=== PATIENT | female | born 1940 | race Caucasian/White ===

== ENCOUNTER 2017-01-21 09:26 | Inpatient (IN) | payer OTHER, MEDICARE ==
[~2017-01-21] VITALS: Ht 160 cm; Wt 65.5 kg
[~2017-01-21 09:26] MED LIST: ACET-1311 PO; ATOR-26 PO; B-COCAP2 PO; BISA10SU38 PR; CAL PO; CHOL20005 PO; CRG25 PO; CYAN250T PO; DEXT40GE PO; DOCU100T7 PO; EPOE10003 IV; GLGKIT IM; HYDCR1CL TP; HYDR-4717 PO; INSDGI SC; IRON20IN IV; ISOS-10 PO; LIDO1CRE16 TOP; MIRT1TAB27 PO; NTRGSL/4 UT; POLY335019 PO; PRLSR20 PO; SENN-65 PO; SODIENE PR; [UNRECOGNIZED DRUG - OTHER] PO
[2017-01-21] MEDS ORDERED: SODIUM CHLORIDE 0.9% 1000ML 1,000 ML IV SCH (09:36)
[2017-01-21] MEDS ORDERED: MECLIZINE HCL 25 MG TAB PO STA (09:52)
--- NOTE | 2017-01-21 10:00 | DIAGNOSTIC IMAGING REPORT ---
CHEST ONE VIEW PORTABLE CLINICAL HISTORY: Stroke HEADACHE, DIZZINESS. COMPARISON STUDY: 05/31/2016 FINDINGS: The heart is at the upper limits of normal in size. There are postsurgical changes of midline sternotomy. There is no focal pulmonary consolidation. There is no failure. There are no pleural effusions.[ IMPRESSION: No active disease in the chest. Electronically signed by: Guy Edward M.D. 01/21/2017 9:58 AM Dictated Date/Time: 01/21/2017 9:58 AM
[2017-01-21 10:09] LABS: BASO % 0.3 %; BASO ABS # 0.02 K/uL (0-0.2); COMPLETE YES; EOS % 2.9 %; HEMATOCRIT 43.2 % (37-47); IG% 0.3 %; LYMPH % 14.5 %; LYMPH ABS # 1.01 K/uL (1.2-3.4); MEAN CELL VOLUME 107.2 fL (80-100); MEAN CORPUSCULAR HGB CONC 30.8 g/dl (32-36); MEAN PLATELET VOLUME 10.2 fL (7.4-10.4); MONO % 7.8 %; NEUT % 74.2 %; PLATELET COUNT 155 K/uL (130-400); RED BLOOD COUNT 4.03 M/uL (4.2-5.4); WHITE BLOOD COUNT 6.96 K/uL (4.8-10.8)
--- NOTE | 2017-01-21 10:16 | DIAGNOSTIC IMAGING REPORT ---
CT HEAD WITHOUT CONTRAST (CT) CLINICAL HISTORY: Stroke HISTORY OF CEREBRAL HEMORRHAGE, dizziness COMPARISON STUDY: 06/16/2016 TECHNIQUE: Axial CT of the brain is performed from the vertex to the skull base. IV contrast was not administered for this examination. CT DOSE: k FINDINGS: No intra or extra-axial mass lesions are visualized. There is no CT evidence of acute cortical infarction. There is no evidence of midline shift. There is no acute hemorrhage. No calvarial fractures are visualized. There are moderate white matter hypodensities likely on a small vessel basis. There is an old lacunar infarct within the left thalamus. There is mild ventricular dilatation, likely secondary to volume loss There is a left maxillary sinus retention cyst. IMPRESSION: 1. Interval resolution of the previously identified right-sided subdural hematoma 2. No evidence of acute hemorrhage 3. White matter hypodensities likely on a small vessel basis Electronically signed by: Guy Edward M.D. 01/21/2017 10:15 AM Dictated Date/Time: 01/21/2017 10:10 AM
[2017-01-21 10:25] LABS: INR 1.1 (0.9-1.1); PARTIAL THROMBOPLASTIN RATIO 1.1; PROTHROMBIN TIME (PATIENT) 11.6 SECONDS (9.0-12.0)
[2017-01-21] MEDS ORDERED: SODIUM CHLORIDE 0.9% 500ML 500 ML IV STA (10:33)
[2017-01-21 10:47] LABS: BUN/CREATININE RATIO 7.9 (10-20); CREATININE 6.7 mg/dl (0.60-1.20); POTASSIUM 4.8 mmol/L (3.5-5.1)
[2017-01-21] MEDS ORDERED: CYAN500T PO (10:56)
[2017-01-21] MEDS ORDERED: CALC667C4 PO (10:56)
[2017-01-21] MEDS ORDERED: MIRT15TA PO (10:56)
[2017-01-21] MEDS ORDERED: MELA1TAB5 PO (10:56)
[2017-01-21] MEDS ORDERED: B-CO1CAP17 PO (10:56)
[2017-01-21] MEDS ORDERED: IRON20IN INJ (11:03)
[2017-01-21] MEDS ORDERED: [UNRECOGNIZED DRUG - CODE] SQ (11:03)
--- NOTE | 2017-01-21 11:08 | EMERGENCY ROOM VISIT NOTE ---
History Report prepared by Rajiv: Prieto Haider Under the Supervision of: Dr. Dinh Beltran M.D. First contact with patient: 09:34 Chief Complaint: HEADACHE Stated Complaint: BRAIN BLEED IN OCT, HEADACHE, DIZZY, SICK History of Present Illness The patient is a 76 year old female who presents to the Emergency Room with complaints of a constant headache starting a few days ago. The patient states that she gets dialysis every Wednesday, Wednesday, and Wednesday, and the other day she was laying down, when she woke up she was very dizzy. The patient additionally states that she is seeing double, and it is worse when she puts her head a certain way. The patient additionally states that she had a previous brain bleed after she hit her head on the left side. Source of History: patient Onset: a few days ago Position: head Quality: ache Timing: constant Note: Associated symptoms: Dizziness and seeing double Review of Systems See HPI for pertinent positives & negatives. A total of 10 systems reviewed and were otherwise negative. Past Medical & Surgical Medical Problems: (1) Anemia of renal disease (2) CAD (coronary artery disease) (3) CHF (congestive heart failure) (4) CKD (chronic kidney disease), stage IV (5) DM (diabetes mellitus) (6) Dyslipidemia (7) End stage renal disease (8) Hemodialysis patient (9) HTN (hypertension) (10) Hx of subdural hematoma (11) Rectal cancer (12) Stroke (13) Subdural hematoma (14) Vertigo (15) Weakness Surgical Problems: (1) H/O tubal ligation (2) H/O: hysterectomy (3) History of carpal tunnel surgery (4) History of incisional hernia repair (5) History of lumbar surgery (6) History of partial surgical removal of colon (7) S/p A-port placement (8) S/P appendectomy (9) S/P CABG x 4 Family History Diabetes mellitus SISTER BROTHER FH: CAD (coronary artery disease) FATHER SISTER FH: cancer BROTHER (lung CA) MOTHER (lymphoma) DAUGHTER (breast CA) Social History Smoking Status: Never Smoker Alcohol Use: none Drug Use: none Marital Status: Housing Status: lives with family, residential Occupation Status: retired Current/Historical Medications Scheduled Atorvastatin (Lipitor), 80 MG PO HS Calcium Acetate (Phoslo 667 Mg), 1 CAP PO TIDM Carvedilol (Carvedilol), 25 MG PO BID Cholecalciferol (Vitamin D3), 2,000 INTER.UNIT PO DAILY Cyanocobalamin (Vitamin B-12), 500 MCG PO DAILY Docusate Sodium (Stool Softener), 100 MG PO BID Insulin Glargine (Lantus), 10 UNITS SC HS Iron Sucrose (Venofer), 100 MG INJ UD Isosorbide Mononitrate (Isosorbide Mononitrate ER), 60 MG PO QAM Melatonin (Kp Melatonin), 1 TAB PO HS Methoxy Polyethylene Glycol-Ep (Mircera), 200 MCG SQ Q14D Mirtazapine (Remeron), 15 MG PO HS Omeprazole (Prilosec), 40 MG PO DAILY Vitamin B Cmplx/Vitc/Folic Ac (Nephrocaps), 1 CAP PO DAILY [2 César/cc Supplement], 120 ML PO TID Scheduled PRN Acetaminophen (Tylenol), 650 MG PO Q6H PRN for Pain Dextrose (Diabetic Use) (Insta-Glucose), 1 APPLN PO UD PRN for HYPOGLYCEMIA PROTOCOL Glucagon (Glucagon Emergency Kit), 1 MG IM UD PRN for HYPOGLYCEMIA PROTOCOL Hydrocortisone 1% (Hydrocortisone 1%), 1 APPLN TP Q4H PRN for Itching Nitroglycerin (Nitrostat), 0.4 MG UT UD PRN for Chest Pain Allergies Coded Allergies: BEE STING (Verified Allergy, Unknown, ANAPHYLAXIS, 05/15/16) Erythromycin (Verified Allergy, Unknown, reaction unknown, 05/15/16) Hydromorphone (Verified Allergy, Unknown, hard to wake up, 01/21/17) Iodinated Diagnostic Agents (Verified Allergy, Unknown, ITCHY/HIVES, ) Morphine (Unverified Allergy, Unknown, hives/rash, 01/21/17) Penicillins (Verified Allergy, Unknown, HIVES, 05/15/16) Oxycodone (Verified Adverse Reaction, Mild, CAUSES ITCHING, 05/15/16) Amlodipine (Verified Adverse Reaction, Unknown, DIZZY, GI UPSET, 05/15/16) Codeine (Verified Adverse Reaction, Unknown, HALLUCINATES, 05/15/16) Neomycin (Verified Adverse Reaction, Unknown, vomit, 05/15/16) Physical Exam Vital Signs Date Time Temp Pulse Resp B/P (MAP) Pulse Ox O2 Delivery O2 Flow Rate FiO2 01/21/17 13:19 36.5 68 22 185/67 90 Room Air 01/21/17 12:45 61 22 185/67 100 Room Air 01/21/17 10:34 71 01/21/17 10:28 97 Room Air 01/21/17 09:29 36.5 91 17 140/67 97 Room Air Physical Exam GENERAL: Patient is a healthy-appearing well-nourished female HEAD: No evidence of meningitis or encephalitis. Normocephalic atraumatic EYES: Ocular movements intact pupils equal and react to light OROPHARYNX mucous membranes are moist no exudates present no erythema or edema present NECK: Supple no nuchal rigidity CHEST: Good equal expansion LUNGS: Clear and equal to auscultation CARDIAC: Normal S1 and S2 ABDOMEN: Soft nontender no guarding BACK: No CVA tenderness EXTREMITIES: No pain upon palpation normal muscle strength in all groups no clubbing cyanosis or edema NEURO: Patient is following commands and answering questions appropriately. Alert and oriented x3 Cranial Nerves 2-12 grossly intact Medical Decision & Procedures ER Provider Diagnostic Interpretation: Radiology results as stated below per my review and radiologist interpretation: CT HEAD WITHOUT CONTRAST (CT) CLINICAL HISTORY: Stroke HISTORY OF CEREBRAL HEMORRHAGE, dizziness COMPARISON STUDY: 06/16/2016 TECHNIQUE: Axial CT of the brain is performed from the vertex to the skull base. IV contrast was not administered for this examination. CT DOSE: k FINDINGS: No intra or extra-axial mass lesions are visualized. There is no CT evidence of acute cortical infarction. There is no evidence of midline shift. There is no acute hemorrhage. No calvarial fractures are visualized. There are moderate white matter hypodensities likely on a small vessel basis. There is an old lacunar infarct within the left thalamus. There is mild ventricular dilatation, likely secondary to volume loss There is a left maxillary sinus retention cyst. IMPRESSION: 1. Interval resolution of the previously identified right-sided subdural hematoma 2. No evidence of acute hemorrhage 3. White matter hypodensities likely on a small vessel basis Electronically signed by: Guy Edward M.D. 01/21/2017 10:15 AM Dictated Date/Time: 01/21/2017 10:10 AM CHEST ONE VIEW PORTABLE CLINICAL HISTORY: Stroke HEADACHE, DIZZINESS. COMPARISON STUDY: 05/31/2016 FINDINGS: The heart is at the upper limits of normal in size. There are postsurgical changes of midline sternotomy. There is no focal pulmonary consolidation. There is no failure. There are no pleural effusions.[ IMPRESSION: No active disease in the chest. Electronically signed by: Guy Edward M.D. 01/21/2017 9:58 AM Dictated Date/Time: 01/21/2017 9:58 AM Laboratory Results 01/21/17 09:50 Red Blood Count 4.03, Mean Corpuscular Volume 107.2, Mean Corpuscular Hemoglobin 33.0, Mean Corpuscular Hemoglobin Concent 30.8, Mean Platelet Volume 10.2, Neutrophils (%) (Auto) 74.2, Lymphocytes (%) (Auto) 14.5, Monocytes (%) ( Auto) 7.8, Eosinophils (%) (Auto) 2.9, Basophils (%) (Auto) 0.3, Neutrophils # ( Auto) 5.17, Lymphocytes # (Auto) 1.01, Monocytes # (Auto) 0.54, Eosinophils # ( Auto) 0.20, Basophils # (Auto) 0.02 01/21/17 09:50 Test 01/21/17 09:50 01/21/17 10:28 White Blood Count 6.96 K/uL (4.8-10.8) Red Blood Count 4.03 M/uL (4.2-5.4) Hemoglobin 13.3 g/dL (12.0-16.0) Hematocrit 43.2 % (37-47) Mean Corpuscular Volume 107.2 fL (80-100) Mean Corpuscular Hemoglobin 33.0 pg (25-34) Mean Corpuscular Hemoglobin Concent 30.8 g/dl (32-36) Platelet Count 155 K/uL (130-400) Mean Platelet Volume 10.2 fL (7.4-10.4) Neutrophils (%) (Auto) 74.2 % Lymphocytes (%) (Auto) 14.5 % Monocytes (%) (Auto) 7.8 % Eosinophils (%) (Auto) 2.9 % Basophils (%) (Auto) 0.3 % Neutrophils # (Auto) 5.17 K/uL (1.4-6.5) Lymphocytes # (Auto) 1.01 K/uL (1.2-3.4) Monocytes # (Auto) 0.54 K/uL (0.11-0.59) Eosinophils # (Auto) 0.20 K/uL (0-0.5) Basophils # (Auto) 0.02 K/uL (0-0.2) RDW Standard Deviation 71.4 fL (36.4-46.3) RDW Coefficient of Variation 17.9 % (11.5-14.5) Immature Granulocyte % (Auto) 0.3 % Immature Granulocyte # (Auto) 0.02 K/uL (0.00-0.02) Prothrombin Time 11.6 SECONDS (9.0-12.0) Prothromb Time International Ratio 1.1 (0.9-1.1) Activated Partial Thromboplast Time 27.8 SECONDS (21.0-31.0) Partial Thromboplastin Ratio 1.1 Anion Gap 9.0 mmol/L (3-11) Est Creatinine Clear Calc Drug Dose 6.6 ml/min Estimated GFR () 6.4 Estimated GFR (Non- 5.6 BUN/Creatinine Ratio 7.9 (10-20) Calcium Level 9.0 mg/dl (8.5-10.1) Total Creatine Kinase 65 U/L (26-192) Creatine Kinase MB 2.6 ng/ml (0.5-3.6) Creatine Kinase MB Ratio 4.0 (0-3.0) Troponin I 0.026 ng/ml (0-0.045) Bedside Prothrombin Time INR 1.2 (0.9-1.1) Bedside Glucose 197 mg/dl (70-90) Labs reviewed by ED physician. Medications Administered Medications (Trade) Dose Ordered Sig/Marlon Route Start Time Stop Time Status Last Admin Dose Admin Sodium Chloride 1,000 ml @ 50 mls/hr Q20H IV 01/21/17 09:36 01/21/17 15:22 DC 01/21/17 11:17 50 MLS/HR Meclizine HCl (Antivert Tab) 25 mg NOW STAT PO 01/21/17 09:52 01/21/17 09:53 DC 01/21/17 11:00 25 MG Sodium Chloride 500 ml @ 999 mls/hr Q31M STAT IV 01/21/17 10:33 01/21/17 11:03 DC 7/13/17 11:17 999 MLS/HR ED Course 0934: Past medical records reviewed. The patient was evaluated in room B5. A complete history and physical examination was performed. 0936: Sodium Chloride 1000 ml @ 50 mls/hr 0952: Antivert Tab 25mg PO 1033: Sodium Chloride 500 ml @ 999 mls/hr IV 1255: I reassessed the patient, and she was resting. 1305: I discussed the patient's case with Leonardo Jhaveri. He is going to evaluate the patient for further treatment Medical Decision Differential diagnosis: Etiologies such as migraine headache, meningitis, sinusitis, CO exposure, ICH, SAH, infection, tumor, headache, sinus thrombosis, arterial dissection, as well as others were entertained. Blood Pressure Screening: Patient was found to have an elevated blood pressure and was referred to their primary care doctor for recheck and further treatment Medication Reconciliation: I attest that I have personally reviewed the patient' s current medication list This is a 76-year-old female who presents emergency department complaining of double vision as well as dizziness that started acutely. I'm concerned the patient may of had a stroke. She was sent for CAT scan of the head which did not show any acute process. I then attempted to send the patient for an MRI however she was unable to tolerate this. Being still concerned about the patient's status I did discuss the case with the hospitalist service who agreed to admit the patient. Patient and family were in agreement with the treatment plan. Consults Time Called: 1301 Consulting Physician: Leonardo Jhaveri Returned Call: 1305 I discussed the patient's case with Leonardo Jhaveri. He is going to evaluate the patient for further treatment Impression Primary Impression: Dizziness Additional Impression: Diplopia Scribe Attestation The scribe's documentation has been prepared under my direction and personally reviewed by me in its entirety. I confirm that the note above accurately reflects all work, treatment, procedures, and medical decision making performed by me. Departure Information Dispostion Being Evaluated By Hospitalist Referrals Concha Velasquez D.O. (PCP) Patient Instructions [facility] Problem Qualifiers
[2017-01-21 13:19] VITALS: BP 185/67; PULSE 68; TEMP 36.5; O2SAT 90; Ht 160 cm; Wt 65.5 kg
[2017-01-21] MEDS ORDERED: ALUMINUM/MAGNESIUM/SIMETH (MAALOX MAX) 30 ML UDC PO PRN (13:30)
[2017-01-21] MEDS ORDERED: GLUCOSE 10 TABS/TUBE PO PRN (13:30)
[2017-01-21] MEDS ORDERED: DEXTROSE 50% 50 ML SYR IV PRN (13:30)
[2017-01-21] MEDS ORDERED: ZOLPIDEM TARTRATE 5 MG TAB PO PRN (13:30)
[2017-01-21] MEDS ORDERED: GLUCOSE 40% GEL 15 GM TUBE PO PRN (13:30)
[2017-01-21] MEDS ORDERED: POLYETHYLENE (MIRALAX) 17 GM PACK PO PRN (13:30)
[2017-01-21] MEDS ORDERED: MAGNESIUM HYDROXIDE SUSP 30 ML UDC PO PRN (13:30)
[2017-01-21] MEDS ORDERED: NITROGLYCERIN 0.4 MG SL PER TAB CHARGE UT PRN (13:30)
[2017-01-21] MEDS ORDERED: MECLIZINE HCL 25 MG TAB PO PRN (13:30)
[2017-01-21] MEDS ORDERED: ONDANSETRON INJ 2 MG/ML 2 ML VIAL IV PRN (13:30)
[2017-01-21] MEDS ORDERED: GLUCAGON FOR INJ 1 MG VIAL SQ PRN (13:30)
[2017-01-21] MEDS ORDERED: ACETAMINOPHEN 325 MG TAB PO PRN ×2 (13:30)
[2017-01-21] MEDS ORDERED: PHARMACY GLYCEMIC MGMT CONSULT PRN (14:00)
--- NOTE | 2017-01-21 14:32 | Pharmacy Progress Note ---
Glycemic Control Intl Consult Date of Service Jan 21, 2017. Scope Glycemic Pharmacist consulted by Dr Bonilla on 01/21/2017 for glycemic control and to write orders per [facility] inpatient glycemic control protocol Objective Weight (Kilograms): 64.000 Accuchecks BSG (last 24hrs): Test 01/21/17 09:50 01/21/17 10:28 Random Glucose 184 mg/dl (70-99) Bedside Glucose 197 mg/dl (70-90) Laboratory Data (last 24hrs) Test 01/21/17 09:50 Anion Gap 9.0 mmol/L BUN/Creatinine Ratio 7.9 Blood Urea Nitrogen 54 mg/dl Creatinine 6.70 mg/dl Potassium Level 4.8 mmol/L Sodium Level 136 mmol/L White Blood Count 6.96 K/uL Red Blood Count 4.03 M/uL Hemoglobin 13.3 g/dL Hematocrit 43.2 % Mean Corpuscular Volume 107.2 fL Mean Corpuscular Hemoglobin 33.0 pg Mean Corpuscular Hemoglobin Concent 30.8 g/dl Platelet Count 155 K/uL Mean Platelet Volume 10.2 fL Neutrophils (%) (Auto) 74.2 % Lymphocytes (%) (Auto) 14.5 % Monocytes (%) (Auto) 7.8 % Eosinophils (%) (Auto) 2.9 % Basophils (%) (Auto) 0.3 % Neutrophils # (Auto) 5.17 K/uL Lymphocytes # (Auto) 1.01 K/uL Monocytes # (Auto) 0.54 K/uL Eosinophils # (Auto) 0.20 K/uL Basophils # (Auto) 0.02 K/uL Recent Pertinent Medications Outpatient Anti-diabetic Regimen: * Lantus 10 units qHS (last taken 01/20/2017) * A1c = 5.9 % 06/06/2016 Risk Factors for Insulin Resistance: * Diet: type 2 diabetic diet Assessment & Plan ASSESSMENT: * ADA & AACE recommend a goal blood sugar range 140-180 mg/dl for the majority of critically ill & non-critically ill patients. However, more stringent targets may be selected in individual cases. Will utilize more stringent goal of 120-160mg/dl based on patient age & comorbidities. Additionally, tighter glycemic control is warranted due to the patient's complex history including current condition of diplopia. * Ms Prajapati is a 76 y/o F admitted with a several day long headache and diplopia. She has a PMH of dialysis on MWF and intracranial hemorrhage April 2016. She has had several previous admissions. During the last admission in 2015 , the patient received Lantus 5 units daily plus a lose correctional insulin. This provided adequate glycemic control. * As the patient is maintained on Lantus 10 units as an outpatient, I slightly reduced the Lantus dose to 8 units (a 20% reduction for inpatient use) and added a weight-based stress of two sliding scale. This should provide additional meal coverage. PLAN FOR INPATIENT GLYCEMIC CONTROL: * Basal insulin with LANTUS 8 units SQ qHS * Correctional Insulin with NOVOLOG per scale ACHS * Goal Range: Low 120 mg/dL - High 160 mg/dL * Correction Factor: 35 mg/dL/unit * Nutritional / Prandial insulin per carb ratio of 1 unit per 12 grams CHO consumed * Please note that the plan above was derived based on current level of insulin resistance and hospital stress. These recommendations are appropriate for inpatient admission only. Plan of care upon discharge will need to be reassessed to avoid potential outpatient hypo/hyperglycemia. Thank you.
[2017-01-21 15:56] VITALS: BP 134/65; PULSE 73; TEMP 36.7; O2SAT 96
--- NOTE | 2017-01-21 16:05 | History and Physical ---
History & Physical Date & Time of Service: Jan 21, 2017 at 15:43 Chief Complaint: Hx Of Subdural Hematoma, Vertigo Primary Care Physician: Concha Velasquez D.O. History of Present Illness Source: patient, family, clinic records, hospital records This is a 76 year old female with a PMH of CAD s/p CABG, hx. of traumatic subdural hematoma in April 2016, ESRD on HD, HTN, anemia of renal disease, well controlled DM2 presents with 2-3 day history of dizziness, blurry vision, vertigo, nausea - states that she had hemodialysis on Wednesday and since then she has been feeling very dizzy and felt as if the room is spinning; she states that she is seeing double and very nauseous. Has had a subdural hematoma, but that has been resolved without surgical intervention. Received HD on Wednesday as well, but today she felt even worse and presented to the ER. Could not take part in MRI due to dizziness and loud noises. States if her headache went away, she may be able to take part. Denies chest pain/shortness of breath. States that dizziness is worse with head movement to the L side. Past Medical/Surgical History Medical Problems: (1) Anemia of renal disease Status: Chronic (2) CAD (coronary artery disease) Status: Chronic (3) CHF (congestive heart failure) Status: Chronic (4) CKD (chronic kidney disease), stage IV Status: Chronic (5) DM (diabetes mellitus) Status: Chronic (6) Dyslipidemia Status: Chronic (7) End stage renal disease Status: Chronic (8) Hemodialysis patient Status: Chronic (9) HTN (hypertension) Status: Chronic (10) Rectal cancer Status: Chronic (11) Stroke Status: Resolved (12) Subdural hematoma Status: Chronic Surgical Problems: (1) H/O tubal ligation Status: Chronic (2) H/O: hysterectomy Status: Chronic (3) History of carpal tunnel surgery Status: Chronic (4) History of incisional hernia repair Status: Chronic (5) History of lumbar surgery Status: Chronic (6) History of partial surgical removal of colon Permanent Comment: Low anterior resection with primary anastomosis; proctoscopy 06/27/09 Status: Chronic (7) S/p A-port placement Permanent Comment: removed in 2011 Status: Chronic (8) S/P appendectomy Status: Chronic (9) S/P CABG x 4 Status: Chronic Family History Diabetes mellitus SISTER BROTHER FH: CAD (coronary artery disease) FATHER SISTER FH: cancer BROTHER (lung CA) MOTHER (lymphoma) DAUGHTER (breast CA) Social History Smoking Status: Never Smoker Drug Use: none Marital Status: Housing status: lives with significant other, prison Occupational Status: retired Immunizations History of Influenza Vaccine: No History of Tetanus Vaccine?: Yes History of Pneumococcal: Unknown History of Hepatitis B Vaccine: Unknown Multi-Drug Resistant Organisms History of MDRO: No Allergies Coded Allergies: BEE STING (Verified Allergy, Unknown, ANAPHYLAXIS, 05/15/16) Erythromycin (Verified Allergy, Unknown, reaction unknown, 05/15/16) Hydromorphone (Verified Allergy, Unknown, hard to wake up, 01/21/17) Iodinated Diagnostic Agents (Verified Allergy, Unknown, ITCHY/HIVES, ) Morphine (Unverified Allergy, Unknown, hives/rash, 01/21/17) Penicillins (Verified Allergy, Unknown, HIVES, 05/15/16) Oxycodone (Verified Adverse Reaction, Mild, CAUSES ITCHING, 05/15/16) Amlodipine (Verified Adverse Reaction, Unknown, DIZZY, GI UPSET, 05/15/16) Codeine (Verified Adverse Reaction, Unknown, HALLUCINATES, 05/15/16) Neomycin (Verified Adverse Reaction, Unknown, vomit, 05/15/16) Home Medications Scheduled Atorvastatin (Lipitor), 80 MG PO HS Calcium Acetate (Phoslo 667 Mg), 1 CAP PO TIDM Carvedilol (Carvedilol), 25 MG PO BID Cholecalciferol (Vitamin D3), 2,000 INTER.UNIT PO DAILY Cyanocobalamin (Vitamin B-12), 500 MCG PO DAILY Docusate Sodium (Stool Softener), 100 MG PO BID Insulin Glargine (Lantus), 10 UNITS SC HS Iron Sucrose (Venofer), 100 MG INJ UD Isosorbide Mononitrate (Isosorbide Mononitrate ER), 60 MG PO QAM Melatonin (Kp Melatonin), 1 TAB PO HS Methoxy Polyethylene Glycol-Ep (Mircera), 200 MCG SQ Q14D Mirtazapine (Remeron), 15 MG PO HS Omeprazole (Prilosec), 40 MG PO DAILY Vitamin B Cmplx/Vitc/Folic Ac (Nephrocaps), 1 CAP PO DAILY [2 César/cc Supplement], 120 ML PO TID Scheduled PRN Acetaminophen (Tylenol), 650 MG PO Q6H PRN for Pain Dextrose (Diabetic Use) (Insta-Glucose), 1 APPLN PO UD PRN for HYPOGLYCEMIA PROTOCOL Glucagon (Glucagon Emergency Kit), 1 MG IM UD PRN for HYPOGLYCEMIA PROTOCOL Hydrocortisone 1% (Hydrocortisone 1%), 1 APPLN TP Q4H PRN for Itching Nitroglycerin (Nitrostat), 0.4 MG UT UD PRN for Chest Pain Review of Systems Constitutional: No fever, No chills, No sweats, No weakness, No fatigue Eyes: + worsening of vision, + diplopia ENT: No hearing loss Respiratory: No cough, No sputum, No wheezing, No shortness of breath, No dyspnea on exertion, No dyspnea at rest, No hemoptysis Cardiovascular: No chest pain, No edema, No palpitations Abdomen: + nausea, No pain, No vomiting, No diarrhea, No constipation, No GI bleeding Genitourinary - Female: + problem reported (anuria) Neurologic: + vertigo, + balance problems, No paralysis, No numbness/tingling Psychiatric: No depression symptoms Hematologic / Lymphatic: No abnormal bleeding/bruising Integumentary: No rash Allergic / Immunologic: No environmental allergies, No seasonal allergies Physical Exam Vital Signs Date Time Temp Pulse Resp B/P (MAP) Pulse Ox O2 Delivery O2 Flow Rate FiO2 01/21/17 15:12 76 18 171/89 98 01/21/17 13:19 36.5 68 22 185/67 90 Room Air 01/21/17 12:45 61 22 185/67 100 Room Air 01/21/17 10:34 71 01/21/17 10:28 97 Room Air 01/21/17 09:29 36.5 91 17 140/67 97 Room Air General Appearance: + moderate distress (secondary to headache, dizziness, nausea) Head: normocephalic, atraumatic Eyes: normal inspection ENT: hearing grossly normal Neck: supple Respiratory/Chest: chest non-tender, lungs clear, normal breath sounds, no respiratory distress, no accessory muscle use Cardiovascular: regular rate, rhythm, no edema, no murmur Abdomen/GI: normal bowel sounds, non tender, soft Back: no CVA tenderness, no muscle spasm Extremities/Musculoskelatal: normal capillary refill, no pedal edema 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, no motor/sensory deficits, alert, normal mood/affect Skin: normal color Lymphatic: no adenopathy Diagnostics Laboratory Results Results Past 24 Hours Test 01/21/17 09:50 01/21/17 10:28 Range/Units White Blood Count 6.96 4.8-10.8 K/uL Red Blood Count 4.03 4.2-5.4 M/uL Hemoglobin 13.3 12.0-16.0 g/dL Hematocrit 43.2 37-47 % Mean Corpuscular Volume 107.2 80-100 fL Mean Corpuscular Hemoglobin 33.0 25-34 pg Mean Corpuscular Hemoglobin Concent 30.8 32-36 g/dl Platelet Count 155 130-400 K/uL Mean Platelet Volume 10.2 7.4-10.4 fL Neutrophils (%) (Auto) 74.2 % Lymphocytes (%) (Auto) 14.5 % Monocytes (%) (Auto) 7.8 % Eosinophils (%) (Auto) 2.9 % Basophils (%) (Auto) 0.3 % Neutrophils # (Auto) 5.17 1.4-6.5 K/uL Lymphocytes # (Auto) 1.01 1.2-3.4 K/uL Monocytes # (Auto) 0.54 0.11-0.59 K/uL Eosinophils # (Auto) 0.20 0-0.5 K/uL Basophils # (Auto) 0.02 0-0.2 K/uL RDW Standard Deviation 71.4 36.4-46.3 fL RDW Coefficient of Variation 17.9 11.5-14.5 % Immature Granulocyte % (Auto) 0.3 % Immature Granulocyte # (Auto) 0.02 0.00-0.02 K/uL Prothrombin Time 11.6 9.0-12.0 SECONDS Prothromb Time International Ratio 1.1 0.9-1.1 Activated Partial Thromboplast Time 27.8 21.0-31.0 SECONDS Partial Thromboplastin Ratio 1.1 Sodium Level 136 136-145 mmol/L Potassium Level 4.8 3.5-5.1 mmol/L Chloride Level 95 98-107 mmol/L Carbon Dioxide Level 32 21-32 mmol/L Anion Gap 9.0 3-11 mmol/L Blood Urea Nitrogen 54 7-18 mg/dl Creatinine 6.70 0.60-1.20 mg/dl Est Creatinine Clear Calc Drug Dose 6.6 ml/min Estimated GFR () 6.4 Estimated GFR (Non- 5.6 BUN/Creatinine Ratio 7.9 10-20 Random Glucose 184 70-99 mg/dl Calcium Level 9.0 8.5-10.1 mg/dl Total Creatine Kinase 65 26-192 U/L Creatine Kinase MB 2.6 0.5-3.6 ng/ml Creatine Kinase MB Ratio 4.0 0-3.0 Troponin I 0.026 0-0.045 ng/ml Bedside Prothrombin Time INR 1.2 0.9-1.1 Bedside Glucose 197 70-90 mg/dl Diagnostic Radiology CHEST ONE VIEW PORTABLE CLINICAL HISTORY: Stroke HEADACHE, DIZZINESS. COMPARISON STUDY: 05/31/2016 FINDINGS: The heart is at the upper limits of normal in size. There are postsurgical changes of midline sternotomy. There is no focal pulmonary consolidation. There is no failure. There are no pleural effusions.[ IMPRESSION: No active disease in the chest. CT HEAD WITHOUT CONTRAST (CT) CLINICAL HISTORY: Stroke HISTORY OF CEREBRAL HEMORRHAGE, dizziness COMPARISON STUDY: 06/16/2016 TECHNIQUE: Axial CT of the brain is performed from the vertex to the skull base. IV contrast was not administered for this examination. CT DOSE: k FINDINGS: No intra or extra-axial mass lesions are visualized. There is no CT evidence of acute cortical infarction. There is no evidence of midline shift. There is no acute hemorrhage. No calvarial fractures are visualized. There are moderate white matter hypodensities likely on a small vessel basis. There is an old lacunar infarct within the left thalamus. There is mild ventricular dilatation, likely secondary to volume loss There is a left maxillary sinus retention cyst. IMPRESSION: 1. Interval resolution of the previously identified right-sided subdural hematoma 2. No evidence of acute hemorrhage 3. White matter hypodensities likely on a small vessel basis EKG Normal sinus rhythm Possible Left atrial enlargement Inferior infarct , age undetermined Anterior infarct , age undetermined ST & T wave abnormality, consider lateral ischemia Prolonged QT Impression Assessment and Plan This is a 76 year old female with a PMH of CAD s/p CABG, hx. of traumatic subdural hematoma in April 2016, ESRD on HD, HTN, anemia of renal disease, well controlled DM2 presents with 2-3 day history of dizziness, blurry vision, vertigo, nausea Vertigo seems more like a typical positional vertigo worse with head rotation to the L PT consulted for [facility] PT/OT evaluation meclizine PRN Zofran PRN Head CT negative check Brain MRI Hx. of Traumatic Subdural Hematoma in April 2016, was at [facility] no surgery performed improving condition, Head CT obtained; hematoma resolved would like to rule out CVA by obtaining additional imagining Brain MRI/MRA - will need better nausea to obtain this as patient did not tolerate it ESRD on HD receives hemodialysis on M, W, F consulted nephrology HD management continue nephrocaps/vitamins renal diet CAD s/p CABG no chest pain/SOB initial troponin negative, EKG looks similar to previous continue statin, b-sukhjinder, Imdur no aspirin due to hx. of brain bleed DM2 well controlled last Ha1c = 6.6% for now continue insulin, may need to be tapered off as outpatient to prevent hypoglycemia HTN blood pressure stable with medications, continue current meds DVT ppx SCDs secondary to brain bleed FULL CODE Advanced Directives Existing Living Will: Yes Existing Power of Strapping Machine Tender: Yes VTE Prophylaxis VTE Risk Assessment Done? Y/N: Yes Risk Level: Moderate
[2017-01-21] MEDS: INSULIN ASPART 100 UNITS/ML 3 ML PEN SC SCH ×2 (16:30→20:10)
--- NOTE | 2017-01-21 16:37 | Nephrology Consultation ---
Nephrology Consultation Date of Consultation: Jan 21, 2017. Attending Physician: Chad Reason for Consultation: ESRD History of Present Illness Patient is a 76 year old female who dialyzes at the [facility] on . last dialysis treatment was wednesday. pt has been having vertigo since wednesday. pt seeing double. does not seem to improve off dialysis or worsen with dialysis. pt with hx of traumatic subdural hematoma april of 2016 and has underlyind CAD with CABG. pt does not urinate much but no sob and has been watching her fluid intake carefully. pt eating dinner and resting comfortably. Past Medical/Surgical History Medical Problems: (1) Acute kidney failure Status: Acute (2) Cellulitis of antecubital fossa Status: Acute (3) Cellulitis of leg, left Status: Acute (4) CKD (chronic kidney disease) Status: Acute (5) Constipation Status: Acute (6) Diarrhea Status: Acute (7) Diplopia Status: Acute (8) Dizziness Status: Acute (9) Subdural hematoma Status: Acute (10) Vomiting Status: Acute ESRD Subdural hematoma CAD tunneled dialysis catheter placement DM Hyperlipidemia rectal cancer hysterectomy tubal ligation appendectomy CABGx4 hernia repair Family History Diabetes mellitus SISTER BROTHER FH: CAD (coronary artery disease) FATHER SISTER FH: cancer BROTHER (lung CA) MOTHER (lymphoma) DAUGHTER (breast CA) Social History Smoking Status: Never Smoker Alcohol Use: none Drug Use: none Marital Status: Housing Status: lives with family, [facility] Occupation Status: retired Allergies Coded Allergies: BEE STING (Verified Allergy, Unknown, ANAPHYLAXIS, 05/15/16) Erythromycin (Verified Allergy, Unknown, reaction unknown, 05/15/16) Hydromorphone (Verified Allergy, Unknown, hard to wake up, 01/21/17) Iodinated Diagnostic Agents (Verified Allergy, Unknown, ITCHY/HIVES, ) Morphine (Unverified Allergy, Unknown, hives/rash, 01/21/17) Penicillins (Verified Allergy, Unknown, HIVES, 05/15/16) Oxycodone (Verified Adverse Reaction, Mild, CAUSES ITCHING, 05/15/16) Amlodipine (Verified Adverse Reaction, Unknown, DIZZY, GI UPSET, 05/15/16) Codeine (Verified Adverse Reaction, Unknown, HALLUCINATES, 05/15/16) Neomycin (Verified Adverse Reaction, Unknown, vomit, 05/15/16) Medications Current Inpatient Medications Medications (Trade) Dose Ordered Sig/Marlon Route Start Time Stop Time Status Last Admin Dose Admin Al Hydrox/Mg Hydrox/Simethicone (Maalox Max Susp) 15 ml Q4H PRN PO 01/21/17 13:30 02/20/17 13:29 Magnesium Hydroxide (Milk Of Magnesia Susp) 30 ml Q12H PRN PO 01/21/17 13:30 02/20/17 13:29 Zolpidem Tartrate (Ambien Tab) 5 mg HSZ PRN PO 01/21/17 13:30 02/20/17 13:29 Ondansetron HCl (Zofran Inj) 4 mg Q6H PRN IV 01/21/17 13:30 02/20/17 13:29 Polyethylene (Miralax Powder Packet) 17 gm DAILY PRN PO 01/21/17 13:30 02/20/17 13:29 Insulin Aspart (novoLOG ASPART) SLIDING SCALE If C... ACHS SC 01/21/17 16:00 02/20/17 15:59 Glucose (Glucose 40% Gel) 15-30 GRAMS 15 GRAMS... UD PRN PO 01/21/17 13:30 02/20/17 13:29 Glucose (Glucose Chew Tab) 4-8 Tablets 4 Tabl... UD PRN PO 01/21/17 13:30 02/20/17 13:29 Dextrose (Dextrose 50% 50ML Syringe) 25-50ML OF 50% DW IV FOR... UD PRN IV 01/21/17 13:30 02/20/17 13:29 Glucagon (Glucagon Inj) 1 mg UD PRN SQ 01/21/17 13:30 02/20/17 13:29 Miscellaneous Information (Consult Glycemic Management Pharmacy) 1 ea UD PRN N/A 01/21/17 14:00 02/20/17 13:59 Meclizine HCl (Antivert Tab) 25 mg TID PRN PO 01/21/17 13:30 02/20/17 13:29 Acetaminophen (Tylenol Tab) 650 mg Q6H PRN PO 01/21/17 13:30 02/20/17 13:29 Atorvastatin Calcium (Lipitor Tab) 80 mg HS PO 01/21/17 21:00 02/20/17 20:59 Calcium Acetate (Phoslo Cap) 667 mg TIDM PO 01/21/17 17:00 02/20/17 17:59 Carvedilol (Coreg Tab) 25 mg BID PO 01/21/17 21:00 02/20/17 20:59 Cyanocobalamin (Vitamin B-12 Tab) 500 mcg DAILY PO 01/22/17 09:00 02/21/17 08:59 Isosorbide Mononitrate (Imdur Ext Rel Tab) 60 mg QAM PO 01/22/17 09:00 02/21/17 08:59 Mirtazapine (Remeron Tab) 15 mg HS PO 01/21/17 21:00 02/20/17 20:59 Nitroglycerin (Nitrostat Tab) 0.4 mg UD PRN UT 01/21/17 13:30 02/20/17 13:29 Vitamin B Complex/ Vit C/Folic Acid (Nephrocaps) 1 cap DAILY PO 01/22/17 09:00 02/21/17 08:59 Cholecalciferol (Vitamin D Tab) 2,000 inter.unit DAILY PO 01/22/17 09:00 02/21/17 08:59 Docusate Sodium (coLACE CAP) 100 mg BID PO 01/21/17 21:00 02/20/17 20:59 Miscellaneous Information (Order Awaiting Action) 1 ea Q8 N/A 01/21/17 16:00 02/20/17 15:59 Pantoprazole Sodium (Protonix Tab) 40 mg DAILY PO 01/22/17 09:00 02/21/17 08:59 Non-Formulary Medication ([2 César/cc Supplement] ) 120 ml TID PO 01/21/17 14:00 02/20/17 13:59 UNV Insulin Glargine (Lantus Solostar Pen) 8 units HS SC 01/21/17 21:00 02/20/17 20:59 Home Meds and Scripts Medications Dose Route/Sig Max Daily Dose Days Date Category Dose Instructions Venofer (Iron Sucrose) 20 Mg/Ml Inj 100 Mg INJ UD 01/21/17 Reported for 10 days last injection should be 01-22-17 Mircera (Methoxy Polyethylene Glycol-Ep) 200 Mcg/0.3 Ml Inj 200 Mcg SQ Q14D 01/21/17 Reported Nephrocaps (Vitamin B Complex/Vit C/Folic Acid) Cap 1 Cap PO DAILY 01/21/17 Reported Remeron (Mirtazapine) 15 Mg Tab 15 Mg PO HS 01/21/17 Reported Kp Melatonin (Melatonin) 3 Mg Tab 1 Tab PO HS 30 01/21/17 Reported Vitamin B-12 (Cyanocobalamin) 500 Mcg Tab 500 Mcg PO DAILY 01/21/17 Reported Phoslo 667 Mg (Calcium Acetate) 667 Mg Cap 1 Cap PO TIDM 01/21/17 Reported Glucagon Emergency Kit (Glucagon) 1 Mg Kit 1 Mg IM UD PRN 06/05/16 Reported NEEDED FOR BLOOD GLUCOSE LESS THAN 60 AND/OR SYMPTOMATIC/UNRESPONSIVE HYPOGLYCEMIA. MAY REPEAT DOSE IN 15 MINUTES IF NEEDED. Insta-Glucose (Dextrose (Diabetic Use)) 77.4 % Gel 1 Appln PO UD PRN 06/05/16 Reported NEEDED FOR BLOOD GLUCOSE LESS THAN 60 AND/OR SYMPTOMATIC HYPOGLYCEMIA, MUST BE RESPONSIVE AND ABLE TO SWALLOW. Hydrocortisone 1% (Hydrocortisone) 90 Appln/30 Gm Cr 1 Appln TP Q4H PRN 06/05/16 Reported APPLY DIRECTED TO ABDOMEN,CHEST,BACK,LEGS. [2 César/cc Supplement] 120 Ml PO TID 06/05/16 Reported Vitamin D3 (Cholecalciferol) 2,000 Unit Tab 2,000 Inter.unit PO DAILY 06/05/16 Reported Prilosec (Omeprazole) 20 Mg Capcr 40 Mg PO DAILY 06/05/16 Reported Lantus (Insulin Glargine) 100 Unit/Ml Inj 10 Units SC HS 06/05/16 Reported Tylenol (Acetaminophen) 325 Mg Tab 650 Mg PO Q6H PRN 05/15/16 Reported NEEDED FOR PAIN RATED 1-10 ON A SCALE OF "0-10" OR FOR TEMPERATURE GREATER THAN 101F. DO NOT EXCEED 3 GM APAP/24 HOURS Lipitor (Atorvastatin Calcium) 80 Mg Tab 80 Mg PO HS 12/27/15 Reported Isosorbide Mononitrate ER (Isosorbide Mononitrate) 60 Mg Tabcr 60 Mg PO QAM 06/03/15 Reported HOLD FOR APICAL HEART RATE LESS THAN 50 Stool Softener (Docusate Sodium) 100 Mg Tab 100 Mg PO BID 12/31/13 Reported Carvedilol 25 Mg Tab 25 Mg PO BID 12/31/13 Reported HOLD FOR APICAL HEART RATE LESS THAN 50 Nitrostat (Nitroglycerin) 0.4 Mg Tab 0.4 Mg UT UD PRN 06/11/[address] ONE TABLET UNDER THE TONGUE EVERY 5 MINUTES FOR UP TO 3 DOSES IF NEEDED FOR CHEST PAIN. CHECK BLOOD PRESSURE BEFORE EACH DOSE, HOLD FOR SYSTOLIC BLOOD PRSSURE LESS THAN 100. Review of Systems Constitutional: + fatigue, No fever, No chills Eyes: + diplopia ENT: No hearing loss Respiratory: No shortness of breath Cardiac: No chest pain Abdomen: + nausea, No vomiting Female : No dysuria Neuro: + weakness Skin: No rash, No itch Physical Exam Date Time Temp Pulse Resp B/P (MAP) Pulse Ox O2 Delivery O2 Flow Rate FiO2 01/21/17 15:56 36.7 73 18 134/65 (88) 96 Room Air 01/21/17 15:12 76 18 171/89 98 01/21/17 13:19 36.5 68 22 185/67 90 Room Air 01/21/17 12:45 61 22 185/67 100 Room Air 01/21/17 10:34 71 01/21/17 10:28 97 Room Air 01/21/17 09:29 36.5 91 17 140/67 97 Room Air General Appearance: no apparent distress Eyes: normal inspection ENT: normal ENT inspection Neck: supple Respiratory/Chest: lungs clear Cardiovascular: regular rate, rhythm, no edema Abdomen: normal bowel sounds, non tender, soft Extremities: normal range of motion Neurologic/Psych: alert Skin: normal color, no rash Diagnostics Last 24 Hours Test 01/21/17 09:50 01/21/17 10:28 White Blood Count 6.96 K/uL Red Blood Count 4.03 M/uL Hemoglobin 13.3 g/dL Hematocrit 43.2 % Mean Corpuscular Volume 107.2 fL Mean Corpuscular Hemoglobin 33.0 pg Mean Corpuscular Hemoglobin Concent 30.8 g/dl Platelet Count 155 K/uL Mean Platelet Volume 10.2 fL Neutrophils (%) (Auto) 74.2 % Lymphocytes (%) (Auto) 14.5 % Monocytes (%) (Auto) 7.8 % Eosinophils (%) (Auto) 2.9 % Basophils (%) (Auto) 0.3 % Neutrophils # (Auto) 5.17 K/uL Lymphocytes # (Auto) 1.01 K/uL Monocytes # (Auto) 0.54 K/uL Eosinophils # (Auto) 0.20 K/uL Basophils # (Auto) 0.02 K/uL RDW Standard Deviation 71.4 fL RDW Coefficient of Variation 17.9 % Immature Granulocyte % (Auto) 0.3 % Immature Granulocyte # (Auto) 0.02 K/uL Prothrombin Time 11.6 SECONDS Prothromb Time International Ratio 1.1 Activated Partial Thromboplast Time 27.8 SECONDS Partial Thromboplastin Ratio 1.1 Sodium Level 136 mmol/L Potassium Level 4.8 mmol/L Chloride Level 95 mmol/L Carbon Dioxide Level 32 mmol/L Anion Gap 9.0 mmol/L Blood Urea Nitrogen 54 mg/dl Creatinine 6.70 mg/dl Est Creatinine Clear Calc Drug Dose 6.6 ml/min Estimated GFR () 6.4 Estimated GFR (Non- 5.6 BUN/Creatinine Ratio 7.9 Random Glucose 184 mg/dl Calcium Level 9.0 mg/dl Total Creatine Kinase 65 U/L Creatine Kinase MB 2.6 ng/ml Creatine Kinase MB Ratio 4.0 Troponin I 0.026 ng/ml Bedside Prothrombin Time INR 1.2 Bedside Glucose 197 mg/dl Assessment & Plan ESRD-plan on dialysis tomorrow. no indication for emergent dialysis. volume status is appropriate. will not be aggressive with fluid removal to see if vertigo improves. plan on a 2k bath. no heparin with history of subdural last fall. Anemia of renal failure-hg levels are above 11. hold procrit for now. follow procrit with goal of 10 to 11. BASIL-on binders and follow phos levels intermittently.
[2017-01-21] MEDS: CALCIUM ACETATE 667MG GELCAP PO SCH (16:44)
[2017-01-21 19:00] VITALS: BP 138/72; PULSE 74; TEMP 36.7; O2SAT 96
[2017-01-21 20:00] VITALS: O2SAT 96
[2017-01-21] MEDS: CARVEDILOL 25 MG TAB PO SCH (20:03)
[2017-01-21] MEDS: MIRTAZAPINE TAB 15 MG TAB PO SCH (20:03)
[2017-01-21] MEDS: ATORVASTATIN 40 MG TAB PO SCH (20:03)
[2017-01-21] MEDS: DOCUSATE SODIUM 100 MG CAP PO SCH (20:04)
[2017-01-21] MEDS ORDERED: INSULIN GLARGINE SOLOSTAR 100 UNITS/ML 3 ML PEN SC SCH ×2 (21:00)
[2017-01-21 23:08] VITALS: BP 145/64; PULSE 66; TEMP 36.5; O2SAT 98
[2017-01-22] VITALS (25 sets, daily range): BP systolic 111–172; BP diastolic 61–86; PULSE 62–86; TEMP 36.5–37; O2SAT 96–99
[2017-01-22 07:07] LABS: URINE APPEARANCE TURBID (CLEAR); URINE BILIRUBIN NEG (NEG); URINE COLOR YELLOW; URINE EPITHELIAL CELL AUTO >30 /lpf (0-5); URINE NITRITE NEG (NEG); URINE SPECIFIC GRAVITY 1.013 (1.000-1.030); UROBILINOGEN NEG (NEG); ZZUR CULT IF INDIC CLEAN CATCH YES
[2017-01-22 07:09] LABS: MANUAL MICROSCOPIC REQUIRED? NO; REVIEW REQ? YES
[2017-01-22 07:13] LABS: HEMATOCRIT 40.3 % (37-47); MEAN CELL VOLUME 106.6 fL (80-100); MEAN CORPUSCULAR HEMOGLOBIN 35.4 pg (25-34); MEAN CORPUSCULAR HGB CONC 33.3 g/dl (32-36); MEAN PLATELET VOLUME 10.6 fL (7.4-10.4); PLATELET COUNT 117 K/uL (130-400); RED BLOOD COUNT 3.78 M/uL (4.2-5.4); WHITE BLOOD COUNT 6.12 K/uL (4.8-10.8)
[2017-01-22 07:53] LABS: BUN/CREATININE RATIO 8.2 (10-20); CALCIUM 8.9 mg/dl (8.5-10.1); CREATININE 8.2 mg/dl (0.60-1.20); POTASSIUM 4.7 mmol/L (3.5-5.1)
[2017-01-22] MEDS: CYANOCOBALAMIN 500 MCG TAB (VIT B-12) PO SCH (07:57)
[2017-01-22] MEDS: DOCUSATE SODIUM 100 MG CAP PO SCH ×2 (07:57→21:19)
[2017-01-22] MEDS: CALCIUM ACETATE 667MG GELCAP PO SCH ×3 (07:57→18:11)
[2017-01-22] MEDS: NEPHROCAPS PO SCH (07:57)
[2017-01-22] MEDS: CHOLECALCIFEROL 1000 INTER.UNIT TAB PO SCH (07:57)
[2017-01-22] MEDS: ISOSORBIDE MONONITRATE 60 MG TABCR PO SCH (07:57)
[2017-01-22] MEDS: CARVEDILOL 25 MG TAB PO SCH ×2 (07:57→21:18)
[2017-01-22] MEDS: PANTOprazole SOD 40 MG TAB PO SCH (07:57)
[2017-01-22] MEDS: INSULIN ASPART 100 UNITS/ML 3 ML PEN SC SCH ×4 (07:59→21:23)
[2017-01-22 08:00] LABS: ESTIMATED AVERAGE GLUCOSE 97 mg/dl; HA1C FLAG Normal (Normal)
--- NOTE | 2017-01-22 08:41 | Clinical Documentation Query ---
QUERY 1 OF [address] PAYNE, In your clinical opinion is this patient being managed for: (X )Possible Urinary tract infection, POA ( ) Other explanation of clinical findings (Please Explain) ( ) Unable to determine (Please Define) ( ) Need to Discuss ( ) Not Agree The medical record reflects the following clinical findings, treatment, and risk factors. Clinical Indicators: 76 yo female presenting with headache and vertigo. UA with large LE, WBC >30, bacteria +4 Treatment: IV fluids, pending urine cx results Risk Factors: gender, DM, ESRD QUERY 2 OF 2 In your clinical opinion is this patient being managed for: ( X ) Chronic combined systolic and diastolic CHF ( ) Other explanation of clinical findings (Please Explain) ( ) Unable to determine (Please Define) ( ) Need to Discuss ( ) Not Agree The medical record reflects the following clinical findings, treatment, and risk factors. Clinical Indicators:Noted history of CHF. ECHO May 2015 showed EF 25-30% with grade II diastolic dysfunction. Treatment:chronic meds include carvedilol, Isosorbide Mononitrate ER. Risk Factors: DM, HTN, ESRD, CAD, age Please clarify and document your clinical opinion in the progress notes and discharge summary. Terms such as "probable", "suspected", "likely", "questionable", "possible", or "still to be ruled out" are acceptable. IF IN AGREEMENT, YOU MUST DOCUMENT ABOVE DIAGNOSTIC STATEMENT IN DAILY PROGRESS NOTES AND DISCHARGE SUMMARY. This document is not part of the patient's record. Thank You, Marina De, RN [phone]
[2017-01-22] MEDS ORDERED: LORAZEPAM 0.5 MG TAB ONE (09:07)
[2017-01-22] MEDS ORDERED: LORAZEPAM 0.5 MG TAB PO ONE (09:15)
--- NOTE | 2017-01-22 10:20 | DIAGNOSTIC IMAGING REPORT ---
MRA HEAD WITHOUT CONTRAST, BRAIN WITHOUT CONTRAST CLINICAL HISTORY: 76-year-old female with double vision. TECHNIQUE: Multisequence, multiplanar MR imaging of the brain was performed without the use of intravenous contrast. Subsequently, MR angiography of the brain was performed without the use of intravenous contrast using 3-D [id number] technique. IV contrast: None. COMPARISON: Correlation made to head CT from 01/21/2017. FINDINGS: MR brain: Diffuse thinning of the corpus callosum as well as ex vacuo dilatation of the ventricular system, consistent with parenchymal volume loss. No restricted diffusion to suggest acute ischemia. Extensive periventricular and subcortical white matter T2/FLAIR hyperintensities, nonspecific but most likely chronic small vessel ischemic change. 2 mm right subdural T1 isointense, T2 hypointense collection consistent with subdural hematoma. No significant mass effect on the underlying right cortex. No acute hemorrhage. T2 skull base flow voids preserved. Orbits normal. Polypoid mucosal thickening in the left maxillary sinus. Upper cervical spine normal. MRA head: Intracranial portions of the bilateral internal carotid arteries patent. Small infundibulum suspected at the origin of the anterior communicating artery, which is poorly visualized. Apparent loss of signal in the proximal left anterior cerebral and middle cerebral arteries, which may be artifactual. The remainder of the anterior circulation is widely patent. Left dominant vertebral artery. Vertebrobasilar system and posterior circulation, including the superior cerebellar and posterior cerebral arteries is patent. Small infundibula suggested likely the origins of the posterior communicating arteries. No significant stenosis, aneurysm, or vessel occlusion. IMPRESSION: 1. Small right subdural hematoma measuring 2 mm mm in thickness. 2. No other acute intracranial pathology. 3. No significant stenosis, aneurysm, or vessel occlusion in the head. Electronically signed by: Quinn Greenberg M.D. 01/22/2017 10:19 AM Dictated Date/Time: 01/22/2017 10:04 AM
--- NOTE | 2017-01-22 10:26 | DIAGNOSTIC IMAGING REPORT ---
MRA NECK WITHOUT CONTRAST CLINICAL HISTORY: 76 years-old Female presenting with double vision. TECHNIQUE: MR angiography of the neck was performed without the use of intravenous contrast. IV contrast: None. COMPARISON: Ultrasound from 06/11/2013. FINDINGS: The presence of median sternotomy wires degrades evaluation of the aortic arch and origins of the cervical vessels. The study is further limited by poor flow related enhancement of the cervical vessels, which is artifactual. Bilateral common carotid and internal carotid arteries patent. Left dominant vertebral artery. Vertebral arteries patent. IMPRESSION: 1. Allowing for degradation of image quality, no significant stenosis of the cervical vessels. Electronically signed by: Quinn Greenberg M.D. 01/22/2017 10:25 AM Dictated Date/Time: 01/22/2017 10:19 AM
--- NOTE | 2017-01-22 13:21 | Pharmacy Progress Note ---
Glycemic Control Progress Note Date of Service Jan 22, 2017. Scope Glycemic Pharmacist consulted for glycemic control to write orders per [facility] inpatient glycemic control protocol. Objective Accuchecks BSG (last 24hrs): Test 01/21/17 16:44 01/21/17 20:09 01/22/17 06:57 01/22/17 07:49 Bedside Glucose 115 mg/dl (70-90) 113 mg/dl (70-90) 87 mg/dl (70-90) Random Glucose 93 mg/dl (70-99) Test 01/22/17 11:18 Bedside Glucose 142 mg/dl (70-90) HbA1c: Test 01/22/17 06:57 Hemoglobin A1c 5.0 % (4.5-5.6) Recent Pertinent Medications The patient is currently receiving: * Basal insulin: Lantus 8 units every 24 hours * Correctional Insulin: Novolog Correction per scale ACHS Goal Range: Low 120 mg/dL - High 160 mg/dL Correction Factor: 35 mg/dL/unit * Prandial insulin: Per carb ratio of 1 unit per 12 grams CHO consumed Outpatient Anti-Diabetic Meds Lantus 10 units qPM Assessment & Plan ASSESSMENT: * See progress note from 01/21 for more background info, in short: * Pt receiving SQ basal bolus insulin regimen for hyperglycemia secondary to baseline DM (outpatient regimen on hold) * Patient is currently receiving an average of 10 units of insulin per day * 8 units of basal insulin * BSGs ranging 87 - 142 mg/dl over the past 24hrs * Changes needed to insulin regimen: * AM Fasting BSG = 87 mg/dl. This is slightly below goal range for patient based on inpatient targets and co-morbidities. Therefore Basal insulin needs decreased - will do so by ~25% * Post-prandial BSGs are elevated/BSGs rise throughout the day. CF/CR already fairly aggressive for basal dose so will instead decrease the goal range to allow for better prandial coverage. PLAN FOR INPATIENT GLYCEMIC CONTROL: * Decrease Lantus to 6 units SQ qHS * Continue correction factor of 35 mg/dl/unit * Continue carb ratio of 1 unit per 12 grams CHO consumed * Change goal range to Low 100 mg/dL - High 140 mg/dL * Please note that the plan above was derived based on current level of insulin resistance and hospital stress. These recommendations are appropriate for inpatient admission only. Plan of care upon discharge will need to be reassessed to avoid potential outpatient hypo/hyperglycemia. Thank you.
--- NOTE | 2017-01-22 13:24 | Nephrology Progress Note ---
Nephrology Progress Note Date of Service: Jan 22, 2017. Subjective 76 yo female with esrd who presented with vertigo and double vision. pt states she heard her neck crack last night and since then her double vision has improved. continues though to have the vertigo. pt may have a uti and urine culture is pending. neuro imaging shows a small right subdural. no significant stenosis or aneurysm detected. Objective Date Time Temp Pulse Resp B/P (MAP) Pulse Ox O2 Delivery O2 Flow Rate FiO2 01/22/17 12:30 96 Room Air 01/22/17 11:31 36.8 71 16 144/70 (94) 98 01/22/17 08:23 36.6 63 18 172/73 (106) 97 171/70 (103) 01/22/17 07:45 96 Room Air 01/22/17 04:00 96 Room Air 01/22/17 03:58 36.5 62 22 161/67 (98) 99 Room Air 01/22/17 00:00 96 Room Air 01/21/17 23:08 36.5 66 18 145/64 (91) 98 Room Air 01/21/17 20:00 96 Room Air 01/21/17 20:00 96 Room Air 01/21/17 19:00 36.7 74 18 138/72 (94) 96 Room Air 01/21/17 15:56 36.7 73 18 134/65 (88) 96 Room Air 01/21/17 15:12 76 18 171/89 98 Physical Exam: General-aaox3 Eyes-no scleral icterus ENT-mmm Neck-supple Lungs-cta Heart-rrr Abdomen-bs+ s/nt/nd Extremities-mild edema Neuro-nonfocal Current Inpatient Medications Medications (Trade) Dose Ordered Sig/Marlon Route Start Time Stop Time Status Last Admin Dose Admin Al Hydrox/Mg Hydrox/Simethicone (Maalox Max Susp) 15 ml Q4H PRN PO 01/21/17 13:30 02/20/17 13:29 Magnesium Hydroxide (Milk Of Magnesia Susp) 30 ml Q12H PRN PO 01/21/17 13:30 02/20/17 13:29 Zolpidem Tartrate (Ambien Tab) 5 mg HSZ PRN PO 01/21/17 13:30 02/20/17 13:29 Ondansetron HCl (Zofran Inj) 4 mg Q6H PRN IV 01/21/17 13:30 02/20/17 13:29 Polyethylene (Miralax Powder Packet) 17 gm DAILY PRN PO 01/21/17 13:30 02/20/17 13:29 Insulin Aspart (novoLOG ASPART) SLIDING SCALE If C... ACHS SC 01/21/17 16:00 02/20/17 15:59 01/22/17 11:26 3 UNITS Glucose (Glucose 40% Gel) 15-30 GRAMS 15 GRAMS... UD PRN PO 01/21/17 13:30 02/20/17 13:29 Glucose (Glucose Chew Tab) 4-8 Tablets 4 Tabl... UD PRN PO 01/21/17 13:30 02/20/17 13:29 Dextrose (Dextrose 50% 50ML Syringe) 25-50ML OF 50% DW IV FOR... UD PRN IV 01/21/17 13:30 02/20/17 13:29 Glucagon (Glucagon Inj) 1 mg UD PRN SQ 01/21/17 13:30 02/20/17 13:29 Miscellaneous Information (Consult Glycemic Management Pharmacy) 1 ea UD PRN N/A 01/21/17 14:00 02/20/17 13:59 Meclizine HCl (Antivert Tab) 25 mg TID PRN PO 01/21/17 13:30 02/20/17 13:29 Acetaminophen (Tylenol Tab) 650 mg Q6H PRN PO 01/21/17 13:30 02/20/17 13:29 01/21/17 20:02 650 MG Atorvastatin Calcium (Lipitor Tab) 80 mg HS PO 01/21/17 21:00 02/20/17 20:59 01/21/17 20:03 80 MG Calcium Acetate (Phoslo Cap) 667 mg TIDM PO 01/21/17 17:00 02/20/17 17:59 01/22/17 11:24 667 MG Carvedilol (Coreg Tab) 25 mg BID PO 01/21/17 21:00 02/20/17 20:59 01/22/17 07:57 25 MG Cyanocobalamin (Vitamin B-12 Tab) 500 mcg DAILY PO 01/22/17 09:00 02/21/17 08:59 01/22/17 07:57 500 MCG Isosorbide Mononitrate (Imdur Ext Rel Tab) 60 mg QAM PO 01/22/17 09:00 02/21/17 08:59 01/22/17 07:57 60 MG Mirtazapine (Remeron Tab) 15 mg HS PO 01/21/17 21:00 02/20/17 20:59 01/21/17 20:03 15 MG Nitroglycerin (Nitrostat Tab) 0.4 mg UD PRN UT 01/21/17 13:30 02/20/17 13:29 Vitamin B Complex/ Vit C/Folic Acid (Nephrocaps) 1 cap DAILY PO 01/22/17 09:00 02/21/17 08:59 01/22/17 07:57 1 CAP Cholecalciferol (Vitamin D Tab) 2,000 inter.unit DAILY PO 01/22/17 09:00 02/21/17 08:59 01/22/17 07:57 2,000 INTER.UNIT Docusate Sodium (coLACE CAP) 100 mg BID PO 01/21/17 21:00 02/20/17 20:59 01/22/17 07:57 100 MG Miscellaneous Information (Order Awaiting Action) 1 ea Q8 N/A 01/21/17 16:00 02/20/17 15:59 Pantoprazole Sodium (Protonix Tab) 40 mg DAILY PO 01/22/17 09:00 02/21/17 08:59 01/22/17 07:57 40 MG Miscellaneous Information (Order Awaiting Action) 1 ea QS N/A 01/21/17 18:00 02/20/17 17:59 Insulin Glargine (Lantus Solostar Pen) 6 units HS SC 01/22/17 21:00 02/21/17 20:59 Last 24 Hours Test 01/21/17 16:44 01/21/17 20:09 01/22/17 06:05 01/22/17 06:57 Bedside Glucose 115 mg/dl 113 mg/dl Urine Color YELLOW Urine Appearance TURBID Urine pH 7.0 Urine Specific [place] 1.013 Urine Protein 2+ Urine Glucose (UA) NEG Urine Ketones NEG Urine Occult Blood 2+ Urine Nitrite NEG Urine Bilirubin NEG Urine Urobilinogen NEG Urine Leukocyte Esterase LARGE Urine WBC (Auto) >30 /hpf Urine RBC (Auto) 0-4 /hpf Urine Hyaline Casts (Auto) 1-5 /lpf Urine Epithelial Cells (Auto) >30 /lpf Urine Bacteria (Auto) 4+ White Blood Count 6.12 K/uL Red Blood Count 3.78 M/uL Hemoglobin 13.4 g/dL Hematocrit 40.3 % Mean Corpuscular Volume 106.6 fL Mean Corpuscular Hemoglobin 35.4 pg Mean Corpuscular Hemoglobin Concent 33.3 g/dl RDW Standard Deviation 68.5 fL RDW Coefficient of Variation 17.7 % Platelet Count 117 K/uL Mean Platelet Volume 10.6 fL Sodium Level 136 mmol/L Potassium Level 4.7 mmol/L Chloride Level 97 mmol/L Carbon Dioxide Level 27 mmol/L Anion Gap 12.0 mmol/L Blood Urea Nitrogen 68 mg/dl Creatinine 8.20 mg/dl Est Creatinine Clear Calc Drug Dose 5.5 ml/min Estimated GFR () 5.0 Estimated GFR (Non- 4.4 BUN/Creatinine Ratio 8.2 Random Glucose 93 mg/dl Estimated Average Glucose 97 mg/dl Hemoglobin A1c 5.0 % Calcium Level 8.9 mg/dl Test 01/22/17 07:49 01/22/17 11:18 Bedside Glucose 87 mg/dl 142 mg/dl Date/Time Source Procedure Growth Status 01/22/17 06:05 Urine , Clean Catch Urine Culture Pending Received Assessment & Plan ESRD-plan on dialysis today. no fluid removal today since breathing well and see if it will help with her vertigo. no heparin with history of subdural last fall. k 4.7 and on a 2k bath. Anemia of renal failure-hg levels are above 11. hold procrit for now. BASIL-on binders and follow phos levels intermittently.
--- NOTE | 2017-01-22 13:28 | Progress Note ---
Internal Med Progress Note Date of Service: Jan 22, 2017. Provider Documentation: SUBJECTIVE: Seen and examined at bedside. States having intermittent vertigo and nausea but improving. Reports double vision resolved. Denies chest pain, SOB, palpitations, abd pain. Planned for HD today OBJECTIVE: Vital Signs-as noted below Physical Exam: General Appearance:Moderately built and nourished, no apparent distress Head: normocephalic, Atraumatic Eyes: normal inspection, EOMI, PERRL Neck: supple, no JVD, Trachea midline Respiratory/Chest: Normal breath sounds, CTA Cardiovascular: S1, S2, No murmur Abdomen/GI:Soft, Non tender, Bowel sounds present Extremities/Musculoskelatal:normal inspection, no edema Neurologic/Psych:AAOX3, grossly no focal neurological deficits Skin: normal color, warm Lab data as noted below. ASSESSMENT & PLAN: Patient is a 76 yr female with a PMH of CAD s/p CABG, hx. of traumatic subdural hematoma in April 2016, ESRD on HD, HTN, anemia of renal disease, DM II, with 2-3 day history of dizziness, blurry vision, vertigo, nausea Vertigo Likely BPPV reports vertigo worse with head rotation to the Left Double vision resolved PT consulted for Sarita:pending PT/OT evaluation Continue meclizine PRN Zofran PRN Head CT/ MRI brain/ MRA head and neck: No acute process Hx. of Traumatic Subdural Hematoma in April 2016, was at [place] no surgery performed Improving slowly Brain MRI:Small right subdural hematoma measuring 2 mm mm in thickness Abnormal UA: Urine culture pending Empirically start Ceftriaxone for possible UTI ESRD on HD receives hemodialysis on , , consulted nephrology HD management continue Nephrocaps/vitamins renal diet Planned for HD today CAD s/p CABG no chest pain/SOB initial troponin negative, EKG looks similar to previous continue statin, b-sukhjinder, Imdur no aspirin due to hx. of brain bleed Chronic Systolic and Diastolic CHF: No signs of acute exacerbation Volume status managed with HD DM II well controlled last Ha1c = 6.6% for now continue insulin, may need to be tapered off as outpatient to prevent hypoglycemia HTN BP is elevated continue current meds Planned for HD today DVT px SCDs secondary to brain bleed CODE STATUS: FULL CODE Vital Signs: Date Time Temp Pulse Resp B/P (MAP) Pulse Ox O2 Delivery O2 Flow Rate FiO2 7/14/17 16:45 72 163/83 01/22/17 16:30 75 169/74 01/22/17 16:15 86 135/86 01/22/17 16:00 75 118/66 01/22/17 15:45 75 123/69 01/22/17 15:30 78 111/66 01/22/17 15:15 73 117/64 01/22/17 15:00 74 123/67 01/22/17 14:45 74 111/68 01/22/17 14:30 69 118/61 01/22/17 14:15 67 129/64 01/22/17 14:07 68 142/68 01/22/17 12:30 96 Room Air 01/22/17 11:31 36.8 71 16 144/70 (94) 98 01/22/17 08:23 36.6 63 18 172/73 (106) 97 171/70 (103) 01/22/17 07:45 96 Room Air 01/22/17 04:00 96 Room Air 01/22/17 03:58 36.5 62 22 161/67 (98) 99 Room Air 01/22/17 00:00 96 Room Air 01/21/17 23:08 36.5 66 18 145/64 (91) 98 Room Air 01/21/17 20:00 96 Room Air 01/21/17 20:00 96 Room Air 01/21/17 19:00 36.7 74 18 138/72 (94) 96 Room Air Lab Results: Results Past 24 Hours Test 01/21/17 20:09 01/22/17 06:05 01/22/17 06:57 01/22/17 07:49 Range/Units Bedside Glucose 113 87 70-90 mg/dl Urine Color YELLOW Urine Appearance TURBID CLEAR Urine pH 7.0 4.5-7.5 Urine Specific [place] 1.013 1.000-1.030 Urine Protein 2+ NEG Urine Glucose (UA) NEG NEG Urine Ketones NEG NEG Urine Occult Blood 2+ NEG Urine Nitrite NEG NEG Urine Bilirubin NEG NEG Urine Urobilinogen NEG NEG Urine Leukocyte Esterase LARGE NEG Urine WBC (Auto) >30 0-5 /hpf Urine RBC (Auto) 0-4 0-4 /hpf Urine Hyaline Casts (Auto) 1-5 0-5 /lpf Urine Epithelial Cells (Auto) >30 0-5 /lpf Urine Bacteria (Auto) 4+ NEG White Blood Count 6.12 4.8-10.8 K/uL Red Blood Count 3.78 4.2-5.4 M/uL Hemoglobin 13.4 12.0-16.0 g/dL Hematocrit 40.3 37-47 % Mean Corpuscular Volume 106.6 80-100 fL Mean Corpuscular Hemoglobin 35.4 25-34 pg Mean Corpuscular Hemoglobin Concent 33.3 32-36 g/dl RDW Standard Deviation 68.5 36.4-46.3 fL RDW Coefficient of Variation 17.7 11.5-14.5 % Platelet Count 117 130-400 K/uL Mean Platelet Volume 10.6 7.4-10.4 fL Sodium Level 136 136-145 mmol/L Potassium Level 4.7 3.5-5.1 mmol/L Chloride Level 97 98-107 mmol/L Carbon Dioxide Level 27 21-32 mmol/L Anion Gap 12.0 3-11 mmol/L Blood Urea Nitrogen 68 7-18 mg/dl Creatinine 8.20 0.60-1.20 mg/dl Est Creatinine Clear Calc Drug Dose 5.5 ml/min Estimated GFR () 5.0 Estimated GFR (Non- 4.4 BUN/Creatinine Ratio 8.2 10-20 Random Glucose 93 70-99 mg/dl Estimated Average Glucose 97 mg/dl Hemoglobin A1c 5.0 4.5-5.6 % Calcium Level 8.9 8.5-10.1 mg/dl Test 01/22/17 11:18 Range/Units Bedside Glucose 142 70-90 mg/dl Microbiology Results 01/22/17 Urine Culture, Received Pending
[2017-01-22] MEDS: CEFTRIAXONE SOD INJ 1 GM in DEXTROSE 5% ADD-VANTAGE 50ML 50 ML IV SCH (18:10)
[2017-01-22 19:56] LABS: HEPATITIS B AB POS
[2017-01-22] MEDS ORDERED: INSULIN GLARGINE SOLOSTAR 100 UNITS/ML 3 ML PEN SC SCH (21:00)
[2017-01-22] MEDS: MIRTAZAPINE TAB 15 MG TAB PO SCH (21:20)
[2017-01-22] MEDS: ATORVASTATIN 40 MG TAB PO SCH (21:20)
[2017-01-23] VITALS (7 sets, daily range): BP systolic 130–185; BP diastolic 67–74; PULSE 69–78; TEMP 36.5–36.7; O2SAT 98–99
[2017-01-23] MEDS: CARVEDILOL 25 MG TAB PO SCH (08:06)
[2017-01-23] MEDS: CALCIUM ACETATE 667MG GELCAP PO SCH ×2 (08:07→11:28)
[2017-01-23] MEDS: CYANOCOBALAMIN 500 MCG TAB (VIT B-12) PO SCH (08:08)
[2017-01-23] MEDS: CHOLECALCIFEROL 1000 INTER.UNIT TAB PO SCH (08:09)
[2017-01-23] MEDS: DOCUSATE SODIUM 100 MG CAP PO SCH (08:18)
[2017-01-23] MEDS: ISOSORBIDE MONONITRATE 60 MG TABCR PO SCH (08:19)
[2017-01-23] MEDS: PANTOprazole SOD 40 MG TAB PO SCH (08:19)
[2017-01-23] MEDS: NEPHROCAPS PO SCH (08:19)
[2017-01-23] MEDS: INSULIN ASPART 100 UNITS/ML 3 ML PEN SC SCH ×2 (08:32→11:00)
[2017-01-23 08:59] LABS: BUN/CREATININE RATIO 6.8 (10-20); CREATININE 6.7 mg/dl (0.60-1.20)
[2017-01-23] MEDS: CEFTRIAXONE SOD INJ 1 GM in DEXTROSE 5% ADD-VANTAGE 50ML 50 ML IV SCH (13:07)
--- NOTE | 2017-01-23 13:12 | Progress Note ---
Internal Med Progress Note Date of Service: Jan 23, 2017. Provider Documentation: SUBJECTIVE: Seen and examined at bedside. States vertigo and nausea resolved. Feels well. No vision problems. Denies chest pain, SOB, palpitations, abd pain. No other complaints. OBJECTIVE: Vital Signs-as noted below Physical Exam: General Appearance:Moderately built and nourished, no apparent distress Head: normocephalic, Atraumatic Eyes: normal inspection, EOMI, PERRL Neck: supple, no JVD, Trachea midline Respiratory/Chest: Normal breath sounds, CTA Cardiovascular: S1, S2, No murmur Abdomen/GI:Soft, Non tender, Bowel sounds present Extremities/Musculoskelatal:normal inspection, no edema Neurologic/Psych:AAOX3, grossly no focal neurological deficits Skin: normal color, warm Lab data as noted below. ASSESSMENT & PLAN: Patient is a 76 yr female with a PMH of CAD s/p CABG, hx. of traumatic subdural hematoma in April 2016, ESRD on HD, HTN, anemia of renal disease, DM II, with 2-3 day history of dizziness, blurry vision, vertigo, nausea Vertigo Likely BPPV reports vertigo worse with head rotation to the Left Double vision, vertigo, nausea resolved S/P Sarita PT/OT Continue meclizine PRN Zofran PRN Head CT/ MRI brain/ MRA head and neck: No acute process Hx. of Traumatic Subdural Hematoma in April 2016, was at [place] no surgery performed Improving slowly Brain MRI:Small right subdural hematoma measuring 2 mm mm in thickness Abnormal UA: Urine culture: Group B strep: Likely Contamination S/P Ceftriaxone for one day Denies any urinary symptoms ESRD on HD receives hemodialysis on , , consulted nephrology HD management continue Nephrocaps/vitamins renal diet Discussed with today: cleared for discharge CAD s/p CABG no chest pain/SOB initial troponin negative, EKG looks similar to previous continue statin, b-sukhjinder, Imdur no aspirin due to hx. of brain bleed Chronic Systolic and Diastolic CHF: No signs of acute exacerbation Volume status managed with HD DM II well controlled last Ha1c = 6.6% for now continue insulin, may need to be tapered off as outpatient to prevent hypoglycemia HTN BP stable continue current meds DVT px SCDs secondary to brain bleed CODE STATUS: FULL CODE Disposition: Plan to discharge home today Follow up with Dr. Whiting on January 27 at 11:25AM (As is on leave) Seek immediate medical attention if your symptoms reoccur or worsen Vital Signs: Date Time Temp Pulse Resp B/P (MAP) Pulse Ox O2 Delivery O2 Flow Rate FiO2 01/23/17 12:00 99 Room Air 01/23/17 11:13 36.7 78 18 130/74 (92) 98 01/23/17 10:13 138/68 (91) 01/23/17 08:00 99 Room Air 01/23/17 05:31 145/68 (93) 01/23/17 04:23 36.5 69 20 185/67 (106) 99 Room Air 01/22/17 23:59 Room Air 01/22/17 23:59 36.7 63 20 167/74 (105) 97 Room Air 01/22/17 20:00 96 Room Air 01/22/17 19:03 36.6 75 20 158/73 (101) 96 Room Air 01/22/17 17:38 36.6 70 170/68 (102) 01/22/17 17:00 73 156/68 01/22/17 16:45 72 163/83 01/22/17 16:30 75 169/74 01/22/17 16:15 86 135/86 01/22/17 16:00 75 118/66 01/22/17 16:00 96 Room Air 01/22/17 15:45 75 123/69 01/22/17 15:30 78 111/66 01/22/17 15:15 73 117/64 01/22/17 15:00 74 123/67 01/22/17 14:45 74 111/68 01/22/17 14:30 69 118/61 01/22/17 14:15 67 129/64 01/22/17 14:07 68 142/68 01/22/17 14:00 37.0 67 150/71 (97) Lab Results: Results Past 24 Hours Test 01/22/17 18:07 01/22/17 18:53 01/22/17 20:15 01/23/17 07:26 Range/Units Bedside Glucose 96 162 104 70-90 mg/dl Hepatitis B Surface Antigen NEG NEG Hepatitis B Surface Antibody POS Test 01/23/17 07:49 01/23/17 11:21 Range/Units Sodium Level 131 136-145 mmol/L Potassium Level 4.0 3.5-5.1 mmol/L Chloride Level 94 98-107 mmol/L Carbon Dioxide Level 27 21-32 mmol/L Anion Gap 10.0 3-11 mmol/L Blood Urea Nitrogen 46 7-18 mg/dl Creatinine 6.70 0.60-1.20 mg/dl Est Creatinine Clear Calc Drug Dose 6.7 ml/min Estimated GFR () 6.4 Estimated GFR (Non- 5.6 BUN/Creatinine Ratio 6.8 10-20 Random Glucose 95 70-99 mg/dl Calcium Level 9.0 8.5-10.1 mg/dl Bedside Glucose 107 70-90 mg/dl
[2017-01-23] MEDS ORDERED: CFT250 PO (13:15)
[2017-01-23] MEDS ORDERED: ANT25 PO (13:15)
--- NOTE | 2017-01-23 13:18 | Discharge Summary ---
Discharge Summary Date of Service Jan 23, 2017. Discharge Summary Admission Date: Jan 21, 2017 at 13:31 Discharge Date: Jan 23, 2017 Discharge Disposition: Home Principal Diagnosis: Vertigo: BPPV Procedures: MRI Brain: 1. Small right subdural hematoma measuring 2 mm mm in thickness. 2. No other acute intracranial pathology. 3. No significant stenosis, aneurysm, or vessel occlusion in the head. Neck MRA: Allowing for degradation of image quality, no significant stenosis of the cervical vessels. Brain MRA: 1. Small right subdural hematoma measuring 2 mm mm in thickness. 2. No other acute intracranial pathology. 3. No significant stenosis, aneurysm, or vessel occlusion in the head. CXR: No active disease in the chest. Consultations: None Pending Studies/Follow-Up: Follow up with Dr. Whiting on January 27 at 11:25AM (As is on leave) Seek immediate medical attention if your symptoms reoccur or worsen Follow up with your Neurologist as advised Medication Reconciliation New Medications: Cefuroxime Axetil (Cefuroxime Axetil) 250 Mg Tab 250 MG PO BID for 2 Days, #4 Meclizine HCl (Meclizine HCl) 25 Mg Tab 25 MG PO TID PRN for Dizziness or Vertigo for 10 Days, #30 TAB Continued Medications: Acetaminophen (Tylenol) 325 Mg Tab 650 MG PO Q6H PRN for Pain, TAB NEEDED FOR PAIN RATED 1-10 ON A SCALE OF "0-10" OR FOR TEMPERATURE GREATER THAN 101F. DO NOT EXCEED 3 GM APAP/24 HOURS Atorvastatin (Lipitor) 80 Mg Tab 80 MG PO HS, TAB Calcium Acetate (Phoslo 667 Mg) 667 Mg Cap 1 CAP PO TIDM, CAP Carvedilol (Carvedilol) 25 Mg Tab 25 MG PO BID HOLD FOR APICAL HEART RATE LESS THAN 50 Cholecalciferol (Vitamin D3) 2,000 Unit Tab 2000 INTER.UNIT PO DAILY Cyanocobalamin (Vitamin B-12) 500 Mcg Tab 500 MCG PO DAILY, TAB Dextrose (Diabetic Use) (Insta-Glucose) 77.4 % Gel 1 APPLN PO UD PRN for HYPOGLYCEMIA PROTOCOL NEEDED FOR BLOOD GLUCOSE LESS THAN 60 AND/OR SYMPTOMATIC HYPOGLYCEMIA, MUST BE RESPONSIVE AND ABLE TO SWALLOW. Docusate Sodium (Stool Softener) 100 Mg Tab 100 MG PO BID Glucagon (Glucagon Emergency Kit) 1 Mg Kit 1 MG IM UD PRN for HYPOGLYCEMIA PROTOCOL NEEDED FOR BLOOD GLUCOSE LESS THAN 60 AND/OR SYMPTOMATIC/UNRESPONSIVE HYPOGLYCEMIA. MAY REPEAT DOSE IN 15 MINUTES IF NEEDED. Hydrocortisone 1% (Hydrocortisone 1%) 90 Appln/30 Gm Cr 1 APPLN TP Q4H PRN for Itching APPLY DIRECTED TO ABDOMEN,CHEST,BACK,LEGS. Insulin Glargine (Lantus) 100 Unit/Ml Inj 10 UNITS SC HS Iron Sucrose (Venofer) 20 Mg/Ml Inj 100 MG INJ UD for 10 days last injection should be 01-22-17 Isosorbide Mononitrate (Isosorbide Mononitrate ER) 60 Mg Tabcr 60 MG PO QAM HOLD FOR APICAL HEART RATE LESS THAN 50 Melatonin (Kp Melatonin) 3 Mg Tab 1 TAB PO HS for 30 Days, #30 TAB Methoxy Polyethylene Glycol-Ep (Mircera) 200 Mcg/0.3 Ml Inj 200 MCG SQ Q14D Mirtazapine (Remeron) 15 Mg Tab 15 MG PO HS, TAB Nitroglycerin (Nitrostat) 0.4 Mg Tab 0.4 MG UT UD PRN for Chest Pain PLACE ONE TABLET UNDER THE TONGUE EVERY 5 MINUTES FOR UP TO 3 DOSES IF NEEDED FOR CHEST PAIN. CHECK BLOOD PRESSURE BEFORE EACH DOSE, HOLD FOR SYSTOLIC BLOOD PRSSURE LESS THAN 100. Omeprazole (Prilosec) 20 Mg Capcr 40 MG PO DAILY, CAP Vitamin B Cmplx/Vitc/Folic Ac (Nephrocaps) Cap 1 CAP PO DAILY, CAP [2 César/cc Supplement] () 120 ML PO TID Admission Information HPI (per Admitting provider): This is a 76 year old female with a PMH of CAD s/p CABG, hx. of traumatic subdural hematoma in April 2016, ESRD on HD, HTN, anemia of renal disease, well controlled DM2 presents with 2-3 day history of dizziness, blurry vision, vertigo, nausea - states that she had hemodialysis on Wednesday and since then she has been feeling very dizzy and felt as if the room is spinning; she states that she is seeing double and very nauseous. Has had a subdural hematoma, but that has been resolved without surgical intervention. Received HD on Wednesday as well, but today she felt even worse and presented to the ER. Could not take part in MRI due to dizziness and loud noises. States if her headache went away, she may be able to take part. Denies chest pain/shortness of breath. States that dizziness is worse with head movement to the L side. Physical Exam (per Admitting): General Appearance: + moderate distress (secondary to headache, dizziness, nausea) Head: normocephalic, atraumatic Eyes: normal inspection ENT: hearing grossly normal Neck: supple Respiratory/Chest: chest non-tender, lungs clear, normal breath sounds, no respiratory distress, no accessory muscle use Cardiovascular: regular rate, rhythm, no edema, no murmur Abdomen/GI: normal bowel sounds, non tender, soft Back: no CVA tenderness, no muscle spasm Extremities/Musculoskelatal: normal capillary refill, no pedal edema Neurologic/Psych: feeder tender II-XII nml as tested, no motor/sensory deficits, alert , normal mood/affect Skin: normal color Lymphatic: no adenopathy Hospital Course Patient is a 76 yr female with a PMH of CAD s/p CABG, hx. of traumatic subdural hematoma in April 2016, ESRD on HD, HTN, anemia of renal disease, DM II, with 2-3 day history of dizziness, blurry vision, vertigo, nausea Vertigo Likely BPPV reports vertigo worse with head rotation to the Left Double vision, vertigo, nausea resolved S/P Sarita PT/OT Continue meclizine PRN Zofran PRN Head CT/ MRI brain/ MRA head and neck: No acute process Hx. of Traumatic Subdural Hematoma in April 2016, was at [facility] no surgery performed Improving slowly Brain MRI:Small right subdural hematoma measuring 2 mm mm in thickness Abnormal UA: Urine culture: Group B strep: Likely Contamination S/P Ceftriaxone for one day Denies any urinary symptoms ESRD on HD receives hemodialysis on , , consulted nephrology HD management continue Nephrocaps/vitamins renal diet Discussed with today: cleared for discharge CAD s/p CABG no chest pain/SOB initial troponin negative, EKG looks similar to previous continue statin, b-sukhjinder, Imdur no aspirin due to hx. of brain bleed Chronic Systolic and Diastolic CHF: No signs of acute exacerbation Volume status managed with HD DM II well controlled last Ha1c = 6.6% for now continue insulin, may need to be tapered off as outpatient to prevent hypoglycemia HTN BP stable continue current meds DVT px SCDs secondary to brain bleed CODE STATUS: FULL CODE Disposition: Plan to discharge home today Follow up with Dr. Whiting on January 27 at 11:25AM (As is on leave) Seek immediate medical attention if your symptoms reoccur or worsen Total time spent on discharge = 33 minutes This includes examination of the patient, discharge planning, medication reconciliation, and communication with other providers. Discharge Instructions Discharge Instructions Date of Service Jan 23, 2017. Admission Reason for Admission: Hx Of Subdural Hematoma, Vertigo Discharge Discharge Diagnosis / Problem: Vertigo Discharge Goals Goal(s): Decrease discomfort, Improve function Activity Recommendations Activity Limitations: resume your previous activity Exercise/Sports Limitations: as tolerated . Instructions / Follow-Up Instructions / Follow-Up Follow up with Dr. Whiting on January 27 at 11:25AM (As is on leave) Seek immediate medical attention if your symptoms reoccur or worsen Follow up with your Neurologist as advised Current Hospital Diet Patient's current hospital diet: Diabetes Type 2 Diet, Renal Diet Discharge Diet Recommended Diet: Diabetes Type 2 Diet, Renal Diet Pending Studies Studies pending at discharge: no Laboratory Results Hemoglobin A1c Test 01/22/17 06:57 Range/Units Estimated Average Glucose 97 mg/dl Hemoglobin A1c 5.0 4.5-5.6 % Medical Emergencies . Who to Call and When: Medical Emergencies: If at any time you feel your situation is an emergency, please call 911 immediately. . Non-Emergent Contact Non-Emergency issues call your: Primary Care Provider Call Non-Emergent contact if: you have a fever, your pain is not controlled, your pain is worsening, your pain is unusual for you, you have any medication questions If your Vertigo/Symptoms reoccur or worsen . . "Provider Documentation" section prepared by Connor Serrano. . VTE Core Measure Inpt VTE Proph given/why not?: SCD's
== END 2017-01-23 13:59 | disposition home or self-care (01) | DRG 149 ==
LOC: C.EDB 09:28 → C.MED 13:31 → ENRESERV 13:58
PROVIDERS: ADMIT Family Medicine; ATTEND Internal Medicine
DX: H81.10 Benign paroxysmal vertigo, unspecified ear (principal); N18.6 End stage renal disease; I13.2 Hypertensive heart and chronic kidney disease with heart failure and with stage 5 chronic kidney disease, or end stage renal disease; I50.42 Chronic combined systolic (congestive) and diastolic (congestive) heart failure; D63.1 Anemia in chronic kidney disease; H53.2 Diplopia; R82.99 Other abnormal findings in urine; I25.10 Atherosclerotic heart disease of native coronary artery without angina pectoris; E11.22 Type 2 diabetes mellitus with diabetic chronic kidney disease; E78.5 Hyperlipidemia, unspecified; Z79.899 Other long term (current) drug therapy; Z79.4 Long term (current) use of insulin; Z99.2 Dependence on renal dialysis; Z87.820 Personal history of traumatic brain injury; Z86.73 Personal history of transient ischemic attack (TIA), and cerebral infarction without residual deficits; Z85.048 Personal history of other malignant neoplasm of rectum, rectosigmoid junction, and anus; Z95.1 Presence of aortocoronary bypass graft; Z83.3 Family history of diabetes mellitus; Z82.49 Family history of ischemic heart disease and other diseases of the circulatory system; Z80.3 Family history of malignant neoplasm of breast; Z80.1 Family history of malignant neoplasm of trachea, bronchus and lung; Z80.7 Family history of other malignant neoplasms of lymphoid, hematopoietic and related tissues

== ENCOUNTER 2017-01-30 20:04 | Emergency (ER) | payer OTHER, MEDICARE ==
[~2017-01-30] VITALS: Ht 162.6 cm; Wt 63.0 kg
[~2017-01-30 20:04] MED LIST changes: +ANT25 PO; -ATOR-26 PO; -B-COCAP2 PO; -BISA10SU38 PR; +CALC667C4 PO; +CFT250 PO; -CHOL20005 PO; -CRG25 PO; -CYAN250T PO; -DOCU100T7 PO; -EPOE10003 IV; -HYDCR1CL TP; -HYDR-4717 PO; -INSDGI SC; +IRON20IN INJ; -IRON20IN IV; -ISOS-10 PO; -LIDO1CRE16 TOP; -MIRT1TAB27 PO; -NTRGSL/4 UT; -POLY335019 PO; -PRLSR20 PO; -SENN-65 PO; -SODIENE PR; +[UNRECOGNIZED DRUG - CODE] SQ
[2017-01-30 20:17] VITALS: TEMP 36.6; Ht 162.6 cm; Wt 63.0 kg
[2017-01-30] MEDS ORDERED: FENTANYL CITRATE INJ 50 MCG/1 ML 2 ML VIAL IV STA (20:21)
[2017-01-30] MEDS ORDERED: ONDANSETRON INJ 2 MG/ML 2 ML VIAL IV STA (20:21)
[2017-01-30] MEDS ORDERED: SODIUM CHLORIDE 0.9% 1000ML 500 ML IV STA (20:21)
[2017-01-30] MEDS ORDERED: DiphenhydrAMINE HCL 50 MG/ML VIAL IV STA (20:21)
--- NOTE | 2017-01-30 20:32 | EMERGENCY ROOM VISIT NOTE ---
History Report prepared by Rajiv: Franky Flowers Under the Supervision of: Dr. Steven Edwrads M.D. First contact with patient: 20:13 Stated Complaint: HEADACHE/FAINT History of Present Illness The patient is a 76 year old female who presents to the Emergency Room with complaints of a persistent headache that she has been experiencing for the past 10 days. Her head pain significantly worsened this evening 2.5 hours prior to arrival. Her pain is present in both sides of her head, and she rates the current severity as a 10/10. Her notes that she passed out in bed twice this evening secondary to the pain. She took 1000 mg of Tylenol prior to arrival with no relief. Per the patient's she was here in the hospital on the 21 of January and was discharged on the , for vertigo. She states that she has had this headache since this episode, but claims that it worsened suddenly this evening. The patient was diagnosed with a brain bleed in April of last year, and has had intermittent headaches since this event. She also complains of intermittent dizziness, and weakness/pain in the left arm. She denies any falls or traumatic head injuries. The patient is sensitive to light at this time. She has never been diagnosed with migraine headaches before. Source of History: patient, spouse/significant other Onset: 10 days ago Position: head Symptom Intensity: 10/10 Timing: worsening, other (Persistent) Modifying Factors (Worsening): other (Light sensitivity) Associated Symptoms: + weakness Note: Dizziness Review of Systems See HPI for pertinent positives & negatives. A total of 10 systems reviewed and were otherwise negative. Past Medical & Surgical Medical Problems: (1) Anemia of renal disease (2) CAD (coronary artery disease) (3) CHF (congestive heart failure) (4) CKD (chronic kidney disease), stage IV (5) DM (diabetes mellitus) (6) Dyslipidemia (7) End stage renal disease (8) Hemodialysis patient (9) HTN (hypertension) (10) Hx of subdural hematoma (11) Rectal cancer (12) Stroke (13) Subdural hematoma (14) Vertigo (15) Weakness Surgical Problems: (1) H/O tubal ligation (2) H/O: hysterectomy (3) History of carpal tunnel surgery (4) History of incisional hernia repair (5) History of lumbar surgery (6) History of partial surgical removal of colon (7) S/p A-port placement (8) S/P appendectomy (9) S/P CABG x 4 Family History Diabetes mellitus SISTER BROTHER FH: CAD (coronary artery disease) FATHER SISTER FH: cancer BROTHER (lung CA) MOTHER (lymphoma) DAUGHTER (breast CA) Social History Smoking Status: Never Smoker Alcohol Use: none Drug Use: none Marital Status: Housing Status: lives with family, skilled nursing Occupation Status: retired Current/Historical Medications Scheduled Atorvastatin (Lipitor), 80 MG PO HS Calcium Acetate (Phoslo 667 Mg), 1 CAP PO TIDM Carvedilol (Carvedilol), 25 MG PO BID Cephalexin Monohydrate (Keflex), 500 MG PO TID Cholecalciferol (Vitamin D3), 2,000 INTER.UNIT PO DAILY Cyanocobalamin (Vitamin B-12), 500 MCG PO DAILY Docusate Sodium (Stool Softener), 100 MG PO BID Insulin Glargine (Lantus), 10 UNITS SC BID Isosorbide Mononitrate (Isosorbide Mononitrate ER), 60 MG PO QAM Melatonin (Kp Melatonin), 1 TAB PO HS Mirtazapine (Remeron), 15 MG PO HS Omeprazole (Prilosec), 40 MG PO DAILY Vitamin B Cmplx/Vitc/Folic Ac (Nephrocaps), 1 CAP PO DAILY Scheduled PRN Acetaminophen (Tylenol), 650 MG PO Q6H PRN for Pain Glucose-Vitamin C (Glucose), 1 TAB PO UD PRN for HYPOGLYCEMIA Hydrocortisone 1% (Hydrocortisone 1%), 1 APPLN TP Q4H PRN for Itching Meclizine HCl (Meclizine HCl), 25 MG PO TID PRN for Dizziness or Vertigo Methoxy Polyethylene Glycol-Ep (Mircera), 200 MCG SQ UD PRN for anemia Nitroglycerin (Nitrostat), 0.4 MG UT UD PRN for Chest Pain Senna (Senokot), 1 TAB PO DAILY PRN for Constipation Allergies Coded Allergies: BEE STING (Verified Allergy, Unknown, ANAPHYLAXIS, 05/15/16) Erythromycin (Verified Allergy, Unknown, reaction unknown, 05/15/16) Hydromorphone (Verified Allergy, Unknown, hard to wake up, 01/21/17) Iodinated Diagnostic Agents (Verified Allergy, Unknown, ITCHY/HIVES, ) Morphine (Verified Allergy, Unknown, hives/rash, 01/30/17) Penicillins (Verified Allergy, Unknown, HIVES, 05/15/16) Oxycodone (Verified Adverse Reaction, Mild, CAUSES ITCHING, 05/15/16) Amlodipine (Verified Adverse Reaction, Unknown, DIZZY, GI UPSET, 05/15/16) Codeine (Verified Adverse Reaction, Unknown, HALLUCINATES, 05/15/16) Neomycin (Verified Adverse Reaction, Unknown, vomit, 05/15/16) Physical Exam Vital Signs Date Time Temp Pulse Resp B/P (MAP) Pulse Ox O2 Delivery O2 Flow Rate FiO2 01/30/17 23:29 71 16 163/69 98 Room Air 01/30/17 21:27 68 20 155/69 95 Room Air 01/30/17 20:17 36.6 70 18 188/74 96 Room Air 01/30/17 20:15 73 Physical Exam GENERAL: Patient is in no acute distress. Mildly anxious HEENT: No acute trauma, normocephalic atraumatic, mucous membranes moist, no nasal congestion, no scleral icterus. Pupils are equal, round, and reactive to light. NECK: No stridor, no adenopathy, no meningismus, trachea is midline. LUNGS: Clear to auscultation bilaterally, no wheeze, no rhonchi, breath sounds equal. HEART: Without murmurs gallops or rubs, regular rate and rhythm. ABDOMEN: Soft, nontender, bowel sounds positive, no hernias, no peritonitis. EXTREMITIES: No cyanosis or edema, full range of motion of all the joints without pain or difficulty, no signs for acute trauma. NEUROLOGIC: Oriented x 3, no acute motor or sensory deficits, no focal weakness. SKIN: No rash, no jaundice, no diaphoresis. Medical Decision & Procedures ER Provider Diagnostic Interpretation: Radiology results as stated below per my review and radiologist interpretation: CT OF THE HEAD WITHOUT CONTRAST CLINICAL HISTORY: Headache. COMPARISON STUDY: Head CT January 21, 2017 and MRI of the brain January 22, 2017. CT DOSE: 623.48 mGy.cm TECHNIQUE: Helical axial images of the head were obtained without IV contrast. Automated exposure control was utilized for the study. A dose lowering technique was utilized adhering to the principles of ALARA. FINDINGS: A tiny intermediate attenuation right subdural hematoma is similar to MRI of January 22, 2017. The hematoma measures 2 mm in thickness. Ventricular dilatation is unchanged. Basilar cisterns are patent. White matter hypodensity suggests small vessel disease. There are no CT findings to suggest acute dural sinus thrombosis or acute territorial infarct. No calvarial fracture is present. Mastoid air cells are clear. A mucous retention cyst or polyp within the left maxillary sinus is again noted. IMPRESSION: 1. No change in a tiny intermediate attenuation right subdural hematoma since MRI of January 22, 2017. 2. Stable ventricular dilatation, likely due to atrophy. Electronically signed by: Jese Sprague M.D. 01/30/2017 9:15 PM Dictated Date/Time: 01/30/2017 9:07 PM Laboratory Results 01/30/17 20:20 Red Blood Count 4.26, Mean Corpuscular Volume 108.5, Mean Corpuscular Hemoglobin 33.8, Mean Corpuscular Hemoglobin Concent 31.2, Mean Platelet Volume 10.6, Neutrophils (%) (Auto) 63.1, Lymphocytes (%) (Auto) 24.7, Monocytes (%) ( Auto) 7.4, Eosinophils (%) (Auto) 3.7, Basophils (%) (Auto) 0.9, Neutrophils # ( Auto) 3.39, Lymphocytes # (Auto) 1.33, Monocytes # (Auto) 0.40, Eosinophils # ( Auto) 0.20, Basophils # (Auto) 0.05 01/30/17 20:20 Test 01/30/17 20:20 01/30/17 21:28 01/30/17 22:45 White Blood Count 5.38 K/uL (4.8-10.8) Red Blood Count 4.26 M/uL (4.2-5.4) Hemoglobin 14.4 g/dL (12.0-16.0) Hematocrit 46.2 % (37-47) Mean Corpuscular Volume 108.5 fL (80-100) Mean Corpuscular Hemoglobin 33.8 pg (25-34) Mean Corpuscular Hemoglobin Concent 31.2 g/dl (32-36) Platelet Count 147 K/uL (130-400) Mean Platelet Volume 10.6 fL (7.4-10.4) Neutrophils (%) (Auto) 63.1 % Lymphocytes (%) (Auto) 24.7 % Monocytes (%) (Auto) 7.4 % Eosinophils (%) (Auto) 3.7 % Basophils (%) (Auto) 0.9 % Neutrophils # (Auto) 3.39 K/uL (1.4-6.5) Lymphocytes # (Auto) 1.33 K/uL (1.2-3.4) Monocytes # (Auto) 0.40 K/uL (0.11-0.59) Eosinophils # (Auto) 0.20 K/uL (0-0.5) Basophils # (Auto) 0.05 K/uL (0-0.2) RDW Standard Deviation 70.6 fL (36.4-46.3) RDW Coefficient of Variation 17.9 % (11.5-14.5) Immature Granulocyte % (Auto) 0.2 % Immature Granulocyte # (Auto) 0.01 K/uL (0.00-0.02) Erythrocyte Sedimentation Rate 39 mm/hr (0-21) Anion Gap 10.0 mmol/L (3-11) Est Creatinine Clear Calc Drug Dose 5.8 ml/min Estimated GFR () 5.7 Estimated GFR (Non- 4.9 BUN/Creatinine Ratio 8.6 (10-20) Calcium Level 8.9 mg/dl (8.5-10.1) Chemistry Specimen Hemolysis Urine Color YELLOW Urine Appearance CLOUDY (CLEAR) Urine pH 6.5 (4.5-7.5) Urine Specific [place] 1.018 (1.000-1.030) Urine Protein 3+ (NEG) Urine Glucose (UA) 1+ (NEG) Urine Ketones NEG (NEG) Urine Occult Blood 1+ (NEG) Urine Nitrite NEG (NEG) Urine Bilirubin NEG (NEG) Urine Urobilinogen NEG (NEG) Urine Leukocyte Esterase SMALL (NEG) Urine WBC (Auto) 10-30 /hpf (0-5) Urine RBC (Auto) 0-4 /hpf (0-4) Urine Hyaline Casts (Auto) 0 /lpf (0-5) Urine Epithelial Cells (Auto) >30 /lpf (0-5) Urine Bacteria (Auto) 1+ (NEG) Urine Renal Epithelial Cells /lpf (0-5) Urine Crystals AMORPHOUS SEDIMENT (NONE Urine Yeast (Auto) (NONE PRSENT) Laboratory results reviewed by me. Medications Administered Medications (Trade) Dose Ordered Sig/Marlon Route Start Time Stop Time Status Last Admin Dose Admin Sodium Chloride 500 ml @ 999 mls/hr Q31M STAT IV 01/30/17 20:21 01/30/17 20:51 DC 01/30/17 20:21 999 MLS/HR Ondansetron HCl (Zofran Inj) 4 mg NOW STAT IV 01/30/17 20:21 01/30/17 20:25 DC 01/30/17 20:34 4 MG Diphenhydramine HCl (Benadryl Inj) 25 mg NOW STAT IV 01/30/17 20:21 01/30/17 20:25 DC 01/30/17 20:33 25 MG Fentanyl Citrate (Fentanyl Inj) 25 mcg NOW STAT IV 01/30/17 20:21 01/30/17 20:26 DC 01/30/17 20:34 25 MCG Cephalexin Monohydrate (Keflex Cap) 500 mg NOW STAT PO 01/30/17 23:13 01/30/17 23:15 DC 01/30/17 23:29 500 MG Tramadol HCl (Ultram Home Pack) 1 homepack UD ONCE PO 01/30/17 23:15 01/30/17 23:16 DC 01/30/17 23:29 1 HOMEPACK ECG Indication: syncope Rate (beats per minute): 70 Rhythm: normal sinus Findings: no acute ischemic change, other (Artifact present, old inferior and anterior infarct. ) ED Course 2014: The patient was evaluated in room B2. A complete history and physical exam was performed. 2020: Ordered Fentanyl 25 mcg IV, Benadryl 25 mg IV, Zofran 4 mg IV, Sodium Chloride 500 mL @ 999 mL/hr IV. 3: Ordered Keflex 500 mg PO. 5: Ordered Tramadol HCl 1 homepack PO. 6: Reevaluated the patient. She feels much better and has no further headache. I discussed results and discharge instructions: she verbalized understanding and agreement. The patient is ready for discharge. Medical Decision Differential diagnosis include; Worsening intracranial bleeding, migraine, anxiety, tension headache, meningitis, head trauma, temporal arteritis. There is no leukocytosis or concerning anemia. Sedimentation rate is slightly elevated but not high enough to diagnosed temporal arteritis. Renal panel testing does show her need for dialysis, potassium is reasonable. Urinalysis is suggestive of possible infection, urine culture is pending. Brain CT shows the same small subdural hematoma, no worsening or new intracranial bleeding. EKG shows a sinus rhythm, no acute ischemia. On exam, there were no focal neurologic deficits. The patient received IV saline, IV Benadryl, IV fentanyl and IV Zofran. She feels markedly better. Because of the potential UTI, she was given oral Keflex- she had grown group B strep in her urine just over a week ago. The patient is being discharged, her headache is now completely gone, she is eating. Her blood pressure is reasonable. She may have had a migraine headache today, she may have had a tension headache. She was reassured by her findings. She will be discharged with some tramadol for acute pain if needed, she can use Keflex 3 times a day for 5 more days for the potential UTI. If worsening, she can return. Medication Reconcilliation Current Medication List: was personally reviewed by me Blood Pressure Screening Patient's blood pressure: Elevated blood pressure Blood pressure disposition: Elevated BP felt to be situational Impression Primary Impression: Headache Additional Impression: UTI (urinary tract infection) Scribe Attestation The scribe's documentation has been prepared under my direction and personally reviewed by me in its entirety. I confirm that the note above accurately reflects all work, treatment, procedures, and medical decision making performed by me. Departure Information Dispostion Home / Self-Care Prescriptions Cephalexin Monohydrate (Keflex) 500 Mg Cap 500 MG PO TID for 5 Days, #15 CAP Prov: Steven Edwards M.D. 01/30/17 Referrals Concha Velasquez D.O. (PCP) Forms HOME CARE DOCUMENTATION FORM, IMPORTANT VISIT INFORMATION Patient Instructions My [facility] Additional Instructions rest use tylenol for pain try tramadol 1 tab for pain not controlled by tylenol see ranjith summers for a recheck use Keflex 3x per day for 5 more days return if worsening Problem Qualifiers
[2017-01-30 20:38] LABS: BASO % 0.9 %; BASO ABS # 0.05 K/uL (0-0.2); COMPLETE YES; EOS % 3.7 %; HEMATOCRIT 46.2 % (37-47); IG% 0.2 %; LYMPH % 24.7 %; LYMPH ABS # 1.33 K/uL (1.2-3.4); MEAN CELL VOLUME 108.5 fL (80-100); MEAN CORPUSCULAR HEMOGLOBIN 33.8 pg (25-34); MEAN CORPUSCULAR HGB CONC 31.2 g/dl (32-36); MEAN PLATELET VOLUME 10.6 fL (7.4-10.4); MONO % 7.4 %; NEUT % 63.1 %; PLATELET COUNT 147 K/uL (130-400); RED BLOOD COUNT 4.26 M/uL (4.2-5.4); WHITE BLOOD COUNT 5.38 K/uL (4.8-10.8)
[2017-01-30 21:09] LABS: BUN/CREATININE RATIO 8.6 (10-20); CALCIUM 8.9 mg/dl (8.5-10.1); CREATININE 7.4 mg/dl (0.60-1.20); POTASSIUM 4.6 mmol/L (3.5-5.1)
--- NOTE | 2017-01-30 21:17 | DIAGNOSTIC IMAGING REPORT ---
CT OF THE HEAD WITHOUT CONTRAST CLINICAL HISTORY: Headache. COMPARISON STUDY: Head CT January 21, 2017 and MRI of the brain January 22, 2017. CT DOSE: 623.48 mGy.cm TECHNIQUE: Helical axial images of the head were obtained without IV contrast. Automated exposure control was utilized for the study. A dose lowering technique was utilized adhering to the principles of ALARA. FINDINGS: A tiny intermediate attenuation right subdural hematoma is similar to MRI of January 22, 2017. The hematoma measures 2 mm in thickness. Ventricular dilatation is unchanged. Basilar cisterns are patent. White matter hypodensity suggests small vessel disease. There are no CT findings to suggest acute dural sinus thrombosis or acute territorial infarct. No calvarial fracture is present. Mastoid air cells are clear. A mucous retention cyst or polyp within the left maxillary sinus is again noted. IMPRESSION: 1. No change in a tiny intermediate attenuation right subdural hematoma since MRI of January 22, 2017. 2. Stable ventricular dilatation, likely due to atrophy. Electronically signed by: Jese Sprague M.D. 01/30/2017 9:15 PM Dictated Date/Time: 01/30/2017 9:07 PM
[2017-01-30] MEDS ORDERED: SENN-61 PO (21:26)
[2017-01-30] MEDS ORDERED: GLUC-338 PO (21:26)
[2017-01-30 22:58] LABS: URINE APPEARANCE CLOUDY (CLEAR); URINE BILIRUBIN NEG (NEG); URINE COLOR YELLOW; URINE EPITHELIAL CELL AUTO >30 /lpf (0-5); URINE NITRITE NEG (NEG); URINE PH 6.5 (4.5-7.5); URINE SPECIFIC GRAVITY 1.018 (1.000-1.030); UROBILINOGEN NEG (NEG)
[2017-01-30 22:59] LABS: MANUAL MICROSCOPIC REQUIRED? NO; REVIEW REQ? YES
[2017-01-30] MEDS ORDERED: CEPHALEXIN MONOHYDRATE 250 MG CAP PO STA (23:13)
[2017-01-30] MEDS ORDERED: TRAMADOL HCL 50 MG HOME PACK PO ONE (23:15)
[2017-01-30] MEDS ORDERED: CEPH500C PO (23:26)
[2017-01-30 23:29] VITALS: BP 163/69; PULSE 71; O2SAT 98
[2017-01-30] MEDS ORDERED: CEPHALEXIN 500MG HOME PACK 1 EA BTL PO ONE (23:45)
[2017-02-18] MEDS ORDERED: NTRGSL/4 UT (01:15)
[2017-02-18] MEDS ORDERED: ATOR-26 PO (08:49)
[2017-02-18] MEDS ORDERED: CYAN500T PO (10:56)
[2017-02-18] MEDS ORDERED: MELA1TAB5 PO (10:56)
[2017-02-18] MEDS ORDERED: MIRT15TA PO (10:56)
[2017-02-18] MEDS ORDERED: B-CO1CAP17 PO (10:56)
[2017-02-18] MEDS ORDERED: ISOS-10 PO (15:41)
[2017-02-18] MEDS ORDERED: PRLSR20 PO (17:16)
[2017-02-18] MEDS ORDERED: INSDGI SC (17:16)
[2017-02-18] MEDS ORDERED: CHOL20005 PO (17:26)
[2017-02-18] MEDS ORDERED: HYDCR1CL TP (17:53)
== END 2017-01-30 23:50 | disposition home or self-care (01) ==
LOC: EDBD 20:04 → EDSEX 20:04 → C.EDB 20:05
DX: R51 Headache (principal); R55 Syncope and collapse; N39.0 Urinary tract infection, site not specified; R42 Dizziness and giddiness; R53.1 Weakness; N18.6 End stage renal disease; I12.0 Hypertensive chronic kidney disease with stage 5 chronic kidney disease or end stage renal disease; E11.9 Type 2 diabetes mellitus without complications; E78.5 Hyperlipidemia, unspecified; I25.10 Atherosclerotic heart disease of native coronary artery without angina pectoris; Z79.4 Long term (current) use of insulin; Z79.899 Other long term (current) drug therapy; Z85.048 Personal history of other malignant neoplasm of rectum, rectosigmoid junction, and anus; Z86.73 Personal history of transient ischemic attack (TIA), and cerebral infarction without residual deficits; Z95.1 Presence of aortocoronary bypass graft; Z80.3 Family history of malignant neoplasm of breast; Z80.1 Family history of malignant neoplasm of trachea, bronchus and lung; Z80.7 Family history of other malignant neoplasms of lymphoid, hematopoietic and related tissues; Z82.49 Family history of ischemic heart disease and other diseases of the circulatory system; Z83.3 Family history of diabetes mellitus

== ENCOUNTER 2017-02-18 20:47 | Emergency (ER) | payer OTHER, MEDICARE ==
[~2017-02-18] VITALS: Ht 157.5 cm; Wt 65.0 kg
[~2017-02-18 20:47] MED LIST changes: +ATOR-26 PO; +B-CO1CAP17 PO; -CAL PO; -CFT250 PO; +CHOL20005 PO; +CYAN500T PO; -DEXT40GE PO; -GLGKIT IM; +GLUC-338 PO; +HYDCR1CL TP; +INSDGI SC; -IRON20IN INJ; +ISOS-10 PO; +MELA1TAB5 PO; +MIRT15TA PO; +NTRGSL/4 UT; +PRLSR20 PO; +SENN-61 PO; -[UNRECOGNIZED DRUG - OTHER] PO
[2017-02-18 20:53] VITALS: TEMP 36.8; Ht 157.5 cm; Wt 65.0 kg
[2017-02-18] MEDS ORDERED: ACET-1256 PO (21:27)
[2017-02-18] MEDS ORDERED: CALC0.5C17 PO (21:27)
[2017-02-18] MEDS ORDERED: CALC500C3 PO (21:27)
[2017-02-18] MEDS ORDERED: SENN8.6T9 PO (21:27)
[2017-02-18] MEDS ORDERED: EPP3/2 IM (21:27)
[2017-02-18] MEDS ORDERED: ONDA4TAB9 PO (21:34)
[2017-02-18] MEDS ORDERED: MECL1TAB42 PO (21:34)
[2017-02-18] MEDS ORDERED: PRMVC TOP (21:34)
--- NOTE | 2017-02-18 21:48 | EMERGENCY ROOM VISIT NOTE ---
History First contact with patient: 21:28 Chief Complaint: FALL Stated Complaint: FALL, PAIN ON LEFT SIDE OF ARM AND LEG History of Present Illness The patient is a 76 year old female who presents to the Emergency Room with complaints of left shoulder and left hip pain after she rolled out of bed accidentally 2 days ago. The patient remembers the event. There is no loss of consciousness. She did not feel dizzy or lightheaded prior to the fall. She denies hitting her head. She has taken Tylenol with moderate pain relief. The patient typically ambulates with a walker at home. She is able to bear weight on the left leg, with some discomfort. Review of Systems 6 system review negative. Please see pertinent positives in the history of present illness section. Past Medical/Surgical History Medical Problems: (1) Anemia of renal disease (2) CAD (coronary artery disease) (3) CHF (congestive heart failure) (4) CKD (chronic kidney disease), stage IV (5) DM (diabetes mellitus) (6) Dyslipidemia (7) End stage renal disease (8) Hemodialysis patient (9) HTN (hypertension) (10) Hx of subdural hematoma (11) Rectal cancer (12) Stroke (13) Subdural hematoma (14) Vertigo (15) Weakness Surgical Problems: (1) H/O tubal ligation (2) H/O: hysterectomy (3) History of carpal tunnel surgery (4) History of incisional hernia repair (5) History of lumbar surgery (6) History of partial surgical removal of colon (7) S/p A-port placement (8) S/P appendectomy (9) S/P CABG x 4 Family History Diabetes mellitus SISTER BROTHER FH: CAD (coronary artery disease) FATHER SISTER FH: cancer BROTHER (lung CA) MOTHER (lymphoma) DAUGHTER (breast CA) Social History Smoking Status: Never Smoker Alcohol Use: none Drug Use: none Marital Status: Housing Status: lives with family, detention Occupation Status: retired Current/Historical Medications Scheduled Atorvastatin (Lipitor), 80 MG PO HS Calcitriol (Calcitriol), 0.25 MCG PO 3XWK Calcium Acetate (Phoslo 667 Mg), 1 CAP PO ON HOLD Calcium Carbonate (Tums), 2 TABS PO TID Carvedilol (Carvedilol), 25 MG PO BID Cholecalciferol (Vitamin D3), 2,000 INTER.UNIT PO DAILY Cyanocobalamin (Vitamin B-12), 500 MCG PO DAILY Docusate Sodium (Stool Softener), 100 MG PO BID Epinephrine (Epipen), 0.3 MG IM UD Estrogens, Conjugated (Premarin), 1 APPLN TOP TID Insulin Glargine (Lantus), 10 UNITS SC BID Isosorbide Mononitrate (Isosorbide Mononitrate ER), 60 MG PO QAM Melatonin (Kp Melatonin), 1 TAB PO HS Mirtazapine (Remeron), 15 MG PO HS Omeprazole (Prilosec), 40 MG PO DAILY Ondansetron (Ondansetron HCl), 4 MG PO PRN Vitamin B Cmplx/Vitc/Folic Ac (Nephrocaps), 1 CAP PO DAILY Scheduled PRN Acetaminophen (Tylenol), 2 TAB PO Q6 PRN for Pain Hydrocortisone 1% (Hydrocortisone 1%), 1 APPLN TP DAILY PRN for Hemorrhoids Meclizine Hcl (Meclizine Hcl), 1 TAB PO TID PRN for Dizziness or Vertigo Nitroglycerin (Nitrostat), 0.4 MG UT UD PRN for Chest Pain Sennosides (Senexon), 8.6 MG PO DAILY PRN for Constipation Physical Exam Vital Signs Date Time Temp Pulse Resp B/P (MAP) Pulse Ox O2 Delivery O2 Flow Rate FiO2 02/18/17 22:35 62 18 171/66 95 02/18/17 20:53 36.8 70 20 155/70 94 Room Air Physical Exam VITALS: Vitals are noted on the nurse's note and reviewed by myself. Vital signs stable. GENERAL: 76-year-old female, in no acute distress, nondiaphoretic, well- developed well-nourished. SKIN: The skin was without rashes, erythema, edema, or bruising. HEAD: Normocephalic atraumatic. HEART: Regular rate and rhythm without murmurs gallops or rubs. LUNGS: Clear to auscultation bilaterally without wheezes, rales or rhonchi. No accessory muscle use. MUSCULOSKELETAL: LUE: Tenderness to palpation over the anterior and lateral aspect of the shoulder. Pain with active abduction. Positive empty can test. Tenderness to palpation over the left hip. Difficulty with flexion. Tenderness proceeds distally to the mid thigh. No tenderness over the knee. NEURO: Patient was alert and answering questions appropriately. Normal sensation to touch. No focal neurological deficits. Medical Decision & Procedures ER Provider Diagnostic Interpretation: Patient Name: RITU HIGGINS Unit Number: [id number] Dictated: 02/18/172218 Transcribed: 02/18/172218 MS Printed Date/Time: [~ rep prt dt]/[~ rep prt tm] [~ rep ct labl] - [~ rep ct ivnm] [facility] Radiology Department [place] [id number] Dictated: 02/18/172218 Transcribed: 02/18/172218 MS Printed Date/Time: [~ rep prt dt]/[~ rep prt tm] [~ rep ct labl] - [~ rep ct ivnm] LEFT SHOULDER MIN 2 VIEWS ROUTINE CLINICAL HISTORY: L shoulder pain pain COMPARISON: None. DISCUSSION: Moderate degenerative change glenohumeral and acromioclavicular joints. Mild osteopenia. No acute bony abnormality. There is no evidence for soft tissue swelling. IMPRESSION: Moderate degenerative change. Osteopenia. No acute process. The above report was generated using voice recognition software. It may contain grammatical, syntax or spelling errors. Electronically signed by: Delonte Treadwell M.D. 02/18/2017 10:20 PM Dictated Date/Time: 02/18/2017 10:19 PM The status of this report is Signed. Draft = Not yet reviewed or approved by Radiologist. Signed = Reviewed and approved by Radiologist. <AttendingPhy></AttendingPhy> <FamilyPhy>No Doctor, Assigned</FamilyPhy> < PrimaryPhy>No Doctor, Assigned</PrimaryPhy> <UnitNumber>[id number]</UnitNumber> <VisitNumber>[id number]</VisitNumber> <PatientName>RITU HIGGINS</ PatientName> <DateOfBirth>1940</DateOfBirth> <Location>[facility]</Location> < ServiceDate>02/18/17</ServiceDate> <MNE>ESINDI</MNE> <OrderingPhy>Betsy Jerez PA-C</OrderingPhy> <OrderingPhyMNE>f rep ord dr lima</OrderingPhyMNE> < DictatingPhyMNE>f rep dict dr lima</DictatingPhyMNE> <CCListMNE>f rep ct mne</ CCListMNE> <AdmittingPhyMNE>f pt admit dr lima</AdmittingPhyMNE> <AttendingPhyMNE >f pt attend dr lima</AttendingPhyMNE> <ConsultingPhyMNE>f pt consult dr lima</ConsultingPhyMNE> <FamilyPhyMNE>f pt fam dr lima</FamilyPhyMNE> <OtherPhyMNE>f pt other dr lima</OtherPhyMNE> < PrimaryPhyMNE>f pt prim care dr lima</PrimaryPhyMNE> <ReferringPhyMNE>f pt referring dr lima</ReferringPhyMNE> LEFT HIP UNILATERAL 2 VIEWS CLINICAL HISTORY: L hip pain pain COMPARISON: None. DISCUSSION: The bones and joint spaces appear intact. There is no evidence of fracture, dislocation or bony disease. There is no evidence for soft tissue swelling. IMPRESSION: Negative study. The above report was generated using voice recognition software. It may contain grammatical, syntax or spelling errors. Electronically signed by: Delonte Treadwell M.D. 02/18/2017 10:19 PM Dictated Date/Time: 02/18/2017 10:18 PM The status of this report is Signed. Draft = Not yet reviewed or approved by Radiologist. Signed = Reviewed and approved by Radiologist. LEFT FEMUR 2 VIEWS ROUTINE CLINICAL HISTORY: L mid thigh pain pain COMPARISON: None. DISCUSSION: The bones and joint spaces appear intact. There is no evidence of fracture, dislocation or bony disease. There is no evidence for soft tissue swelling. IMPRESSION: Negative study. The above report was generated using voice recognition software. It may contain grammatical, syntax or spelling errors. Electronically signed by: Delonte Treadwell M.D. 02/18/2017 10:18 PM Dictated Date/Time: 02/18/2017 10:18 PM Medications Administered Medications (Trade) Dose Ordered Sig/Marlon Route Start Time Stop Time Status Last Admin Dose Admin Lidocaine (Lidoderm Patch 5%) 2 patch ONE STAT TD 02/18/17 22:26 02/18/17 22:27 DC 02/18/17 22:34 2 PATCH ED Course The patient was seen and examined Imaging was performed and reviewed Medical Decision Differential diagnosis: Contusion, fracture, sprain, rotator cuff injury This patient is a 76-year-old female presents with left shoulder and left hip pain after falling out of bed. The episode was not syncopal. I do question whether the patient may have a partial rotator cuff injury. Imaging was negative for fracture. The patient has numerous allergies to pain medication. She will continue Tylenol every 6 hours as needed. She was also given a prescription for lidocaine patch. I advised that she follow-up with her primary care physician in the next 5-7 days for a recheck. If the shoulder or hip injury does not improve, she may need further imaging. She was advised to continue ambulating at home with a walker as she has been. She will return to the emergency department with any new or worsening symptoms Medication Reconcilliation Current Medication List: was personally reviewed by me Blood Pressure Screening Blood pressure disposition: Elevated BP felt to be situational Impression Primary Impression: Shoulder injury Additional Impression: Left hip pain Departure Information Dispostion Home / Self-Care Condition GOOD Prescriptions Lidocaine (Lidocaine) 1 Patch Tdsy 1 PATCH TD DAILY for Pain, #30 PATCH Prov: Betsy Jerez PA-C 02/18/17 Referrals No Doctor, Assigned (PCP) Patient Instructions My [facility] Additional Instructions Please rest and apply ice to the affected areas for 20 minute intervals. Please continue Tylenol 650 mg every 6 hours as needed. Do not exceed this dose. Please use lidocaine patch. Apply to the affected area once daily as needed for pain. Please follow-up with your primary care physician within one week for recheck. If your symptoms do not improve within one to 2 weeks, you may need further imaging of your hip and shoulder. Please also have your blood pressure reevaluated by your primary care physician , as it was slightly high in the emergency department. Please return to the emergency department with any new or worsening symptoms Problem Qualifiers
--- NOTE | 2017-02-18 22:20 | DIAGNOSTIC IMAGING REPORT ---
LEFT HIP UNILATERAL 2 VIEWS CLINICAL HISTORY: L hip pain pain COMPARISON: None. DISCUSSION: The bones and joint spaces appear intact. There is no evidence of fracture, dislocation or bony disease. There is no evidence for soft tissue swelling. IMPRESSION: Negative study. The above report was generated using voice recognition software. It may contain grammatical, syntax or spelling errors. Electronically signed by: Delonte Treadwell M.D. 02/18/2017 10:19 PM Dictated Date/Time: 02/18/2017 10:18 PM
--- NOTE | 2017-02-18 22:20 | DIAGNOSTIC IMAGING REPORT ---
LEFT FEMUR 2 VIEWS ROUTINE CLINICAL HISTORY: L mid thigh pain pain COMPARISON: None. DISCUSSION: The bones and joint spaces appear intact. There is no evidence of fracture, dislocation or bony disease. There is no evidence for soft tissue swelling. IMPRESSION: Negative study. The above report was generated using voice recognition software. It may contain grammatical, syntax or spelling errors. Electronically signed by: Delonte Treadwell M.D. 02/18/2017 10:18 PM Dictated Date/Time: 02/18/2017 10:18 PM
--- NOTE | 2017-02-18 22:21 | DIAGNOSTIC IMAGING REPORT ---
LEFT SHOULDER MIN 2 VIEWS ROUTINE CLINICAL HISTORY: L shoulder pain pain COMPARISON: None. DISCUSSION: Moderate degenerative change glenohumeral and acromioclavicular joints. Mild osteopenia. No acute bony abnormality. There is no evidence for soft tissue swelling. IMPRESSION: Moderate degenerative change. Osteopenia. No acute process. The above report was generated using voice recognition software. It may contain grammatical, syntax or spelling errors. Electronically signed by: Delonte Treadwell M.D. 02/18/2017 10:20 PM Dictated Date/Time: 02/18/2017 10:19 PM
[2017-02-18] MEDS ORDERED: LIDODERM (LIDOCAINE) PATCH 5% TD STA (22:26)
[2017-02-18] MEDS ORDERED: LDDP5 TD (23:00)
[2017-02-18 23:41] VITALS: BP 171/66; PULSE 62; O2SAT 95
[2017-02-18] MEDS ORDERED: CRG25 PO (23:53)
[2017-02-18] MEDS ORDERED: DOCU100T7 PO (23:54)
== END 2017-02-18 23:44 | disposition home or self-care (01) ==
LOC: C.EDB 20:50 → C.EDD 23:44
DX: S49.82XA Other specified injuries of left shoulder and upper arm, initial encounter (principal); M25.552 Pain in left hip; W06.XXXA Fall from bed, initial encounter; Y92.013 Bedroom of single-family (private) house as the place of occurrence of the external cause; I25.10 Atherosclerotic heart disease of native coronary artery without angina pectoris; I50.9 Heart failure, unspecified; N18.4 Chronic kidney disease, stage 4 (severe); E11.9 Type 2 diabetes mellitus without complications; E78.5 Hyperlipidemia, unspecified; I12.9 Hypertensive chronic kidney disease with stage 1 through stage 4 chronic kidney disease, or unspecified chronic kidney disease; Z85.048 Personal history of other malignant neoplasm of rectum, rectosigmoid junction, and anus; Z86.73 Personal history of transient ischemic attack (TIA), and cerebral infarction without residual deficits; Z95.1 Presence of aortocoronary bypass graft; Z83.3 Family history of diabetes mellitus; Z82.49 Family history of ischemic heart disease and other diseases of the circulatory system; Z80.9 Family history of malignant neoplasm, unspecified; Z79.4 Long term (current) use of insulin; Z79.899 Other long term (current) drug therapy

== ENCOUNTER 2017-05-08 20:51 | Emergency (ER) | payer OTHER, MEDICARE ==
[~2017-05-08] VITALS: Ht 158.8 cm; Wt 79.0 kg
[~2017-05-08 20:51] MED LIST changes: -ACET-1311 PO; -ANT25 PO; +CALC0.5C PO; -GLUC-338 PO; +LDDP5 TD; -SENN-61 PO; -[UNRECOGNIZED DRUG - CODE] SQ
[2017-05-08 20:57] VITALS: TEMP 36.7; Ht 158.8 cm; Wt 79.0 kg
[2017-05-08 20:58] VITALS: O2SAT 97
[2017-05-08] MEDS ORDERED: ACETAMINOPHEN 325 MG TAB PO STA (21:22)
[2017-05-08] MEDS ORDERED: ACET-1256 PO (21:27)
[2017-05-08] MEDS ORDERED: SENN8.6T9 PO (21:27)
[2017-05-08] MEDS ORDERED: CALC500C3 PO (21:27)
[2017-05-08] MEDS ORDERED: EPP3/2 IM (21:27)
[2017-05-08] MEDS ORDERED: FENTANYL CITRATE INJ 50 MCG/1 ML 2 ML VIAL IV ONE (21:30)
[2017-05-08 21:31] LABS: BASO % 0.5 %; BASO ABS # 0.03 K/uL (0-0.2); COMPLETE YES; EOS % 0.7 %; HEMATOCRIT 38.8 % (37-47); LYMPH % 18.2 %; LYMPH ABS # 1.06 K/uL (1.2-3.4); MEAN CELL VOLUME 103.2 fL (80-100); MEAN PLATELET VOLUME 10.3 fL (7.4-10.4); MONO % 9.6 %; PLATELET COUNT 198 K/uL (130-400); RED BLOOD COUNT 3.76 M/uL (4.2-5.4); WHITE BLOOD COUNT 5.81 K/uL (4.8-10.8)
[2017-05-08] MEDS ORDERED: ONDA4TAB9 PO (21:34)
[2017-05-08] MEDS ORDERED: MECL1TAB42 PO (21:34)
[2017-05-08] MEDS ORDERED: PRMVC TOP (21:34)
[2017-05-08] MEDS ORDERED: B-COCAP21 PO (21:44)
[2017-05-08 21:48] LABS: PROTHROMBIN TIME (PATIENT) 11.1 SECONDS (9.0-12.0)
[2017-05-08 22:00] LABS: ALKALINE PHOSPHATASE 114 U/L (45-117); ALT/SGPT 28 U/L (12-78); AST/SGOT 30 U/L (15-37); BLOOD UREA NITROGEN 43 mg/dl (7-18); CALCIUM 9.3 mg/dl (8.5-10.1); CARBON DIOXIDE 28 mmol/L (21-32); CHLORIDE 99 mmol/L (98-107); CREATININE 5.46 mg/dl (0.60-1.20); GLUCOSE 210 mg/dl (70-99); POTASSIUM 3.6 mmol/L (3.5-5.1); SODIUM 137 mmol/L (136-145)
--- NOTE | 2017-05-08 22:19 | DIAGNOSTIC IMAGING REPORT ---
CHEST ONE VIEW PORTABLE CLINICAL HISTORY: CHEST PAIN dyspnea COMPARISON STUDY: 01/21/2017 FINDINGS: Mild cardiomegaly. Median sternotomy. Back elevation right hemidiaphragm. Lungs are clear. Slight fullness pulmonary vasculature. IMPRESSION: Mild pulmonary vascular congestion. The above report was generated using voice recognition software. It may contain grammatical, syntax or spelling errors. Electronically signed by: Delonte Treadwell M.D. 05/08/2017 10:17 PM Dictated Date/Time: 05/08/2017 10:17 PM
--- NOTE | 2017-05-08 23:29 | EMERGENCY ROOM VISIT NOTE ---
History Report prepared by Rajiv: Yuliet Mathis Under the Supervision of: Dr. Kevin Maldonado M.D. First contact with patient: 20:54 Chief Complaint: CHEST PAIN Stated Complaint: LF RIB, CHEST PAIN, SOB History of Present Illness The patient is a 77 year old white female with a past medical history of CAD, CHF, CKD, DM, HTN, colon cancer, CVA, vertigo, appendectomy, CABG, hysterectomy who presents to the ED with a cc of constant stabbing left chest pain beginning 1600 today. The pain does not feel like her previous heart problems. She tried taking nitro to no significant relief. The pain does not worsen with coughing. Positive nausea, SOB with exertion. Negative radiating pain, cough, rash, diaphoresis, vomiting, right sided pain, fever, chills, leg swelling. Her last BM was 2-3 days ago. She is still passing gas. She last had dialysis yesterday. She fell 1 week ago onto her right side. She did not have rib pain with her fall. She has a torn left rotator cuff which became more painful after the fall. She has not gotten the shingles vaccine. She has a history of gallbladder problems. She denies any smoking or alcohol use. She is not on blood thinners. She denies recent car or plane travel. Source of History: patient, family Onset: 1600 Position: chest (left) Quality: stabbing Timing: constant Associated Symptoms: + SOB, + nausea, No fevers, No chills, No diaphoresis, No cough, No vomiting, No rash Review of Systems See HPI for pertinent positives and negatives. A total of ten systems were reviewed and were otherwise negative. Past Medical & Surgical Medical Problems: (1) Anemia of renal disease (2) CAD (coronary artery disease) (3) CHF (congestive heart failure) (4) CKD (chronic kidney disease), stage IV (5) DM (diabetes mellitus) (6) Dyslipidemia (7) End stage renal disease (8) Hemodialysis patient (9) HTN (hypertension) (10) Hx of subdural hematoma (11) Rectal cancer (12) Stroke (13) Subdural hematoma (14) Vertigo (15) Weakness Surgical Problems: (1) H/O tubal ligation (2) H/O: hysterectomy (3) History of carpal tunnel surgery (4) History of incisional hernia repair (5) History of lumbar surgery (6) History of partial surgical removal of colon (7) S/p A-port placement (8) S/P appendectomy (9) S/P CABG x 4 Family History Diabetes mellitus SISTER BROTHER FH: CAD (coronary artery disease) FATHER SISTER FH: cancer BROTHER (lung CA) MOTHER (lymphoma) DAUGHTER (breast CA) Social History Smoking Status: Never Smoker Alcohol Use: none Drug Use: none Marital Status: Housing Status: lives with family, correction Occupation Status: retired Current/Historical Medications Scheduled Atorvastatin (Lipitor), 80 MG PO HS B-Complex W/ C & Folic Acid (Kieran Caps), 1 CAP PO DAILY Calcium Acetate (Phoslo 667 Mg), 1 CAP PO [id number] Calcium Carbonate (Tums), 2 TABS PO TIDM Carvedilol (Carvedilol), 25 MG PO BID Cholecalciferol (Vitamin D3), 2,000 INTER.UNIT PO DAILY Cyanocobalamin (Vitamin B-12), 500 MCG PO DAILY Docusate Sodium (Stool Softener), 100 MG PO BID Epinephrine (Epipen), 0.3 MG IM UD Estrogens, Conjugated (Premarin), 1 APPLN TOP TID Insulin Glargine (Lantus), 10 UNITS SC BID Isosorbide Mononitrate (Isosorbide Mononitrate ER), 60 MG PO QAM Melatonin (Kp Melatonin), 1 TAB PO HS Omeprazole (Prilosec), 40 MG PO DAILY Ondansetron (Ondansetron HCl), 4 MG PO PRN Scheduled PRN Acetaminophen (Tylenol), 2 TAB PO Q6 PRN for Pain Hydrocortisone 1% (Hydrocortisone 1%), 1 APPLN TP DAILY PRN for Hemorrhoids Meclizine Hcl (Meclizine Hcl), 1 TAB PO TID PRN for Dizziness or Vertigo Nitroglycerin (Nitrostat), 0.4 MG UT UD PRN for Chest Pain Sennosides (Senexon), 8.6 MG PO DAILY PRN for Constipation Allergies Coded Allergies: BEE STING (Verified Allergy, Unknown, ANAPHYLAXIS, 05/15/16) Erythromycin (Verified Allergy, Unknown, reaction unknown, 05/15/16) Hydromorphone (Verified Allergy, Unknown, hard to wake up, 01/21/17) Iodinated Diagnostic Agents (Verified Allergy, Unknown, ITCHY/HIVES, ) Morphine (Verified Allergy, Unknown, hives/rash, 01/30/17) Penicillins (Verified Allergy, Unknown, HIVES, 05/15/16) Oxycodone (Verified Adverse Reaction, Mild, CAUSES ITCHING, 05/15/16) Amlodipine (Verified Adverse Reaction, Unknown, DIZZY, GI UPSET, 05/15/16) Codeine (Verified Adverse Reaction, Unknown, HALLUCINATES, 05/15/16) Neomycin (Verified Adverse Reaction, Unknown, vomit, 05/15/16) Physical Exam Vital Signs Date Time Temp Pulse Resp B/P (MAP) Pulse Ox O2 Delivery O2 Flow Rate FiO2 05/09/17 00:04 67 20 167/69 97 05/08/17 22:24 69 16 159/66 99 Nasal Cannula 2.0 05/08/17 21:38 71 16 191/94 97 Room Air 05/08/17 21:13 67 05/08/17 20:58 97 Room Air 05/08/17 20:57 36.7 72 28 188/77 100 Room Air 05/08/17 20:57 100 Room Air Physical Exam GENERAL: Awake, alert, well-appearing, NAD HENT: Normocephalic, atraumatic. Edentulous. EYES: Normal conjunctiva. Sclera non-icteric. NECK: Supple. No nuchal rigidity. FROM. RESPIRATORY: CTAB, no rhonchi, wheezing, crackles CARDIAC: RRR, no MRG ABDOMEN: Soft, NTND, BS+ MSK: Reproducible left chest wall and left breast pain. No erythema, ecchymosis , or stepoff. No crepitus. Palpable thrill in LUE fistula. NEURO: GCS 15, CN 2-12 intact, moves all 4s on command SKIN: No rash or jaundice noted. Medical Decision & Procedures ER Provider Diagnostic Interpretation: Radiology results as stated below per my review and radiologist interpretation: CHEST ONE VIEW PORTABLE CLINICAL HISTORY: CHEST PAIN dyspnea COMPARISON STUDY: 01/21/2017 FINDINGS: Mild cardiomegaly. Median sternotomy. Back elevation right hemidiaphragm. Lungs are clear. Slight fullness pulmonary vasculature. IMPRESSION: Mild pulmonary vascular congestion. The above report was generated using voice recognition software. It may contain grammatical, syntax or spelling errors. Electronically signed by: Delonte Treadwell M.D. 05/08/2017 10:17 PM Dictated Date/Time: 05/08/2017 10:17 PM Laboratory Results 05/08/17 21:10 Red Blood Count 3.76, Mean Corpuscular Volume 103.2, Mean Corpuscular Hemoglobin 33.0, Mean Corpuscular Hemoglobin Concent 32.0, Mean Platelet Volume 10.3, Neutrophils (%) (Auto) 70.0, Lymphocytes (%) (Auto) 18.2, Monocytes (%) ( Auto) 9.6, Eosinophils (%) (Auto) 0.7, Basophils (%) (Auto) 0.5, Neutrophils # ( Auto) 4.06, Lymphocytes # (Auto) 1.06, Monocytes # (Auto) 0.56, Eosinophils # ( Auto) 0.04, Basophils # (Auto) 0.03 05/08/17 21:10 Test 05/08/17 21:10 White Blood Count 5.81 K/uL (4.8-10.8) Red Blood Count 3.76 M/uL (4.2-5.4) Hemoglobin 12.4 g/dL (12.0-16.0) Hematocrit 38.8 % (37-47) Mean Corpuscular Volume 103.2 fL (80-100) Mean Corpuscular Hemoglobin 33.0 pg (25-34) Mean Corpuscular Hemoglobin Concent 32.0 g/dl (32-36) Platelet Count 198 K/uL (130-400) Mean Platelet Volume 10.3 fL (7.4-10.4) Neutrophils (%) (Auto) 70.0 % Lymphocytes (%) (Auto) 18.2 % Monocytes (%) (Auto) 9.6 % Eosinophils (%) (Auto) 0.7 % Basophils (%) (Auto) 0.5 % Neutrophils # (Auto) 4.06 K/uL (1.4-6.5) Lymphocytes # (Auto) 1.06 K/uL (1.2-3.4) Monocytes # (Auto) 0.56 K/uL (0.11-0.59) Eosinophils # (Auto) 0.04 K/uL (0-0.5) Basophils # (Auto) 0.03 K/uL (0-0.2) RDW Standard Deviation 69.3 fL (36.4-46.3) RDW Coefficient of Variation 18.9 % (11.5-14.5) Immature Granulocyte % (Auto) 1.0 % Immature Granulocyte # (Auto) 0.06 K/uL (0.00-0.02) Prothrombin Time 11.1 SECONDS (9.0-12.0) Prothromb Time International Ratio 1.0 (0.9-1.1) Activated Partial Thromboplast Time 25.4 SECONDS (21.0-31.0) Partial Thromboplastin Ratio 1.0 Anion Gap 10.0 mmol/L (3-11) Est Creatinine Clear Calc Drug Dose 8.8 ml/min Estimated GFR () 8.2 Estimated GFR (Non- 7.1 BUN/Creatinine Ratio 8.0 (10-20) Calcium Level 9.3 mg/dl (8.5-10.1) Total Bilirubin 0.8 mg/dl (0.2-1) Direct Bilirubin 0.2 mg/dl (0-0.2) Aspartate Amino Transf (AST/SGOT) 30 U/L (15-37) Alanine Aminotransferase (ALT/SGPT) 28 U/L (12-78) Alkaline Phosphatase 114 U/L (45-117) Troponin I < 0.015 ng/ml (0-0.045) Total Protein 7.7 gm/dl (6.4-8.2) Albumin 3.5 gm/dl (3.4-5.0) Lipase 279 U/L (73-393) Laboratory results reviewed by me Medications Administered Medications (Trade) Dose Ordered Sig/Marlon Route Start Time Stop Time Status Last Admin Dose Admin Fentanyl Citrate (Fentanyl Inj) 25 mcg NOW ONCE IV 05/08/17 21:30 05/08/17 21:31 DC 05/08/17 21:30 25 MCG Acetaminophen (Tylenol Tab) 650 mg NOW STAT PO 05/08/17 21:22 05/08/17 21:24 DC 05/08/17 21:22 650 MG ECG Indication: chest pain Rate (beats per minute): 73 Rhythm: normal sinus Findings: Q waves (lead 3 and V3), no ectopy, other (normal interval, normal axis, no STS changes or TWI) Comparison ECG Date: January 2017 Change: no significant change ED Course 2105: The patient was evaluated in room A3. A complete history and physical exam was performed. 2305: I reevaluated the patient. Discussed results and discharge instructions: she verbalized understanding and agreement. The patient is ready for discharge. Medical Decision Differential diagnosis: Etiologies such as cardiac ischemia, aortic dissection, pulmonary embolism, pneumonia, pneumothorax, musculoskeletal, infections, pericarditis, myocarditis , esophageal rupture, gastrointestinal, as well as others were entertained. The patient is a 77 year old white female with a past medical history of CAD, CHF, CKD, DM, HTN, colon cancer, CVA, vertigo, appendectomy, CABG, hysterectomy who presents to the ED with a cc of constant stabbing left chest pain beginning 1600 today. Patient was seen and evaluated at the bedside. Patient was complaining of some left sided chest pain was fairly reproducible pain was out of proportion to exam. Patient had no obvious skin changes. No ecchymosis no rashes. Patient was otherwise well-appearing and nontoxic. Patient is a history of ESRD and had a palpable thrill of her left upper extremity AV fistula. Patient did have blood work that was completed along with an EKG, troponin, and chest x-ray. She was also given medications for pain control. Patient's EKG was unchanged and nonischemic. Patient had an undetectable troponin even in light of her known CK D. Patient last received dialysis yesterday. Rest the patient's blood work was fairly unremarkable with exception of abnormal kidney function which is normal for her given her end-stage renal disease. Upon reassessment patient was feeling mildly improved. Patient still did have mild pain. Given the patient's duration of symptoms and her history even in light of her cardiac history of less likely cardiac given an undetectable troponin and unchanged EKG. Given the duration of her symptoms a positive troponin or change in her EKG would've been apparent at this time she truly had ACS. I did discuss the possibility of shingles as the pain is typically out of proportion on exam and even without any visual findings. Less likely to be PE based on her history and physical. Wells score of 0. Patient chest x-ray clear less likely to be pneumonia, pneumothorax, pleural effusion. I discussed the results with the family as well as the patient. Patient was given strict follow-up, discharge, return precautions. Patient agreed with plan of care patient was safely discharged home in the care of her family. Medication Reconcilliation Current Medication List: was personally reviewed by me Blood Pressure Screening Patient's blood pressure: Elevated blood pressure Blood pressure disposition: Referred to PCP Impression Primary Impression: Chest wall pain Scribe Attestation The scribe's documentation has been prepared under my direction and personally reviewed by me in its entirety. I confirm that the note above accurately reflects all work, treatment, procedures, and medical decision making performed by me. Departure Information Dispostion Home / Self-Care Referrals Concha Velasquez D.O. (PCP) Patient Instructions Chest Pain - [facility], My [facility] Additional Instructions Please return to the emergency department if you have worsening or recurrent symptoms not amenable to at-home treatment. Please call for a follow-up appointment with her primary care physician. Please take your medications as prescribed. If you have other concerns and/or complaints please feel free to also call your primary care physician's office or return the ED for further evaluation, management, and treatment. You were found to have an elevated blood pressure today (>120 sytolic or >90 diastolic). Per medicare guidelines, you need to follow up with this blood pressure screening with your Primary Care Physician (PCP). For a new PCP call [phone]. You received narcotic or benzodiazepene medication while in the emergency room today. This is an addictive medication that may cause drowziness as well as constipation. Do not drive, operate heavy machinery, or drink alcohol under the influence of this medication. You may take tylenol 650 mg every 6 hours as needed for pain. You may apply moist heat or ice to the area. Please be watchful for a possible rash to evolve in case this is early onset of shingles. If this does occur, please seek medical attention for treatment. You have been examined and treated today on an emergency basis only. This is not a substitute for, or an effort to provide, complete comprehensive medical care. It is impossible to recognize and treat all injuries or illnesses in a single emergency department visit. It is therefore important that you follow up closely with [facility]. Call as soon as possible for an appointment. Thank you for your time and consideration. I look forward to speaking with you again soon. Please don't hesitate to call us if you have any questions.
[2017-05-08] MEDS ORDERED: CRG25 PO (23:53)
[2017-05-08] MEDS ORDERED: DOCU100T7 PO (23:54)
[2017-05-09 00:04] VITALS: BP 167/69; PULSE 67; O2SAT 97
== END 2017-05-09 00:06 | disposition home or self-care (01) ==
LOC: EDBD 20:51 → C.EDA 20:55
DX: R07.89 Other chest pain (principal); R09.89 Other specified symptoms and signs involving the circulatory and respiratory systems; I25.10 Atherosclerotic heart disease of native coronary artery without angina pectoris; I12.9 Hypertensive chronic kidney disease with stage 1 through stage 4 chronic kidney disease, or unspecified chronic kidney disease; E11.22 Type 2 diabetes mellitus with diabetic chronic kidney disease; N18.4 Chronic kidney disease, stage 4 (severe); Z95.1 Presence of aortocoronary bypass graft; Z82.49 Family history of ischemic heart disease and other diseases of the circulatory system; Z79.4 Long term (current) use of insulin; Z79.899 Other long term (current) drug therapy

== ENCOUNTER 2017-07-01 09:21 | Inpatient (IN) | payer OTHER, MEDICARE ==
[~2017-07-01] VITALS: Ht 157.5 cm; Wt 64.2 kg
[2017-07-01] VITALS (7 sets, daily range): BP systolic 145–203; BP diastolic 61–82; PULSE 62–67; TEMP 36.4–36.7; O2SAT 95–98; Ht 157.5 cm; Wt 64.2 kg
[~2017-07-01 09:21] MED LIST changes: +ACET-1256 PO; -B-CO1CAP17 PO; +B-COCAP21 PO; -CALC0.5C PO; +CALC500C3 PO; +CRG25 PO; +DOCU100T7 PO; +EPP3/2 IM; -LDDP5 TD; +MECL1TAB42 PO; -MIRT15TA PO; +ONDA4TAB9 PO; +PRMVC TOP; +SENN8.6T9 PO
[2017-07-01] MEDS ORDERED: MoRPHine SULFATE 4 MG/ML 1 ML CARP\\VIAL IV STA (09:32)
[2017-07-01] MEDS ORDERED: ACETAMINOPHEN 325 MG TAB PO STA (09:32)
[2017-07-01] MEDS ORDERED: POLY1POW2 PO (09:36)
[2017-07-01] MEDS ORDERED: LORA-741 PO (09:36)
[2017-07-01] MEDS ORDERED: GLUC1TES (09:36)
[2017-07-01] MEDS ORDERED: LIDO1CRE16 TOP (09:36)
[2017-07-01] MEDS ORDERED: ESCI1TAB6 PO (09:36)
[2017-07-01] MEDS ORDERED: ASPI81TA28 PO (09:36)
[2017-07-01] MEDS ORDERED: HYDROmorphone INJ 0.5 MG/0.5 ML SYR IV STA (09:43)
[2017-07-01 10:14] LABS: BASO % 0.5 %; BASO ABS # 0.03 K/uL (0-0.2); COMPLETE YES; EOS % 1.5 %; HEMATOCRIT 38.6 % (37-47); IG% 0.2 %; LYMPH % 15.3 %; LYMPH ABS # 0.92 K/uL (1.2-3.4); MEAN CORPUSCULAR HEMOGLOBIN 33.4 pg (25-34); MEAN CORPUSCULAR HGB CONC 33.4 g/dl (32-36); MEAN PLATELET VOLUME 11.1 fL (7.4-10.4); MONO % 5.5 %; PLATELET COUNT 124 K/uL (130-400); RED BLOOD COUNT 3.86 M/uL (4.2-5.4); WHITE BLOOD COUNT 6.03 K/uL (4.8-10.8)
[2017-07-01 10:20] LABS: PROTHROMBIN TIME (PATIENT) 10.8 SECONDS (9.0-12.0)
[2017-07-01 10:30] LABS: CREATININE 4.19 mg/dl (0.60-1.20); POTASSIUM 3.1 mmol/L (3.5-5.1)
--- NOTE | 2017-07-01 10:37 | DIAGNOSTIC IMAGING REPORT ---
CT HEAD WITHOUT CONTRAST (CT) CLINICAL HISTORY: Severe headache COMPARISON STUDY: 01/28/2017 TECHNIQUE: Axial CT of the brain is performed from the vertex to the skull base. IV contrast was not administered for this examination. A dose lowering technique was utilized adhering to the principles of ALARA. CT DOSE: 638.56 mGycm FINDINGS: No intra or extra-axial mass lesions are visualized. There is no CT evidence of acute cortical infarction. There is no evidence of midline shift. There is no acute hemorrhage. No calvarial fractures are visualized. There are moderate white matter hypodensities likely on a small vessel basis. There is mild ventricular dilatation, similar to the prior study and likely secondary to volume loss. There is no evidence of acute sinusitis IMPRESSION: No acute intracranial findings Electronically signed by: Guy Edward M.D. 07/01/2017 10:36 AM Dictated Date/Time: 07/01/2017 10:34 AM
--- NOTE | 2017-07-01 12:01 | DIAGNOSTIC IMAGING REPORT ---
CHEST ONE VIEW PORTABLE CLINICAL HISTORY: syncope HEADACHE COMPARISON STUDY: 05/08/2017 FINDINGS: The heart is borderline enlarged. There are postsurgical changes of a midline sternotomy. There is no focal pulmonary consolidation. There is slight interstitial prominence. This is likely secondary to either a suboptimal inspiration, or mild pulmonary vascular congestion. IMPRESSION: 1. Slight interstitial prominence, likely secondary to either suboptimal inspiration, or mild pulmonary vascular congestion. If this distinction is not evident clinically, then a follow-up PA and lateral study would be of benefit. Electronically signed by: Guy Edward M.D. 07/01/2017 11:59 AM Dictated Date/Time: 07/01/2017 11:58 AM
[2017-07-01 13:07] LABS: URINE APPEARANCE CLOUDY (CLEAR); URINE COLOR DK YELLOW; URINE NITRITE NEG (NEG); URINE SPECIFIC GRAVITY 1.026 (1.000-1.030); UROBILINOGEN NEG (NEG); ZZURINE CULT IF INDIC CATH NO
[2017-07-01 13:09] LABS: MANUAL MICROSCOPIC REQUIRED? NO; REVIEW REQ? NO
[2017-07-01 13:10] LABS: URINE BILIRUBIN NEG (NEG)
[2017-07-01] MEDS ORDERED: ACETAMINOPHEN 325 MG TAB PO PRN (14:00)
[2017-07-01] MEDS ORDERED: ONDANSETRON INJ 2 MG/ML 2 ML VIAL IV PRN (14:00)
[2017-07-01] MEDS ORDERED: POLYETHYLENE (MIRALAX) 17 GM PACK PO PRN (14:00)
[2017-07-01] MEDS ORDERED: HYDROCORTISONE 1% CR 30 GM TUBE EXT PRN (14:15)
[2017-07-01] MEDS ORDERED: MECLIZINE HCL 12.5 MG TAB PO PRN (14:15)
[2017-07-01] MEDS ORDERED: SENNA 8.6 MG TAB PO PRN (14:15)
[2017-07-01] MEDS ORDERED: EPINEPHRINE ADULT AUTO-INJECT 0.3 MG SYR IM PRN (14:15)
[2017-07-01] MEDS ORDERED: NITROGLYCERIN 0.4 MG SL PER TAB CHARGE UT PRN (14:15)
--- NOTE | 2017-07-01 14:47 | DIAGNOSTIC IMAGING REPORT ---
CAROTID DOPPLER NECK ART CLINICAL HISTORY: 77 years-old Female presenting with r/o Stenosis. TECHNIQUE: Real-time grayscale and color and spectral Doppler ultrasound imaging of the bilateral carotid arteries was performed. NASCET criteria was used in evaluating this study. COMPARISON: 06/11/2013 and MRA from 01/22/2017. FINDINGS: Right: Common carotid: Atherosclerosis at the carotid bulb. Peak systolic velocity 51 cm/s. Internal carotid artery: Atherosclerosis of the proximal ICA. Peak systolic velocity 85 cm/s. Systolic ratio: 1.6. External carotid artery: Patent. Peak systolic velocity 113 cm/s. Left: Common carotid: Atherosclerosis. Peak systolic velocity 76 cm/s. Internal carotid artery: Atherosclerosis of the proximal ICA. Peak systolic velocity 63 cm/s. Systolic ratio: 0.8. External carotid artery: Atherosclerosis. Peak systolic velocity 101 cm/s. Bilateral antegrade flow within the vertebral arteries. Reference ranges: Stenosis measurements are compared to reference velocity parameters. ICA peak systolic velocity (PSV) < 125 cm/s normal or indicating < 50% stenosis; ICA PSV 125-230 cm/s equivalent to 50-69% stenosis; ICA PSV > 230 cm/s equivalent to greater than or equal to 70% stenosis. ICA PSV to common carotid artery PSV ratio < 2 normal or < 50% stenosis; 2-4 equates to 50-69% stenosis, > 4 equates to greater than or equal to 70% stenosis. Normal ICA end-diastolic velocity less than 40. Blood pressure Not performed. IMPRESSION: Atherosclerosis without hemodynamically significant stenosis seen within the carotid arteries. Electronically signed by: Quinn Greenberg M.D. 07/01/2017 2:46 PM Dictated Date/Time: 07/01/2017 2:44 PM
--- NOTE | 2017-07-01 14:57 | EMERGENCY ROOM VISIT NOTE ---
History Report prepared by Rajiv: Walt Whitmore Under the Supervision of: Dr. Gary Robbins D.O. First contact with patient: 09:22 Chief Complaint: HEADACHE Stated Complaint: HEADACHE History of Present Illness The patient is a 77 year old female who presents to the Emergency Room by EMS with complaints of a persistent headache beginning two weeks ago. She has a history of headaches, but does not get them on a regular basis. She states that her current headache has been constant, but occasionally switches sides of her head. The patient also complains of photophobia. She denies any modifying factors. Per nursing staff, the patient was recently taken off of narcotic pain medication for her chronic headaches. The patient states that she had an MRI of the shoulder about a week ago right before her headache began. She is a dialysis patient, and receives dialysis MW. She has a former history of hemorrhagic stroke s/p fall, and has not been able to walk since due to left leg weakness. Pt denies change in vision, fevers, chest pain, shortness of breath, nausea, vomiting, diarrhea, pain with urination, numbness, and melena. She does not believe she is on any blood thinners. Family notes that patient passed out when she was getting moved to stand up. Source of History: patient Onset: Two weeks ago Position: head Timing: other (persistent) Modifying Factors (Worsening): other (none) Modifying Factors (Relieving): other (none) Associated Symptoms: No fevers, No chest pain, No SOB, No nausea, No vomiting, No abdominal pain, No melena, No diarrhea, No numbness Note: The patient also complains of photophobia. Review of Systems See HPI for pertinent positives & negatives. A total of 10 systems reviewed and were otherwise negative. Past Medical & Surgical Medical Problems: (1) Anemia of renal disease (2) CAD (coronary artery disease) (3) CHF (congestive heart failure) (4) CKD (chronic kidney disease), stage IV (5) DM (diabetes mellitus) (6) Dyslipidemia (7) End stage renal disease (8) ESRD (end stage renal disease) on dialysis (9) Hemodialysis patient (10) HTN (hypertension) (11) Hx of subdural hematoma (12) Rectal cancer (13) Stroke (14) Subdural hematoma (15) Syncope and collapse (16) Vertigo (17) Weakness Surgical Problems: (1) H/O tubal ligation (2) H/O: hysterectomy (3) History of carpal tunnel surgery (4) History of incisional hernia repair (5) History of lumbar surgery (6) History of partial surgical removal of colon (7) S/p A-port placement (8) S/P appendectomy (9) S/P CABG x 4 Family History Diabetes mellitus SISTER BROTHER FH: CAD (coronary artery disease) FATHER SISTER FH: cancer BROTHER (lung CA) MOTHER (lymphoma) DAUGHTER (breast CA) Social History Smoking Status: Never Smoker Alcohol Use: none Drug Use: none Marital Status: Housing Status: lives with family, halfway Occupation Status: retired Current/Historical Medications Scheduled Aspirin (Aspirin Ec), 81 MG PO DAILY Atorvastatin (Lipitor), 80 MG PO HS B-Complex W/ C & Folic Acid ([place] Caps), 1 CAP PO DAILY Calcium Acetate (Phoslo 667 Mg), 1 CAP PO [id number] Calcium Carbonate (Tums), 2 TABS PO TIDM Carvedilol (Carvedilol), 25 MG PO BID Cholecalciferol (Vitamin D3), 2,000 INTER.UNIT PO DAILY Cyanocobalamin (Vitamin B-12), 500 MCG PO DAILY Docusate Sodium (Stool Softener), 100 MG PO BID Epinephrine (Epipen), 0.3 MG IM UD Escitalopram Oxalate (Lexapro), 5 MG PO DAILY Estrogens, Conjugated (Premarin), 1 APPLN TOP TID Insulin Glargine (Lantus), 10 UNITS SC BID Isosorbide Mononitrate (Isosorbide Mononitrate ER), 60 MG PO QAM Lidocaine-Prilocaine (Lidocaine/Prilocaine), 1 APPLN TOP UD Lorazepam (Ativan), 0.5 MG PO Q6H Melatonin (Kp Melatonin), 1 TAB PO HS Omeprazole (Prilosec), 40 MG PO DAILY Ondansetron (Ondansetron HCl), 4 MG PO PRN Polyethylene Glycol 3350 (Bulk (Polyethylene Glycol 3350), 17 GM PO DAILY Scheduled PRN Acetaminophen (Tylenol), 2 TAB PO Q6 PRN for Pain Hydrocortisone 1% (Hydrocortisone 1%), 1 APPLN TP DAILY PRN for Hemorrhoids Meclizine Hcl (Meclizine Hcl), 1 TAB PO TID PRN for Dizziness or Vertigo Nitroglycerin (Nitrostat), 0.4 MG UT UD PRN for Chest Pain Sennosides (Senexon), 8.6 MG PO DAILY PRN for Constipation Miscellaneous Medications Glucose Blood (Blood Glucose Test Strips) Allergies Coded Allergies: Tramadol (Unverified Allergy, Intermediate, neuro complications, 07/01/17) BEE STING (Verified Allergy, Unknown, ANAPHYLAXIS, 07/01/17) Erythromycin (Verified Allergy, Unknown, reaction unknown, 07/01/17) Hydromorphone (Verified Allergy, Unknown, hard to wake up, 07/01/17) Iodinated Diagnostic Agents (Verified Allergy, Unknown, ITCHY/HIVES, 07/01) Morphine (Verified Allergy, Unknown, hives/rash, 07/01/17) Penicillins (Verified Allergy, Unknown, HIVES, 07/01/17) Oxycodone (Verified Adverse Reaction, Mild, CAUSES ITCHING, 07/01/17) Amlodipine (Verified Adverse Reaction, Unknown, DIZZY, GI UPSET, 07/01/17) Codeine (Verified Adverse Reaction, Unknown, HALLUCINATES, 07/01/17) Neomycin (Verified Adverse Reaction, Unknown, vomit, 07/01/17) Physical Exam Vital Signs Date Time Temp Pulse Resp B/P (MAP) Pulse Ox O2 Delivery O2 Flow Rate FiO2 07/01/17 14:28 36.6 67 14 145/61 92 07/01/17 12:41 67 14 07/01/17 12:39 145/61 07/01/17 12:36 57 16 92 07/01/17 12:31 56 15 127/56 93 07/01/17 12:26 57 13 94 07/01/17 12:21 57 14 90 07/01/17 12:16 57 7 93 07/01/17 12:14 57 07/01/17 12:11 58 16 93 07/01/17 12:06 57 13 92 07/01/17 12:01 58 8 135/60 93 07/01/17 11:56 58 13 93 07/01/17 11:51 58 12 91 07/01/17 11:46 62 21 95 07/01/17 11:41 60 13 94 07/01/17 11:36 60 4 94 07/01/17 11:31 61 0 154/67 93 07/01/17 11:26 60 9 93 07/01/17 11:21 59 12 92 07/01/17 11:16 59 4 92 07/01/17 11:10 60 14 170/ Room Air 07/01/17 11:07 170/64 07/01/17 09:30 36.6 70 18 146/71 96 Room Air Physical Exam GENERAL: Sitting up in bed, alert, well appearing, well nourished, no distress, non-toxic EYE EXAM: normal conjunctiva. HEAD: Acute reproducible tenderness in bilateral occipital parietal region, same as stated complaint OROPHARYNX: no exudate, no erythema, lips, buccal mucosa, and tongue normal and mucous membranes are moist NECK: supple, no nuchal rigidity, no adenopathy, non-tender LUNGS: Clear to auscultation. Normal chest wall mechanics HEART: no murmurs, S1 normal and S2 normal ABDOMEN: abdomen soft, non-tender, normo-active bowel sounds, no masses, no rebound or guarding. BACK: Back is symmetrical on inspection and there is no deformity, no midline tenderness, no CVA tenderness. SKIN: no rashes and no bruising UPPER EXTREMITIES: upper extremities are grossly normal. LOWER EXTREMITIES: Weakness with flexion, extension throughout entire left lower extremity, old per patient. No pitting edema. NEURO EXAM: Normal sensorium, cranial nerves II-XII intact, no weakness of arms , no drift. Finger to nose intact. Medical Decision & Procedures ER Provider Diagnostic Interpretation: Radiology results as stated below per my review and the radiologist's interpretation: CT HEAD WITHOUT CONTRAST (CT) CLINICAL HISTORY: Severe headache COMPARISON STUDY: 01/28/2017 TECHNIQUE: Axial CT of the brain is performed from the vertex to the skull base. IV contrast was not administered for this examination. A dose lowering technique was utilized adhering to the principles of ALARA. CT DOSE: 638.56 mGycm FINDINGS: No intra or extra-axial mass lesions are visualized. There is no CT evidence of acute cortical infarction. There is no evidence of midline shift. There is no acute hemorrhage. No calvarial fractures are visualized. There are moderate white matter hypodensities likely on a small vessel basis. There is mild ventricular dilatation, similar to the prior study and likely secondary to volume loss. There is no evidence of acute sinusitis IMPRESSION: No acute intracranial findings Electronically signed by: Guy Edward M.D. 07/01/2017 10:36 AM CHEST ONE VIEW PORTABLE CLINICAL HISTORY: syncope HEADACHE COMPARISON STUDY: 05/08/2017 FINDINGS: The heart is borderline enlarged. There are postsurgical changes of a midline sternotomy. There is no focal pulmonary consolidation. There is slight interstitial prominence. This is likely secondary to either a suboptimal inspiration, or mild pulmonary vascular congestion. IMPRESSION: 1. Slight interstitial prominence, likely secondary to either suboptimal inspiration, or mild pulmonary vascular congestion. If this distinction is not evident clinically, then a follow-up PA and lateral study would be of benefit. Electronically signed by: Guy Edward M.D. 07/01/2017 11:59 AM Laboratory Results 07/01/17 09:55 Red Blood Count 3.86, Mean Corpuscular Volume 100.0, Mean Corpuscular Hemoglobin 33.4, Mean Corpuscular Hemoglobin Concent 33.4, Mean Platelet Volume 11.1, Neutrophils (%) (Auto) 77.0, Lymphocytes (%) (Auto) 15.3, Monocytes (%) ( Auto) 5.5, Eosinophils (%) (Auto) 1.5, Basophils (%) (Auto) 0.5, Neutrophils # ( Auto) 4.65, Lymphocytes # (Auto) 0.92, Monocytes # (Auto) 0.33, Eosinophils # ( Auto) 0.09, Basophils # (Auto) 0.03 07/01/17 09:55 Test 07/01/17 09:55 07/01/17 11:30 White Blood Count 6.03 K/uL (4.8-10.8) Red Blood Count 3.86 M/uL (4.2-5.4) Hemoglobin 12.9 g/dL (12.0-16.0) Hematocrit 38.6 % (37-47) Mean Corpuscular Volume 100.0 fL (80-100) Mean Corpuscular Hemoglobin 33.4 pg (25-34) Mean Corpuscular Hemoglobin Concent 33.4 g/dl (32-36) Platelet Count 124 K/uL (130-400) Mean Platelet Volume 11.1 fL (7.4-10.4) Neutrophils (%) (Auto) 77.0 % Lymphocytes (%) (Auto) 15.3 % Monocytes (%) (Auto) 5.5 % Eosinophils (%) (Auto) 1.5 % Basophils (%) (Auto) 0.5 % Neutrophils # (Auto) 4.65 K/uL (1.4-6.5) Lymphocytes # (Auto) 0.92 K/uL (1.2-3.4) Monocytes # (Auto) 0.33 K/uL (0.11-0.59) Eosinophils # (Auto) 0.09 K/uL (0-0.5) Basophils # (Auto) 0.03 K/uL (0-0.2) RDW Standard Deviation 54.9 fL (36.4-46.3) RDW Coefficient of Variation 15.2 % (11.5-14.5) Immature Granulocyte % (Auto) 0.2 % Immature Granulocyte # (Auto) 0.01 K/uL (0.00-0.02) Prothrombin Time 10.8 SECONDS (9.0-12.0) Prothromb Time International Ratio 1.0 (0.9-1.1) Anion Gap 8.0 mmol/L (3-11) Est Creatinine Clear Calc Drug Dose 10.4 ml/min Estimated GFR () 11.3 Estimated GFR (Non- 9.7 BUN/Creatinine Ratio 8.0 (10-20) Calcium Level 9.0 mg/dl (8.5-10.1) Total Bilirubin 0.6 mg/dl (0.2-1) Direct Bilirubin 0.2 mg/dl (0-0.2) Aspartate Amino Transf (AST/SGOT) 33 U/L (15-37) Alanine Aminotransferase (ALT/SGPT) 37 U/L (12-78) Alkaline Phosphatase 96 U/L (45-117) Troponin I 0.035 ng/ml (0-0.045) Total Protein 7.4 gm/dl (6.4-8.2) Albumin 3.6 gm/dl (3.4-5.0) Lipase 371 U/L (73-393) Urine Color DK YELLOW Urine Appearance CLOUDY (CLEAR) Urine pH 5.0 (4.5-7.5) Urine Specific [place] 1.026 (1.000-1.030) Urine Protein 2+ (NEG) Urine Glucose (UA) NEG (NEG) Urine Ketones TRACE (NEG) Urine Occult Blood NEG (NEG) Urine Nitrite NEG (NEG) Urine Bilirubin NEG (NEG) Urine Urobilinogen NEG (NEG) Urine Leukocyte Esterase NEG (NEG) Urine WBC (Auto) 1-5 /hpf (0-5) Urine RBC (Auto) 0-4 /hpf (0-4) Urine Hyaline Casts (Auto) 5-10 /lpf (0-5) Urine Epithelial Cells (Auto) 10-20 /lpf (0-5) Urine Bacteria (Auto) NEG (NEG) Laboratory results per my review. Medications Administered Medications (Trade) Dose Ordered Sig/Marlon Route Start Time Stop Time Status Last Admin Dose Admin Acetaminophen (Tylenol Tab) 650 mg NOW STAT PO 07/01/17 09:32 07/01/17 09:34 DC 07/01/17 10:10 650 MG Hydromorphone HCl (Dilaudid Inj) 0.25 mg NOW STAT IV 07/01/17 09:43 07/01/17 09:44 DC 07/01/17 10:11 0.25 MG ED Course ED COURSE: Vital signs were reviewed and showed the patient is hypertensive. The patients medical record was reviewed The above diagnostic studies were performed and reviewed. ED treatments and interventions as stated above. 0923: The patient was evaluated in room B8. A complete history and physical examination was performed. 0932: Morphine Sulfate 4 mg IV, Tylenol 650 mg PO. 0943: Dilaudid 0.25 mg IV. 1135: I updated the patients family on her results so far. 1312: I discussed the patients case with Michelle Holly PA-C, [facility]. The patient will be further evaluated. 1315: Upon reevaluation, the patient is resting comfortably. I discussed my findings with the patient and she understands and agrees with the treatment plan. Based on the patients age, coexisting illnesses, exam and lab findings the decision to treat as an inpatient was made. The patient remained stable while under my care. The patient will be evaluated for further management. Medical Decision Differential Diagnosis includes but is not limited to headache, tension headache , cluster headache, migraine, subarachnoid hemorrhage, meningitis, mass, central venous thrombus, concussion, trauma and epidural/subdural hemorrhage. Patient is a 77-year-old female who presents to ER for headache which has been present for the past 2 weeks. Patient has had an MRI which was negative per family. Patient has no other complaints but family notes that the patient didn' t pass out prior to arrival and that is why they called EMS. Patient is otherwise neurologically intact. CBC was unremarkable. Creatinine was 4.1 as she is a dialysis player. Potassium slightly low at 3.1. Bilirubin LFTs and troponin was negative. Lipase is normal. CT head was unremarkable. Chest x- ray was nondiagnostic. EKG showed no acute ischemic changes. Discussed with family and patient. Patient was admitted to internal medicine for syncope and headache. Medication Reconcilliation Current Medication List: was personally reviewed by me Blood Pressure Screening Patient's blood pressure: Elevated blood pressure Blood pressure disposition: Referred to PCP Consults Time Called: 1310 Consulting Physician: Michelle Holly PA-C, [facility] Returned Call: 1312 I discussed the patients case with Michelle Holly PA-C, [facility]. The patient will be further evaluated. Impression Primary Impression: Syncope Additional Impression: Cephalgia Scribe Attestation The scribe's documentation has been prepared under my direction and personally reviewed by me in its entirety. I confirm that the note above accurately reflects all work, treatment, procedures, and medical decision making performed by me. Departure Information Dispostion Being Evaluated By Hospitalist Referrals Concha Velasquez D.O. (PCP) Patient Instructions My [facility] Problem Qualifiers Primary Impression: Syncope Syncope type: unspecified Qualified Codes: R55 - Syncope and collapse Additional Impression: Cephalgia Headache type: unspecified Headache chronicity pattern: acute headache Intractability: not intractable Qualified Codes: R51 - Headache
--- NOTE | 2017-07-01 15:05 | HISTORY & PHYSICAL EXAMINATION ---
DATE OF ADMISSION: 07/01/2017 PRIMARY CARE PHYSICIAN: Dr. Velasquez. CHIEF COMPLAINT: Syncope and collapse this morning. HISTORY OF PRESENT COMPLAINT: She is a 77-year-old female with significant past medical history of diabetes type 2, end-stage renal disease on hemodialysis, CABG with cardiomyopathy, hyperlipidemia, history of colon cancer, hypertension and also history of traumatic subdural hematoma. Apparently, she has been at home and was getting physical therapy at home. The therapist made her stand and then she all of a sudden slumped and almost about to fall. She lost consciousness for a while, but later on, she was complaining of some headache and she was brought in to the Emergency Room for further evaluation. She has had ischemic episode recently and she had an MRI done that was on last Wednesday that did show probable stroke, the detail of which is not yet known. She did not have any hemorrhagic events during this time with a history of subdural hematoma in the past. She did not have any warning symptoms before the collapse that happened today. She did not have any headache, but she did have some blurred vision. She is status post injection treatment for diabetic retinopathy and she received an injection in the left eye last , but she did not have any new symptoms from that injection. She denies to have any chest pain, palpitations, shortness of breath. She denies to any numbness or tingling involving any of the extremities and she did not have any weakness, more than usual involving any of the extremities. In the Emergency Room, she was hemodynamically stable with an apparent CAT scan of the head that was negative, but given the history of syncope this morning with her comorbid medical condition, she was advised to be in the hospital and rule out possibility of stroke and cardiac arrhythmias. PAST MEDICAL HISTORY: Significant for coronary artery disease status post bypass with severe LV dysfunction, type 2 diabetes with diabetic retinopathy, chronic kidney disease on hemodialysis, hyperlipidemia, history of colon cancer, hypertension, history of traumatic subdural hematoma and also left-sided weakness from that, and stroke. PAST SURGICAL HISTORY: Significant for CABG in 1998 involving 4-vessel, colonoscopy with biopsy, partial removal of colon, appendix surgery as a child and hysterectomy and also ventral hernia repair in the past. SOCIAL HISTORY: She is . She has 3 children. She does not use any alcohol or does not use any smoke. She is almost bed bound and requires assistance with ADLs. FAMILY HISTORY: Brother has lung cancer. Daughter has breast cancer. Brother has diabetes. Father did have heart disease. ALLERGIES: SHE IS ALLERGIC TO TRAMADOL, BEE STING, ERYTHROMYCIN, HYDROMORPHONE, CONTRAST MEDIA, MORPHINE, PENICILLIN, OXYCODONE, AMLODIPINE, CODEINE, AND NEOMYCIN. MEDICATIONS: As an outpatient, she has been on aspirin 81 mg daily, carvedilol 25 mg tablet twice daily, lorazepam 0.5 mg daily as needed, docusate sodium 1 tablet as directed, MiraLax 17 grams daily as directed, insulin pen as directed, Lantus 10 units at night, hydrocodone/acetaminophen that was taken away recently, isosorbide mononitrate 60 mg daily, Lexapro 5 mg daily, omeprazole 20 mg daily, atorvastatin 80 mg daily, B complex folic acid 1 capsule daily, calcium 1 capsule once daily, hydrocortisone cream as directed, melatonin 3 mg at night, Tylenol 325 mg tablet 2 tablets 4 times daily as needed, cholecalciferol 2000 units daily, Nitrostat as directed, vitamin B12 500 mcg daily. REVIEW OF SYSTEMS: All other systems reviewed, unremarkable except those mentioned in history of present complaint. PHYSICAL EXAMINATION: GENERAL: On examination in the Emergency Room, she was not having any acute distress. She was not tolerating strong lights in the room, but she could see me and she could see my fingers with both sides. Did not have any severe eye pain. VITAL SIGNS: Pulse 67, blood pressure 145/61, saturation was 92% on room air. HEENT: Unremarkable. NECK: Supple. No JVD, no bruit. CHEST: Clear to auscultation bilaterally with slight decreased breath sounds at the bases. HEART: S1 and S2 regular. ABDOMEN: Soft, benign, nontender, no organomegaly. Bowel sounds present. EXTREMITIES: Negative for any edema. MUSCULOSKELETAL: Did not show any acute arthritis involving any joint. CENTRAL NERVOUS SYSTEM: She was alert and awake. She was oriented. She was generally weaker on the left side with some flexion deformity involving the left upper extremity, but no new focal neuro deficit noted. LABORATORY DATA: Noted today, white count was 6.03, H&H 12.9/38.6, platelet was 124. Sodium 136, potassium 3.1, chloride 99, carbon dioxide 30, BUN 34, creatinine 4.19. Random glucose 173. LFTs normal. Troponin was less than 0.035. Lipase 371. PT INR unremarkable. UA examination fairly normal. EKG pending. CT of the head, no acute intracranial findings. There is no CT evidence of cortical infarction. There is no evidence of midline shift. No acute hemorrhage. No calvarial fracture is visualized. Moderate white matter hypodensities likely on a small vessel basis. There is mild ventricular dilatation similar to prior study, unlikely secondary to volume loss. There is no evidence of acute sinusitis. Chest x-ray, slight interstitial prominence, likely secondary to either suboptimal inspirations or mild pulmonary vascular congestion. MRI on 06/22/17 1.Tiny 3 mm acute/subacute infarct in the right parks radiata adjacent to the right lateral ventricle. Consider prompt neurology consultation. 2. Moderate chronic microvascular changes and global volume loss. 3. Few scattered chronic micro hemorrhages in cerebellum and each thalamus are nonspecific but may relate to hypertension, amyloid microangiopathy, prior trauma. 4. Mild ventriculomegaly is may relate to volume loss or normal pressure hydrocephalus. 5. Mild T1 hypointensity in the calvarium is nonspecific and most commonly associated with tobacco use or chronic anemia. Other etiologies such as leukemia lymphoma or metastasis are less likely but clinical correlation can be obtained. IMPRESSION AND PLAN: 1. Syncope and collapse. Doubt any new stroke and/or cardiac arrhythmias. We will admit the patient to telemetry and rule out possibility of a stroke. Initial CAT scan negative for any hemorrhage. She has a history of traumatic subdural hematoma. Serial cardiac enzymes to make sure there is no heart attack and echocardiogram to document left ventricular function. She has a very low ejection fraction with an echo that was done in 2014 and ejection fraction was 25%-30% during that time with severe multi-wall motion abnormalities.Serial Lane to R/O ACS 2. Diabetes type 2 with retinopathy. We will continue her usual diabetic medications and put her on sliding scale coverage while in the hospital, get hemoglobin A1c. She is status post laser treatment, one injection treatment for diabetic retinopathy in the left eye. She does not have any acute symptoms from that eye. We will keep an eye on it. 3. Chronic kidney disease, on hemodialysis. She had a dialysis yesterday and she will have dialysis tomorrow. We will get nephrology involved for her care. 4. Ischemic heart disease, status post chronic obstructive pulmonary disease with severe cardiomyopathy, ejection fraction of 25%-30%. Again, we will get serial cardiac enzymes and echocardiogram to evaluate cardiac function more. 5.H/O Stroke Right Parks Radiata with Left Hemiparesis UE > Lower Extremity with ambulatory dysfunction.PT/OT Evaluation. 6. Hypertension, blood pressure, which is stable at this time. 7. Hyperlipidemia. Continue with current medication. 8. Gastrointestinal prophylaxis with omeprazole. 9. Deep venous thrombosis prophylaxis as she has a high risk, but given the history of the recent injection in the eye, we will hold off any anticoagulation and sequential compression devices will be applied. 10. Code status. Discussed with the patient and with the family members. She will be a full code. In my clinical judgment, the beneficiary meets criteria as per CMS for 2 midnights' stay in the hospital. TONJA
[2017-07-01] MEDS ORDERED: POTASSIUM CHLORIDE 10 MEQ TABCR PO STA (15:06)
[2017-07-01] MEDS ORDERED: GLUCAGON FOR INJ 1 MG VIAL SQ PRN (15:15)
[2017-07-01] MEDS ORDERED: DEXTROSE 50% 50 ML SYR IV PRN (15:15)
[2017-07-01] MEDS ORDERED: GLUCOSE 10 TABS/TUBE PO PRN (15:15)
[2017-07-01] MEDS ORDERED: GLUCOSE 40% GEL 15 GM TUBE PO PRN (15:15)
[2017-07-01] MEDS: LORAZEPAM 0.5 MG TAB PO SCH ×3 (15:41→21:42)
[2017-07-01] MEDS: CALCIUM CARBONATE 500 MG CHEWABLE PO SCH (15:41)
[2017-07-01] MEDS: LIDOCAINE/PRILOCAINE 2.5% EA CRM EXT SCH (15:41)
[2017-07-01] MEDS: MELATONIN - ORDER AWAITING ACTION SCH ×2 (16:00→23:53)
[2017-07-01] MEDS: ACETAMINOPHEN 500 MG TAB PO PRN (18:13)
[2017-07-01] MEDS: ATORVASTATIN 40 MG TAB PO SCH (20:09)
[2017-07-01] MEDS: DOCUSATE SODIUM 100 MG CAP PO SCH (20:10)
[2017-07-01] MEDS: CARVEDILOL 25 MG TAB PO SCH (20:10)
[2017-07-01] MEDS: INSULIN GLARGINE SOLOSTAR 100 UNITS/ML 3 ML PEN SC SCH (20:12)
[2017-07-01 20:27] LABS: CKMB/CK RATIO 2.8 (0-3.0)
[2017-07-01] MEDS: CLONIDINE HCL 0.1 MG TAB PO PRN (22:20)
[2017-07-02] VITALS (20 sets, daily range): BP systolic 83–182; BP diastolic 51–79; PULSE 59–68; TEMP 36.4–36.8; O2SAT 94–98
[2017-07-02 02:31] LABS: CKMB/CK RATIO 2.7 (0-3.0)
[2017-07-02] MEDS: LORAZEPAM 0.5 MG TAB PO SCH ×4 (04:00→20:40)
[2017-07-02] MEDS: CLONIDINE HCL 0.1 MG TAB PO PRN (04:00)
[2017-07-02] MEDS: ESCITALOPRAM OXALATE 10 MG TAB PO SCH (07:35)
[2017-07-02] MEDS: PANTOprazole SOD 40 MG TAB PO SCH (07:35)
[2017-07-02] MEDS: NEPHROCAPS PO SCH (07:35)
[2017-07-02] MEDS: CHOLECALCIFEROL 1000 INTER.UNIT TAB PO SCH (07:35)
[2017-07-02] MEDS: CYANOCOBALAMIN 500 MCG TAB (VIT B-12) PO SCH (07:35)
[2017-07-02] MEDS: ASPIRIN 81 MG ECTAB PO SCH (07:36)
[2017-07-02] MEDS: ISOSORBIDE MONONITRATE 60 MG TABCR PO SCH (07:36)
[2017-07-02] MEDS: POLYETHYLENE (MIRALAX) 17 GM PACK PO SCH (07:36)
[2017-07-02] MEDS: CARVEDILOL 25 MG TAB PO SCH ×2 (07:36→20:35)
[2017-07-02] MEDS: LIDOCAINE/PRILOCAINE 2.5% EA CRM EXT SCH (07:36)
[2017-07-02] MEDS: DOCUSATE SODIUM 100 MG CAP PO SCH ×2 (07:36→20:34)
[2017-07-02] MEDS: CALCIUM CARBONATE 500 MG CHEWABLE PO SCH ×3 (07:37→16:28)
[2017-07-02] MEDS: MELATONIN - ORDER AWAITING ACTION SCH ×2 (07:43→16:00)
[2017-07-02] MEDS: INSULIN GLARGINE SOLOSTAR 100 UNITS/ML 3 ML PEN SC SCH ×2 (07:43→20:37)
[2017-07-02 08:02] LABS: HEMATOCRIT 40.2 % (37-47); MEAN CELL VOLUME 100.8 fL (80-100); MEAN CORPUSCULAR HEMOGLOBIN 33.6 pg (25-34); MEAN CORPUSCULAR HGB CONC 33.3 g/dl (32-36); MEAN PLATELET VOLUME 10.7 fL (7.4-10.4); PLATELET COUNT 123 K/uL (130-400); RED BLOOD COUNT 3.99 M/uL (4.2-5.4); WHITE BLOOD COUNT 4.55 K/uL (4.8-10.8)
[2017-07-02 08:37] LABS: CKMB/CK RATIO 2.8 (0-3.0)
[2017-07-02 08:42] LABS: CREATININE 5.1 mg/dl (0.60-1.20)
[2017-07-02 08:43] LABS: CALCIUM 9.2 mg/dl (8.5-10.1); MAGNESIUM 2.1 mg/dl (1.8-2.4); PHOSPHORUS 3.7 mg/dl (2.5-4.9); POTASSIUM 3.6 mmol/L (3.5-5.1)
--- NOTE | 2017-07-02 08:46 | ECHOCARDIOGRAM REPORT ---
*NOTICE TO RECEIVING LIBERTARIAN AGENCY This information is strictly Confidential and protected under [place] law. [place] law prohibits you from making any further disclosure of this information unless further disclosure is expressly permitted by the written consent of the person to whom it pertains or is authorized by law. A general authorization for the release of medical or other information is not sufficient for this purpose. Hospital accepts no responsibility if the information is made available to any other person, INCLUDING THE PATIENT. Interpretation Summary * Name: RITU HIGGINS Study Date: 07/02/2017 06:28 AM BP: 182/70 mmHg * Patient Location: [facility] HR: 59 * : 1940 (M/d/yyyy) Gender: Female Height: 62 in * Age: 77 yrs Ethnicity: CA Weight: 147 lb * Ordering Physician: Enrique Cardenas * Referring Physician: Self, Referred * Performed By: Opal Baugh RCS * * Reason For Study: Syncope * BSA: 1.7 m2 * -- Conclusions -- * Compared to previous study of 06/04/15: LV systolic function has improved. * Normal LV chamber size with mild concentric LVH, thinning of the basal inferior wall. * Mildly reduced LV systolic function, EF 40-45%. * Akinesis of the basal inferior wall. Mild to moderate hypokinesis of the mid inferior and basal/mid inferolateral leigh, otherwise, normal wall motion. * The right ventricular cavity size is normal (basal dimension <4.2 cm in right ventricular apical 4-chamber view). Mildly reduced RV systolic function by TAPSE. * Aortic valve sclerosis mild, without significant aortic valvular stenosis. * Mild mitral regurgitation. * Trace tricuspid regurgitation. Procedure Details * A complete two-dimensional transthoracic echocardiogram was performed (2D, M-mode, Doppler and color flow Doppler). Left Ventricle * The left ventricle is normal in size. * There is mild concentric left ventricular hypertrophy. * Ejection Fraction = 40-45%. * Left ventricular systolic function is mildly reduced. * Akinesis of the basal inferior wall. Mild to moderate hypokinesis of the mid inferior and basal/mid inferolateral leigh, otherwise, normal wall motion. Right Ventricle * The right ventricular cavity size is normal (basal dimension <4.2 cm in right ventricular apical 4-chamber view). * The right ventricular systolic function is mildly reduced. Mitral Valve * The mitral valve anatomy is normal. * There is no mitral valve stenosis. * There is mild mitral regurgitation. Tricuspid Valve * The tricuspid valve anatomy is normal. * There is no tricuspid stenosis. * There is trace tricuspid regurgitation. Aortic Valve * The aortic valve is trileaflet. * Aortic valve sclerosis mild, without significant aortic valvular stenosis. * There is no significant aortic regurgitation. Pulmonic Valve * The pulmonary valve is not well seen, but the Doppler examination is normal without significant regurgitation or stenosis. Great Vessels * The aortic root and proximal ascending aorta are normal sized. Pericardium/Pleural * There is no pericardial effusion. Left Ventricular Diastolic Function * Grade I diastolic dysfunction, (abnormal relaxation pattern). MMode 2D Measurements and Calculations IVSd 1.2 cm IVSs 1.2 cm LVIDd 4.4 cm LVIDs 3.4 cm LVPWd 1.1 cm LVPWs 1.2 cm IVS/LVPW 1.1 FS 23.6 % EDV(Teich) 88.3 ml ESV(Teich) 46.5 ml EF(Teich) 47.3 % EDV(cubed) 85.9 ml ESV(cubed) 38.4 ml EF(cubed) 55.4 % % IVS thick -5.62 % % LVPW thick 3.7 % LV mass(C)d 190.1 grams LV mass(C)dI 113.4 grams/m\S\2 LV mass(C)s 125.1 grams LV mass(C)sI 74.6 grams/m\S\2 SV(Teich) 41.8 ml SI(Teich) 24.9 ml/m\S\2 SV(cubed) 47.6 ml SI(cubed) 28.4 ml/m\S\2 Ao root diam 3.2 cm Ao root area 8.2 cm\S\2 ACS 1.6 cm LA dimension 3.8 cm asc Aorta Diam 3.2 cm LA/Ao 1.2 EDV(MOD-sp4) 112.0 ml ESV(MOD-sp4) 67.0 ml EF(MOD-sp4) 40.2 % EDV(MOD-sp2) 112.0 ml ESV(MOD-sp2) 77.0 ml EF(MOD-sp2) 31.3 % SV(MOD-sp4) 45.0 ml SI(MOD-sp4) 26.8 ml/m\S\2 SV(MOD-sp2) 35.0 ml SI(MOD-sp2) 20.9 ml/m\S\2 Doppler Measurements and Calculations MV E max teja 69.5 cm/sec MV A max teja 85.3 cm/sec MV E/A 0.81 MV P1/2t max teja 64.2 cm/sec MV P1/2t 147.6 msec MVA(P1/2t) 1.5 cm\S\2 MV dec slope 127.4 cm/sec\S\2 MV dec time 0.31 sec Ao V2 max 107.4 cm/sec Ao max PG 4.6 mmHg PA V2 max 83.7 cm/sec PA max PG 2.8 mmHg PI max teja 163.9 cm/sec PI max PG 10.7 mmHg PI dec slope 116.5 cm/sec\S\2 PI P1/2t 412.2 msec TR max teja 203.7 cm/sec
--- NOTE | 2017-07-02 08:51 | NEPHROLOGY CONSULTATION ---
DATE OF CONSULTATION: 07/02/2017 ATTENDING OF RECORD: Dr. Cardenas. REASON FOR CONSULTATION: End-stage renal disease. HISTORY OF PRESENT ILLNESS: This is a 77-year-old female, who dialyzes on Mondays, Wednesdays, and Fridays at the [facility]. The patient overall has been getting weaker and having more difficulty with walking, also deals with periods of depression and did have a history of a traumatic subdural hematoma in the past and since then, has not been getting any heparin. She does also have underlying coronary artery disease with a history of bypass surgery as well as a history of colon cancer in the past as well. The patient was getting therapy and while standing, all of a sudden fell down and lost consciousness. The patient was brought in for further evaluation. The patient underwent a head CT, which showed no acute intracranial findings. Chest x-ray showed possibly some mild pulmonary vascular congestion. Carotid artery ultrasound showed atherosclerosis without any significant stenosis. The patient is resting comfortably. She ate her breakfast. No significant complaints at this time. PAST MEDICAL HISTORY: Coronary artery disease status post bypass with severe cardiomyopathy, type 2 diabetes with retinopathy, end-stage renal disease on dialysis, hyperlipidemia, history of colon cancer, hypertension, traumatic subdural hematoma with left-sided weakness as well as previous strokes. PAST SURGICAL HISTORY: She has a bypass in 1998 x 4, partial removal of colon, appendectomy, hysterectomy, and hernia repair. SOCIAL HISTORY: , lives with at home, mostly bedbound and requires assistance with walking. FAMILY HISTORY: Significant for cancer and diabetes. CURRENT MEDICATIONS: Premarin vaginal cream, PhosLo 1 p.o. t.i.d. with meals, aspirin 81 mg a day, Nephrocaps daily, vitamin B12 at 500 mcg daily, Lexapro 5 mg daily, Imdur 60 mg daily, vitamin D 2000 units daily, Protonix 40 mg daily, MiraLax 17 grams daily, Lipitor 80 mg at night, Coreg 25 mg p.o. b.i.d., Lantus 10 units subQ b.i.d., Colace 100 mg p.o. b.i.d., Tums 1 gram p.o. t.i.d. with meals. REVIEW OF SYSTEMS: At times, gets sad. Does have difficulty with walking. Positive fatigue. No shortness of breath. No chest pain. No nausea or vomiting. Does have periods of migraines. No rash or itching. No dysphagia. All other review of systems otherwise negative. PHYSICAL EXAMINATION: VITAL SIGNS: Temperature 36.5, pulse in the 60s, respiratory rate 16, blood pressure is 182/70, and satting 94% on room air. GENERAL: Awake, alert, and oriented x3. EYES: No scleral icterus. ENT: Moist mucous membranes. NECK: Supple. PULMONARY: Clear to auscultation. CARDIAC: Regular rate and rhythm. ABDOMEN: Bowel sounds positive. Soft and nontender. EXTREMITIES: No clubbing, cyanosis or edema. NEUROLOGICALLY: She does have some generalized weakness on the left side. DERMATOLOGIC: No rash or ulcers noted. LABORATORIES: White count is 4.5, H&H 13 and 40, and platelet count is 123. BMP is pending for this morning. Yesterday, sodium level 136, potassium 3.1, chloride 99, bicarbonate 30, BUN 34, creatinine 4.19, glucose 173, and calcium is 9. LFTs are normal. ASSESSMENT AND PLAN: 1. End-stage renal disease. Will dialyze today on a 3K bath. Volume status looks optimized. We will take off 1-2 liters as blood pressure tolerates. Blood pressure is quite high. 2. Anemia of renal failure. Hemoglobin level is in the 12-13. So, no role for Procrit. 3. Renal osteodystrophy. The patient takes Tums with meals and also 1 PhosLo with meals as well. We will continue with vitamin D supplement. 4. Hypertension. The patient is on Imdur 60 mg a day and Coreg 25 mg p.o. b.i.d. The patient has side effects to amlodipine. Question if she would benefit from lisinopril and I would consider adding 10 mg of lisinopril for better blood pressure control. I appreciate the consultation.
[2017-07-02] MEDS: LISINOPRIL 10 MG TAB PO SCH (09:22)
[2017-07-02] MEDS: CALCIUM ACETATE 667MG GELCAP PO SCH ×2 (10:48→16:28)
[2017-07-02] MEDS ORDERED: CALCIUM ACETATE 667MG GELCAP PO SCH (17:00)
[2017-07-02 18:29] LABS: CKMB/CK RATIO 3.1 (0-3.0)
--- NOTE | 2017-07-02 19:06 | Progress Note ---
Subjective Date of Service: Jul 02, 2017. Subjective Pt evaluation today including: conversation w/ patient, conversation w/ family , physical exam, lab review, review of studies, review of inpatient medication list Saw/examined the patient in room 220 Doing well, states that her headaches have resolved She was up and using a walker earlier today dialysis performed, no adverse effects Doing well; eager to get home Problem List Medical Problems: (1) Acute kidney failure Status: Acute (2) Cellulitis of antecubital fossa Status: Acute (3) Cellulitis of leg, left Status: Acute (4) Cephalgia Status: Acute (5) Chest wall pain Status: Acute (6) CKD (chronic kidney disease) Status: Acute (7) Constipation Status: Acute (8) Diarrhea Status: Acute (9) Diplopia Status: Acute (10) Dizziness Status: Acute (11) Headache Status: Acute (12) Left hip pain Status: Acute (13) Shoulder injury Status: Acute (14) Subdural hematoma Status: Acute (15) Syncope Status: Acute (16) Vomiting Status: Acute Review of Systems Constitutional: + weakness, No fever, No chills Respiratory: No cough, No sputum, No wheezing, No shortness of breath, No dyspnea on exertion, No dyspnea at rest, No hemoptysis Cardiac: No chest pain, No edema, No palpitations Abdomen: No pain, No nausea, No vomiting, No diarrhea, No constipation, No GI bleeding Neurologic: + memory loss, + weakness, + vertigo, + balance problems, No paralysis, No numbness/tingling Heme: No abnormal bleeding/bruising Medications Current Inpatient Medications Medications (Trade) Dose Ordered Sig/Marlon Route Start Time Stop Time Status Last Admin Dose Admin Acetaminophen (Tylenol Tab) 650 mg Q4H PRN PO 07/01/17 14:00 07/31/17 13:59 Ondansetron HCl (Zofran Inj) 4 mg Q6H PRN IV 07/01/17 14:00 07/31/17 13:59 Polyethylene (Miralax Powder Packet) 17 gm DAILY PRN PO 07/01/17 14:00 07/31/17 13:59 Acetaminophen (Tylenol Tab) 1,000 mg Q6 PRN PO 07/01/17 14:15 07/31/17 14:14 07/01/17 18:13 1,000 MG Aspirin (Ecotrin Tab) 81 mg DAILY PO 07/02/17 09:00 08/01/17 08:59 07/02/17 07:36 81 MG Atorvastatin Calcium (Lipitor Tab) 80 mg HS PO 07/01/17 21:00 07/31/17 20:59 07/01/17 20:09 80 MG Vitamin B Complex/ Vit C/Folic Acid (Nephrocaps) 1 cap DAILY PO 07/02/17 09:00 08/01/17 08:59 07/02/17 07:35 1 CAP Calcium Carbonate (Tums Chew Tab) 1,000 mg TIDM PO 07/01/17 16:45 07/31/17 17:59 07/02/17 16:28 1,000 MG Carvedilol (Coreg Tab) 25 mg BID PO 07/01/17 21:00 07/31/17 20:59 07/02/17 07:36 25 MG Cyanocobalamin (Vitamin B-12 Tab) 500 mcg DAILY PO 07/02/17 09:00 08/01/17 08:59 07/02/17 07:35 500 MCG Epinephrine (Epipen) 0.3 mg UD PRN IM 07/01/17 14:15 07/31/17 14:14 Escitalopram Oxalate (Lexapro Tab) 5 mg DAILY PO 07/02/17 09:00 08/01/17 08:59 07/02/17 07:35 5 MG Estrogens Conjugated (Premarin Vag Crm) 1 appln TuThSa@0900 [facility] 07/03/17 09:00 08/02/17 08:59 Hydrocortisone (Hydrocortisone 1% Crm) 1 appln DAILY PRN EXT 07/01/17 14:15 07/31/17 14:14 Insulin Glargine (Lantus Solostar Pen) 10 units BID SC 07/01/17 21:00 07/31/17 20:59 07/02/17 07:43 10 UNITS Isosorbide Mononitrate (Imdur Ext Rel Tab) 60 mg QAM PO 07/02/17 09:00 08/01/17 08:59 07/02/17 07:36 60 MG Lidocaine/ Prilocaine (Emla 2.5% Crm) 1 ea DAILY EXT 07/01/17 14:15 07/31/17 14:14 12/22/17 07:36 1 EA Lorazepam (Ativan Tab) 0.5 mg Q6H PO 07/01/17 16:00 07/31/17 15:59 07/02/17 04:00 0.5 MG Meclizine HCl (Antivert Tab) 25 mg TID PRN PO 07/01/17 14:15 07/31/17 14:14 Nitroglycerin (Nitrostat Tab) 0.4 mg UD PRN UT 07/01/17 14:15 07/31/17 14:14 Senna (Senokot Tab) 8.6 mg DAILY PRN PO 07/01/17 14:15 07/31/17 14:14 Cholecalciferol (Vitamin D Tab) 2,000 inter.unit DAILY PO 07/02/17 09:00 08/01/17 08:59 07/02/17 07:35 2,000 INTER.UNIT Docusate Sodium (coLACE CAP) 100 mg BID PO 07/01/17 21:00 07/31/17 20:59 07/02/17 07:36 100 MG Miscellaneous Information (Order Awaiting Action) 1 ea QS N/A 07/01/17 16:00 07/31/17 15:59 07/02/17 07:43 1 EA Pantoprazole Sodium (Protonix Tab) 40 mg DAILY PO 07/02/17 09:00 08/01/17 08:59 07/02/17 07:35 40 MG Polyethylene (Miralax Powder Packet) 17 gm DAILY PO 07/02/17 09:00 08/01/17 08:59 Glucose (Glucose 40% Gel) 15-30 GRAMS 15 GRAMS... UD PRN PO 07/01/17 15:15 07/31/17 15:14 Glucose (Glucose Chew Tab) 4-8 Tablets 4 Tabl... UD PRN PO 07/01/17 15:15 07/31/17 15:14 Dextrose (Dextrose 50% 50ML Syringe) 25-50ML OF 50% DW IV FOR... UD PRN IV 07/01/17 15:15 07/31/17 15:14 Glucagon (Glucagon Inj) 1 mg UD PRN SQ 07/01/17 15:15 07/31/17 15:14 Clonidine HCl (Catapres Tab) 0.1 mg Q6H PRN PO 07/01/17 21:00 1/20/18 20:59 07/02/17 04:00 0.1 MG Lisinopril (Zestril Tab) 10 mg QAM PO 07/02/17 09:00 08/01/17 08:59 07/02/17 09:22 10 MG Calcium Acetate (Phoslo Cap) 667 mg TIDM PO 07/02/17 11:30 08/01/17 16:59 07/02/17 16:28 667 MG Objective Vital Signs Date Time Temp Pulse Resp B/P (MAP) Pulse Ox O2 Delivery O2 Flow Rate FiO2 07/02/17 16:43 36.7 67 18 113/64 (80) 98 Room Air 07/02/17 16:05 36.5 63 161/71 (101) 07/02/17 16:01 Room Air 07/02/17 15:45 66 110/58 07/02/17 15:30 66 83/52 07/02/17 15:15 66 110/56 07/02/17 15:00 66 102/57 07/02/17 14:45 67 95/64 07/02/17 14:30 65 112/54 07/02/17 14:15 67 96/54 07/02/17 14:00 65 100/53 07/02/17 13:45 67 97/51 07/02/17 13:30 67 104/57 07/02/17 13:15 66 104/58 07/02/17 13:00 64 150/68 07/02/17 12:50 36.5 64 155/68 (97) 07/02/17 12:00 Room Air 07/02/17 10:52 36.4 65 16 163/79 (107) 97 Room Air 07/02/17 08:00 Room Air 07/02/17 07:04 36.5 59 16 182/70 (107) 94 Room Air 07/02/17 04:00 Room Air 07/02/17 03:43 36.7 62 16 178/73 (108) 97 Room Air 07/02/17 00:01 Room Air 07/01/17 23:52 66 197/82 (120) 07/01/17 23:15 36.7 63 18 203/67 (112) 98 Room Air 07/01/17 22:16 36.4 67 16 190/67 (108) 98 Room Air 07/01/17 20:50 36.6 67 18 195/74 (114) 96 Room Air 07/01/17 20:00 Room Air 07/01/17 19:41 36.5 64 18 179/72 (107) 96 Room Air Physical Exam General Appearance: no apparent distress, + pertinent finding (chronically ill) Respiratory/Chest: chest non-tender, lungs clear, normal breath sounds, no respiratory distress, no accessory muscle use Cardiovascular: regular rate, rhythm, no edema, + systolic murmur Extremities: normal range of motion, non-tender, normal inspection, no pedal edema, no calf tenderness Neurologic/Psychiatric: no motor/sensory deficits, alert, normal mood/affect Laboratory Results Last 24 Hours Test 07/01/17 19:50 07/01/17 20:47 07/02/17 01:39 07/02/17 06:57 Total Creatine Kinase 75 U/L 77 U/L Creatine Kinase MB 2.1 ng/ml 2.1 ng/ml Creatine Kinase MB Ratio 2.8 2.7 Troponin I 0.033 ng/ml 0.030 ng/ml Bedside Glucose 141 mg/dl 105 mg/dl Test 07/02/17 07:42 07/02/17 08:34 07/02/17 10:49 07/02/17 16:41 White Blood Count 4.55 K/uL Red Blood Count 3.99 M/uL Hemoglobin 13.4 g/dL Hematocrit 40.2 % Mean Corpuscular Volume 100.8 fL Mean Corpuscular Hemoglobin 33.6 pg Mean Corpuscular Hemoglobin Concent 33.3 g/dl RDW Standard Deviation 56.8 fL RDW Coefficient of Variation 15.5 % Platelet Count 123 K/uL Mean Platelet Volume 10.7 fL Sodium Level 138 mmol/L Potassium Level 3.6 mmol/L Chloride Level 101 mmol/L Carbon Dioxide Level 29 mmol/L Anion Gap 7.0 mmol/L Blood Urea Nitrogen 41 mg/dl Creatinine 5.10 mg/dl Est Creatinine Clear Calc Drug Dose 8.4 ml/min Estimated GFR () 8.9 Estimated GFR (Non- 7.7 BUN/Creatinine Ratio 8.0 Random Glucose 117 mg/dl Calcium Level 9.2 mg/dl Phosphorus Level 3.7 mg/dl Magnesium Level 2.1 mg/dl Total Creatine Kinase 75 U/L Creatine Kinase MB 2.1 ng/ml Creatine Kinase MB Ratio 2.8 Troponin I 0.030 ng/ml Vitamin B12 Level > 2000 pg/mL Folate > 24.00 ng/mL Bedside Glucose 161 mg/dl 112 mg/dl Test 07/02/17 17:38 Total Creatine Kinase 78 U/L Creatine Kinase MB 2.4 ng/ml Creatine Kinase MB Ratio 3.1 Troponin I < 0.015 ng/ml Assessment and Plan 77-year-old female with significant past medical history of diabetes type 2, end-stage renal disease on hemodialysis, CABG with cardiomyopathy, hyperlipidemia, history of colon cancer, hypertension and also history of traumatic subdural hematoma. Syncope patient presented with syncope Head CT negative recent Brain MRI as outpatient suggested a subacute infarct was placed on aspirin she is taking high intensity Lipitor carotid U/S no hemodynamically significant stenosis will monitor PT/OT notes - patient's insistent he can take care of her at home with family present plan to d/c home in 1-2 days if no symptoms persist ESRD on HD HD on CAD with CABG cardiomyopathy with EF of 40-45% continue Coreg, Lisinopril DM2 Lantus 10 units BID DVT ppx SCDs due to recent previous intracranial bleed FULL CODE
[2017-07-02] MEDS: ATORVASTATIN 40 MG TAB PO SCH (20:35)
[2017-07-03] VITALS (10 sets, daily range): BP systolic 146–184; BP diastolic 60–72; PULSE 56–68; TEMP 36.5–37.1; O2SAT 94–98
[2017-07-03] MEDS ORDERED: LISINOPRIL 20 MG TAB PO SCH
[2017-07-03] MEDS: LORAZEPAM 0.5 MG TAB PO SCH ×3 (03:43→16:00)
[2017-07-03] MEDS: LIDOCAINE/PRILOCAINE 2.5% EA CRM EXT SCH (07:47)
[2017-07-03] MEDS: CALCIUM ACETATE 667MG GELCAP PO SCH ×3 (07:47→16:42)
[2017-07-03] MEDS: MELATONIN - ORDER AWAITING ACTION SCH ×3 (07:47→16:00)
[2017-07-03] MEDS: CALCIUM CARBONATE 500 MG CHEWABLE PO SCH ×3 (07:47→16:43)
[2017-07-03 07:48] LABS: BUN/CREATININE RATIO 8.5 (10-20); CALCIUM 9.3 mg/dl (8.5-10.1); CREATININE 4.1 mg/dl (0.60-1.20); POTASSIUM 3.8 mmol/L (3.5-5.1)
[2017-07-03] MEDS: CARVEDILOL 25 MG TAB PO SCH (07:48)
[2017-07-03] MEDS: DOCUSATE SODIUM 100 MG CAP PO SCH (07:48)
[2017-07-03] MEDS: ASPIRIN 81 MG ECTAB PO SCH (07:48)
[2017-07-03] MEDS: CYANOCOBALAMIN 500 MCG TAB (VIT B-12) PO SCH (07:49)
[2017-07-03] MEDS: LISINOPRIL 10 MG TAB PO SCH (07:49)
[2017-07-03] MEDS: ESCITALOPRAM OXALATE 10 MG TAB PO SCH (07:49)
[2017-07-03] MEDS: CHOLECALCIFEROL 1000 INTER.UNIT TAB PO SCH (07:49)
[2017-07-03] MEDS: POLYETHYLENE (MIRALAX) 17 GM PACK PO SCH (07:50)
[2017-07-03] MEDS: NEPHROCAPS PO SCH (07:50)
[2017-07-03] MEDS: ISOSORBIDE MONONITRATE 60 MG TABCR PO SCH (07:50)
[2017-07-03] MEDS: PANTOprazole SOD 40 MG TAB PO SCH (07:50)
[2017-07-03] MEDS: INSULIN GLARGINE SOLOSTAR 100 UNITS/ML 3 ML PEN SC SCH (07:52)
[2017-07-03 08:05] LABS: HEMATOCRIT 41.6 % (37-47); MEAN CELL VOLUME 100.7 fL (80-100); MEAN CORPUSCULAR HEMOGLOBIN 33.4 pg (25-34); MEAN CORPUSCULAR HGB CONC 33.2 g/dl (32-36); MEAN PLATELET VOLUME 11.2 fL (7.4-10.4); PLATELET COUNT 130 K/uL (130-400); RED BLOOD COUNT 4.13 M/uL (4.2-5.4); WHITE BLOOD COUNT 4.93 K/uL (4.8-10.8)
[2017-07-03] MEDS ORDERED: PREMARIN VAG CRM 14 APPLN/30 GM TUBE TOP SCH (09:00)
[2017-07-03] MEDS: ACETAMINOPHEN 500 MG TAB PO PRN (10:30)
[2017-07-03] MEDS ORDERED: LISINOPRIL 5 MG TAB PO ONE (10:45)
[2017-07-03] MEDS ORDERED: OXYCODONE/ACETAMINOPHEN 5-325 TAB PO ONE (11:15)
--- NOTE | 2017-07-03 11:28 | Progress Note ---
Subjective Date of Service: Jul 03, 2017. Subjective Pt evaluation today including: conversation w/ patient, conversation w/ family , physical exam, lab review, review of studies, review of inpatient medication list Saw/examined the patient in room 220 +anxious, somewhat tearful during exam - states she wants to go home Tells me her L shoulder hurts, but it is a chronic thing painful and decreased ROM of the L shoulder She states she is willing to try a low dose oxycodone even though she may have had itching in the past States she will try to get some sleep and go home later today at bedside states that they have family over and if they need help there is family to help them; they already have PT that comes at home Problem List Medical Problems: (1) Acute kidney failure Status: Acute (2) Cellulitis of antecubital fossa Status: Acute (3) Cellulitis of leg, left Status: Acute (4) Cephalgia Status: Acute (5) Chest wall pain Status: Acute (6) CKD (chronic kidney disease) Status: Acute (7) Constipation Status: Acute (8) Diarrhea Status: Acute (9) Diplopia Status: Acute (10) Dizziness Status: Acute (11) Headache Status: Acute (12) Left hip pain Status: Acute (13) Shoulder injury Status: Acute (14) Subdural hematoma Status: Acute (15) Syncope Status: Acute (16) Vomiting Status: Acute Review of Systems Constitutional: + weakness, No fever, No chills Respiratory: No cough, No sputum, No shortness of breath Cardiac: No chest pain Musculoskeletal: + joint pain Neurologic: No memory loss, No paralysis, No weakness, No numbness/tingling, No vertigo, No balance problems Psychiatric: + anxiety Heme: No abnormal bleeding/bruising Medications Current Inpatient Medications Medications (Trade) Dose Ordered Sig/Marlon Route Start Time Stop Time Status Last Admin Dose Admin Acetaminophen (Tylenol Tab) 650 mg Q4H PRN PO 07/01/17 14:00 07/31/17 13:59 Ondansetron HCl (Zofran Inj) 4 mg Q6H PRN IV 07/01/17 14:00 07/31/17 13:59 Polyethylene (Miralax Powder Packet) 17 gm DAILY PRN PO 07/01/17 14:00 07/31/17 13:59 Acetaminophen (Tylenol Tab) 1,000 mg Q6 PRN PO 07/01/17 14:15 07/31/17 14:14 07/03/17 10:30 1,000 MG Aspirin (Ecotrin Tab) 81 mg DAILY PO 07/02/17 09:00 08/01/17 08:59 07/03/17 07:48 81 MG Atorvastatin Calcium (Lipitor Tab) 80 mg HS PO 07/01/17 21:00 07/31/17 20:59 07/02/17 20:35 80 MG Vitamin B Complex/ Vit C/Folic Acid (Nephrocaps) 1 cap DAILY PO 07/02/17 09:00 08/01/17 08:59 07/03/17 07:50 1 CAP Calcium Carbonate (Tums Chew Tab) 1,000 mg TIDM PO 07/01/17 16:45 07/31/17 17:59 07/03/17 07:47 1,000 MG Carvedilol (Coreg Tab) 25 mg BID PO 07/01/17 21:00 07/31/17 20:59 07/03/17 07:48 25 MG Cyanocobalamin (Vitamin B-12 Tab) 500 mcg DAILY PO 07/02/17 09:00 08/01/17 08:59 07/03/17 07:49 500 MCG Epinephrine (Epipen) 0.3 mg UD PRN IM 07/01/17 14:15 07/31/17 14:14 Escitalopram Oxalate (Lexapro Tab) 5 mg DAILY PO 07/02/17 09:00 08/01/17 08:59 07/03/17 07:49 5 MG Estrogens Conjugated (Premarin Vag Crm) 1 appln TuThSa@0900 TOP 07/03/17 09:00 08/02/17 08:59 Hydrocortisone (Hydrocortisone 1% Crm) 1 appln DAILY PRN EXT 07/01/17 14:15 07/31/17 14:14 Insulin Glargine (Lantus Solostar Pen) 10 units BID SC 07/01/17 21:00 07/31/17 20:59 07/03/17 07:52 10 UNITS Isosorbide Mononitrate (Imdur Ext Rel Tab) 60 mg QAM PO 07/02/17 09:00 08/01/17 08:59 07/03/17 07:50 60 MG Lidocaine/ Prilocaine (Emla 2.5% Crm) 1 ea DAILY EXT 07/01/17 14:15 07/31/17 14:14 07/02/17 07:36 1 EA Lorazepam (Ativan Tab) 0.5 mg Q6H PO 07/01/17 16:00 07/31/17 15:59 07/03/17 10:26 0.5 MG Meclizine HCl (Antivert Tab) 25 mg TID PRN PO 07/01/17 14:15 07/31/17 14:14 Nitroglycerin (Nitrostat Tab) 0.4 mg UD PRN UT 07/01/17 14:15 07/31/17 14:14 Senna (Senokot Tab) 8.6 mg DAILY PRN PO 07/01/17 14:15 07/31/17 14:14 Cholecalciferol (Vitamin D Tab) 2,000 inter.unit DAILY PO 07/02/17 09:00 08/01/17 08:59 07/03/17 07:49 2,000 INTER.UNIT Docusate Sodium (coLACE CAP) 100 mg BID PO 07/01/17 21:00 07/31/17 20:59 07/03/17 07:48 100 MG Miscellaneous Information (Order Awaiting Action) 1 ea QS N/A 07/01/17 16:00 07/31/17 15:59 07/02/17 07:43 1 EA Pantoprazole Sodium (Protonix Tab) 40 mg DAILY PO 07/02/17 09:00 08/01/17 08:59 07/03/17 07:50 40 MG Polyethylene (Miralax Powder Packet) 17 gm DAILY PO 07/02/17 09:00 08/01/17 08:59 Glucose (Glucose 40% Gel) 15-30 GRAMS 15 GRAMS... UD PRN PO 07/01/17 15:15 07/31/17 15:14 Glucose (Glucose Chew Tab) 4-8 Tablets 4 Tabl... UD PRN PO 07/01/17 15:15 07/31/17 15:14 Dextrose (Dextrose 50% 50ML Syringe) 25-50ML OF 50% DW IV FOR... UD PRN IV 07/01/17 15:15 07/31/17 15:14 Glucagon (Glucagon Inj) 1 mg UD PRN SQ 07/01/17 15:15 07/31/17 15:14 Clonidine HCl (Catapres Tab) 0.1 mg Q6H PRN PO 07/01/17 21:00 07/31/17 20:59 07/02/17 04:00 0.1 MG Lisinopril (Zestril Tab) 10 mg QAM PO 07/02/17 09:00 08/01/17 08:59 07/03/17 07:49 10 MG Calcium Acetate (Phoslo Cap) 667 mg TIDM PO 07/02/17 11:30 08/01/17 16:59 07/03/17 07:47 667 MG Oxycodone/ Acetaminophen (Percocet 5-325mg Tab) 0.5 tab ONE ONCE PO 07/03/17 10:45 07/03/17 10:46 UNV Objective Vital Signs Date Time Temp Pulse Resp B/P (MAP) Pulse Ox O2 Delivery O2 Flow Rate FiO2 07/03/17 08:00 96 Room Air 07/03/17 07:19 36.9 57 20 184/72 (109) 96 Room Air 07/03/17 04:05 98 Room Air 07/03/17 03:59 37.0 58 17 161/72 (101) 96 Room Air 07/03/17 00:00 37.1 68 18 172/71 (104) 96 Room Air 07/03/17 00:00 98 Room Air 07/02/17 20:00 98 Room Air 07/02/17 19:15 36.8 68 18 157/72 (100) 98 Room Air 07/02/17 16:43 36.7 67 18 113/64 (80) 98 Room Air 07/02/17 16:05 36.5 63 161/71 (101) 07/02/17 16:01 Room Air 07/02/17 15:45 66 110/58 07/02/17 15:30 66 83/52 07/02/17 15:15 66 110/56 07/02/17 15:00 66 102/57 07/02/17 14:45 67 95/64 07/02/17 14:30 65 112/54 07/02/17 14:15 67 96/54 07/02/17 14:00 65 100/53 07/02/17 13:45 67 97/51 07/02/17 13:30 67 104/57 07/02/17 13:15 66 104/58 07/02/17 13:00 64 150/68 07/02/17 12:50 36.5 64 155/68 (97) 07/02/17 12:00 Room Air Physical Exam General Appearance: no apparent distress, + pertinent finding (chronically ill) Respiratory/Chest: lungs clear, normal breath sounds, no respiratory distress, no accessory muscle use Cardiovascular: regular rate, rhythm, no edema, no murmur Extremities: + pertinent finding (L shoulder painful and decreased ROM) Neurologic/Psychiatric: no motor/sensory deficits, alert, oriented x 3, + depressed affect Laboratory Results Last 24 Hours Test 07/02/17 16:41 07/02/17 17:38 07/02/17 20:15 07/03/17 06:45 Bedside Glucose 112 mg/dl 172 mg/dl 77 mg/dl Total Creatine Kinase 78 U/L Creatine Kinase MB 2.4 ng/ml Creatine Kinase MB Ratio 3.1 Troponin I < 0.015 ng/ml Test 07/03/17 06:46 07/03/17 07:37 Sodium Level 134 mmol/L Potassium Level 3.8 mmol/L Chloride Level 101 mmol/L Carbon Dioxide Level 29 mmol/L Anion Gap 4.0 mmol/L Blood Urea Nitrogen 35 mg/dl Creatinine 4.10 mg/dl Est Creatinine Clear Calc Drug Dose 10.4 ml/min Estimated GFR () 11.6 Estimated GFR (Non- 10.0 BUN/Creatinine Ratio 8.5 Random Glucose 77 mg/dl Calcium Level 9.3 mg/dl Chemistry Specimen Hemolysis White Blood Count 4.93 K/uL Red Blood Count 4.13 M/uL Hemoglobin 13.8 g/dL Hematocrit 41.6 % Mean Corpuscular Volume 100.7 fL Mean Corpuscular Hemoglobin 33.4 pg Mean Corpuscular Hemoglobin Concent 33.2 g/dl RDW Standard Deviation 57.1 fL RDW Coefficient of Variation 15.5 % Platelet Count 130 K/uL Mean Platelet Volume 11.2 fL Assessment and Plan 77-year-old female with significant past medical history of diabetes type 2, end-stage renal disease on hemodialysis, CABG with cardiomyopathy, hyperlipidemia, history of colon cancer, hypertension and also history of traumatic subdural hematoma. Syncope 07/03 patient is doing well, no syncopal episode since she presented here she is tearful on exam due to her wanting to go home I let her know that I think she can be discharged; she tells me about L shoulder pain will give low dose oxycodone; 2.5mg x1 to see how this works will give 5mg extra dose of Lisinopril for blood pressure continue PT/OT - has home PT x2 days/weekly dialysis is - with [facility] coming, she will get dialysis on 07/04 07/02 patient presented with syncope Head CT negative recent Brain MRI as outpatient suggested a subacute infarct was placed on aspirin she is taking high intensity Lipitor carotid U/S no hemodynamically significant stenosis will monitor PT/OT notes - patient's insistent he can take care of her at home with family present plan to d/c home in 1-2 days if no symptoms persist ESRD on HD HD on CAD with CABG cardiomyopathy with EF of 40-45% continue Coreg, Lisinopril DM2 Lantus 10 units BID DVT ppx SCDs due to recent previous intracranial bleed FULL CODE
[2017-07-03] MEDS ORDERED: LSN20 PO (17:40)
--- NOTE | 2017-07-03 17:59 | Discharge Instructions ---
Discharge Instructions Date of Service Jul 03, 2017. Admission Reason for Admission: Esrd On Dialysis, Syncope And Collapse Discharge Discharge Diagnosis / Problem: Syncope and Collapse, ESRD on dialysis Discharge Goals Goal(s): Decrease discomfort, Improve function, Diagnostic testing, Therapeutic intervention Activity Recommendations Activity Limitations: resume your previous activity . Instructions / Follow-Up Instructions / Follow-Up Please follow-up with your primary care physician Please follow-up with neurology You will need continued physical therapy at home You will be started on Lisinopril Current Hospital Diet Patient's current hospital diet: AHA Diet (Heart Healthy), Diabetes Type 2 Diet Discharge Diet Recommended Diet: AHA Diet (Heart Healthy), Diabetes Type 2 Diet Pending Studies Studies pending at discharge: no Medical Emergencies . Who to Call and When: Medical Emergencies: If at any time you feel your situation is an emergency, please call 911 immediately. . Non-Emergent Contact Non-Emergency issues call your: Primary Care Provider . . "Provider Documentation" section prepared by Wilmar Bonilla. . VTE Core Measure Inpt VTE Proph given/why not?: SCD's
--- NOTE | 2017-07-03 18:01 | Discharge Summary ---
Discharge Summary Date of Service Jul 03, 2017. Discharge Summary Admission Date: Jul 01, 2017 at 13:50 Discharge Date: Jul 03, 2017 Discharge Disposition: Home with services Principal Diagnosis: Syncope and Collapse Recent CVA ESRD on HD Medication Reconciliation New Medications: Lisinopril (Lisinopril) 20 Mg Tab 20 MG PO DAILY for 30 Days, #30 TABS Continued Medications: Acetaminophen (Tylenol) 500 Mg Tab 2 TAB PO Q6 PRN for Pain for 2 Days, #20 TAB 3 Refills Aspirin (Aspirin Ec) 81 Mg Tab 81 MG PO DAILY Atorvastatin (Lipitor) 80 Mg Tab 80 MG PO HS, TAB B-Complex W/ C & Folic Acid (Readlyn Caps) 1 Cap Cap 1 CAP PO DAILY Calcium Acetate (Phoslo 667 Mg) 667 Mg Cap 1 CAP PO [id number], CAP Calcium Carbonate (Tums) 500 Mg Chew 2 TABS PO TIDM Carvedilol (Carvedilol) 25 Mg Tab 25 MG PO BID Cholecalciferol (Vitamin D3) 2,000 Unit Tab 2000 INTER.UNIT PO DAILY Cyanocobalamin (Vitamin B-12) 500 Mcg Tab 500 MCG PO DAILY, TAB Docusate Sodium (Stool Softener) 100 Mg Tab 100 MG PO BID Epinephrine (Epipen) 0.3 Mg/0.3 Ml Inj 0.3 MG IM UD, BOX Escitalopram Oxalate (Lexapro) 5 Mg Tab 5 MG PO DAILY, TAB Estrogens, Conjugated (Premarin) 14 Appln/30 Gm Cr 1 APPLN TOP TID, #30 APPLY TO URETHA TUES, THUR, SAT Glucose Blood (Blood Glucose Test Strips) 1 Ammy Ammy Hydrocortisone 1% (Hydrocortisone 1%) 90 Appln/30 Gm Cr 1 APPLN TP DAILY PRN for Hemorrhoids Insulin Glargine (Lantus) 100 Unit/Ml Inj 10 UNITS SC BID Isosorbide Mononitrate (Isosorbide Mononitrate ER) 60 Mg Tabcr 60 MG PO QAM Lidocaine-Prilocaine (Lidocaine/Prilocaine) 1 Cre Cre 1 APPLN TOP UD, #30 GM 1 Refill Lorazepam (Ativan) 0.5 Mg Tab 0.5 MG PO Q6H, TAB Meclizine Hcl (Meclizine Hcl) 25 Mg Tab 1 TAB PO TID PRN for Dizziness or Vertigo for 10 Days, #30 TAB Melatonin (Kp Melatonin) 3 Mg Tab 1 TAB PO HS for 30 Days, #30 TAB Nitroglycerin (Nitrostat) 0.4 Mg Tab 0.4 MG UT UD PRN for Chest Pain PLACE ONE TABLET UNDER THE TONGUE EVERY 5 MINUTES FOR UP TO 3 DOSES IF NEEDED FOR CHEST PAIN. CHECK BLOOD PRESSURE BEFORE EACH DOSE, HOLD FOR SYSTOLIC BLOOD PRSSURE LESS THAN 100. Omeprazole (Prilosec) 20 Mg Capcr 40 MG PO DAILY, CAP Ondansetron (Ondansetron HCl) 4 Mg Tab 4 MG PO PRN for Nausea, #20 Polyethylene Glycol 3350 (Bulk (Polyethylene Glycol 3350) 1 Pow Pow 17 GM PO DAILY for 30 Days, #527 GM 11 Refills Sennosides (Senexon) 8.6 Mg Tab 8.6 MG PO DAILY PRN for Constipation Admission Information HPI (per Admitting provider): DATE OF ADMISSION: 07/01/2017 PRIMARY CARE PHYSICIAN: Dr. Velasquez. CHIEF COMPLAINT: Syncope and collapse this morning. HISTORY OF PRESENT COMPLAINT: She is a 77-year-old female with significant past medical history of diabetes type 2, end-stage renal disease on hemodialysis, CABG with cardiomyopathy, hyperlipidemia, history of colon cancer, hypertension and also history of traumatic subdural hematoma. Apparently, she has been at home and was getting physical therapy at home. The therapist made her stand and then she all of a sudden slumped and almost about to fall. She lost consciousness for a while, but later on, she was complaining of some headache and she was brought in to the Emergency Room for further evaluation. She has had ischemic episode recently and she had an MRI done that was on last Wednesday that did show probable stroke, the detail of which is not yet known. She did not have any hemorrhagic events during this time with a history of subdural hematoma in the past. She did not have any warning symptoms before the collapse that happened today. She did not have any headache, but she did have some blurred vision. She is status post injection treatment for diabetic retinopathy and she received an injection in the left eye last , but she did not have any new symptoms from that injection. She denies to have any chest pain, palpitations, shortness of breath. She denies to any numbness or tingling involving any of the extremities and she did not have any weakness, more than usual involving any of the extremities. In the Emergency Room, she was hemodynamically stable with an apparent CAT scan of the head that was negative, but given the history of syncope this morning with her comorbid medical condition, she was advised to be in the hospital and rule out possibility of stroke and cardiac arrhythmias. PAST MEDICAL HISTORY: Significant for coronary artery disease status post bypass with severe LV dysfunction, type 2 diabetes with diabetic retinopathy, chronic kidney disease on hemodialysis, hyperlipidemia, history of colon cancer, hypertension, history of traumatic subdural hematoma and also left-sided weakness from that, and stroke. PAST SURGICAL HISTORY: Significant for CABG in 1998 involving 4-vessel, colonoscopy with biopsy, partial removal of colon, appendix surgery as a child and hysterectomy and also ventral hernia repair in the past. SOCIAL HISTORY: She is . She has 3 children. She does not use any alcohol or does not use any smoke. She is almost bed bound and requires assistance with ADLs. FAMILY HISTORY: Brother has lung cancer. Daughter has breast cancer. Brother has diabetes. Father did have heart disease. ALLERGIES: SHE IS ALLERGIC TO TRAMADOL, BEE STING, ERYTHROMYCIN, HYDROMORPHONE, CONTRAST MEDIA, MORPHINE, PENICILLIN, OXYCODONE, AMLODIPINE, CODEINE, AND NEOMYCIN. MEDICATIONS: As an outpatient, she has been on aspirin 81 mg daily, carvedilol 25 mg tablet twice daily, lorazepam 0.5 mg daily as needed, docusate sodium 1 tablet as directed, MiraLax 17 grams daily as directed, insulin pen as directed, Lantus 10 units at night, hydrocodone/acetaminophen that was taken away recently, isosorbide mononitrate 60 mg daily, Lexapro 5 mg daily, omeprazole 20 mg daily, atorvastatin 80 mg daily, B complex folic acid 1 capsule daily, calcium 1 capsule once daily, hydrocortisone cream as directed, melatonin 3 mg at night, Tylenol 325 mg tablet 2 tablets 4 times daily as needed, cholecalciferol 2000 units daily, Nitrostat as directed, vitamin B12 500 mcg daily. REVIEW OF SYSTEMS: All other systems reviewed, unremarkable except those mentioned in history of present complaint. PHYSICAL EXAMINATION: GENERAL: On examination in the Emergency Room, she was not having any acute distress. She was not tolerating strong lights in the room, but she could see me and she could see my fingers with both sides. Did not have any severe eye pain. VITAL SIGNS: Pulse 67, blood pressure 145/61, saturation was 92% on room air. HEENT: Unremarkable. NECK: Supple. No JVD, no bruit. CHEST: Clear to auscultation bilaterally with slight decreased breath sounds at the bases. HEART: S1 and S2 regular. ABDOMEN: Soft, benign, nontender, no organomegaly. Bowel sounds present. EXTREMITIES: Negative for any edema. MUSCULOSKELETAL: Did not show any acute arthritis involving any joint. CENTRAL NERVOUS SYSTEM: She was alert and awake. She was oriented. She was generally weaker on the left side with some flexion deformity involving the left upper extremity, but no new focal neuro deficit noted. LABORATORY DATA: Noted today, white count was 6.03, H&H 12.9/38.6, platelet was 124. Sodium 136, potassium 3.1, chloride 99, carbon dioxide 30, BUN 34, creatinine 4.19. Random glucose 173. LFTs normal. Troponin was less than 0.035. Lipase 371. PT INR unremarkable. UA examination fairly normal. EKG pending. CT of the head, no acute intracranial findings. There is no CT evidence of cortical infarction. There is no evidence of midline shift. No acute hemorrhage. No calvarial fracture is visualized. Moderate white matter hypodensities likely on a small vessel basis. There is mild ventricular dilatation similar to prior study, unlikely secondary to volume loss. There is no evidence of acute sinusitis. Chest x-ray, slight interstitial prominence, likely secondary to either suboptimal inspirations or mild pulmonary vascular congestion. MRI on 06/22/17 1.Tiny 3 mm acute/subacute infarct in the right parks radiata adjacent to the right lateral ventricle. Consider prompt neurology consultation. 2. Moderate chronic microvascular changes and global volume loss. 3. Few scattered chronic micro hemorrhages in cerebellum and each thalamus are nonspecific but may relate to hypertension, amyloid microangiopathy, prior trauma. 4. Mild ventriculomegaly is may relate to volume loss or normal pressure hydrocephalus. 5. Mild T1 hypointensity in the calvarium is nonspecific and most commonly associated with tobacco use or chronic anemia. Other etiologies such as leukemia lymphoma or metastasis are less likely but clinical correlation can be obtained. IMPRESSION AND PLAN: 1. Syncope and collapse. Doubt any new stroke and/or cardiac arrhythmias. We will admit the patient to telemetry and rule out possibility of a stroke. Initial CAT scan negative for any hemorrhage. She has a history of traumatic subdural hematoma. Serial cardiac enzymes to make sure there is no heart attack and echocardiogram to document left ventricular function. She has a very low ejection fraction with an echo that was done in 2014 and ejection fraction was 25%-30% during that time with severe multi-wall motion abnormalities.Serial Lane to R/O ACS 2. Diabetes type 2 with retinopathy. We will continue her usual diabetic medications and put her on sliding scale coverage while in the hospital, get hemoglobin A1c. She is status post laser treatment, one injection treatment for diabetic retinopathy in the left eye. She does not have any acute symptoms from that eye. We will keep an eye on it. 3. Chronic kidney disease, on hemodialysis. She had a dialysis yesterday and she will have dialysis tomorrow. We will get nephrology involved for her care. 4. Ischemic heart disease, status post chronic obstructive pulmonary disease with severe cardiomyopathy, ejection fraction of 25%-30%. Again, we will get serial cardiac enzymes and echocardiogram to evaluate cardiac function more. 5.H/O Stroke Right Parks Radiata with Left Hemiparesis UE > Lower Extremity with ambulatory dysfunction.PT/OT Evaluation. 6. Hypertension, blood pressure, which is stable at this time. 7. Hyperlipidemia. Continue with current medication. 8. Gastrointestinal prophylaxis with omeprazole. 9. Deep venous thrombosis prophylaxis as she has a high risk, but given the history of the recent injection in the eye, we will hold off any anticoagulation and sequential compression devices will be applied. 10. Code status. Discussed with the patient and with the family members. She will be a full code. Hospital Course 77-year-old female with significant past medical history of diabetes type 2, end-stage renal disease on hemodialysis, CABG with cardiomyopathy, hyperlipidemia, history of colon cancer, hypertension and also history of traumatic subdural hematoma. Syncope 07/03 patient is doing well, no syncopal episode since she presented here she is tearful on exam due to her wanting to go home I let her know that I think she can be discharged; she tells me about L shoulder pain will give low dose oxycodone; 2.5mg x1 to see how this works will give 5mg extra dose of Lisinopril for blood pressure continue PT/OT - has home PT x2 days/weekly dialysis is -- - with [facility] [facility] coming, she will get dialysis on 07/04 07/02 patient presented with syncope Head CT negative recent Brain MRI as outpatient suggested a subacute infarct was placed on aspirin she is taking high intensity Lipitor carotid U/S no hemodynamically significant stenosis will monitor PT/OT notes - patient's insistent he can take care of her at home with family present plan to d/c home in 1-2 days if no symptoms persist ESRD on HD HD on -- CAD with CABG cardiomyopathy with EF of 40-45% continue Coreg, Lisinopril DM2 Lantus 10 units BID DVT ppx SCDs due to recent previous intracranial bleed FULL CODE Total time spent on discharge = 35 minutes This includes examination of the patient, discharge planning, medication reconciliation, and communication with other providers. Discharge Instructions Please follow-up with your primary care physician Please follow-up with neurology You will need continued physical therapy at home You will be started on Lisinopril
== END 2017-07-03 18:54 | disposition home health service (06) | DRG 312 ==
LOC: EDBD 09:21 → C.EDB 09:22 → C.2T 13:50 → ENRESERV 14:15
PROVIDERS: ADMIT Internal Medicine; ATTEND Family Medicine
DX: R55 Syncope and collapse (principal); N18.6 End stage renal disease; I12.0 Hypertensive chronic kidney disease with stage 5 chronic kidney disease or end stage renal disease; I25.10 Atherosclerotic heart disease of native coronary artery without angina pectoris; E78.5 Hyperlipidemia, unspecified; E11.319 Type 2 diabetes mellitus with unspecified diabetic retinopathy without macular edema; R51 Headache; D63.1 Anemia in chronic kidney disease; Z86.73 Personal history of transient ischemic attack (TIA), and cerebral infarction without residual deficits; Z99.2 Dependence on renal dialysis; Z83.3 Family history of diabetes mellitus; Z82.49 Family history of ischemic heart disease and other diseases of the circulatory system; Z80.3 Family history of malignant neoplasm of breast; Z80.1 Family history of malignant neoplasm of trachea, bronchus and lung

== ENCOUNTER 2017-07-25 22:40 | Emergency (ER) | payer OTHER, MEDICARE ==
[~2017-07-25 22:40] MED LIST changes: +ASPI81TA28 PO; +ESCI1TAB6 PO; +GLUC1TES; +LIDO1CRE16 TOP; +LORA-741 PO; +LSN20 PO; +POLY1POW2 PO
[2017-07-25 22:42] VITALS: TEMP 36.7; Ht 157.5 cm
[2017-07-25 23:48] LABS: BASO % 0.4 %; BASO ABS # 0.03 K/uL (0-0.2); EOS % 2.2 %; EOS ABS # 0.16 K/uL (0-0.5); HEMOGLOBIN 11.1 g/dL (12.0-16.0); IG# 0.03 K/uL (0.00-0.02); LYMPH % 14.6 %; LYMPH ABS # 1.05 K/uL (1.2-3.4); MEAN CELL VOLUME 98.3 fL (80-100); MEAN CORPUSCULAR HEMOGLOBIN 32.1 pg (25-34); MEAN CORPUSCULAR HGB CONC 32.6 g/dl (32-36); MEAN PLATELET VOLUME 10.1 fL (7.4-10.4); MONO % 8.5 %; MONO ABS # 0.61 K/uL (0.11-0.59); NEUT % 73.9 %; NEUT ABS # 5.29 K/uL (1.4-6.5); PLATELET COUNT 127 K/uL (130-400); RED CELL DISTRIBUTION WIDTH CV 15.6 % (11.5-14.5); RED CELL DISTRIBUTION WIDTH SD 55.9 fL (36.4-46.3); WHITE BLOOD COUNT 7.17 K/uL (4.8-10.8)
--- NOTE | 2017-07-25 23:49 | EMERGENCY ROOM VISIT NOTE ---
History Report prepared by Rajiv: Jenifer Willoughby Under the Supervision of: Dr. Sue Campoverde D.O. First contact with patient: 23:03 Chief Complaint: WEAKNESS Stated Complaint: NUMBNESS ONE SIDE OF FACE,ACHEY,NO BM SINCE WEDNESDAY History of Present Illness The patient is a 77 year old female who presents to the Emergency Room with complaints of constant headache on the right side of her head beginning a week ago. She notes light worsens her headache. The patient has a history of a brain bleed in April 2016 from an episode of a fall where she hit her head. Family reports the patient's last CT showed her brain bleed was gone Per family, the patient recently had two more falls where the patient was caught by her and did not hit her head. Per family, every time the patient is "emely" she gets a headache. She has been taking half a hydrocodone and Tylenol for her headache with minimal relief. Per family, the patient's headaches are becoming more regular and more severe. The patient's family states she has been clammy and has had a runny nose over the past week. The patient has not had a bowel movement since Wednesday, 6 days ago, which is not normal for her. The patient has taken a stool softener with no relief. Per family, the patient has been passing gas. The patient is on dialysis three times a week. She has not missed any dialysis and is due for it tomorrow. Per family, the patient is susceptible to UTIs. The patient has a history of a mini stroke 7 weeks ago. Family reports her left side is weak since the mini stroke. The patient's family is trying to get home care involved to help her have rehab to rebuild some strength in her left side. Per family, the patient has poor vision at baseline and they report she gets shots in her eyes. The patient's family states they are mostly concerned about the patient's constipation and headache. Pt denies change in vision, fevers, chest pain, shortness of breath, abdominal bloating, abdominal pain, nausea, vomiting, diarrhea, pain with urination, and melena. Source of History: patient Onset: a week ago Position: head Quality: ache Timing: constant Modifying Factors (Worsening): other (light) Associated Symptoms: + headache, + diaphoresis, No fevers, No abdominal pain Review of Systems See HPI for pertinent positives & negatives. A total of 10 systems reviewed and were otherwise negative. Past Medical & Surgical Medical Problems: (1) Anemia of renal disease (2) CAD (coronary artery disease) (3) CHF (congestive heart failure) (4) CKD (chronic kidney disease), stage IV (5) DM (diabetes mellitus) (6) Dyslipidemia (7) End stage renal disease (8) ESRD (end stage renal disease) on dialysis (9) Hemodialysis patient (10) HTN (hypertension) (11) Hx of subdural hematoma (12) Rectal cancer (13) Stroke (14) Subdural hematoma (15) Syncope and collapse (16) Vertigo (17) Weakness Surgical Problems: (1) H/O tubal ligation (2) H/O: hysterectomy (3) History of carpal tunnel surgery (4) History of incisional hernia repair (5) History of lumbar surgery (6) History of partial surgical removal of colon (7) S/p A-port placement (8) S/P appendectomy (9) S/P CABG x 4 Family History Diabetes mellitus SISTER BROTHER FH: CAD (coronary artery disease) FATHER SISTER FH: cancer BROTHER (lung CA) MOTHER (lymphoma) DAUGHTER (breast CA) Social History Smoking Status: Never Smoker Alcohol Use: none Drug Use: none Marital Status: Housing Status: lives with family, [employer] Occupation Status: retired Current/Historical Medications Scheduled Aspirin (Aspirin Ec), 81 MG PO QPM Atorvastatin (Lipitor), 80 MG PO HS B-Complex W/ C & Folic Acid (Crowley Caps), 1 CAP PO QPM Calcitriol (Rocaltrol Cap), 0.25 MCG PO [id number] Calcium Acetate (Phoslo 667 Mg), 2 CAP PO [id number] Carvedilol (Carvedilol), 25 MG PO BID Cephalexin (Keflex), 1 CAP PO BID Cholecalciferol (Vitamin D3), 2,000 INTER.UNIT PO DAILY Cyanocobalamin (Vitamin B-12), 500 MCG PO DAILY Docusate Sodium (Stool Softener), 100 MG PO BID Escitalopram (Lexapro), 10 MG PO HS Estrogens, Conjugated (Premarin), 1 APPLN TOP TID Insulin Glargine (Lantus), 10 UNITS SC QPM Isosorbide Mononitrate (Isosorbide Mononitrate ER), 60 MG PO QAM Lisinopril (Prinivil), 10 MG PO DAILY Melatonin (Kp Melatonin), 1 TAB PO HS Omeprazole (Prilosec), 40 MG PO DAILY Ondansetron (Ondansetron HCl), 4 MG PO PRN Scheduled PRN Acetaminophen (Tylenol), 2 TAB PO Q6 PRN for Pain Epinephrine (Epipen), 0.3 MG IM UD PRN for Allergic Reaction Hydrocortisone 1% (Hydrocortisone 1%), 1 APPLN TP DAILY PRN for Hemorrhoids Lorazepam (Ativan), 0.5 MG PO Q6H PRN for Anxiety Meclizine Hcl (Meclizine Hcl), 1 TAB PO TID PRN for Dizziness or Vertigo Nitroglycerin (Nitrostat), 0.4 MG UT UD PRN for Chest Pain Sennosides (Senexon), 8.6 MG PO DAILY PRN for Constipation Allergies Coded Allergies: Tramadol (Unverified Allergy, Intermediate, neuro complications, 07/26/17) BEE STING (Verified Allergy, Unknown, ANAPHYLAXIS, 07/26/17) Erythromycin (Verified Allergy, Unknown, reaction unknown, 07/26/17) Hydromorphone (Verified Allergy, Unknown, hard to wake up, 07/26/17) Iodinated Diagnostic Agents (Verified Allergy, Unknown, ITCHY/HIVES, ) Morphine (Verified Allergy, Unknown, hives/rash, 07/26/17) Penicillins (Verified Allergy, Unknown, HIVES, 07/26/17) Oxycodone (Verified Adverse Reaction, Mild, CAUSES ITCHING, 07/26/17) Amlodipine (Verified Adverse Reaction, Unknown, DIZZY, GI UPSET, 07/26/17) Codeine (Verified Adverse Reaction, Unknown, HALLUCINATES, 07/26/17) Diphenhydramine (Verified Adverse Reaction, Unknown, SEE BELOW, 07/26/17) TOLD TO NEVER TAKE DUE TO KIDNEY FAILURE/BRAIN INJURY Ibuprofen (Verified Adverse Reaction, Unknown, SEE BELOW, 07/26/17) TOLD TO NEVER TAKE DUE TO KIDNEY FAILURE AND/OR BRAIN INJURY Naproxen (Verified Adverse Reaction, Unknown, SEE BELOW, 07/26/17) TOLD TO NEVER TAKE DUE TO KIDNEY FAILURE/AND OR BRAIN INJURY Neomycin (Verified Adverse Reaction, Unknown, vomit, 07/26/17) Physical Exam Vital Signs Date Time Temp Pulse Resp B/P (MAP) Pulse Ox O2 Delivery O2 Flow Rate FiO2 07/26/17 02:29 150/63 98 Room Air 07/26/17 02:00 64 14 07/26/17 01:30 65 14 07/26/17 01:00 61 16 07/26/17 00:53 63 20 163/62 98 07/25/17 23:02 66 07/25/17 22:42 36.7 74 19 114/59 92 Room Air Physical Exam GENERAL: The patient is with sunglasses on and holding right side of head. Otherwise she is alert, well appearing, well nourished, no distress, non-toxic EYE EXAM: normal conjunctiva, PERRL and EOM's grossly intact OROPHARYNX: no exudate, no erythema, lips, buccal mucosa, edentulous, and tongue normal and mucous membranes are mildly dry. NECK: supple, no nuchal rigidity, no adenopathy, non-tender LUNGS: Clear to auscultation. Normal chest wall mechanics HEART: no murmurs, S1 normal and S2 normal ABDOMEN: abdomen soft, non-tender, normo-active bowel sounds, no masses, no rebound or guarding. BACK: Back is symmetrical on inspection and there is no deformity, no midline tenderness, no CVA tenderness. SKIN: no rashes and no bruising UPPER EXTREMITIES: .Left upper extremity fistula with thrill and bruit. LOWER EXTREMITIES: No pitting edema. NEURO EXAM: Normal sensorium, cranial nerves II-XII grossly intact, normal speech, decreased strength of upper and lower extremities on left hand side 3/5. Medical Decision & Procedures ER Provider Diagnostic Interpretation: Radiology results have been interpreted by the radiologist and reviewed by me. KUB: Scattered stool and air, no definite SBO, hardware in lumbar spine noted, surgical clips noted. CT HEAD: Compared to 07/01/17 There is ventriculomegaly, which is out of proportion to atrophy. Suspicion for communicating hydrocephalus. Periventricular hypoattenuation is favored to reflect microvascular ischemia rather than transependymal flow of CSF. No intracranial hemorrhage. Left maxillary sinus mucous retention cyst again noted. Radiologist: Jose Tapia MD. Laboratory Results 07/25/17 23:25 Red Blood Count 3.46, Mean Corpuscular Volume 98.3, Mean Corpuscular Hemoglobin 32.1, Mean Corpuscular Hemoglobin Concent 32.6, Mean Platelet Volume 10.1, Neutrophils (%) (Auto) 73.9, Lymphocytes (%) (Auto) 14.6, Monocytes (%) (Auto) 8.5, Eosinophils (%) (Auto) 2.2, Basophils (%) (Auto) 0.4, Neutrophils # (Auto) 5.29, Lymphocytes # (Auto) 1.05, Monocytes # (Auto) 0.61, Eosinophils # (Auto) 0.16, Basophils # (Auto) 0.03 07/25/17 23:25 Test 07/25/17 23:25 07/25/17 23:52 07/25/17 23:54 07/26/17 00:45 White Blood Count 7.17 K/uL (4.8-10.8) Red Blood Count 3.46 M/uL (4.2-5.4) Hemoglobin 11.1 g/dL (12.0-16.0) Hematocrit 34.0 % (37-47) Mean Corpuscular Volume 98.3 fL (80-100) Mean Corpuscular Hemoglobin 32.1 pg (25-34) Mean Corpuscular Hemoglobin Concent 32.6 g/dl (32-36) Platelet Count 127 K/uL (130-400) Mean Platelet Volume 10.1 fL (7.4-10.4) Neutrophils (%) (Auto) 73.9 % Lymphocytes (%) (Auto) 14.6 % Monocytes (%) (Auto) 8.5 % Eosinophils (%) (Auto) 2.2 % Basophils (%) (Auto) 0.4 % Neutrophils # (Auto) 5.29 K/uL (1.4-6.5) Lymphocytes # (Auto) 1.05 K/uL (1.2-3.4) Monocytes # (Auto) 0.61 K/uL (0.11-0.59) Eosinophils # (Auto) 0.16 K/uL (0-0.5) Basophils # (Auto) 0.03 K/uL (0-0.2) RDW Standard Deviation 55.9 fL (36.4-46.3) RDW Coefficient of Variation 15.6 % (11.5-14.5) Immature Granulocyte % (Auto) 0.4 % Immature Granulocyte # (Auto) 0.03 K/uL (0.00-0.02) Prothrombin Time 10.5 SECONDS (9.0-12.0) Prothromb Time International Ratio 1.0 (0.9-1.1) Anion Gap 10.0 mmol/L (3-11) Estimated GFR () 7.7 Estimated GFR (Non- 6.7 BUN/Creatinine Ratio 7.2 (10-20) Calcium Level 9.2 mg/dl (8.5-10.1) Phosphorus Level 1.7 mg/dl (2.5-4.9) Magnesium Level 1.7 mg/dl (1.8-2.4) Total Bilirubin 0.8 mg/dl (0.2-1) Aspartate Amino Transf (AST/SGOT) 25 U/L (15-37) Alanine Aminotransferase (ALT/SGPT) 28 U/L (12-78) Alkaline Phosphatase 90 U/L (45-117) Total Protein 6.9 gm/dl (6.4-8.2) Albumin 3.3 gm/dl (3.4-5.0) Globulin 3.6 gm/dl (2.5-4.0) Albumin/Globulin Ratio 0.9 (0.9-2) Influenza Type A Antigen Neg for Influ A (NEG) Influenza Type B Antigen Neg for Influ B (NEG) Bedside Lactic Acid Venous 1.32 mmol/L (0.90-1.70) Urine Color DK YELLOW Urine Appearance CLOUDY (CLEAR) Urine pH 5.0 (4.5-7.5) Urine Specific [place] 1.019 (1.000-1.030) Urine Protein 2+ (NEG) Urine Glucose (UA) NEG (NEG) Urine Ketones TRACE (NEG) Urine Occult Blood TRACE (NEG) Urine Nitrite NEG (NEG) Urine Bilirubin NEG (NEG) Urine Urobilinogen NEG (NEG) Urine Leukocyte Esterase LARGE (NEG) Urine WBC (Auto) >30 /hpf (0-5) Urine RBC (Auto) 0-4 /hpf (0-4) Urine Hyaline Casts (Auto) 5-10 /lpf (0-5) Urine Epithelial Cells (Auto) 5-10 /lpf (0-5) Urine Bacteria (Auto) 1+ (NEG) Urine Yeast (Auto) (NONE PRSENT) Date/Time Source Procedure Growth Status 07/26/17 00:45 Urine,Catheterized Urine Culture - Final THREE TYPES OF ORGANISMS PRESENT, ALL... Complete Laboratory results per my review. Medications Administered Medications (Trade) Dose Ordered Sig/Marlon Route Start Time Stop Time Status Last Admin Dose Admin Ceftriaxone Sodium (Rocephin Inj) 1 gm NOW STAT IV 07/26/17 01:39 07/26/17 01:40 DC 07/26/17 01:51 1 GM ECG Indication: weakness Rate (beats per minute): 65 Rhythm: sinus rhythm Findings: Q waves (3, avf, v3), no acute ischemic change, other (normal axis, normal intervals Baseline artifact noted ) ED Course 2308: The patient was evaluated in room B5. A complete history and physical exam was performed. 0138: Review of EMR patient urine cultures have grown out Klebsiella and E. Coli. 0139: Ordered Rocephin Inj 1 gm IV. 0145: The patient is resting comfortably. 0219: Upon reevaluation, the patient is feeling better. I discussed the findings and the treatment plan with the patient. She verbalizes agreement and understanding. The patient was discharged home. Medical Decision Differential diagnosis: Etiologies such as appendicitis, diverticulitis, PUD, biliary pathology, UTI, pancreatitis, obstruction, mesenteric ischemia, aortic pathology, infections, inflammatory bowel disease, renal colic, migraine headache, meningitis, sinusitis, CO exposure, ICH, SAH, infection, tumor, headache, sinus thrombosis, arterial dissection, as well as others were entertained. Patient well-appearing here and family were from results. They're comfortable with patient being treated for UTI and may return to her facility. No evidence of bacteremia/sepsis. Patient's renal function at baseline and due for dialysis later today. Discussed with patient and family close follow-up, symptoms to watch and return for, family aware of all results, they verbalized understanding were agreeable with plan. Patient with mild hypokalemia/ hypomagnesemia/hypophosphotemia here, however given she is due for dialysis in several hours, did not give additional supplementation as these levels will be closely monitored during dialysis. Mild constipation noted, and this could be contributing to symptoms on abdominal pain. Feel likely that the evolution of a urinary tract infection which patient has had previously contributed to decreased by mouth intake and may also contribute increased headache. Patient' s headaches are chronic, no acute changes noted on CT. Patient with stable vital signs here otherwise. I have a low suspicion for any occult intracranial pathology, or other GI pathology. Medication Reconcilliation Current Medication List: was personally reviewed by me Blood Pressure Screening Patient's blood pressure: Elevated blood pressure Blood pressure disposition: Referred to PCP Impression Primary Impression: UTI (urinary tract infection) Additional Impressions: ESRD (end stage renal disease) on dialysis Constipation Chronic headaches Hypokalemia Scribe Attestation The scribe's documentation has been prepared under my direction and personally reviewed by me in its entirety. I confirm that the note above accurately reflects all work, treatment, procedures, and medical decision making performed by me. Departure Information Dispostion Home / Self-Care Prescriptions Cephalexin (KEFLEX) 500 Mg Cap 1 CAP PO BID for 7 Days, #14 CAP Prov: Sue Campoverde, DO 07/26/17 Referrals Cocnha Velasquez D.OMor (PCP) Forms HOME CARE DOCUMENTATION FORM, IMPORTANT VISIT INFORMATION Patient Instructions My [facility] Additional Instructions Please go to dialysis tomorrow as scheduled. Please continue your regular medications as prescribed and continue your efforts to restart physical therapy given your deficits since the stroke. Please take the antibiotics as prescribed. Your urine was sent for a culture and if the antibiotics need to be changed you will receive a phone call. If you have any worsening symptoms or new concerns, please return to the emergency room. Please follow-up with your neurologist regarding your increased headaches recently as this may require additional evaluation and treatment. Problem Qualifiers Primary Impression: UTI (urinary tract infection) Urinary tract infection type: acute cystitis Hematuria presence: with hematuria Qualified Codes: N30.01 - Acute cystitis with hematuria Additional Impressions: Constipation Constipation type: unspecified constipation type Qualified Codes: K59.00 - Constipation, unspecified Chronic headaches Headache type: unspecified Intractability: not intractable Qualified Codes : R51 - Headache
[2017-07-26 00:19] LABS: ALBUMIN 3.3 gm/dl (3.4-5.0); ALKALINE PHOSPHATASE 90 U/L (45-117); ALT/SGPT 28 U/L (12-78); AST/SGOT 25 U/L (15-37); BLOOD UREA NITROGEN 41 mg/dl (7-18); CALCIUM 9.2 mg/dl (8.5-10.1); CARBON DIOXIDE 29 mmol/L (21-32); CREATININE 5.72 mg/dl (0.60-1.20); GLUCOSE 103 mg/dl (70-99); PHOSPHORUS 1.7 mg/dl (2.5-4.9); SODIUM 137 mmol/L (136-145); TOTAL PROTEIN 6.9 gm/dl (6.4-8.2)
[2017-07-26] MEDS ORDERED: ESCI10TA17 PO (00:23)
[2017-07-26] MEDS ORDERED: CALC0.2510 PO (00:26)
[2017-07-26] MEDS ORDERED: LISI20TA3 PO (00:27)
[2017-07-26 00:36] LABS: INFLUENZA B ANTIGEN Neg for Influ B (NEG)
[2017-07-26] MEDS ORDERED: CEFTRIAXONE SOD INJ 1 GM ADDVIAL IV STA (01:39)
[2017-07-26 02:00] VITALS: PULSE 64
[2017-07-26] MEDS ORDERED: CEPH-571 PO (02:17)
[2017-07-26 02:29] VITALS: BP 150/63; O2SAT 98
--- NOTE | 2017-07-26 06:47 | DIAGNOSTIC IMAGING REPORT ---
HEAD WITHOUT CONTRAST (CT) CT DOSE: 537.48 mGy.cm HISTORY: Mental status change headache TECHNIQUE: Multiaxial CT images of the head were performed without the use of intravenous contrast. A dose lowering technique was utilized adhering to the principles of ALARA. Comparison: 07/01/2017 Findings: Mucous attention cyst left maxillary sinus unchanged. Moderate ventricular prominence unchanged in the prior study. Moderate chronic small vessel change. Small old left frontal infarct. No acute intracranial hemorrhage. The calvarium and skull base are intact. The ventricles and sulci are within normal limits. There is no mass, hematoma, midline shift, or acute infarct. Impression: Chronic change. Mild hydrocephalus considered stable. Chronic small vessel change. The above report was generated using voice recognition software. It may contain grammatical, syntax or spelling errors. Electronically signed by: Delonte Treadwell M.D. 07/26/2017 6:46 AM Dictated Date/Time: 07/26/2017 6:41 AM
--- NOTE | 2017-07-26 06:51 | DIAGNOSTIC IMAGING REPORT ---
KUB HISTORY: constipation COMPARISON: Acute abdominal series radiographs 06/05/2016. FINDINGS: The bowel gas pattern is non-obstructive. There is moderate stool volume noted throughout the colon, notably within the cecum, ascending, transverse and descending colon with mild stool volume in the rectosigmoid. Surgical suture material seen within the central pelvis. There are surgical clips of the right upper abdomen. Surgical clips project over the lower left mediastinum with partially imaged lead seen in the right heart border. Extensive vascular calcifications. There is no organomegaly. No renal calculi. No ureteral calculi. No pneumoperitoneum or pneumatosis. No fracture. Bones are moderately demineralized. Fusion hardware of the lower lumbar spine. IMPRESSION: 1. Moderate stool volume throughout the colon as above suggests constipation. 2. Nonobstructive bowel gas pattern. Electronically signed by: Mario Ladd M.D. 07/26/2017 6:50 AM Dictated Date/Time: 07/26/2017 6:47 AM
== END 2017-07-26 02:47 | disposition home or self-care (01) ==
LOC: C.EDB 22:42
DX: N39.0 Urinary tract infection, site not specified (principal); I13.2 Hypertensive heart and chronic kidney disease with heart failure and with stage 5 chronic kidney disease, or end stage renal disease; E11.22 Type 2 diabetes mellitus with diabetic chronic kidney disease; N18.6 End stage renal disease; K59.00 Constipation, unspecified; R51 Headache; E87.6 Hypokalemia; I69.354 Hemiplegia and hemiparesis following cerebral infarction affecting left non-dominant side; I50.9 Heart failure, unspecified; Z99.2 Dependence on renal dialysis; D63.1 Anemia in chronic kidney disease; I25.10 Atherosclerotic heart disease of native coronary artery without angina pectoris; E78.5 Hyperlipidemia, unspecified; Z95.1 Presence of aortocoronary bypass graft; Z79.82 Long term (current) use of aspirin; Z79.4 Long term (current) use of insulin; Z83.3 Family history of diabetes mellitus; Z82.49 Family history of ischemic heart disease and other diseases of the circulatory system; Z80.1 Family history of malignant neoplasm of trachea, bronchus and lung; Z80.3 Family history of malignant neoplasm of breast; Z80.7 Family history of other malignant neoplasms of lymphoid, hematopoietic and related tissues

== ENCOUNTER 2017-10-04 18:30 | Emergency (ER) | payer OTHER, MEDICARE ==
[~2017-10-04 18:30] MED LIST changes: +CALC0.2510 PO; -CALC500C3 PO; +ESCI10TA17 PO; -ESCI1TAB6 PO; -GLUC1TES; -LIDO1CRE16 TOP; +LISI20TA3 PO; -LSN20 PO; -POLY1POW2 PO
[2017-10-04 18:35] VITALS: TEMP 36.3
[2017-10-04] MEDS ORDERED: ONDANSETRON INJ 2 MG/ML 2 ML VIAL IV STA (19:08)
[2017-10-04] MEDS ORDERED: SODIUM CHLORIDE 0.9% 250ML 250 ML IV STA (19:08)
--- NOTE | 2017-10-04 19:21 | EMERGENCY ROOM VISIT NOTE ---
History Report prepared by Rajiv: Ada Sebastian Under the Supervision of: Dr. Robb Pereira M.D. First contact with patient: 18:44 Chief Complaint: DIZZY Stated Complaint: ARCHULETA,ABD PAIN,DIZZY,LOW BP,BRAIN INJURY HX History of Present Illness The patient is a 77 year old female who presents to the Emergency Room with complaints of persistent dizziness that began earlier today while the patient was having dialysis. She reports that she has been experiencing abdominal pain all day, noting that it continued when she became light headed and began excessively sweating at dialysis. The patient states that she currently feels like the room is spinning. Her son states that she did not eat much this morning , noting she only ate half of a piece of toast. The patient had a brain bleed one year ago and a mild stroke in June, noting it has limited her ability to urinate or ambulate. Her daughter states that the patient has 25% heart function and a history of colon cancer. She currently lives with her son, who states he has been changing her diapers due to uncontrollable stools 5-7 times day for the past few weeks and denies any recent diarrhea. The patient was diagnosed with a urinary tract infection 5 days ago. Source of History: patient Onset: earlier today Position: other (neuro) Quality: other (dizziness) Timing: other (persistent) Associated Symptoms: + abdominal pain, No diarrhea Note: Associated symptoms include: sweating, light headed, and room spinning. Review of Systems See HPI for pertinent positives and negatives. A total of ten systems were reviewed and were otherwise negative. Past Medical & Surgical Medical Problems: (1) Anemia of renal disease (2) CAD (coronary artery disease) (3) CHF (congestive heart failure) (4) CKD (chronic kidney disease), stage IV (5) DM (diabetes mellitus) (6) Dyslipidemia (7) End stage renal disease (8) ESRD (end stage renal disease) on dialysis (9) Hemodialysis patient (10) HTN (hypertension) (11) Hx of subdural hematoma (12) Rectal cancer (13) Stroke (14) Subdural hematoma (15) Syncope and collapse (16) Vertigo (17) Weakness Surgical Problems: (1) H/O tubal ligation (2) H/O: hysterectomy (3) History of carpal tunnel surgery (4) History of incisional hernia repair (5) History of lumbar surgery (6) History of partial surgical removal of colon (7) S/p A-port placement (8) S/P appendectomy (9) S/P CABG x 4 Family History Diabetes mellitus SISTER BROTHER FH: CAD (coronary artery disease) FATHER SISTER FH: cancer BROTHER (lung CA) MOTHER (lymphoma) DAUGHTER (breast CA) Social History Smoking Status: Never Smoker Alcohol Use: none Drug Use: none Marital Status: Housing Status: lives with family, [facility] Occupation Status: retired Current/Historical Medications Scheduled Aspirin (Aspirin Ec), 81 MG PO QPM Atorvastatin (Lipitor), 80 MG PO HS B-Complex W/ C & Folic Acid (Media Caps), 1 CAP PO QPM Calcitriol (Rocaltrol Cap), 0.25 MCG PO [id number] Calcium Acetate (Phoslo 667 Mg), 2 CAP PO [id number] Carvedilol (Carvedilol), 25 MG PO BID Cholecalciferol (Vitamin D3), 2,000 INTER.UNIT PO DAILY Ciprofloxacin (Ciprofloxacin HCl), 1 TAB PO DAILY Cyanocobalamin (Vitamin B-12), 500 MCG PO DAILY Docusate Sodium (Stool Softener), 100 MG PO BID Escitalopram (Lexapro), 10 MG PO HS Estrogens, Conjugated (Premarin), 1 APPLN TOP TID Insulin Glargine (Lantus), 10 UNITS SC QPM Isosorbide Mononitrate (Isosorbide Mononitrate ER), 60 MG PO QAM Lisinopril (Prinivil), 10 MG PO DAILY Melatonin (Kp Melatonin), 1 TAB PO HS Omeprazole (Prilosec), 40 MG PO DAILY Ondansetron (Ondansetron HCl), 4 MG PO PRN Ondasetron Odt (Zofran Odt), 4 MG SL Q6H Saccharomyces Boulardii (Florastor), 1 CAP PO BID Scheduled PRN Acetaminophen (Tylenol), 2 TAB PO Q6 PRN for Pain Epinephrine (Epipen), 0.3 MG IM UD PRN for Allergic Reaction Hydrocortisone 1% (Hydrocortisone 1%), 1 APPLN TP DAILY PRN for Hemorrhoids Lorazepam (Ativan), 0.5 MG PO Q6H PRN for Anxiety Meclizine Hcl (Meclizine Hcl), 1 TAB PO TID PRN for Dizziness or Vertigo Nitroglycerin (Nitrostat), 0.4 MG UT UD PRN for Chest Pain Sennosides (Senexon), 8.6 MG PO DAILY PRN for Constipation Allergies Coded Allergies: Tramadol (Unverified Allergy, Intermediate, neuro complications, 07/26/17) BEE STING (Verified Allergy, Unknown, ANAPHYLAXIS, 07/26/17) Erythromycin (Verified Allergy, Unknown, reaction unknown, 07/26/17) Hydromorphone (Verified Allergy, Unknown, hard to wake up, 07/26/17) Iodinated Diagnostic Agents (Verified Allergy, Unknown, ITCHY/HIVES, ) Morphine (Verified Allergy, Unknown, hives/rash, 07/26/17) Penicillins (Verified Allergy, Unknown, HIVES, 07/26/17) Oxycodone (Verified Adverse Reaction, Mild, CAUSES ITCHING, 07/26/17) Amlodipine (Verified Adverse Reaction, Unknown, DIZZY, GI UPSET, 07/26/17) Codeine (Verified Adverse Reaction, Unknown, HALLUCINATES, 07/26/17) Diphenhydramine (Verified Adverse Reaction, Unknown, SEE BELOW, 07/26/17) TOLD TO NEVER TAKE DUE TO KIDNEY FAILURE/BRAIN INJURY Ibuprofen (Verified Adverse Reaction, Unknown, SEE BELOW, 07/26/17) TOLD TO NEVER TAKE DUE TO KIDNEY FAILURE AND/OR BRAIN INJURY Naproxen (Verified Adverse Reaction, Unknown, SEE BELOW, 07/26/17) TOLD TO NEVER TAKE DUE TO KIDNEY FAILURE/AND OR BRAIN INJURY Neomycin (Verified Adverse Reaction, Unknown, vomit, 07/26/17) Physical Exam Vital Signs Date Time Temp Pulse Resp B/P (MAP) Pulse Ox O2 Delivery O2 Flow Rate FiO2 10/04/17 21:45 64 18 112/52 97 10/04/17 18:35 36.3 72 20 94/52 96 Room Air Physical Exam GENERAL: Awake, alert, fatigued-appearing, in no acute distress HENT: Dry mucous membranes. Normocephalic, atraumatic. Oropharynx unremarkable. EYES: Normal conjunctiva. Sclera non-icteric. NECK: Supple. No nuchal rigidity. FROM. No JVD. RESPIRATORY: Clear to auscultation. CARDIAC: Regular rate, normal rhythm. Extremities warm and well perfused. Pulses equal. Left upper extremity AV fistula with palpable thrill. ABDOMEN: Generalized abdominal tenderness. No peritoneal signs. RECTAL: Deferred. MUSCULOSKELETAL: Chest examination reveals no tenderness. The back is symmetrical on inspection without obvious abnormality. There is no CVA tenderness to palpation. No joint edema. LOWER EXTREMITIES: Calves are equal size bilaterally and non-tender. No edema. No discoloration. NEURO: Normal cerebellar function with [id number]. Normal sensorium. No sensory or motor deficits noted. SKIN: No rash or jaundice noted. Medical Decision & Procedures ER Provider Diagnostic Interpretation: Radiology results as stated below per my review and radiologist interpretation: CT SCAN OF THE ABDOMEN AND PELVIS WITHOUT CONTRAST CLINICAL HISTORY: Abdominal pain, nausea, vomiting COMPARISON STUDY: April 23, 2016 TECHNIQUE: CT scan of the abdomen and pelvis was performed from the lung bases to the proximal femurs. Images are reviewed in the axial, sagittal, and coronal planes. IV contrast was not administered for this examination. A dose lowering technique was utilized adhering to the principles of ALARA. CT DOSE: FINDINGS: Lower chest: There are coronary artery calcifications present. Liver: No focal masses are visualized. Multiple hepatic calcifications are likely vascular Gallbladder: Cholelithiasis Spleen: Normal in size and attenuation. Pancreas: Unremarkable. Adrenal glands: Unremarkable. Kidneys: There are extensive bilateral vascular calcifications. There is no hydronephrosis. Bowel: There are no transition zones indicate bowel obstruction. There is mild fecal retention. There is mild rectal wall thickening. The rectum measures 4.9 cm in transverse diameter. There are postsurgical changes within the rectosigmoid. There are few scattered air-fluid levels. The appendix is not visualized with certainty. There are no findings to indicate acute appendicitis. Peritoneum: There is no intraperitoneal free air or abdominal ascites. Vasculature: There are extensive vascular calcifications present. Adenopathy: None. Pelvic viscera: The uterus appears surgically absent. Pelvic floor relaxation is suspected. Skeletal structures: Postsurgical changes are present within the lumbar spine. IMPRESSION: 1. Cholelithiasis 2. No evidence of bowel obstruction. No evidence of free air 3. Extensive atherosclerotic vascular calcifications. 4. Minimal circumferential rectal wall thickening is suspected. 5. No evidence of acute appendicitis. No evidence of acute diverticulitis 6. Suspected pelvic floor prolapse. Electronically signed by: Guy Edward M.D. 10/04/2017 8:26 PM Dictated Date/Time: 10/04/2017 8:19 PM CHEST ONE VIEW PORTABLE CLINICAL HISTORY: Pain, radiating to the abdomen. COMPARISON STUDY: No previous studies for comparison. FINDINGS: The cardiac and mediastinal contours are normal. There is no evidence of focal pulmonary consolidation. There is no evidence of failure. No pleural effusions are visualized.[ There are postsurgical changes of a midline sternotomy. There is no free intraperitoneal air. IMPRESSION: No active disease in the chest. Electronically signed by: Guy Edward M.D. 10/04/2017 8:00 PM Dictated Date/Time: 10/04/2017 8:[address] HEAD WITHOUT CONTRAST (CT) CLINICAL HISTORY: Nausea, vomiting, dizziness COMPARISON STUDY: July 26, 2017 TECHNIQUE: Axial CT of the brain is performed from the vertex to the skull base. IV contrast was not administered for this examination. A dose lowering technique was utilized adhering to the principles of ALARA. CT DOSE: 854.86 mGy.cm FINDINGS: No intra or extra-axial mass lesions are visualized. There is no CT evidence of acute cortical infarction. There is no evidence of midline shift. There is no acute hemorrhage. No calvarial fractures are visualized. There are moderate white matter hypodensities likely on a small vessel basis. There is stable mild ventriculomegaly. There is no evidence of acute sinusitis IMPRESSION: No change from the preceding study. No acute intracranial findings. Electronically signed by: Guy Edward M.D. 10/04/2017 8:18 PM Dictated Date/Time: 10/04/2017 8:15 PM Laboratory Results 10/04/17 19:25 Red Blood Count 4.51, Mean Corpuscular Volume 100.0, Mean Corpuscular Hemoglobin 33.3, Mean Corpuscular Hemoglobin Concent 33.3, Mean Platelet Volume 10.6, Neutrophils (%) (Auto) 79.7, Lymphocytes (%) (Auto) 13.1, Monocytes (%) ( Auto) 5.8, Eosinophils (%) (Auto) 0.6, Basophils (%) (Auto) 0.4, Neutrophils # ( Auto) 6.46, Lymphocytes # (Auto) 1.06, Monocytes # (Auto) 0.47, Eosinophils # ( Auto) 0.05, Basophils # (Auto) 0.03 3/26/18 19:25 Test 10/04/17 19:25 10/04/17 19:31 10/04/17 19:49 White Blood Count 8.10 K/uL (4.8-10.8) Red Blood Count 4.51 M/uL (4.2-5.4) Hemoglobin 15.0 g/dL (12.0-16.0) Hematocrit 45.1 % (37-47) Mean Corpuscular Volume 100.0 fL (80-100) Mean Corpuscular Hemoglobin 33.3 pg (25-34) Mean Corpuscular Hemoglobin Concent 33.3 g/dl (32-36) Platelet Count 160 K/uL (130-400) Mean Platelet Volume 10.6 fL (7.4-10.4) Neutrophils (%) (Auto) 79.7 % Lymphocytes (%) (Auto) 13.1 % Monocytes (%) (Auto) 5.8 % Eosinophils (%) (Auto) 0.6 % Basophils (%) (Auto) 0.4 % Neutrophils # (Auto) 6.46 K/uL (1.4-6.5) Lymphocytes # (Auto) 1.06 K/uL (1.2-3.4) Monocytes # (Auto) 0.47 K/uL (0.11-0.59) Eosinophils # (Auto) 0.05 K/uL (0-0.5) Basophils # (Auto) 0.03 K/uL (0-0.2) RDW Standard Deviation 55.7 fL (36.4-46.3) RDW Coefficient of Variation 15.3 % (11.5-14.5) Immature Granulocyte % (Auto) 0.4 % Immature Granulocyte # (Auto) 0.03 K/uL (0.00-0.02) Anion Gap 13.0 mmol/L (3-11) Estimated GFR () 12.5 Estimated GFR (Non- 10.8 BUN/Creatinine Ratio 6.1 (10-20) Calcium Level 9.4 mg/dl (8.5-10.1) Phosphorus Level 2.5 mg/dl (2.5-4.9) Magnesium Level 2.0 mg/dl (1.8-2.4) Total Bilirubin 0.7 mg/dl (0.2-1) Direct Bilirubin 0.2 mg/dl (0-0.2) Aspartate Amino Transf (AST/SGOT) 62 U/L (15-37) Alanine Aminotransferase (ALT/SGPT) 75 U/L (12-78) Alkaline Phosphatase 98 U/L (45-117) Troponin I 0.017 ng/ml (0-0.045) Total Protein 9.0 gm/dl (6.4-8.2) Albumin 4.3 gm/dl (3.4-5.0) Lipase 260 U/L (73-393) Bedside Lactic Acid Venous 1.57 mmol/L (0.90-1.70) Urine Color DK YELLOW Urine Appearance TURBID (CLEAR) Urine pH 7.0 (4.5-7.5) Urine Specific [place] 1.018 (1.000-1.030) Urine Protein 2+ (NEG) Urine Glucose (UA) NEG (NEG) Urine Ketones TRACE (NEG) Urine Occult Blood TRACE (NEG) Urine Nitrite NEG (NEG) Urine Bilirubin NEG (NEG) Urine Urobilinogen NEG (NEG) Urine Leukocyte Esterase MODERATE (NEG) Urine WBC (Auto) >30 /hpf (0-5) Urine RBC (Auto) 0-4 /hpf (0-4) Urine Hyaline Casts (Auto) 1-5 /lpf (0-5) Urine Epithelial Cells (Auto) 0-5 /lpf (0-5) Urine Bacteria (Auto) 2+ (NEG) Urine Yeast (Auto) (NONE PRSENT) Laboratory results reviewed by me Medications Administered Medications (Trade) Dose Ordered Sig/Marlon Route Start Time Stop Time Status Last Admin Dose Admin Sodium Chloride 250 ml @ 999 mls/hr Q16M STAT IV 10/04/17 19:08 10/04/17 19:23 DC 10/04/17 19:53 999 MLS/HR Ondansetron HCl (Zofran Inj) 4 mg NOW STAT IV 10/04/17 19:08 10/04/17 19:14 DC 10/04/17 19:53 4 MG Ciprofloxacin (Cipro Tab) 250 mg NOW STAT PO 10/04/17 21:20 10/04/17 21:22 DC 10/04/17 21:34 250 MG Ondansetron HCl (ZOFRAN ODT 4MG Home Pack) 1 homepack UD ONCE PO 10/04/17 21:30 10/04/17 21:31 DC 10/04/17 21:33 1 HOMEPACK ECG Per My Interpretation Indication: syncope Rate (beats per minute): 68 Rhythm: normal sinus Findings: no acute ischemic change, other (normal axis) ED Course 1845: The patient was evaluated in room A11. A complete history and physical exam was performed. 2051: I reevaluated the patient, who was resting comfortably. Updated her and her family on test findings. They verbalized complete understanding. 2201: I reevaluated the patient, who states she feels significantly better. Discussed results and discharge instructions: the patient and her family verbalized understanding and agreement. The patient is ready for discharge. Medical Decision I reviewed the patient's past medical history, medications, and the nursing notes as described above. Differential diagnosis: Etiologies such as benign positional vertigo, dehydration, hypovolemia, anemia, tumor, infection, hypoglycemia, electrolyte abnormalities, cardiac sources, intracerebral event, toxicologic, neurologic, appendicitis, diverticulitis, PUD , biliary pathology, UTI, pancreatitis, obstruction, mesenteric ischemia, aortic pathology, inflammatory bowel disease, renal colic, as well as others were entertained. The patient is a 77-year-old woman with a past medical history of end-stage renal disease on dialysis who presents emergency department with dizziness and nausea which began when she was at dialysis per hpi. On arrival the patient is chronically ill-appearing but no acute distress, afebrile stable vital signs. She is neuro intact. No nystagmus with head movements. She appears clinically dry. WBC and lactate within normal limits. UA positive for UTI. CT head negative. Chest x-ray negative. CT of the abdomen and pelvis unremarkable. Patient recently was treated for a UTI with Bactrim her culture results when reviewed on the patient's phone were negative. However given the clear infection in her urine today will treat with course of Cipro that is dosed for her dialysis. Otherwise the patient feeling improved after gentle IV fluids and antiemetics. No inducible vertigo on exam. Sx likely related to the patient 's UTI and mild dehydration after completing her dialysis today. Findings and plan for follow-up reviewed with patient and family. Patient and family agreeable and d/c'd per discharge instructions. Medication Reconcilliation Current Medication List: was personally reviewed by me Blood Pressure Screening Patient's blood pressure: Normal blood pressure Blood pressure disposition: Did not require urgent referral Impression Primary Impression: UTI (urinary tract infection) Scribe Attestation The scribe's documentation has been prepared under my direction and personally reviewed by me in its entirety. I confirm that the note above accurately reflects all work, treatment, procedures, and medical decision making performed by me. Departure Information Dispostion Home / Self-Care Prescriptions Ondasetron Odt (ZOFRAN ODT) 4 Mg Tab 4 MG SL Q6H for Nausea, #6 TAB Prov: Robb Pereira M.D. 10/04/17 Saccharomyces Boulardii (Florastor) 250 Mg Cap 1 CAP PO BID for 10 Days, #20 CAP Prov: Robb Pereira M.D. 10/04/17 Ciprofloxacin (Ciprofloxacin HCl) 250 Mg Tab 1 TAB PO DAILY for 3 Days, #3 TABS Prov: Robb Pereira M.D. 10/04/17 Referrals No Doctor, Assigned (PCP) Forms HOME CARE DOCUMENTATION FORM, IMPORTANT VISIT INFORMATION Patient Instructions Dizziness Fainting Poss Causes, My [facility], UTI Additional Instructions Please follow up with your primary care physician in the next 1-3 days for re- evaluation. Your symptoms are likely due to a urinary tract infection. Otherwise, your exam, EKG, chest xray, lab results, and CT scan did not show signs of an emergent condition at this time. Ciprofloxacin as directed. Zofran as needed for nausea. Florastor, probiotic, to help prevent antibiotic associated diarrhea Return to the emergency department for worsening symptoms as described in the accompanying instructions.
[2017-10-04 19:54] LABS: BASO % 0.4 %; BASO ABS # 0.03 K/uL (0-0.2); EOS % 0.6 %; EOS ABS # 0.05 K/uL (0-0.5); HEMATOCRIT 45.1 % (37-47); IG# 0.03 K/uL (0.00-0.02); LYMPH % 13.1 %; LYMPH ABS # 1.06 K/uL (1.2-3.4); MEAN CORPUSCULAR HEMOGLOBIN 33.3 pg (25-34); MEAN CORPUSCULAR HGB CONC 33.3 g/dl (32-36); MEAN PLATELET VOLUME 10.6 fL (7.4-10.4); MONO % 5.8 %; MONO ABS # 0.47 K/uL (0.11-0.59); NEUT % 79.7 %; NEUT ABS # 6.46 K/uL (1.4-6.5); PLATELET COUNT 160 K/uL (130-400); RED CELL DISTRIBUTION WIDTH CV 15.3 % (11.5-14.5); RED CELL DISTRIBUTION WIDTH SD 55.7 fL (36.4-46.3)
--- NOTE | 2017-10-04 20:01 | DIAGNOSTIC IMAGING REPORT ---
CHEST ONE VIEW PORTABLE CLINICAL HISTORY: Pain, radiating to the abdomen. COMPARISON STUDY: No previous studies for comparison. FINDINGS: The cardiac and mediastinal contours are normal. There is no evidence of focal pulmonary consolidation. There is no evidence of failure. No pleural effusions are visualized.[ There are postsurgical changes of a midline sternotomy. There is no free intraperitoneal air. IMPRESSION: No active disease in the chest. Electronically signed by: Guy Edward M.D. 10/04/2017 8:00 PM Dictated Date/Time: 10/04/2017 8:00 PM
[2017-10-04 20:14] LABS: ALBUMIN 4.3 gm/dl (3.4-5.0); ALT/SGPT 75 U/L (12-78); AST/SGOT 62 U/L (15-37); BLOOD UREA NITROGEN 24 mg/dl (7-18); CALCIUM 9.4 mg/dl (8.5-10.1); CARBON DIOXIDE 27 mmol/L (21-32); CREATININE 3.85 mg/dl (0.60-1.20); GLUCOSE 158 mg/dl (70-99); LIPASE 260 U/L (73-393); SODIUM 135 mmol/L (136-145)
[2017-10-04 20:17] LABS: ALKALINE PHOSPHATASE 98 U/L (45-117); PHOSPHORUS 2.5 mg/dl (2.5-4.9)
--- NOTE | 2017-10-04 20:20 | DIAGNOSTIC IMAGING REPORT ---
CT HEAD WITHOUT CONTRAST (CT) CLINICAL HISTORY: Nausea, vomiting, dizziness COMPARISON STUDY: July 26, 2017 TECHNIQUE: Axial CT of the brain is performed from the vertex to the skull base. IV contrast was not administered for this examination. A dose lowering technique was utilized adhering to the principles of ALARA. CT DOSE: 854.86 mGy.cm FINDINGS: No intra or extra-axial mass lesions are visualized. There is no CT evidence of acute cortical infarction. There is no evidence of midline shift. There is no acute hemorrhage. No calvarial fractures are visualized. There are moderate white matter hypodensities likely on a small vessel basis. There is stable mild ventriculomegaly. There is no evidence of acute sinusitis IMPRESSION: No change from the preceding study. No acute intracranial findings. Electronically signed by: Guy Edward M.D. 10/04/2017 8:18 PM Dictated Date/Time: 10/04/2017 8:15 PM
--- NOTE | 2017-10-04 20:27 | DIAGNOSTIC IMAGING REPORT ---
CT SCAN OF THE ABDOMEN AND PELVIS WITHOUT CONTRAST CLINICAL HISTORY: Abdominal pain, nausea, vomiting COMPARISON STUDY: April 23, 2016 TECHNIQUE: CT scan of the abdomen and pelvis was performed from the lung bases to the proximal femurs. Images are reviewed in the axial, sagittal, and coronal planes. IV contrast was not administered for this examination. A dose lowering technique was utilized adhering to the principles of ALARA. CT DOSE: FINDINGS: Lower chest: There are coronary artery calcifications present. Liver: No focal masses are visualized. Multiple hepatic calcifications are likely vascular Gallbladder: Cholelithiasis Spleen: Normal in size and attenuation. Pancreas: Unremarkable. Adrenal glands: Unremarkable. Kidneys: There are extensive bilateral vascular calcifications. There is no hydronephrosis. Bowel: There are no transition zones indicate bowel obstruction. There is mild fecal retention. There is mild rectal wall thickening. The rectum measures 4.9 cm in transverse diameter. There are postsurgical changes within the rectosigmoid. There are few scattered air-fluid levels. The appendix is not visualized with certainty. There are no findings to indicate acute appendicitis. Peritoneum: There is no intraperitoneal free air or abdominal ascites. Vasculature: There are extensive vascular calcifications present. Adenopathy: None. Pelvic viscera: The uterus appears surgically absent. Pelvic floor relaxation is suspected. Skeletal structures: Postsurgical changes are present within the lumbar spine. IMPRESSION: 1. Cholelithiasis 2. No evidence of bowel obstruction. No evidence of free air 3. Extensive atherosclerotic vascular calcifications. 4. Minimal circumferential rectal wall thickening is suspected. 5. No evidence of acute appendicitis. No evidence of acute diverticulitis 6. Suspected pelvic floor prolapse. Electronically signed by: Guy Edward M.D. 10/04/2017 8:26 PM Dictated Date/Time: 10/04/2017 8:19 PM
[2017-10-04] MEDS ORDERED: CIPR250T23 PO (21:17)
[2017-10-04] MEDS ORDERED: SACC250C3 PO (21:17)
[2017-10-04] MEDS ORDERED: CIPROFLOXACIN 500 MG TAB PO STA (21:20)
[2017-10-04] MEDS ORDERED: ONDA4TAB10 SL (21:22)
[2017-10-04] MEDS ORDERED: ONDANSETRON HOME PACK 4MG OD TAB PO ONE (21:30)
[2017-10-04 21:45] VITALS: BP 112/52; PULSE 64; O2SAT 97
== END 2017-10-04 21:48 | disposition home or self-care (01) ==
LOC: C.EDB 18:32 → C.EDA 21:48
DX: N39.0 Urinary tract infection, site not specified (principal); Z85.038 Personal history of other malignant neoplasm of large intestine; Z86.73 Personal history of transient ischemic attack (TIA), and cerebral infarction without residual deficits; D63.1 Anemia in chronic kidney disease; N18.6 End stage renal disease; I12.0 Hypertensive chronic kidney disease with stage 5 chronic kidney disease or end stage renal disease; Z99.2 Dependence on renal dialysis; Z98.51 Tubal ligation status; Z90.710 Acquired absence of both cervix and uterus; Z95.1 Presence of aortocoronary bypass graft; Z83.3 Family history of diabetes mellitus; Z80.1 Family history of malignant neoplasm of trachea, bronchus and lung; Z80.7 Family history of other malignant neoplasms of lymphoid, hematopoietic and related tissues; Z80.3 Family history of malignant neoplasm of breast; Z79.82 Long term (current) use of aspirin; Z79.899 Other long term (current) drug therapy; Z88.8 Allergy status to other drugs, medicaments and biological substances; Z91.030 Bee allergy status; Z88.0 Allergy status to penicillin; Z88.5 Allergy status to narcotic agent; Z91.041 Radiographic dye allergy status; Z88.1 Allergy status to other antibiotic agents

== ENCOUNTER 2017-10-08 08:55 | Inpatient (IN) | payer OTHER, MEDICARE ==
[~2017-10-08] VITALS: Ht 157.5 cm; Wt 54.9 kg
[2017-10-08] VITALS (7 sets, daily range): BP systolic 142–194; BP diastolic 63–85; PULSE 68–82; TEMP 36.6–36.8; O2SAT 96–99; Ht 157.5 cm; Wt 54.9 kg
[~2017-10-08 08:55] MED LIST changes: +CIPR250T23 PO; +ONDA4TAB10 SL; +SACC250C3 PO
--- NOTE | 2017-10-08 09:32 | EMERGENCY ROOM VISIT NOTE ---
History Report prepared by Rajiv: Jenifer Willoughby Under the Supervision of: Dr. Butch Phelps M.D. First contact with patient: 09:01 Chief Complaint: UNRESPONSIVE Stated Complaint: UNRESPONSIVE History of Present Illness The patient is a 77 year old female who presents to the Emergency Room with complaints of an episode of unresponsiveness beginning just prior to arrival. The patient was at dialysis today when she became unresponsive. Per , when the patient woke up this morning she was complaining of dizziness. Presently, the patient denies any chest pain, shortness of breath, numbness or weakness. She reports dizziness and describes her dizziness as room spinning. The patient was seen in the ED four days ago for dizziness and low blood pressure and was told she had a UTI. Per , when the patient was in the ED four days ago, the patient had a change in her medication. The patient has been on dialysis for a year and a half and she still makes urine. The patient has a history of diabetes. Per nursing, the patient's blood sugar presently is 130. Source of History: patient Onset: just prior to arrival Position: other (generalized) Quality: other (unresponvieness) Timing: other (episode) Associated Symptoms: No chest pain, No SOB, No weakness, No numbness Review of Systems See HPI for pertinent positives & negatives. A total of 10 systems reviewed and were otherwise negative. Past Medical & Surgical Medical Problems: (1) Anemia of renal disease (2) CAD (coronary artery disease) (3) CHF (congestive heart failure) (4) CKD (chronic kidney disease), stage IV (5) DM (diabetes mellitus) (6) Dyslipidemia (7) End stage renal disease (8) ESRD (end stage renal disease) on dialysis (9) Hemodialysis patient (10) HTN (hypertension) (11) Hx of subdural hematoma (12) Near syncope (13) Rectal cancer (14) Stroke (15) Subdural hematoma (16) Syncope and collapse (17) Vertigo (18) Weakness Surgical Problems: (1) H/O tubal ligation (2) H/O: hysterectomy (3) History of carpal tunnel surgery (4) History of incisional hernia repair (5) History of lumbar surgery (6) History of partial surgical removal of colon (7) S/p A-port placement (8) S/P appendectomy (9) S/P CABG x 4 Old medical records were reviewed. Nurse's notes were reviewed and I agree with. Family History Diabetes mellitus SISTER BROTHER FH: CAD (coronary artery disease) FATHER SISTER FH: cancer BROTHER (lung CA) MOTHER (lymphoma) DAUGHTER (breast CA) Social History Smoking Status: Never Smoker Alcohol Use: none Drug Use: none Marital Status: Housing Status: lives with family, assisted Occupation Status: retired Current/Historical Medications Scheduled Aspirin (Aspirin Ec), 81 MG PO QPM Atorvastatin (Lipitor), 80 MG PO HS B-Complex W/ C & Folic Acid ([place] Caps), 1 CAP PO QPM Calcitriol (Rocaltrol Cap), 0.25 MCG PO 3XWK Calcium Acetate (Phoslo 667 Mg), 2 CAP PO [id number] Carvedilol (Carvedilol), 25 MG PO BID Cholecalciferol (Vitamin D3), 2,000 INTER.UNIT PO DAILY Ciprofloxacin (Ciprofloxacin HCl), 1 TAB PO DAILY Cyanocobalamin (Vitamin B-12), 500 MCG PO DAILY Docusate Sodium (Stool Softener), 100 MG PO BID Escitalopram (Lexapro), 10 MG PO HS Estrogens, Conjugated (Premarin), 1 APPLN TOP TID Insulin Glargine (Lantus), 7 UNITS SC QPM Isosorbide Mononitrate (Isosorbide Mononitrate ER), 60 MG PO QAM Lisinopril (Prinivil), 10 MG PO DAILY Melatonin (Kp Melatonin), 1 TAB PO HS Omeprazole (Prilosec), 40 MG PO DAILY Ondansetron (Ondansetron HCl), 4 MG PO PRN Saccharomyces Boulardii (Florastor), 1 CAP PO BID Scheduled PRN Acetaminophen (Tylenol), 2 TAB PO Q6 PRN for Pain Epinephrine (Epipen), 0.3 MG IM UD PRN for Allergic Reaction Hydrocortisone 1% (Hydrocortisone 1%), 1 APPLN TP DAILY PRN for Hemorrhoids Lorazepam (Ativan), 0.5 MG PO Q6H PRN for Anxiety Meclizine Hcl (Meclizine Hcl), 1 TAB PO TID PRN for Dizziness or Vertigo Nitroglycerin (Nitrostat), 0.4 MG UT UD PRN for Chest Pain Sennosides (Senexon), 8.6 MG PO DAILY PRN for Constipation Allergies Coded Allergies: Tramadol (Unverified Allergy, Intermediate, neuro complications, 10/08/17) BEE STING (Verified Allergy, Unknown, ANAPHYLAXIS, 10/08/17) Erythromycin (Verified Allergy, Unknown, reaction unknown, 10/08/17) Hydromorphone (Verified Allergy, Unknown, hard to wake up, 10/08/17) Iodinated Diagnostic Agents (Verified Allergy, Unknown, ITCHY/HIVES, ) Morphine (Verified Allergy, Unknown, hives/rash, 10/08/17) Penicillins (Verified Allergy, Unknown, HIVES, 10/08/17) Oxycodone (Verified Adverse Reaction, Mild, CAUSES ITCHING, 10/08/17) Amlodipine (Verified Adverse Reaction, Unknown, DIZZY, GI UPSET, 10/08/17) Codeine (Verified Adverse Reaction, Unknown, HALLUCINATES, 10/08/17) Diphenhydramine (Verified Adverse Reaction, Unknown, SEE BELOW, 10/08/17) TOLD TO NEVER TAKE DUE TO KIDNEY FAILURE/BRAIN INJURY Ibuprofen (Verified Adverse Reaction, Unknown, SEE BELOW, 10/08/17) TOLD TO NEVER TAKE DUE TO KIDNEY FAILURE AND/OR BRAIN INJURY Naproxen (Verified Adverse Reaction, Unknown, SEE BELOW, 10/08/17) TOLD TO NEVER TAKE DUE TO KIDNEY FAILURE/AND OR BRAIN INJURY Neomycin (Verified Adverse Reaction, Unknown, vomit, 10/08/17) Physical Exam Vital Signs Date Time Temp Pulse Resp B/P (MAP) Pulse Ox O2 Delivery O2 Flow Rate FiO2 10/08/17 11:54 36.8 68 18 142/63 99 Room Air 10/08/17 11:30 64 20 145/71 99 Room Air 10/08/17 11:00 65 20 151/75 98 Room Air 10/08/17 09:22 36.6 58 16 160/60 100 Room Air 10/08/17 09:09 62 Physical Exam General: Chronically-ill appearing older female, with eyes closed in no acute distress. Opens eyes to stimuli and speaks fluently HEENT: Normal cephalic atraumatic. Pupils are equal round and reactive to light. Extraocular movements are intact. Oropharynx is pink with moist mucous membranes. No swelling of the mouth lips or tongue. Neck: Supple with a midline trachea. No meningeal signs or stiffness, no JVD or bruits. No Stridor. Chest: Clear to auscultation bilaterally. No wheezes or rhonchi. No increased work of breathing. Heart: regular rate and rhythm. Abdomen: Soft nontender, nondistended without rebound guarding or rigidity. Extremities: Dialysis fistula in left arm. Orthopedic boot on left leg. No cyanosis clubbing or edema. No calf tenderness or assymetry Spine/Back. Non tender to palpation. No CVA tenderness Skin: Good turgor without rashes. Neurologic exam: Cranial nerves two through 12 are intact. Motor and sensation are intact and symmetrical throughout. Medical Decision & Procedures ER Provider Diagnostic Interpretation: Radiology results as stated below per my review and radiologist interpretation: CHEST ONE VIEW PORTABLE FINDINGS: Prior median sternotomy. Diaphragms are smooth. Lungs are considered clear. IMPRESSION: No acute process. The above report was generated using voice recognition software. It may contain grammatical, syntax or spelling errors. Electronically signed by: Delonte Treadwell M.D. CT OF THE HEAD WITHOUT CONTRAST FINDINGS: No acute intracranial hemorrhage, midline shift or mass effect is present. Mild ventricular dilatation is unchanged. The basilar cisterns are patent. White matter hypodensities are unchanged and suggest small vessel disease. There are no findings to suggest acute dural sinus thrombosis or acute territorial infarct. There are no calvarial abnormalities. A left maxillary sinus retention cyst versus polyp is unchanged. There is a right sphenoid sinus polypoid lesion as well. There is no evidence for acute sinusitis. IMPRESSION: No acute intracranial findings. No change since previous exam. Electronically signed by: Jese Sprague M.D. Laboratory Results 10/08/17 09:10 Red Blood Count 4.09, Mean Corpuscular Volume 100.5, Mean Corpuscular Hemoglobin 33.3, Mean Corpuscular Hemoglobin Concent 33.1, Mean Platelet Volume 10.4, Neutrophils (%) (Auto) 72.4, Lymphocytes (%) (Auto) 17.5, Monocytes (%) ( Auto) 7.0, Eosinophils (%) (Auto) 2.4, Basophils (%) (Auto) 0.5, Neutrophils # ( Auto) 4.15, Lymphocytes # (Auto) 1.00, Monocytes # (Auto) 0.40, Eosinophils # ( Auto) 0.14, Basophils # (Auto) 0.03 10/08/17 09:10 Test 10/08/17 09:06 10/08/17 09:10 10/08/17 09:24 10/08/17 10:35 Bedside Glucose 130 mg/dl (70-90) White Blood Count 5.73 K/uL (4.8-10.8) Red Blood Count 4.09 M/uL (4.2-5.4) Hemoglobin 13.6 g/dL (12.0-16.0) Hematocrit 41.1 % (37-47) Mean Corpuscular Volume 100.5 fL (80-100) Mean Corpuscular Hemoglobin 33.3 pg (25-34) Mean Corpuscular Hemoglobin Concent 33.1 g/dl (32-36) Platelet Count 134 K/uL (130-400) Mean Platelet Volume 10.4 fL (7.4-10.4) Neutrophils (%) (Auto) 72.4 % Lymphocytes (%) (Auto) 17.5 % Monocytes (%) (Auto) 7.0 % Eosinophils (%) (Auto) 2.4 % Basophils (%) (Auto) 0.5 % Neutrophils # (Auto) 4.15 K/uL (1.4-6.5) Lymphocytes # (Auto) 1.00 K/uL (1.2-3.4) Monocytes # (Auto) 0.40 K/uL (0.11-0.59) Eosinophils # (Auto) 0.14 K/uL (0-0.5) Basophils # (Auto) 0.03 K/uL (0-0.2) RDW Standard Deviation 56.9 fL (36.4-46.3) RDW Coefficient of Variation 15.6 % (11.5-14.5) Immature Granulocyte % (Auto) 0.2 % Immature Granulocyte # (Auto) 0.01 K/uL (0.00-0.02) Prothrombin Time 10.6 SECONDS (9.0-12.0) Prothromb Time International Ratio 1.0 (0.9-1.1) Activated Partial Thromboplast Time 25.5 SECONDS (21.0-31.0) Partial Thromboplastin Ratio 1.0 Anion Gap 10.0 mmol/L (3-11) Est Creatinine Clear Calc Drug Dose 7.0 ml/min Estimated GFR () 8.1 Estimated GFR (Non- 7.0 BUN/Creatinine Ratio 6.9 (10-20) Calcium Level 9.4 mg/dl (8.5-10.1) Total Bilirubin 0.6 mg/dl (0.2-1) Direct Bilirubin 0.1 mg/dl (0-0.2) Aspartate Amino Transf (AST/SGOT) 56 U/L (15-37) Alanine Aminotransferase (ALT/SGPT) 76 U/L (12-78) Alkaline Phosphatase 85 U/L (45-117) Total Creatine Kinase 61 U/L (26-192) Creatine Kinase MB 1.6 ng/ml (0.5-3.6) Creatine Kinase MB Ratio 2.6 (0-3.0) Total Protein 8.0 gm/dl (6.4-8.2) Albumin 3.7 gm/dl (3.4-5.0) Lipase 357 U/L (73-393) Bedside Troponin I 0.030 ng/ml (0-0.045) Urine Color DK YELLOW Urine Appearance TURBID (CLEAR) Urine pH 5.5 (4.5-7.5) Urine Specific [place] 1.019 (1.000-1.030) Urine Protein 2+ (NEG) Urine Glucose (UA) NEG (NEG) Urine Ketones TRACE (NEG) Urine Occult Blood TRACE (NEG) Urine Nitrite NEG (NEG) Urine Bilirubin NEG (NEG) Urine Urobilinogen NEG (NEG) Urine Leukocyte Esterase MODERATE (NEG) Urine WBC (Auto) >30 /hpf (0-5) Urine RBC (Auto) 0-4 /hpf (0-4) Urine Hyaline Casts (Auto) 5-10 /lpf (0-5) Urine Epithelial Cells (Auto) 5-10 /lpf (0-5) Urine Bacteria (Auto) 4+ (NEG) Urine Yeast (Auto) (NONE PRSENT) Laboratory studies as stated above per my review. Medications Administered Medications (Trade) Dose Ordered Sig/Marlon Route Start Time Stop Time Status Last Admin Dose Admin Ceftriaxone Sodium (Rocephin Inj) 1 gm NOW STAT IV 10/08/17 11:42 10/08/17 11:43 DC 10/08/17 11:57 1 GM ECG Per My Interpretation Indication: altered mental status Rate (beats per minute): 59 Findings: no acute ischemic change, other (old inferior infarct, poor R-wave progression ) Comparison ECG Date: 10/04/17 Change: no significant change ED Course 0901: Past medical records reviewed. The patient was evaluated in room B4B, and a complete history and physical examination were performed. 1000: The patient is sleeping. Her vitals are stable. 1132: Ordered Rocephin Inj 1 gm IV. 1133: Discussed the patient's case Michelle Pena. The patient will be evaluated for further management. Medical Decision Differential diagnoses include: Vertigo, intracranial process, arrhythmia, electrolyte or metabolic abnormality, diabetic emergency. This patient comes in as described above. She was placed in room B4. she comes in from triage after having altered mental status. When I going to examine her initially, her eyes are closed and she is not responsive but she has stable vital signs and is breathing. with a sternal rub, she wakes up and opens her eyes and starts talking fluently complaining she feels very dizzy. She is a dialysis patient but did not receive dialysis today as a sent her here. She has had no fever or fall or trauma. She was recently treated for UTI and has been on Cipro. She still does make urine despite being a dialysis patient. We did check a blood sugar as she is diabetic and it was 130. She has renal failure but no other acute electrolyte or metabolic abnormal as her potassium is not significantly abnormal. Chest x-ray and CAT scan of her head are unremarkable. Urinalysis does suggest UTI. I have given her IV Rocephin and she has had this before. When I go back to reassess her, she is now much more awake and is not ill-appearing at this point. she has also missed dialysis. I do think she needs to be admitted for further treatment and observation of her dizziness and altered mental status as well as pop probable UTI. She is also need will need dialysis. Her lactic acid is mildly elevated but at this point before dialysis, I do not think she needs extra fluids she has been stable otherwise. I have consulted the [facility] hospitalist to see her in the ER. Medication Reconcilliation Current Medication List: was personally reviewed by me Blood Pressure Screening Patient's blood pressure: Elevated blood pressure Blood pressure disposition: Referred to PCP (referred to hospitalist) Consults Time Called: 1128 Consulting Physician: Michelle Pena Returned Call: 1133 Discussed the patient's case Michelle Pena. The patient will be evaluated for further management. Impression Primary Impression: Altered mental status Additional Impressions: Dizziness UTI (urinary tract infection) ESRD (end stage renal disease) on dialysis Scribe Attestation The scribe's documentation has been prepared under my direction and personally reviewed by me in its entirety. I confirm that the note above accurately reflects all work, treatment, procedures, and medical decision making performed by me. Departure Information Dispostion Being Evaluated By Hospitalist Referrals Concha Velasquez D.O. (PCP) Patient Instructions My [facility] Problem Qualifiers
[2017-10-08 09:38] LABS: BASO % 0.5 %; BASO ABS # 0.03 K/uL (0-0.2); EOS % 2.4 %; EOS ABS # 0.14 K/uL (0-0.5); HEMATOCRIT 41.1 % (37-47); HEMOGLOBIN 13.6 g/dL (12.0-16.0); IG# 0.01 K/uL (0.00-0.02); LYMPH % 17.5 %; MEAN CELL VOLUME 100.5 fL (80-100); MEAN CORPUSCULAR HEMOGLOBIN 33.3 pg (25-34); MEAN CORPUSCULAR HGB CONC 33.1 g/dl (32-36); MEAN PLATELET VOLUME 10.4 fL (7.4-10.4); NEUT % 72.4 %; NEUT ABS # 4.15 K/uL (1.4-6.5); PLATELET COUNT 134 K/uL (130-400); RED CELL DISTRIBUTION WIDTH CV 15.6 % (11.5-14.5); RED CELL DISTRIBUTION WIDTH SD 56.9 fL (36.4-46.3); WHITE BLOOD COUNT 5.73 K/uL (4.8-10.8)
--- NOTE | 2017-10-08 09:38 | DIAGNOSTIC IMAGING REPORT ---
CHEST ONE VIEW PORTABLE CLINICAL HISTORY: CHEST PAIN dyspnea COMPARISON STUDY: 10/04/2017 FINDINGS: Prior median sternotomy. Diaphragms are smooth. Lungs are considered clear. IMPRESSION: No acute process. The above report was generated using voice recognition software. It may contain grammatical, syntax or spelling errors. Electronically signed by: Delonte Treadwell M.D. 10/08/2017 9:36 AM Dictated Date/Time: 10/08/2017 9:36 AM
[2017-10-08 09:47] LABS: PTT PATIENT 25.5 SECONDS (21.0-31.0)
[2017-10-08 10:14] LABS: ALBUMIN 3.7 gm/dl (3.4-5.0); CALCIUM 9.4 mg/dl (8.5-10.1); CKMB 1.6 ng/ml (0.5-3.6); POTASSIUM 3.3 mmol/L (3.5-5.1)
[2017-10-08 10:40] LABS: CREATININE 5.51 mg/dl (0.60-1.20)
--- NOTE | 2017-10-08 10:55 | DIAGNOSTIC IMAGING REPORT ---
CT OF THE HEAD WITHOUT CONTRAST CLINICAL HISTORY: Dizziness. Unresponsive. COMPARISON STUDY: Head CT October 05, 2007 pain and July 26, 2017. CT DOSE: 537.48 mGy.cm TECHNIQUE: Helical axial images of the head were obtained without IV contrast. Automated exposure control was utilized for the study. A dose lowering technique was utilized adhering to the principles of ALARA. FINDINGS: No acute intracranial hemorrhage, midline shift or mass effect is present. Mild ventricular dilatation is unchanged. The basilar cisterns are patent. White matter hypodensities are unchanged and suggest small vessel disease. There are no findings to suggest acute dural sinus thrombosis or acute territorial infarct. There are no calvarial abnormalities. A left maxillary sinus retention cyst versus polyp is unchanged. There is a right sphenoid sinus polypoid lesion as well. There is no evidence for acute sinusitis. IMPRESSION: No acute intracranial findings. No change since previous exam. Electronically signed by: Jese Sprague M.D. 10/08/2017 10:54 AM Dictated Date/Time: 10/08/2017 10:48 AM
[2017-10-08] MEDS ORDERED: CEFTRIAXONE SOD INJ 1 GM ADDVIAL IV STA ×2 (11:32→11:42)
[2017-10-08] MEDS ORDERED: DEXTROSE 50% 50 ML SYR IV PRN (12:30)
[2017-10-08] MEDS ORDERED: ACETAMINOPHEN 325 MG TAB PO PRN (12:30)
[2017-10-08] MEDS ORDERED: GLUCOSE 10 TABS/TUBE PO PRN (12:30)
[2017-10-08] MEDS ORDERED: GLUCOSE 40% GEL 15 GM TUBE PO PRN (12:30)
[2017-10-08] MEDS ORDERED: GLUCAGON FOR INJ 1 MG VIAL SQ PRN (12:30)
[2017-10-08] MEDS ORDERED: SODIUM CHLORIDE 0.9% 1000ML 1,000 ML IV SCH (12:45)
--- NOTE | 2017-10-08 12:47 | History and Physical ---
History & Physical Date & Time of Service: Oct 08, 2017 at 12:45 Chief Complaint: Unresponsive Primary Care Physician: Concha Velasquez D.O. History of Present Illness Source: patient, clinic records, hospital records Patient is a 77-year-old female with a past medical history of ESRD on dialysis , DM II, H/O CVA (with residual left hemiparesis), CAD (s/p CABGx4), mixed systolic/diastolic CHF, HTN and other medical problems listed below who presents with dizziness beginning earlier today. Patient woke up feeling dizzy and confused but still attempted to take her to dialysis. Became unresponsive and does not remember a portion of the morning, but is unsure whether or not she passed out. states that she was breathing fine on room air but stopped verbally responding to his questions. brought patient directly to ED for further evaluation. Once in a room, patient spontaneously began to respond again, A&O x3 and denying any confusion. Patient was seen last week by PCP for urinary symptoms of dysuria and pyuria and completed a 5 day course of Bactrim. Continued to have urinary symptoms as well as dizziness and came to ED on 10/04. Was discharged home on cipro. Urine culture showed no growth. Returns today with continued urinary symptoms as well as dizziness/AMS that has since resolved. Patient has been on dialysis for 1.5 years and she still makes urine. Is due for dialysis today. Is wheel chair bound and dependent on for all transfers and medication management. Denies fever, chills, headache, confusion, visual changes, chest pain, SOB, abd pain, nausea, vomiting, diarrhea, constipation or LE swelling. Past Medical/Surgical History Medical Problems: (1) Anemia of renal disease Status: Chronic (2) CAD (coronary artery disease) Status: Chronic (3) CHF (congestive heart failure) Status: Chronic (4) CKD (chronic kidney disease), stage IV Status: Chronic (5) DM (diabetes mellitus) Status: Chronic (6) Dyslipidemia Status: Chronic (7) End stage renal disease Status: Chronic (8) Hemodialysis patient Status: Chronic (9) HTN (hypertension) Status: Chronic (10) Rectal cancer Status: Chronic (11) Stroke Status: Resolved (12) Subdural hematoma Status: Chronic Surgical Problems: (1) H/O tubal ligation Status: Chronic (2) H/O: hysterectomy Status: Chronic (3) History of carpal tunnel surgery Status: Chronic (4) History of incisional hernia repair Status: Chronic (5) History of lumbar surgery Status: Chronic (6) History of partial surgical removal of colon Permanent Comment: Low anterior resection with primary anastomosis; proctoscopy 06/27/09 Status: Chronic (7) S/p A-port placement Permanent Comment: removed in 2011 Status: Chronic (8) S/P appendectomy Status: Chronic (9) S/P CABG x 4 Status: Chronic Family History Diabetes mellitus SISTER BROTHER FH: CAD (coronary artery disease) FATHER SISTER FH: cancer BROTHER (lung CA) MOTHER (lymphoma) DAUGHTER (breast CA) Social History Smoking Status: Never Smoker Alcohol Use: none Drug Use: none Marital Status: Housing status: lives with significant other, [facility] Occupational Status: retired Immunizations History of Influenza Vaccine: No History of Tetanus Vaccine?: Yes History of Pneumococcal: Unknown History of Hepatitis B Vaccine: Unknown Allergies Coded Allergies: Tramadol (Unverified Allergy, Intermediate, neuro complications, 10/08/17) BEE STING (Verified Allergy, Unknown, ANAPHYLAXIS, 10/08/17) Erythromycin (Verified Allergy, Unknown, reaction unknown, 10/08/17) Hydromorphone (Verified Allergy, Unknown, hard to wake up, 10/08/17) Iodinated Diagnostic Agents (Verified Allergy, Unknown, ITCHY/HIVES, ) Morphine (Verified Allergy, Unknown, hives/rash, 10/08/17) Penicillins (Verified Allergy, Unknown, HIVES, 10/08/17) Oxycodone (Verified Adverse Reaction, Mild, CAUSES ITCHING, 10/08/17) Amlodipine (Verified Adverse Reaction, Unknown, DIZZY, GI UPSET, 10/08/17) Codeine (Verified Adverse Reaction, Unknown, HALLUCINATES, 10/08/17) Diphenhydramine (Verified Adverse Reaction, Unknown, SEE BELOW, 10/08/17) TOLD TO NEVER TAKE DUE TO KIDNEY FAILURE/BRAIN INJURY Ibuprofen (Verified Adverse Reaction, Unknown, SEE BELOW, 10/08/17) TOLD TO NEVER TAKE DUE TO KIDNEY FAILURE AND/OR BRAIN INJURY Naproxen (Verified Adverse Reaction, Unknown, SEE BELOW, 10/08/17) TOLD TO NEVER TAKE DUE TO KIDNEY FAILURE/AND OR BRAIN INJURY Neomycin (Verified Adverse Reaction, Unknown, vomit, 10/08/17) Home Medications Scheduled Aspirin (Aspirin Ec), 81 MG PO QPM Atorvastatin (Lipitor), 80 MG PO HS B-Complex W/ C & Folic Acid (Sutton Caps), 1 CAP PO QPM Calcitriol (Rocaltrol Cap), 0.25 MCG PO 3XWK Calcium Acetate (Phoslo 667 Mg), 2 CAP PO [id number] Carvedilol (Carvedilol), 25 MG PO BID Cholecalciferol (Vitamin D3), 2,000 INTER.UNIT PO DAILY Ciprofloxacin (Ciprofloxacin HCl), 1 TAB PO DAILY Cyanocobalamin (Vitamin B-12), 500 MCG PO DAILY Docusate Sodium (Stool Softener), 100 MG PO BID Escitalopram (Lexapro), 10 MG PO HS Estrogens, Conjugated (Premarin), 1 APPLN TOP TID Insulin Glargine (Lantus), 7 UNITS SC QPM Isosorbide Mononitrate (Isosorbide Mononitrate ER), 60 MG PO QAM Lisinopril (Prinivil), 10 MG PO DAILY Melatonin (Kp Melatonin), 1 TAB PO HS Mupirocin (Bactroban 2% Oint), 1 APPLN EXT TID Omeprazole (Prilosec), 40 MG PO DAILY Ondansetron (Ondansetron HCl), 4 MG PO PRN Saccharomyces Boulardii (Florastor), 1 CAP PO BID Scheduled PRN Acetaminophen (Tylenol), 2 TAB PO Q6 PRN for Pain Epinephrine (Epipen), 0.3 MG IM UD PRN for Allergic Reaction Hydrocortisone 1% (Hydrocortisone 1%), 1 APPLN TP DAILY PRN for Hemorrhoids Lorazepam (Ativan), 0.5 MG PO Q6H PRN for Anxiety Meclizine Hcl (Meclizine Hcl), 1 TAB PO TID PRN for Dizziness or Vertigo Nitroglycerin (Nitrostat), 0.4 MG UT UD PRN for Chest Pain Sennosides (Senexon), 8.6 MG PO DAILY PRN for Constipation Review of Systems Genitourinary - Female: + dysuria, + problem reported (pyuria) Physical Exam Vital Signs Date Time Temp Pulse Resp B/P (MAP) Pulse Ox O2 Delivery O2 Flow Rate FiO2 10/08/17 12:30 65 20 131/60 96 Room Air 10/08/17 11:54 99 Room Air 10/08/17 11:30 64 20 145/71 99 Room Air 10/08/17 11:00 65 20 151/75 98 Room Air 10/08/17 09:22 36.6 58 16 160/60 100 Room Air 10/08/17 09:09 62 General Appearance: WD/WN, no apparent distress Head: normocephalic, atraumatic Eyes: normal inspection, PERRL, sclerae normal ENT: normal ENT inspection, hearing grossly normal, pharynx normal Neck: supple, thyroid normal, trachea midline Respiratory/Chest: chest non-tender, lungs clear, normal breath sounds, no respiratory distress, no accessory muscle use Cardiovascular: regular rate, rhythm, no murmur, normal peripheral pulses Abdomen/GI: non tender, soft, no organomegaly, + pertinent finding (ventral hernia) Back: normal inspection Extremities/Musculoskelatal: normal inspection, no calf tenderness, no pedal edema Neurologic/Psych: community affairs director II-XII nml as tested, no motor/sensory deficits, alert, normal mood/affect, oriented x 3 Skin: normal color, warm/dry, + pertinent finding (Healing lesions on feet ) Diagnostics Laboratory Results Results Past 24 Hours Test 10/08/17 09:10 10/08/17 09:24 10/08/17 10:11 10/08/17 10:35 Range/Units White Blood Count 5.73 4.8-10.8 K/uL Red Blood Count 4.09 4.2-5.4 M/uL Hemoglobin 13.6 12.0-16.0 g/dL Hematocrit 41.1 37-47 % Mean Corpuscular Volume 100.5 80-100 fL Mean Corpuscular Hemoglobin 33.3 25-34 pg Mean Corpuscular Hemoglobin Concent 33.1 32-36 g/dl Platelet Count 134 130-400 K/uL Mean Platelet Volume 10.4 7.4-10.4 fL Neutrophils (%) (Auto) 72.4 % Lymphocytes (%) (Auto) 17.5 % Monocytes (%) (Auto) 7.0 % Eosinophils (%) (Auto) 2.4 % Basophils (%) (Auto) 0.5 % Neutrophils # (Auto) 4.15 1.4-6.5 K/uL Lymphocytes # (Auto) 1.00 1.2-3.4 K/uL Monocytes # (Auto) 0.40 0.11-0.59 K/uL Eosinophils # (Auto) 0.14 0-0.5 K/uL Basophils # (Auto) 0.03 0-0.2 K/uL RDW Standard Deviation 56.9 36.4-46.3 fL RDW Coefficient of Variation 15.6 11.5-14.5 % Immature Granulocyte % (Auto) 0.2 % Immature Granulocyte # (Auto) 0.01 0.00-0.02 K/uL Prothrombin Time 10.6 9.0-12.0 SECONDS Prothromb Time International Ratio 1.0 0.9-1.1 Activated Partial Thromboplast Time 25.5 21.0-31.0 SECONDS Partial Thromboplastin Ratio 1.0 Sodium Level 134 136-145 mmol/L Potassium Level 3.3 3.5-5.1 mmol/L Chloride Level 97 98-107 mmol/L Carbon Dioxide Level 27 21-32 mmol/L Anion Gap 10.0 3-11 mmol/L Blood Urea Nitrogen 38 7-18 mg/dl Creatinine 5.51 0.60-1.20 mg/dl Est Creatinine Clear Calc Drug Dose 7.0 ml/min Estimated GFR () 8.1 Estimated GFR (Non- 7.0 BUN/Creatinine Ratio 6.9 10-20 Random Glucose 147 70-99 mg/dl Calcium Level 9.4 8.5-10.1 mg/dl Total Bilirubin 0.6 0.2-1 mg/dl Direct Bilirubin 0.1 0-0.2 mg/dl Aspartate Amino Transf (AST/SGOT) 56 15-37 U/L Alanine Aminotransferase (ALT/SGPT) 76 12-78 U/L Alkaline Phosphatase 85 45-117 U/L Total Creatine Kinase 61 26-192 U/L Creatine Kinase MB 1.6 0.5-3.6 ng/ml Creatine Kinase MB Ratio 2.6 0-3.0 Total Protein 8.0 6.4-8.2 gm/dl Albumin 3.7 3.4-5.0 gm/dl Lipase 357 73-393 U/L Bedside Troponin I 0.030 0-0.045 ng/ml Lactic Acid Level 2.5 0.4-2.0 mmol/L Urine Color DK YELLOW Urine Appearance TURBID CLEAR Urine pH 5.5 4.5-7.5 Urine Specific [place] 1.019 1.000-1.030 Urine Protein 2+ NEG Urine Glucose (UA) NEG NEG Urine Ketones TRACE NEG Urine Occult Blood TRACE NEG Urine Nitrite NEG NEG Urine Bilirubin NEG NEG Urine Urobilinogen NEG NEG Urine Leukocyte Esterase MODERATE NEG Urine WBC (Auto) >30 0-5 /hpf Urine RBC (Auto) 0-4 0-4 /hpf Urine Hyaline Casts (Auto) 5-10 0-5 /lpf Urine Epithelial Cells (Auto) 5-10 0-5 /lpf Urine Bacteria (Auto) 4+ NEG Urine Yeast (Auto) NONE PRSENT Microbiology Results 10/08/17 Blood Culture, Received Pending 10/08/17 Blood Culture, Received Pending 10/08/17 Urine Culture, Received Pending Diagnostic Radiology CT head: IMPRESSION: No acute intracranial findings. No change since previous exam. CXR: IMPRESSION: No acute process. EKG Sinus bradycardia Inferior infarct (cited on or before 30-JAN-2017) Cannot rule out Anterior infarct (cited on or before 30-JAN-2017 No change from prior EKG Impression Assessment and Plan Patient is a 77-year-old female with a past medical history of ESRD on dialysis , DM II, H/O CVA (with residual left hemiparesis), CAD (s/p CABGx4), mixed systolic/diastolic CHF, HTN and other medical problems listed below who presents with dizziness beginning earlier today. Metabolic encephalopathy 2/2 UTI: -Failed out-patient tx of UTI on bactrim, cipro -Afebrile, no leukocytosis -Broaden empiric coverage with cefepime -Urine cultures pending -Gentle IVF in setting of CHF Elevated lactate: -Likely 2/2 ESRD -Repeat pending -No fever, leukocytosis, vitals stable ESRD on HD: -Dialysis MWF -Cr 5.51 today -Nephro consulted -Cont phosphate binders Near-syncope: -Unclear etiology of unresponsive episode earlier -Has since resolved -Orthostatic vitals -Neuro checks -Echo from Jun 2017 with mildly reduced mixed systolic/diastolic function -Out-patient MRI brain from Jun 2017 with evidence of acute/subacute infarct in the right parks radiata adjacent to the right lateral ventricle. Moderate chronic microvascular changes and global volume loss. Few scattered chronic micro hemorrhages in cerebellum and each thalamus are nonspecific but may relate to hypertension, amyloid microangiopathy, prior trauma. DM II: -A1c of 5 in January 2017 -Repeat pending -Hold home agents -Basal/bolus insulin while in-patient -BSG checks AC HS Mixed systolic/diastolic CHF : -Echo performed during Dec admission with mild LVH, EF of 40-45%, left ventricular systolic function is mildly reduced, akinesis of the basal inferior wall and mild to moderate hypokinesis of the mid inferior and basal/mid inferolateral leigh. Grade I diastolic dysfunction. -Euvolemic on exam -CXR without evidence of pulmonary edema -Cont aspirin, coreg, imdur, statin CAD (s/p CABG x 4): -Stable, no CP -EKG without changes -Cont statin, aspirin H/o CVA: -Residual left hemiparesis -Cont outpatient therapy -Cont aspirin therapy DVT Ppx: SCDs due to h/o intracranial bleed Code status: FULL PCP: Jamie Velasquez Dispo: Admitted to telemetry. Discharge planning ordered. Patient seen in collaboration with Zach. Please see addendum. Attending Note: Patient is a 77 yr female with multiple comorbidities presents with history of dizziness, altered mental status, possible syncope, burning micturition since 1 week. Patient is a poor historian and is unsure about the events that happened today. Patient could not get her dialysis secondary to being unresponsive as per family. UA is suggestive of UTI. Patient was treated with PO antibiotics recently but still complains of dysuria. Physical Exam: Vitals signs as noted above General Appearance:Moderately built and nourished, no apparent distress Head: normocephalic, Atraumatic Eyes: normal inspection, EOMI, PERRL Neck: supple, Trachea midline, No JVD Respiratory/Chest: Decreased breath sounds, CTA Cardiovascular: S1, S2, No murmur Abdomen/GI:Soft, Non tender, Bowel sounds present Extremities/Musculoskelatal:normal inspection, no edema, scab wounds on extremities Neurologic/Psych:AAOX3, grossly no focal neurological deficits Skin:normal color,warm, Vertical surgical scar on chest Assessment and Plan: Metabolic Encephalopathy: Likely secondary to UTI Failed outpatient PO antibiotic therapy Start on IV cefepime FU Cultures Possible Near Syncope: Patient denies LOC Management as above Ambulatory Dysfunction: 2/2 CVA Wheelchair bound at baseline I personally reviewed the record. Patient is interviewed and examined at bedside. Patient's care is coordinated with Michelle Holly PA-C. Please refer to the documentation above for details of patient's presentation and for discussion of other issues. Advanced Directives Existing Living Will: Yes Existing Power of Counseling Center Manager: Yes (OK CORONEL ) Resuscitation Status VTE Prophylaxis Will order VTE Prophylaxis: Yes
[2017-10-08] MEDS ORDERED: CEFEPIME CONSULT ACTIVE SCH (13:00)
[2017-10-08] MEDS ORDERED: POTASSIUM CHLORIDE 20 MEQ TABCR PO ONE (13:30)
[2017-10-08] MEDS ORDERED: HYDROCORTISONE 1% CR 30 GM TUBE EXT PRN (13:30)
[2017-10-08] MEDS ORDERED: NITROGLYCERIN 0.4 MG SL PER TAB CHARGE UT PRN (13:30)
[2017-10-08] MEDS ORDERED: ACETAMINOPHEN 500 MG TAB PO PRN (13:30)
[2017-10-08] MEDS ORDERED: EPINEPHRINE ADULT AUTO-INJECT 0.3 MG SYR IM PRN (13:30)
[2017-10-08] MEDS ORDERED: SENNA 8.6 MG TAB PO PRN (13:30)
[2017-10-08] MEDS ORDERED: MECLIZINE HCL 25 MG TAB PO PRN (13:30)
[2017-10-08] MEDS ORDERED: POTASSIUM CHLORIDE 10 MEQ TABCR ONE (13:33)
[2017-10-08] MEDS ORDERED: CEFEPIME IV 1,000 MG in SYRINGE 0 ML IV ONE (16:00)
[2017-10-08] MEDS: INSULIN ASPART 100 UNITS/ML 3 ML PEN SC SCH ×2 (16:59→21:00)
[2017-10-08] MEDS ORDERED: BCTROWC EXT (17:07)
[2017-10-08] MEDS: LORAZEPAM 0.5 MG TAB PO PRN (18:40)
[2017-10-08] MEDS: DOCUSATE SODIUM 100 MG CAP PO SCH (21:00)
[2017-10-08] MEDS: INSULIN GLARGINE SOLOSTAR 100 UNITS/ML 3 ML PEN SC SCH (21:00)
[2017-10-08] MEDS: CARVEDILOL 25 MG TAB PO SCH (21:00)
[2017-10-08] MEDS: ESCITALOPRAM OXALATE 10 MG TAB PO SCH (21:00)
[2017-10-08] MEDS: NEPHROCAPS PO SCH (21:00)
[2017-10-08] MEDS: ASPIRIN 81 MG ECTAB PO SCH (21:00)
[2017-10-08] MEDS: ATORVASTATIN 40 MG TAB PO SCH (21:00)
[2017-10-08] MEDS: SACCHAROMYCES BOUL (FLORASTOR) 250 MG CAP PO SCH (21:00)
[2017-10-08] MEDS: BACITRACIN OINT 15 GM TUBE EXT SCH (21:00)
[2017-10-09] VITALS (19 sets, daily range): BP systolic 121–179; BP diastolic 55–84; PULSE 65–76; TEMP 36.5–36.8; O2SAT 93–97
[2017-10-09 06:13] LABS: HEMATOCRIT 37.1 % (37-47); HEMOGLOBIN 12.4 g/dL (12.0-16.0); MEAN CELL VOLUME 98.4 fL (80-100); MEAN CORPUSCULAR HEMOGLOBIN 32.9 pg (25-34); MEAN CORPUSCULAR HGB CONC 33.4 g/dl (32-36); MEAN PLATELET VOLUME 10.4 fL (7.4-10.4); PLATELET COUNT 123 K/uL (130-400); RED CELL DISTRIBUTION WIDTH CV 15.5 % (11.5-14.5); RED CELL DISTRIBUTION WIDTH SD 56.4 fL (36.4-46.3); WHITE BLOOD COUNT 6.57 K/uL (4.8-10.8)
[2017-10-09 06:56] LABS: CREATININE 6.32 mg/dl (0.60-1.20)
[2017-10-09 06:57] LABS: POTASSIUM 3.7 mmol/L (3.5-5.1)
[2017-10-09 07:04] LABS: HEMOGLOBIN A1C 5.8 % (4.5-5.6)
[2017-10-09] MEDS: CALCIUM ACETATE 667MG GELCAP PO SCH (07:51)
[2017-10-09] MEDS: INSULIN ASPART 100 UNITS/ML 3 ML PEN SC SCH ×4 (07:54→20:15)
[2017-10-09] MEDS: SACCHAROMYCES BOUL (FLORASTOR) 250 MG CAP PO SCH ×2 (08:20→20:13)
[2017-10-09] MEDS: CHOLECALCIFEROL 1000 INTER.UNIT TAB PO SCH (08:20)
[2017-10-09] MEDS: PANTOprazole SOD 40 MG TAB PO SCH (08:20)
[2017-10-09] MEDS: CARVEDILOL 25 MG TAB PO SCH ×2 (08:20→20:14)
[2017-10-09] MEDS: BACITRACIN OINT 15 GM TUBE EXT SCH ×3 (08:20→20:13)
[2017-10-09] MEDS: DOCUSATE SODIUM 100 MG CAP PO SCH ×2 (08:21→20:13)
[2017-10-09] MEDS: LISINOPRIL 10 MG TAB PO SCH (08:21)
[2017-10-09] MEDS: CYANOCOBALAMIN 500 MCG TAB (VIT B-12) PO SCH ×2 (08:21→20:14)
[2017-10-09] MEDS: ISOSORBIDE MONONITRATE 60 MG TABCR PO SCH (08:21)
--- NOTE | 2017-10-09 10:07 | Progress Note ---
Subjective Date of Service: Oct 09, 2017. Subjective Pt evaluation today including: conversation w/ patient, physical exam, lab review, review of studies, review of inpatient medication list Saw/examined the patient in room 212 She is doing well, awake, alert and conversing appropriately Does not recall the events that brought her in. Knows she missed dialysis and is aware that she was not responding to her on Wednesday prior to dialysis. currently feels fine and is very eager and begging to go home. Her only complaint in the past few days has been dysuria; she still produces urine. Problem List Medical Problems: (1) Acute kidney failure Status: Acute (2) Cellulitis of antecubital fossa Status: Acute (3) Cellulitis of leg, left Status: Acute (4) Cephalgia Status: Acute (5) Chest wall pain Status: Acute (6) Chronic headaches Status: Acute (7) CKD (chronic kidney disease) Status: Acute (8) Constipation Status: Acute (9) Diarrhea Status: Acute (10) Diplopia Status: Acute (11) Dizziness Status: Acute (12) Headache Status: Acute (13) Hypokalemia Status: Acute (14) Left hip pain Status: Acute (15) Shoulder injury Status: Acute (16) Subdural hematoma Status: Acute (17) Syncope Status: Acute (18) UTI (urinary tract infection) Status: Acute (19) Vomiting Status: Acute Review of Systems Constitutional: + weakness, No fever, No chills, No fatigue Respiratory: No cough, No sputum, No shortness of breath Cardiac: No chest pain, No edema, No palpitations Abdomen: No pain, No nausea, No vomiting, No diarrhea Female : + dysuria, + urinary frequency, No hematuria Psychiatric: No depression symptoms, No anxiety, No insomnia Heme: No abnormal bleeding/bruising Objective Vital Signs Date Time Temp Pulse Resp B/P (MAP) Pulse Ox O2 Delivery O2 Flow Rate FiO2 10/09/17 07:55 36.8 66 16 143/66 (91) 95 Room Air 10/09/17 04:00 Room Air 10/09/17 03:57 36.7 70 16 153/63 (93) 97 Room Air 10/09/17 00:00 Room Air 10/08/17 23:53 36.6 75 20 164/74 (104) 97 10/08/17 20:13 78 168/79 (108) 10/08/17 20:00 Room Air 10/08/17 19:30 82 22 189/83 (118) 96 Room Air 10/08/17 18:03 194/85 (121) 10/08/17 16:00 Room Air 10/08/17 15:37 36.6 74 20 98 Room Air 10/08/17 13:37 65 18 124/58 98 Room Air 10/08/17 12:30 65 20 131/60 96 Room Air 10/08/17 11:54 36.8 68 18 142/63 99 Room Air 10/08/17 11:30 64 20 145/71 99 Room Air 10/08/17 11:00 65 20 151/75 98 Room Air Physical Exam General Appearance: no apparent distress, + pertinent finding (chronically ill) Respiratory/Chest: chest non-tender, lungs clear, normal breath sounds, no respiratory distress, no accessory muscle use Cardiovascular: regular rate, rhythm, no edema, no murmur Extremities: non-tender, normal inspection, no pedal edema Neurologic/Psychiatric: alert, normal mood/affect, oriented x 3, + motor weakness Laboratory Results Last 24 Hours Test 10/08/17 10:11 10/08/17 10:35 10/08/17 15:10 10/08/17 16:53 Lactic Acid Level 2.5 mmol/L 2.0 mmol/L Urine Color DK YELLOW Urine Appearance TURBID Urine pH 5.5 Urine Specific [place] 1.019 Urine Protein 2+ Urine Glucose (UA) NEG Urine Ketones TRACE Urine Occult Blood TRACE Urine Nitrite NEG Urine Bilirubin NEG Urine Urobilinogen NEG Urine Leukocyte Esterase MODERATE Urine WBC (Auto) >30 /hpf Urine RBC (Auto) 0-4 /hpf Urine Hyaline Casts (Auto) 5-10 /lpf Urine Epithelial Cells (Auto) 5-10 /lpf Urine Bacteria (Auto) 4+ Urine Yeast (Auto) Bedside Glucose 89 mg/dl Test 10/08/17 20:52 10/09/17 05:37 10/09/17 06:56 Bedside Glucose 98 mg/dl 101 mg/dl White Blood Count 6.57 K/uL Red Blood Count 3.77 M/uL Hemoglobin 12.4 g/dL Hematocrit 37.1 % Mean Corpuscular Volume 98.4 fL Mean Corpuscular Hemoglobin 32.9 pg Mean Corpuscular Hemoglobin Concent 33.4 g/dl RDW Standard Deviation 56.4 fL RDW Coefficient of Variation 15.5 % Platelet Count 123 K/uL Mean Platelet Volume 10.4 fL Sodium Level 134 mmol/L Potassium Level 3.7 mmol/L Chloride Level 99 mmol/L Carbon Dioxide Level 24 mmol/L Anion Gap 11.0 mmol/L Blood Urea Nitrogen 52 mg/dl Creatinine 6.32 mg/dl Est Creatinine Clear Calc Drug Dose 6.1 ml/min Estimated GFR () 6.9 Estimated GFR (Non- 5.9 BUN/Creatinine Ratio 8.2 Random Glucose 111 mg/dl Estimated Average Glucose 120 mg/dl Hemoglobin A1c 5.8 % Calcium Level 9.0 mg/dl Assessment and Plan This is a 77 year old female with a PMH of ESRD on HD , anemia of chronic kidney disease, CAD s/p CABG x4 in 1998, hx. of CVA with residual L sided weakness, causing significant ambulatory dysfunction, insulin dependent DM2, HTN , chronic biventricular systolic dysfunction - presents with unresponsive episode Metabolic Encephalopathy secondary to UTI - Head CT negative - no other findings noted besides UTI - was being treated as an outpatient - UA dirty - culture pending - started on Cefepime for now - will monitor clinical status - already improving ESRD on HD - missed dialysis on Wednesday, normal schedule is - nephrology consulted, dialysis today (10/09) Hx. of CVA Significant L Sided Weakness Ambulatory Dysfunction - nearly wheelchair bound, does not ambulate any longer - uses wheelchair to get around - helps with transfers CAD s/p CABG - no acute issues - continue current cardiac medications Insulin Dependent DM2 - well controlled DM - hold Lantus and start sliding scale - can use home medications on discharge HTN - continue home medications DVT ppx - SCDs FULL CODE
[2017-10-09] MEDS: LORAZEPAM 0.5 MG TAB PO PRN ×2 (12:08→20:35)
[2017-10-09] MEDS: CEFEPIME IV 500 MG in SYRINGE 0 ML IV SCH (20:13)
[2017-10-09] MEDS: ESCITALOPRAM OXALATE 10 MG TAB PO SCH (20:14)
[2017-10-09] MEDS: ATORVASTATIN 40 MG TAB PO SCH (20:14)
[2017-10-09] MEDS: INSULIN GLARGINE SOLOSTAR 100 UNITS/ML 3 ML PEN SC SCH (20:15)
[2017-10-09] MEDS: ASPIRIN 81 MG ECTAB PO SCH (20:15)
[2017-10-09] MEDS: NEPHROCAPS PO SCH (20:15)
[2017-10-10 04:07] VITALS: BP 151/67; PULSE 62; TEMP 36.7; O2SAT 95
[2017-10-10 06:27] LABS: HEMATOCRIT 36.6 % (37-47); HEMOGLOBIN 12.2 g/dL (12.0-16.0); MEAN CELL VOLUME 98.7 fL (80-100); MEAN CORPUSCULAR HEMOGLOBIN 32.9 pg (25-34); MEAN CORPUSCULAR HGB CONC 33.3 g/dl (32-36); PLATELET COUNT 107 K/uL (130-400); RED CELL DISTRIBUTION WIDTH CV 15.5 % (11.5-14.5); RED CELL DISTRIBUTION WIDTH SD 56.3 fL (36.4-46.3); WHITE BLOOD COUNT 5.59 K/uL (4.8-10.8)
[2017-10-10] MEDS: INSULIN ASPART 100 UNITS/ML 3 ML PEN SC SCH ×2 (07:00→11:42)
[2017-10-10 07:05] LABS: CALCIUM 9.1 mg/dl (8.5-10.1); CREATININE 4.42 mg/dl (0.60-1.20); POTASSIUM 3.4 mmol/L (3.5-5.1)
[2017-10-10 07:50] VITALS: BP 157/76; PULSE 67; TEMP 36.6; O2SAT 97
[2017-10-10] MEDS: BACITRACIN OINT 15 GM TUBE EXT SCH (07:54)
[2017-10-10] MEDS: SACCHAROMYCES BOUL (FLORASTOR) 250 MG CAP PO SCH (07:55)
[2017-10-10] MEDS: CARVEDILOL 25 MG TAB PO SCH (07:55)
[2017-10-10] MEDS: LISINOPRIL 10 MG TAB PO SCH (07:55)
[2017-10-10] MEDS: CALCIUM ACETATE 667MG GELCAP PO SCH (07:56)
[2017-10-10] MEDS: PANTOprazole SOD 40 MG TAB PO SCH (07:56)
[2017-10-10] MEDS: DOCUSATE SODIUM 100 MG CAP PO SCH (07:56)
[2017-10-10] MEDS: CHOLECALCIFEROL 1000 INTER.UNIT TAB PO SCH (07:56)
[2017-10-10] MEDS: ISOSORBIDE MONONITRATE 60 MG TABCR PO SCH (07:57)
--- NOTE | 2017-10-10 11:04 | Progress Note ---
Subjective Date of Service: Oct 10, 2017. Subjective Pt evaluation today including: conversation w/ patient, physical exam, lab review, review of studies, review of inpatient medication list Saw/examined the patient in room 212 Patient is doing well, no problems/issues at this time Very anxious and eager to go home; denies any symptoms, no nausea/vomiting/ diarrhea No passing out, no loss of consciousness. Problem List Medical Problems: (1) Acute kidney failure Status: Acute (2) Cellulitis of antecubital fossa Status: Acute (3) Cellulitis of leg, left Status: Acute (4) Cephalgia Status: Acute (5) Chest wall pain Status: Acute (6) Chronic headaches Status: Acute (7) CKD (chronic kidney disease) Status: Acute (8) Constipation Status: Acute (9) Diarrhea Status: Acute (10) Diplopia Status: Acute (11) Dizziness Status: Acute (12) Headache Status: Acute (13) Hypokalemia Status: Acute (14) Left hip pain Status: Acute (15) Shoulder injury Status: Acute (16) Subdural hematoma Status: Acute (17) Syncope Status: Acute (18) UTI (urinary tract infection) Status: Acute (19) Vomiting Status: Acute Review of Systems Constitutional: No fever, No chills Female : + dysuria, No urinary frequency, No hematuria, No incontinence Neurologic: + balance problems (chronically), No weakness Heme: No abnormal bleeding/bruising Medications Current Inpatient Medications Medications (Trade) Dose Ordered Sig/Marlon Route Start Time Stop Time Status Last Admin Dose Admin Acetaminophen (Tylenol Tab) 650 mg Q4H PRN PO 10/08/17 12:30 11/07/17 12:29 Insulin Glargine (Lantus Solostar Pen) For BSG <110, give 0 units... HS SC 10/08/17 21:00 11/07/17 20:59 Insulin Aspart (novoLOG ASPART) SLIDING SCALE If C... ACHS SC 10/08/17 16:00 11/07/17 15:59 10/09/17 12:13 1 UNITS Glucose (Glucose 40% Gel) 15-30 GRAMS 15 GRAMS... UD PRN PO 10/08/17 12:30 11/07/17 12:29 Glucose (Glucose Chew Tab) 4-8 Tablets 4 Tabl... UD PRN PO 10/08/17 12:30 11/07/17 12:29 Dextrose (Dextrose 50% 50ML Syringe) 25-50ML OF 50% DW IV FOR... UD PRN IV 10/08/17 12:30 11/07/17 12:29 Glucagon (Glucagon Inj) 1 mg UD PRN SQ 10/08/17 12:30 11/07/17 12:29 Cefepime HCl (Consult) 1 ea UD N/A 10/08/17 13:00 11/07/17 12:59 Acetaminophen (Tylenol Tab) 1,000 mg Q6 PRN PO 10/08/17 13:30 11/07/17 13:29 Aspirin (Ecotrin Tab) 81 mg QPM PO 10/08/17 21:00 11/07/17 20:59 10/09/17 20:15 81 MG Atorvastatin Calcium (Lipitor Tab) 80 mg HS PO 10/08/17 21:00 11/07/17 20:59 10/09/17 20:14 80 MG Vitamin B Complex/ Vit C/Folic Acid (Nephrocaps) 1 cap QPM PO 10/08/17 21:00 11/07/17 20:59 10/09/17 20:15 1 CAP Calcium Acetate (Phoslo Cap) 1,334 mg QDB PO 10/09/17 07:30 11/08/17 07:29 10/10/17 07:56 1,334 MG Carvedilol (Coreg Tab) 25 mg BID PO 10/08/17 21:00 11/07/17 20:59 10/10/17 07:55 25 MG Cyanocobalamin (Vitamin B-12 Tab) 500 mcg DAILY PO 10/09/17 09:00 11/08/17 08:59 10/09/17 20:14 500 MCG Epinephrine (Epipen) 0.3 mg UD PRN IM 10/08/17 13:30 11/07/17 13:29 Escitalopram Oxalate (Lexapro Tab) 10 mg HS PO 10/08/17 21:00 11/07/17 20:59 10/09/17 20:14 10 MG Hydrocortisone (Hydrocortisone 1% Crm) 1 appln DAILY PRN EXT 10/08/17 13:30 11/07/17 13:29 Isosorbide Mononitrate (Imdur Ext Rel Tab) 60 mg QAM PO 10/09/17 09:00 11/08/17 08:59 10/10/17 07:57 60 MG Lisinopril (Zestril Tab) 10 mg DAILY PO 10/09/17 09:00 11/08/17 08:59 10/10/17 07:55 10 MG Lorazepam (Ativan Tab) 0.5 mg Q6H PRN PO 10/08/17 13:30 11/07/17 13:29 10/09/17 20:35 0.5 MG Meclizine HCl (Antivert Tab) 25 mg TID PRN PO 10/08/17 13:30 11/07/17 13:29 Nitroglycerin (Nitrostat Tab) 0.4 mg UD PRN UT 10/08/17 13:30 11/07/17 13:29 Saccharomyces Boulardii (Florastor Cap) 250 mg BID PO 10/08/17 21:00 11/07/17 20:59 10/10/17 07:55 250 MG Senna (Senokot Tab) 8.6 mg DAILY PRN PO 10/08/17 13:30 11/07/17 13:29 Cholecalciferol (Vitamin D Tab) 2,000 inter.unit DAILY PO 10/09/17 09:00 11/08/17 08:59 10/10/17 07:56 2,000 INTER.UNIT Docusate Sodium (coLACE CAP) 100 mg BID PO 10/08/17 21:00 11/07/17 20:59 10/10/17 07:56 100 MG Pantoprazole Sodium (Protonix Tab) 40 mg DAILY PO 10/09/17 09:00 11/08/17 08:59 10/10/17 07:56 40 MG Cefepime HCl 500 mg/Syringe 5.5 ml @ 5.5 mls/min Q24H IV 10/09/17 16:00 10/18/17 15:59 10/09/17 20:13 5.5 MLS/MIN Bacitracin (Bacitracin Oint) 1 appln TID EXT 10/08/17 21:00 11/07/17 20:59 10/10/17 07:54 1 APPLN Calcitriol (Rocaltrol Cap) 0.25 mcg MoWeFr@0900 PO 10/11/17 09:00 11/10/17 08:59 Objective Vital Signs Date Time Temp Pulse Resp B/P (MAP) Pulse Ox O2 Delivery O2 Flow Rate FiO2 10/10/17 08:00 Room Air 10/10/17 07:50 36.6 67 16 157/76 (103) 97 Room Air 10/10/17 04:07 36.7 62 17 151/67 (95) 95 Room Air 10/10/17 04:00 Room Air 10/10/17 00:00 Room Air 10/09/17 23:49 36.6 67 17 135/82 (99) 95 10/09/17 20:34 36.5 76 20 140/63 (88) 96 Room Air 10/09/17 20:00 Room Air 10/09/17 18:39 36.7 70 179/84 (115) 10/09/17 17:45 72 131/70 10/09/17 17:30 70 154/84 10/09/17 17:15 71 150/75 10/09/17 17:00 70 123/64 10/09/17 16:45 71 132/65 10/09/17 16:30 69 121/65 10/09/17 16:15 69 121/62 10/09/17 16:00 68 122/66 10/09/17 15:45 67 129/67 10/09/17 15:30 67 135/65 10/09/17 15:15 67 124/61 10/09/17 15:00 65 124/61 10/09/17 14:43 36.6 67 131/55 (80) 10/09/17 12:13 36.6 68 16 179/78 (111) 93 Room Air 10/09/17 11:30 Room Air Physical Exam General Appearance: no apparent distress Respiratory/Chest: no respiratory distress, no accessory muscle use Cardiovascular: regular rate, rhythm, no edema, no murmur Neurologic/Psychiatric: alert, + motor weakness (chronic motor weakness), + pertinent finding (+anxious) Laboratory Results Last 24 Hours Test 10/09/17 11:26 10/09/17 19:10 10/10/17 06:12 10/10/17 06:36 Bedside Glucose 127 mg/dl 100 mg/dl 107 mg/dl White Blood Count 5.59 K/uL Red Blood Count 3.71 M/uL Hemoglobin 12.2 g/dL Hematocrit 36.6 % Mean Corpuscular Volume 98.7 fL Mean Corpuscular Hemoglobin 32.9 pg Mean Corpuscular Hemoglobin Concent 33.3 g/dl RDW Standard Deviation 56.3 fL RDW Coefficient of Variation 15.5 % Platelet Count 107 K/uL Mean Platelet Volume 10.0 fL Sodium Level 135 mmol/L Potassium Level 3.4 mmol/L Chloride Level 96 mmol/L Carbon Dioxide Level 31 mmol/L Anion Gap 7.0 mmol/L Blood Urea Nitrogen 35 mg/dl Creatinine 4.42 mg/dl Est Creatinine Clear Calc Drug Dose 8.7 ml/min Estimated GFR () 10.6 Estimated GFR (Non- 9.1 BUN/Creatinine Ratio 8.0 Random Glucose 110 mg/dl Calcium Level 9.1 mg/dl Assessment and Plan This is a 77 year old female with a PMH of ESRD on HD , anemia of chronic kidney disease, CAD s/p CABG x4 in 1998, hx. of CVA with residual L sided weakness, causing significant ambulatory dysfunction, insulin dependent DM2, HTN , chronic biventricular systolic dysfunction - presents with unresponsive episode Metabolic Encephalopathy secondary to UTI 10/10 - patient is very eager to go home - no acute findings, besides UTI - will continue Cipro on discharge 10/09 - Head CT negative - no other findings noted besides UTI - was being treated as an outpatient - UA dirty - culture pending - started on Cefepime for now - will monitor clinical status - already improving ESRD on HD 10/10 - received dialysis on 10/09 10/09 - missed dialysis on Wednesday, normal schedule is - nephrology consulted, dialysis today (10/09) Hx. of CVA Significant L Sided Weakness Ambulatory Dysfunction - nearly wheelchair bound, does not ambulate any longer - uses wheelchair to get around - helps with transfers CAD s/p CABG - no acute issues - continue current cardiac medications Insulin Dependent DM2 - well controlled DM - hold Lantus and start sliding scale - can use home medications on discharge HTN - continue home medications DVT ppx - SCDs FULL CODE
[2017-10-10] MEDS: CEFEPIME IV 500 MG in SYRINGE 0 ML IV SCH (11:26)
--- NOTE | 2017-10-10 11:27 | Discharge Instructions ---
Discharge Instructions Date of Service Oct 10, 2017. Admission Reason for Admission: Near Syncope, Uti Discharge Discharge Diagnosis / Problem: Dizziness, UTI Discharge Goals Goal(s): Decrease discomfort, Improve function, Diagnostic testing, Therapeutic intervention Activity Recommendations Activity Limitations: resume your previous activity . Instructions / Follow-Up Instructions / Follow-Up Please follow-up with Dr. Concha Velasquez on October 14 at 10:15AM * Continue Cipro (antibiotics) for the next three days, 250mg twice daily Current Hospital Diet Patient's current hospital diet: Renal Diet, Diabetes Type 2 Diet Discharge Diet Recommended Diet: Diabetes Type 2 Diet, Renal Diet Pending Studies Studies pending at discharge: no Laboratory Results Hemoglobin A1c Test 10/09/17 05:37 Range/Units Estimated Average Glucose 120 mg/dl Hemoglobin A1c 5.8 H 4.5-5.6 % Medical Emergencies . Who to Call and When: Medical Emergencies: If at any time you feel your situation is an emergency, please call 911 immediately. . Non-Emergent Contact Non-Emergency issues call your: Primary Care Provider, Vehicle Inspector . . "Provider Documentation" section prepared by Wilmar Bonilla. .
[2017-10-10 11:31] VITALS: BP 157/76; PULSE 67; TEMP 36.6; O2SAT 97
--- NOTE | 2017-10-10 11:32 | Discharge Summary ---
Discharge Summary Date of Service Oct 10, 2017. Discharge Summary Admission Date: Oct 08, 2017 at 12:22 Discharge Date: Oct 10, 2017 Discharge Disposition: Home Principal Diagnosis: Metabolic Encephalopathy UTI ESRD on HD Ambulatory Dysfunction Medication Reconciliation Continued Medications: Acetaminophen (Tylenol) 500 Mg Tab 2 TAB PO Q6 PRN for Pain for 2 Days, #20 TAB 3 Refills Aspirin (Aspirin Ec) 81 Mg Tab 81 MG PO QPM Atorvastatin (Lipitor) 80 Mg Tab 80 MG PO HS, TAB B-Complex W/ C & Folic Acid ([place] Caps) 1 Cap Cap 1 CAP PO QPM Calcitriol (Rocaltrol Cap) 0.25 Mcg Cap 0.25 MCG PO 3XWK GIVE ONLY AT DIALYSIS Calcium Acetate (Phoslo 667 Mg) 667 Mg Cap 2 CAP PO [id number], CAP Carvedilol (Carvedilol) 25 Mg Tab 25 MG PO BID Cholecalciferol (Vitamin D3) 2,000 Unit Tab 2000 INTER.UNIT PO DAILY Ciprofloxacin (Ciprofloxacin HCl) 250 Mg Tab 1 TAB PO DAILY for 3 Days, #3 TABS Cyanocobalamin (Vitamin B-12) 500 Mcg Tab 500 MCG PO DAILY, TAB Docusate Sodium (Stool Softener) 100 Mg Tab 100 MG PO BID Epinephrine (Epipen) 0.3 Mg/0.3 Ml Inj 0.3 MG IM UD PRN for Allergic Reaction, BOX Escitalopram (Lexapro) 10 Mg Tab 10 MG PO HS, TAB Estrogens, Conjugated (Premarin) 14 Appln/30 Gm Cr 1 APPLN TOP TID, #30 APPLY TO URETHA TUAMY, THALIYA, SAT Hydrocortisone 1% (Hydrocortisone 1%) 90 Appln/30 Gm Cr 1 APPLN TP DAILY PRN for Hemorrhoids Insulin Glargine (Lantus) 100 Unit/Ml Inj 7 UNITS SC QPM Isosorbide Mononitrate (Isosorbide Mononitrate ER) 60 Mg Tabcr 60 MG PO QAM Lisinopril (Prinivil) 20 Mg Tab 10 MG PO DAILY, TAB Lorazepam (Ativan) 0.5 Mg Tab 0.5 MG PO Q6H PRN for Anxiety Meclizine Hcl (Meclizine Hcl) 25 Mg Tab 1 TAB PO TID PRN for Dizziness or Vertigo for 10 Days, #30 TAB Melatonin (Kp Melatonin) 3 Mg Tab 1 TAB PO HS for 30 Days, #30 TAB Mupirocin (Bactroban 2% Oint) 66 Appln/22 Gm Oint 1 APPLN EXT TID, TUBE Nitroglycerin (Nitrostat) 0.4 Mg Tab 0.4 MG UT UD PRN for Chest Pain PLACE ONE TABLET UNDER THE TONGUE EVERY 5 MINUTES FOR UP TO 3 DOSES IF NEEDED FOR CHEST PAIN. CHECK BLOOD PRESSURE BEFORE EACH DOSE, HOLD FOR SYSTOLIC BLOOD PRSSURE LESS THAN 100. Omeprazole (Prilosec) 20 Mg Capcr 40 MG PO DAILY, CAP Ondansetron (Ondansetron HCl) 4 Mg Tab 4 MG PO PRN for Nausea, #20 Saccharomyces Boulardii (Florastor) 250 Mg Cap 1 CAP PO BID for 10 Days, #20 CAP Sennosides (Senexon) 8.6 Mg Tab 8.6 MG PO DAILY PRN for Constipation Admission Information HPI (per Admitting provider): Patient is a 77-year-old female with a past medical history of ESRD on dialysis , DM II, H/O CVA (with residual left hemiparesis), CAD (s/p CABGx4), mixed systolic/diastolic CHF, HTN and other medical problems listed below who presents with dizziness beginning earlier today. Patient woke up feeling dizzy and confused but still attempted to take her to dialysis. Became unresponsive and does not remember a portion of the morning, but is unsure whether or not she passed out. states that she was breathing fine on room air but stopped verbally responding to his questions. brought patient directly to ED for further evaluation. Once in a room, patient spontaneously began to respond again, A&O x3 and denying any confusion. Patient was seen last week by PCP for urinary symptoms of dysuria and pyuria and completed a 5 day course of Bactrim. Continued to have urinary symptoms as well as dizziness and came to ED on 10/04. Was discharged home on cipro. Urine culture showed no growth. Returns today with continued urinary symptoms as well as dizziness/AMS that has since resolved. Patient has been on dialysis for 1.5 years and she still makes urine. Is due for dialysis today. Is wheel chair bound and dependent on for all transfers and medication management. Denies fever, chills, headache, confusion, visual changes, chest pain, SOB, abd pain, nausea, vomiting, diarrhea, constipation or LE swelling. Physical Exam (per Admitting): General Appearance: WD/WN, no apparent distress Head: normocephalic, atraumatic Eyes: normal inspection, PERRL, sclerae normal ENT: normal ENT inspection, hearing grossly normal, pharynx normal Neck: supple, thyroid normal, trachea midline Respiratory/Chest: chest non-tender, lungs clear, normal breath sounds, no respiratory distress, no accessory muscle use Cardiovascular: regular rate, rhythm, no murmur, normal peripheral pulses Abdomen/GI: non tender, soft, no organomegaly, + pertinent finding (ventral hernia) Back: normal inspection Extremities/Musculoskelatal: normal inspection, no calf tenderness, no pedal edema Neurologic/Psych: audio visual facilities engineer II-XII nml as tested, no motor/sensory deficits, alert , normal mood/affect, oriented x 3 Skin: normal color, warm/dry, + pertinent finding (Healing lesions on feet ) Hospital Course This is a 77 year old female with a PMH of ESRD on HD , anemia of chronic kidney disease, CAD s/p CABG x4 in 1998, hx. of CVA with residual L sided weakness, causing significant ambulatory dysfunction, insulin dependent DM2, HTN , chronic biventricular systolic dysfunction - presents with unresponsive episode Metabolic Encephalopathy secondary to UTI 10/10 - patient is very eager to go home - no acute findings, besides UTI - will continue Cipro on discharge 10/09 - Head CT negative - no other findings noted besides UTI - was being treated as an outpatient - UA dirty - culture pending - started on Cefepime for now - will monitor clinical status - already improving ESRD on HD 10/10 - received dialysis on 10/09 10/09 - missed dialysis on Wednesday, normal schedule is - nephrology consulted, dialysis today (10/09) Hx. of CVA Significant L Sided Weakness Ambulatory Dysfunction - nearly wheelchair bound, does not ambulate any longer - uses wheelchair to get around - helps with transfers CAD s/p CABG - no acute issues - continue current cardiac medications Insulin Dependent DM2 - well controlled DM - hold Lantus and start sliding scale - can use home medications on discharge HTN - continue home medications DVT ppx - SCDs FULL CODE Total time spent on discharge = 40 minutes This includes examination of the patient, discharge planning, medication reconciliation, and communication with other providers. Discharge Instructions Please follow-up with Dr. Concha Velasquez on October 14 at 10:15AM * Continue Cipro (antibiotics) for the next three days, 250mg twice daily
[2017-10-10 11:36] VITALS: BP 116/59; PULSE 68; TEMP 36.6; O2SAT 93
[2017-10-11] MEDS ORDERED: CALCITRIOL 0.25 MCG CAP PO SCH (09:00)
== END 2017-10-10 12:15 | disposition home or self-care (01) | DRG 689 ==
LOC: C.EDB 08:57 → C.2E 12:22 → CANRESERV 12:47 → ENRESERV 12:47 → EDBEDREQSVC 13:02 → ENRESERV 13:24
PROVIDERS: ADMIT Internal Medicine; ATTEND Family Medicine
DX: N39.0 Urinary tract infection, site not specified (principal); G93.41 Metabolic encephalopathy; N18.6 End stage renal disease; I50.43 Acute on chronic combined systolic (congestive) and diastolic (congestive) heart failure; R55 Syncope and collapse; Z83.3 Family history of diabetes mellitus; Z82.49 Family history of ischemic heart disease and other diseases of the circulatory system; Z80.1 Family history of malignant neoplasm of trachea, bronchus and lung; Z80.3 Family history of malignant neoplasm of breast; Z80.7 Family history of other malignant neoplasms of lymphoid, hematopoietic and related tissues; Z88.5 Allergy status to narcotic agent; Z88.1 Allergy status to other antibiotic agents; Z88.0 Allergy status to penicillin; Z99.2 Dependence on renal dialysis; E11.9 Type 2 diabetes mellitus without complications; I25.10 Atherosclerotic heart disease of native coronary artery without angina pectoris; Z95.1 Presence of aortocoronary bypass graft; Z86.73 Personal history of transient ischemic attack (TIA), and cerebral infarction without residual deficits

== ENCOUNTER → 2018-03-03 | Outpatient (CLI) | payer OTHER, MEDICARE ==
[~2018-03-03] MED LIST changes: -CALC667C4 PO; -CIPR250T23 PO; -ESCI10TA17 PO; +FLM4 PO; -INSDGI SC; +LISI-730 PO; -LISI20TA3 PO; +LXP/20 PO; -ONDA4TAB10 SL; -SACC250C3 PO
--- NOTE | 2018-03-03 13:34 | DIAGNOSTIC IMAGING REPORT ---
CT ANGIOGRAPHY OF THE AORTOILIAC SYSTEM WITH BILATERAL LOWER EXTREMITY RUNOFF CLINICAL HISTORY: Peripheral artery disease. Lower extremity ulcer. COMPARISON STUDY: CT of the abdomen and pelvis October 04, 2017. TECHNIQUE: Patient was premedicated for IV dye allergy. Helical axial images of the abdomen and pelvis and both lower extremities were obtained during arterial phase following intravenous injection of 118 cc Optiray 320 IV. Sagittal and coronal reconstructions were viewed as well as maximal intensity projections on an independent 3-D workstation. FINDINGS: Heart is moderately enlarged. Arterial phase images of the liver, spleen, adrenal glands and pancreas are unremarkable. There is no biliary or pancreatic ductal dilatation. There are multiple gallstones within the gallbladder. There is no evidence for a bowel obstruction. Mild to moderate circumferential rectal wall thickening is similar to CT of October 04, 2017. Rectosigmoid anastomosis is noted. There is no bowel obstruction. Mild anasarca is noted. There is no hydronephrosis. There is moderate to marked atrophy of both kidneys. No suspicious osseous lesions are noted. There is no abscess. There are postoperative findings within the spine. No pneumatosis, free air or portal venous gas is present. Extensive atherosclerotic plaque is noted. This is noted throughout all vessels. The caliber of the abdominal aorta is normal. The celiac axis and superior mesenteric artery are patent. There is moderate to severe stenosis of the proximal left renal artery. There is mild stenosis at the origin of the right renal artery. Accessory left renal artery is noted. Inferior mesenteric artery is occluded. The right common iliac and external iliac arteries are patent. There is mild stenosis at the origin of the right superficial femoral artery. Mild stenosis of the distal right superficial femoral artery is noted. Evaluation of the right calf vessels is difficult given the vessel small size and extensive calcified plaque. There is severe stenosis of the tibioperoneal trunk. Multifocal stenoses within the intervertebral, posterior tibial and peroneal arteries are noted. Degree of stenosis cannot be assessed on this exam. The left common iliac and external iliac arteries are patent. There is moderate stenosis at the origin of the left superficial femoral artery. Evaluation of the left calf vessels is suboptimal given the small size of the vessels in extensive atherosclerotic plaque. The left posterior tibial artery is occluded within the mid to distal aspect. The left peroneal and anterior tibial arteries are likely patent as is the dorsalis pedis however, multifocal stenoses are suspected. IMPRESSION: 1. Extensive atherosclerotic plaque within the aortoiliac systems and both lower extremities. No aortoiliac stenosis. Moderate stenosis of the proximal left superficial femoral artery. Moderate stenosis of the bilateral popliteal arteries with moderate to severe multifocal stenoses within the bilateral calf vessels which are suboptimally assessed given extensive atherosclerotic plaque and small size of these vessels. Occluded distal left posterior tibial artery with probable patency of the left anterior tibial and peroneal arteries. Patent right calf vessels with multifocal stenoses. 2. Mild to moderate rectal wall thickening, a nonspecific finding which is similar to CT of October 04, 2017. 3. Cholelithiasis. Electronically signed by: Jese Sprague M.D. 03/03/2018 1:33 PM Dictated Date/Time: 03/03/2018 1:12 PM
== END | disposition home or self-care (01) ==
LOC: C.RAD 12:16
PROVIDERS: ATTEND Internal Medicine Interventional Cardiology
DX: I73.9 Peripheral vascular disease, unspecified (principal); L97.909 Non-pressure chronic ulcer of unspecified part of unspecified lower leg with unspecified severity

== ENCOUNTER 2018-11-11 08:55 | Inpatient (IN) ==
--- NOTE | 2018-11-11 09:34 | XRay Report ---
XR chest 1V portable HISTORY: Atypical Chest Pain COMPARISON: Chest 12/27/2017. FINDINGS: No pneumothorax. The heart remains mildly enlarged. There are poststernotomy changes. Mild central pulmonary vascular congestion without overt edema. No pleural effusions. No new focal lung co nsolidations to suggest pneumonia. IMPRESSION: Cardiomegaly with mild central pulmonary vascular congestion. Electronically signed by: Hoang Mejia M.D. 11/11/2018 9:33 AM
[2018-11-11 09:57] LABS: Basophils # (auto) 0.03 K/uL (0-0.2); Basophils % (auto) 0.3 %; Eosinophils # (auto) 0.07 K/uL (0-0.5); Eosinophils % (auto) 0.8 %; Hematocrit (blood only) 34.8 % (37-47); Hemoglobin 11.1 g/dL (12.0-16.0); Immature Granulocytes # (auto) 0.02 K/uL (0.00-0.02); Immature Granulocytes % (auto) 0.2 %; Lymphocytes % (auto) 11.6 %; Mean Corpuscular Hgb Conc 31.9 g/dL (32-36); Mean Platelet Volume 10.9 fL (7.4-10.4); Monocytes # (auto) 0.29 K/uL (0.11-0.59); Monocytes % (auto) 3.4 %; Neutrophils # (auto) 7.18 K/uL (1.4-6.5); Neutrophils % (auto) 83.7 %; Platelet Count 137 K/uL (130-400); RDW Coefficient of Variation 17.4 % (11.5-14.5); RDW Standard Deviation 65.1 fL (36.4-46.3); Red Blood Count 3.38 M/uL (4.2-5.4); White Blood Count 8.59 K/uL (4.8-10.8)
--- NOTE | 2018-11-11 10:14 | Emergency Department Note ---
Entered by Franck Rothman acting as a scribe for History of Present Illness General Chief complaint: Chest Pain Time Seen by Provider: 11/11/18 09:07 Source: patient and family History of Present Illness Provider complaint: Chest pain Onset (ago): hour(s) 2 Location: chest Radiation: non-radiation Pain Consistency: + intermittent Maximum Pain Intensity: 0 Quality: + sharp Relieved By: + none Exacerbated By: + none Associated symptoms: + diaphoresis and + nausea/vomiting The patient is a 78 year old female who presents to the Emergency Room with complaints of intermittent chest pain that started this morning about 2 hours ago. The patient states the pain is a sharp pain across the top of her chest. The pain does not radiate anywhere but she did become diaphoretic and nauseous r esulting in her vomiting. En route she received 1 Nitro and 4 Aspirin, which helped relieve her chest pain and nausea. The patient was in the ED last night for a bowel blockage but did move her bowels after receiving an enema. She did note that last night she did not have any chest pain but they did find some blood in her stool due to hemorrhoids. The patient also has a wound on her left foot that she sees the wound clinic for. She reports that last time she was there she was told there is an infection in her bone. She also is a dialysis patient that has not missed any treatments besides today. The patient does have a history of MIs and 2 bypass procedures but she states this does not feel s imilar to her past MIs. The last time she has had chest pain was in June when she had a fall and stroke. From the stroke she has left sided weakness at baseline. Per the patient's daughter, she is losing weight and has anxiety. The patient admits that she is scared. Home Medications Home Medications Medication Instructions Recorded Confirmed Type acetaminophen 500 mg capsule 500 mg PO Q6H PRN 03/10/18 11/11/18 History aspirin 81 mg tablet,delayed 81 mg PO QAM 03/10/18 11/11/18 History release atorvastatin 80 mg tablet 80 mg PO HS 03/10/18 11/11/18 History carvedilol 25 mg tablet 25 mg PO BID 03/10/18 11/11/18 History cyanocobalamin (vitamin B-12) 500 mcg PO QAM cap 03/10/18 11/11/18 History 1,000 mcg capsule docusate sodium 100 mg capsule 100 mg PO DAILY 03/10/18 11/11/18 History epinephrine 0.3 mg/0.3 mL 0.3 mg IM Q10M PRN 03/10/18 11/11/18 History injection, auto-injector escitalopram 20 mg tablet 20 mg PO HS tab 03/10/18 11/11/18 History hydrocortisone 1 % topical cream 1 appln TOP DAILY PRN gm 03/10/18 11/11/18 History lorazepam 0.5 mg tablet 0.25 mg SUBLINGUAL AMHS tab 03/10/18 11/11/18 History melatonin 3 mg tablet 3 mg PO HS 03/10/18 11/11/18 History omeprazole 20 mg capsule,delayed 40 mg PO QAM cap 03/10/18 11/11/18 History release ondansetron HCl 4 mg tablet 4 mg PO Q6H PRN 03/10/18 11/11/18 History tamsulosin 0.4 mg capsule 0.4 mg PO HS 03/10/18 11/11/18 History isosorbide mononitrate 60 mg PO QAM 04/13/18 11/11/18 History doxycycline hyclate 100 mg tablet 100 mg PO bid #28 tab 06/14/18 11/11/18 Rx loratadine 10 mg capsule 10 mg PO HS 09/05/18 11/11/18 History calcium acetate 2 cap PO DAILY 11/11/18 11/11/18 History meclizine 25 mg PO TID PRN 11/11/18 11/11/18 History nitroglycerin [Nitrostat] 0.4 mg SUBLINGUAL UD 11/11/18 11/11/18 History vit B,C-iron ymu-IZ-V2-zinc ox 1 tab PO HS 11/11/18 11/11/18 History [ProRenal] Allergies Allergy/AdvReac Type Severity Reaction Status Date / Time tramadol Allergy Intermediate neuro Verified 11/11/18 10:08 complications bee venom protein (honey bee) Allergy Unknown ANAPHYLAXIS Verified 11/11/18 10:08 erythromycin base Allergy Unknown reaction Verified 11/11/18 10:08 unknown hydromorphone Allergy Unknown hard to Verified 11/11/18 10:08 wake up Iodinated Contrast- Oral and Allergy Unknown ITCHY/HIVES Verified 11/11/18 10:08 IV Dye morphine Allergy Unknown hives/rash Verified 11/11/18 10:08 Penicillins Allergy Unknown HIVES Verified 11/11/18 10:08 oxycodone AdvReac Mild CAUSES Verified 11/11/18 10:08 ITCHING amlodipine AdvReac Unknown DIZZY, GI Verified 11/11/18 10:08 UPSET codeine AdvReac Unknown HALLUCINATE Verified 11/11/18 10:08 S diphenhydramine AdvReac Unknown SEE BELOW Verified 11/11/18 10:08 ibuprofen AdvReac Unknown SEE BELOW Verified 11/11/18 10:08 naproxen AdvReac Unknown SEE BELOW Verified 11/11/18 10:08 neomycin AdvReac Unknown vomit Verified 11/11/18 10:08 Past Med/Surg History Medical History Peripheral vascular disease (Chronic) History of colorectal cancer (Chronic) Diabetes mellitus type 2 with complications (Chronic) HTN (hypertension) (Chronic) Congestive heart failure (Chronic) Rectal cancer (Resolved) Anemia of renal disease (Chronic) CAD (coronary artery disease) (Chronic) Dyslipidemia (Chronic) Subdural hematoma (Resolved) H/O: stroke with residual effects (Chronic) "left hemiparesis" Hx of subdural hematoma (Chronic) ESRD (end stage renal disease) on dialysis (Chronic) Anemia (Chronic) Cancer of colon (Chronic) Coronary artery disease (Chronic) Depression (Chronic) Diabetes (Chronic) Diabetic neuropathy associated with diabetes mellitus due to underlying condition (Chronic) Dialysis patient (Chronic) Gastrointestinal problem (Chronic) Hyperlipemia (Chronic) Hypertension (Chronic) Myocardial infarction (Chronic) Osteoarthritis (Chronic) TIA (transient ischemic attack) (Chronic) Surgical History History of carpal tunnel surgery (Chronic) H/O tubal ligation (Chronic) S/P appendectomy (Chronic) H/O: hysterectomy (Chronic) History of partial surgical removal of colon (Chronic) "Low anterior resection with primary anastomosis; proctoscopy 06/27/09" History of incisional hernia repair (Chronic) History of lumbar surgery (Chronic) S/P CABG x 4 (Chronic) S/P CABG x 3 (Chronic) S/P carpal tunnel release (Chronic) S/P cataract extraction (Chronic) S/P hernia repair (Chronic) S/P hysterectomy (Chronic) Family History Father Coronary heart disease Hypertension Mother Lymphoma Brother Lung cancer Brother Diabetes Brother Coronary heart disease Sister Diabetes Daughter Breast cancer Social History Preferred Language: Ivorian Communication Ability: Effective Repairer Finished Metal Required: No Beliefs That Will Affect Care: None Current Living Situation: Spouse Other Information That Helps Us Care for You: No Feels Safe at Home: Yes Safety Concerns: Feels Safe At This Time Smoking Status: Never smoker Do You Dip or Chew Tobacco: No Second Hand Exposure: No Tobacco Cessation Education Requested by Patient: No Hx Alcohol Use: No Hx Substance Use: No Review of Systems See HPI for pertinent positives & negatives. and A total of 10 systems reviewed and were otherwise negative Physical Exam Vital Signs Vital Signs - 24 hr 11/11/18 08:59 11/11/18 11:00 11/11/18 13:16 Temperature 36.9 C Temperature Source Oral Sepsis Recent Fever Within 48 Hours No Sepsis New/Unexplained Change in Mental Status No Sepsis Action Taken by Nursing No Action Required Pulse Rate 79 Pulse Rate [Apical] 77 82 Pulse Rhythm [Apical] Regular Respiratory Rate 17 17 16 Respiratory Effort / Characteristics Non-Labored Spontaneous Non-Labored Spontaneous Non-Labored Spontaneous Respiratory Depth Normal Normal Normal Respiratory Pattern Regular Regular Blood Pressure 140/57 L Blood Pressure [Right Arm] 170/73 H 158/67 H Blood Pressure Mean 84 Blood Pressure Mean [Right Arm] 105 97 Pulse Oximetry 95 95 98 Oxygen Delivery Method Room Air Room Air Room Air 11/11/18 14:11 Temperature Temperature Source Sepsis Recent Fever Within 48 Hours Sepsis New/Unexplained Change in Mental Status Sepsis Action Taken by Nursing Pulse Rate 84 Pulse Rate [Apical] Pulse Rhythm [Apical] Respiratory Rate 17 Respiratory Effort / Characteristics Respiratory Depth Respiratory Pattern Blood Pressure 175/76 H Blood Pressure [Right Arm] Blood Pressure Mean Blood Pressure Mean [Right Arm] Pulse Oximetry 92 Oxygen Delivery Method Room Air General: Chronically-ill appearing older female in no acute distress and denies pain at present. HEENT: Normal cephalic atraumatic. Pupils are equal round and reactive to light. Extraocular movements are intact. Oropharynx is pink with moist mucous membranes. No swelling of the mouth lips or tongue. Neck: Supple with a midline trachea. No meningeal signs or stiffness, no JVD or bruits. No Stridor. Chest: Clear to auscultation bilaterally. No wheezes or rhonchi. No increased work of breathing. Heart: regular rate and rhythm. Abdomen: Soft nontender, nondistended without rebound guarding or rigidity. Extremities: No cyanosis clubbing or edema. No calf tenderness or assymetry. Fistula in left arm that has palpable thrill. Spine/Back. Non tender to palpation. No CVA tenderness Skin: Good turgor without rashes. Neurologic exam: Cranial nerves two through 12 are intact. Sensation is intact and symmetrical throughout. Baseline weakness to the left side. Course 0908: The patient was evaluated in room B03B, and a complete history and physical examination were performed. 1005: I reevaluated the patient and she is resting comfortably. I discussed the treatment plan with her and her family. We are still waiting on some blood work. 1024: The patient is resting comfortably in bed. 1036: I spoke to Michelle Pena PA-C for Dr. Jose Patterson. We discussed the patient's case and they are going to accept her for further evaluation. 1050: I spoke to Dr. Kranthi Flores and informed her about the patient's case. Consultations Consultation #1: I spoke to Michelle Pena PA-C for Dr. Jose Patterson. We discussed the patient's case and they are going to accept her for further evaluation. Time: 10:36 Consultation #2: I spoke to Dr. Kranthi Flores and informed her about the patient's case. Time: 10:50 Medical Decision Making Differential Diagnosis Differential Diagnosis: Acute coronary syndrome, Arrhythmia, CHF, Electrolyte/Metabolic abnormality, and anxiety, amongst others. Medical Records Attestation: I reviewed the patient's medical records. Home Medications Current Medication List: was personally reviewed by me Laboratory Data Attestation: I reviewed the patient's lab results. Result diagrams: 11/11/18 09:38 11/11/18 09:38 Lab Results 11/11/18 11/11/18 Range/Units 09:38 09:38 WBC 8.59 (4.8-10.8) K/uL RBC 3.38 L (4.2-5.4) M/uL Hgb 11.1 L (12.0-16.0) g/dL Hct 34.8 L (37-47) % MCV 103.0 H (80-100) fL MCH 32.8 (25-34) pg MCHC 31.9 L (32-36) g/dL RDW Std Deviation 65.1 H (36.4-46.3) fL RDW Coeff of Noe 17.4 H (11.5-14.5) % Plt Count 137 (130-400) K/uL MPV 10.9 H (7.4-10.4) fL Immature Gran % (Auto) 0.2 % Neut % (Auto) 83.7 % Lymph % (Auto) 11.6 % [place] % (Auto) 3.4 % Eos % (Auto) 0.8 % Baso % (Auto) 0.3 % Immature Gran # (Auto) 0.02 (0.00-0.02) K/uL Neut # (Auto) 7.18 H (1.4-6.5) K/uL Lymph # (Auto) 1.00 L (1.2-3.4) K/uL [place] # (Auto) 0.29 (0.11-0.59) K/uL Eos # (Auto) 0.07 (0-0.5) K/uL Baso # (Auto) 0.03 (0-0.2) K/uL Sodium 138 (136-145) mmol/L Potassium 5.3 H (3.5-5.1) mmol/L Chloride 105 (98-107) mmol/L Carbon Dioxide 27 (21-32) mmol/L Anion Gap 6.0 (3-11) BUN 43 H (7-18) mg/dl Creatinine 6.03 H* D (0.6-1.2) mg/dl Est Cr Clr Drug Dosing 7.1 ml/min Est GFR ( Amer) 7.2 Est GFR (Non-Af Amer) 6.2 BUN/Creatinine Ratio 7.1 L (10-20) Glucose 166 H (70-99) mg/dl Calcium 8.8 (8.5-10.1) mg/dl Total Bilirubin 0.6 (0.2-1) mg/dl AST 33 (15-37) U/L ALT 32 (12-78) U/L Alkaline Phosphatase 93 (45-117) U/L Troponin I 1.380 H* (0-0.045) ng/ml Total Protein 6.7 (6.4-8.2) gm/dl Albumin 3.1 L (3.4-5.0) gm/dl Globulin 3.6 (2.5-4.0) gm/dl Albumin/Globulin Ratio 0.9 (0.9-2) Lipase 147 (73-393) U/L Imaging Data Radiologist's Impression: Radiology results as stated below per my review and the radiologist's interpretation: XR chest 1V portable HISTORY: Atypical Chest Pain COMPARISON: Chest 12/27/2017. FINDINGS: No pneumothorax. The heart remains mildly enlarged. There are poststernotomy changes. Mild central pulmonary vascular congestion without overt edema. No pleural effusions. No new focal lung consolidations to suggest pneumonia. IMPRESSION: Cardiomegaly with mild central pulmonary vascular congestion. Electronically signed by: Hoang Mejia M.D. 11/11/2018 9:33 AM ECG Data Attestation: I personally reviewed and interpreted this ECG as follows: Indication: chest pain Rate (beats per minute): 78 Rhythm: normal sinus Findings: + LBBB; no PAC, no PVC and no acute ischemic change Comparison ECG Date: from (December 19, 2017) Change: the following changes noted (LBBB is now present) Blood Pressure Blood Pressure Findings: Elevated blood pressure Blood Pressure Disposition: further management by hospitalist [facility] Narrative This patient comes in as described above she has multiple medical problems including coronary artery disease and end-stage renal disease, comes in after having chest pain that started this morning. She felt like it was similar to previous angina. She does not typically get angina very often. She took 1 of her nitroglycerin and had a spray in the ambulance as well as a full-strength aspirin. She is feeling better and is asymptomatic at present. she has baseline weakness from a stroke on her left side this is unchanged. She said no recent fall or trauma. She has no missed dialysis and she is actually scheduled for dialysis today. She was seen here last night for constipation that has gotten better. IV access established and blood work was obtained her EKG does not suggest acute STEMI. she does however have a left bundle branch block which was new compared to old it could be rate dependent potentially. At present, she is asymptomatic. Chest x-ray shows some cardiomegaly but no overt CHF. She has no white count or fever to suggest infection. She has some baseline anemia. Troponin was significantly elevated at greater than 1. The patient's remained asymptomatic while in the ER. She will certainly need to be admitted for a further cardiac evaluation. I consulted the [facility] hospitalist and she was seen in the ER also Dr. Acosta the strategy director saw her. I also called and talked to Dr. Crisostomo her experimental aircraft mechanic and let her know that the patient will be admitted and she will be needing dialysis at some point today and either Dr. Crisostomo or 1 of her partners will arrange for that in the hospital. The patient and family happy the plan she was admitted for further treatment and evaluation Impression & Plan Chest pain, Elevated troponin, End-stage renal disease (ESRD), CAD (coronary artery disease), Anemia of renal disease Discharge Plan Visit Data Chief Complaint: Chest Pain ED Provider: Butch Phelps Discharge Problem: Chest pain, Elevated troponin, End-stage renal disease (ESRD), CAD (coronary artery disease), Anemia of renal disease Patient Disposition: Being Evaluated by Hospitalist Discharge Instructions Interventions: ED Discharge Assessment Last Done: 11/11/18 14:11 Forms Stand Alone Forms: Call Back Authorization, [facility] [employer] Prescriptions Prescriptions: No Action acetaminophen 500 mg capsule 500 mg PO Q6H PRN (Reason: pain) RF: 0 aspirin 81 mg tablet,delayed release (DR/EC) 81 mg PO QAM RF: 0 atorvastatin [Lipitor] 80 mg tablet 80 mg PO HS RF: 0 carvedilol 25 mg tablet 25 mg PO BID RF: 0 cyanocobalamin (vitamin B-12) 1,000 mcg capsule 500 mcg PO QAM RF: 0 docusate sodium 100 mg capsule 100 mg PO DAILY RF: 0 epinephrine 0.3 mg/0.3 mL auto-injector 0.3 mg IM Q10M PRN (Reason: Allergic Reaction) RF: 0 escitalopram oxalate 20 mg tablet 20 mg PO HS RF: 0 hydrocortisone [Anti-Itch (HC)] 1 % cream 1 appln TOP DAILY PRN (Reason: Itching) RF: 0 lorazepam 0.5 mg tablet 0.25 mg sublingual AMHS RF: 0 melatonin 3 mg tablet 3 mg PO HS RF: 0 omeprazole 20 mg capsule,delayed release(DR/EC) 40 mg PO QAM RF: 0 ondansetron HCl 4 mg tablet 4 mg PO Q6H PRN (Reason: Nausea) RF: 0 tamsulosin 0.4 mg capsule 0.4 mg PO HS RF: 0 doxycycline hyclate 100 mg tablet 100 mg PO bid Qty: 28 RF: 0 loratadine 10 mg capsule 10 mg PO HS RF: 0 isosorbide mononitrate 60 mg tablet extended release 24 hr 60 mg PO QAM RF: 0 nitroglycerin [Nitrostat] 0.4 mg Tablet, Sublingual 0.4 mg sublingual UD RF: 0 ProRenal 8 mg iron-800 mcg-1,000 unit tablet 1 tab PO HS RF: 0 meclizine 25 mg Tablet 25 mg PO TID PRN (Reason: Vertigo) RF: 0 calcium acetate 667 mg capsule 2 cap PO DAILY RF: 0 Referrals Referrals: Concha Velasquez, [Primary Care Provider] - The scribe's documentation has been prepared under my direction and personally reviewed by me in its entirety. I confirm that the note above accurately reflects all work, treatment, procedures, and medical decision making performed by me.
[2018-11-11 10:16] LABS: Albumin Globulin Ratio 0.9 (0.9-2); Albumin Level 3.1 gm/dl (3.4-5.0); BUN Creatinine Ratio 7.1 (10-20); Bilirubin,Total 0.6 mg/dl (0.2-1); Calcium 8.8 mg/dl (8.5-10.1); Creatinine Clr Calc Pharmacy 7.1 ml/min; Est GFR (African American) 7.2; Est GFR (Non-African American) 6.2; Globulin 3.6 gm/dl (2.5-4.0); Potassium 5.3 mmol/L (3.5-5.1); Total Protein 6.7 gm/dl (6.4-8.2)
[2018-11-11 10:25] LABS: Troponin I 1.38 ng/ml (0-0.045)
[2018-11-11] MEDS ORDERED: POLYETHYLENE (MIRALAX) 17 GM PACK PO PRN (12:23)
[2018-11-11] MEDS ORDERED: NITROGLYCERIN SL 0.4 MG/TAB TAB SL PRN (12:23)
[2018-11-11] MEDS ORDERED: ACETAMINOPHEN 325 MG TAB PO PRN (12:23)
--- NOTE | 2018-11-11 12:34 | Cardiology Consultation ---
Date of Consultation November 11, 2018 Assessment & Plan (1) NSTEMI (non-ST elevated myocardial infarction): The patient presents with chest discomfort, new alterations in her EKG, and mild elevation in her troponin of 1.38 in the setting of end-stage renal disease, dialysis dependence, and a creatinine of 6.03. Her EKG has progressed from an interventricular conduction delay last month to a left bundle branch block. She is asymptomatic at present, and given her clinical presentation and resol ution of her chest pain, I do not think the changes in her EKG are accounting representative of an ST segment elevation myocardial infarction equivalent. I think she has however had a subendocardial myocardial infarction likely due to myocardial strain in the setting of her being under distress with abdominal discomfort last evening. Is difficult to tell if her chest pain was angina or if it was due to her repeated vomiting. The patient has a history of diffuse multilevel vascular disease. She is frail, and has a history of stroke with residual left-sided weakness, and subdural hematoma. Had a javed discussion with the patient, her daughter, Frances, was at the bedside about her condition. At this time I recommend that she comes in the hospital for observation. I would recommend conservative supportive care rather than invasive cardiac catheterization. I am not convinced that her presentation is suggestive of an acute intracoronary/bypass plaque rupture but rather appears to be due to demand ischemia in the setting of her noncardiac complaint of abdominal discomfort that I do not think was an anginal equivalent on presentation last evening. She is very frail, and my prediction would be that if she had coronary/bypass angiography the procedure would pose significant risk in terms of plaque embolism/stroke and that the end result would be find disease best managed medically. I would recommend against a systemic anticoagulation due to her bleeding risk. She missed her dialysis as an outpatient today and this may need to be performed while here. History of Present Illness History of Present Illness Mindy Prajapati is a 78 year old female seen in cardiology consultation in the ED per the [facility] the [facility] of chest discomfort. The patient's primary nurse care manager is Dr. Kaminski of our practice. She has a history of diffuse atherosclerotic vascular disease. History includes multivessel coronary heart disease for which she underwent CABG x4 in 1998 with JONES to LAD, SVG to the distal RCA, and a sequential vein graft to the ramus i ntermedius and circumflex coronary artery. Her most recent cardiac catheterization report I found no chart dates back to 02/11/2017 at [facility] [place] when she was noted to have diffuse [place] vessel disease with 100% right coronary artery occlusion. Saphenous vein graft to the right coronary artery was patent but the [place] RCA was occluded distal to the anastomosis the bypass graft. A 60% LAD stenosis was noted at that time with a patent JONES to LAD. A 100% stenosis noted at the origin of the ramus intermedius. An 80% circumflex coronary stenosis was noted with patent grafts to the ramus and circumflex. She has a known chronic right coronary artery scar on past imaging and carries a history of ischemic cardiomyopathy with ejection fraction in the range of 45%. Patient also has a history of stage renal disease and is on dialysis Mondays, Wednesdays and Fridays in [place] supervised by Dr. Crisostomo. She has followed with the wound care clinic for a poorly healing ulcer of the anterior lower leg at the level of the ankle. Her daughter, Frances, who is at the bedside discussed with the patient has osteomyelitis there. The patient has undergone attempted lower extremity percutaneous revascularization receiving angioplasty to the left superficial femoral artery, posterior tibial artery, and left anterior tibial artery performed at [facility] by Dr De in April 2018. Patient was apparently seen in the emergency room last evening for abdominal discomfort. She was diagnosed with constipation. A CT of the abdomen revealed no definite obstruction, but diffuse stool pattern was noted. Diffuse atherosclerotic vascular disease was noted in her abdominal aorta per the CT report. The patient had vomited several times. She received an enema last evening. By early this morning she was home at 730 she reported having chest pain to her family. She therefore returned to the emergency room. EKG performed this morning 11/11/2018 at 902 revealed normal sinus rhythm at 78 bpm wi th a left bundle branch block and resultant repolarization changes. Compared to a prior outpatient EKG recently performed at [facility] dated 10/13/2018 and interventricular conduction delay was noted on 10/13/2018 with a QRS duration of 138 ms. There is been a change in the axis with leftward axis on the present EKG and the conduction delay has progressed to a left bundle branch block with QRS duration of 150 ms. During my assessment the patient she was in no acute distress and her chest pain had completely resolved. Vital signs are stable with noted mild hypertension. Allergies Allergy/AdvReac Type Severity Reaction Status Date / Time tramadol Allergy Intermediate neuro Verified 11/11/18 10:08 complications bee venom protein (honey bee) Allergy Unknown ANAPHYLAXIS Verified 11/11/18 10:08 erythromycin base Allergy Unknown reaction Verified 11/11/18 10:08 unknown hydromorphone Allergy Unknown hard to Verified 11/11/18 10:08 wake up Iodinated Contrast- Oral and Allergy Unknown ITCHY/HIVES Verified 11/11/18 10:08 IV Dye morphine Allergy Unknown hives/rash Verified 11/11/18 10:08 Penicillins Allergy Unknown HIVES Verified 11/11/18 10:08 oxycodone AdvReac Mild CAUSES Verified 11/11/18 10:08 ITCHING amlodipine AdvReac Unknown DIZZY, GI Verified 11/11/18 10:08 UPSET codeine AdvReac Unknown HALLUCINATE Verified 11/11/18 10:08 S diphenhydramine AdvReac Unknown SEE BELOW Verified 11/11/18 10:08 ibuprofen AdvReac Unknown SEE BELOW Verified 11/11/18 10:08 naproxen AdvReac Unknown SEE BELOW Verified 11/11/18 10:08 neomycin AdvReac Unknown vomit Verified 11/11/18 10:08 Home Medications Home Medications Medication Instructions Recorded Confirmed Type acetaminophen 500 mg capsule 500 mg PO Q6H PRN 03/10/18 11/11/18 History aspirin 81 mg tablet,delayed 81 mg PO QAM 03/10/18 11/11/18 History release atorvastatin 80 mg tablet 80 mg PO HS 03/10/18 11/11/18 History carvedilol 25 mg tablet 25 mg PO BID 03/10/18 11/11/18 History cyanocobalamin (vitamin B-12) 500 mcg PO QAM cap 03/10/18 11/11/18 History 1,000 mcg capsule docusate sodium 100 mg capsule 100 mg PO DAILY 03/10/18 11/11/18 History epinephrine 0.3 mg/0.3 mL 0.3 mg IM Q10M PRN 03/10/18 11/11/18 History injection, auto-injector escitalopram 20 mg tablet 20 mg PO HS tab 03/10/18 11/11/18 History hydrocortisone 1 % topical cream 1 appln TOP DAILY PRN gm 03/10/18 11/11/18 History lorazepam 0.5 mg tablet 0.25 mg SUBLINGUAL AMHS tab 03/10/18 11/11/18 History melatonin 3 mg tablet 3 mg PO HS 03/10/18 11/11/18 History omeprazole 20 mg capsule,delayed 40 mg PO QAM cap 03/10/18 11/11/18 History release ondansetron HCl 4 mg tablet 4 mg PO Q6H PRN 03/10/18 11/11/18 History tamsulosin 0.4 mg capsule 0.4 mg PO HS 03/10/18 11/11/18 History isosorbide mononitrate 60 mg PO QAM 04/13/18 11/11/18 History doxycycline hyclate 100 mg tablet 100 mg PO bid #28 tab 06/14/18 11/11/18 Rx loratadine 10 mg capsule 10 mg PO HS 09/05/18 11/11/18 History calcium acetate 2 cap PO DAILY 11/11/18 11/11/18 History meclizine 25 mg PO TID PRN 11/11/18 11/11/18 History nitroglycerin [Nitrostat] 0.4 mg SUBLINGUAL UD 11/11/18 11/11/18 History vit B,C-iron crg-[id number]-zinc ox 1 tab PO HS 11/11/18 11/11/18 History [ProRenal] Patient History Medical History Peripheral vascular disease (Chronic) History of colorectal cancer (Chronic) Diabetes mellitus type 2 with complications (Chronic) HTN (hypertension) (Chronic) Congestive heart failure (Chronic) Rectal cancer (Resolved) Anemia of renal disease (Chronic) CAD (coronary artery disease) (Chronic) Dyslipidemia (Chronic) Subdural hematoma (Resolved) H/O: stroke with residual effects (Chronic) "left hemiparesis" Hx of subdural hematoma (Chronic) ESRD (end stage renal disease) on dialysis (Chronic) Anemia (Chronic) Cancer of colon (Chronic) Coronary artery disease (Chronic) Depression (Chronic) Diabetes (Chronic) Diabetic neuropathy associated with diabetes mellitus due to underlying condition (Chronic) Dialysis patient (Chronic) Gastrointestinal problem (Chronic) Hyperlipemia (Chronic) Hypertension (Chronic) Myocardial infarction (Chronic) Osteoarthritis (Chronic) TIA (transient ischemic attack) (Chronic) Surgical History History of carpal tunnel surgery (Chronic) H/O tubal ligation (Chronic) S/P appendectomy (Chronic) H/O: hysterectomy (Chronic) History of partial surgical removal of colon (Chronic) "Low anterior resection with primary anastomosis; proctoscopy 06/27/09" History of incisional hernia repair (Chronic) History of lumbar surgery (Chronic) S/P CABG x 4 (Chronic) S/P CABG x 3 (Chronic) S/P carpal tunnel release (Chronic) S/P cataract extraction (Chronic) S/P hernia repair (Chronic) S/P hysterectomy (Chronic) Family History Father Coronary heart disease Hypertension Mother Lymphoma Brother Lung cancer Brother Diabetes Brother Coronary heart disease Sister Diabetes Daughter Breast cancer Social History Preferred Language: Romanian Communication Ability: Effective Beliefs That Will Affect Care: None Current Living Situation: Spouse Feels Safe at Home: Yes Smoking Status: Never smoker Hx Alcohol Use: No Hx Substance Use: No Review of Systems Review of Systems: Review of systems is notable for recent nauseousness, vomiting, chest discomfort, constipation. Physical Exam Constitutional: + ill appearing (Chronically ill in appearance, frail, cachectic) Respiratory: normal respiratory effort, lungs clear to auscultation Cardiovascular: Rate/Rhythm: regular rate and regular rhythm Heart Sounds: no murmur Vessels: no JVD Extremities: no edema Gastrointestinal (Abdomen): Soft nontender, ventral hernia noted Neurologic: Patient with left lower extremity weakness that is a result of her past stroke. She is conversant. Results & Data Vital Signs (Past 12 Hours) Vital Signs Temp Pulse Pulse Resp BP BP Pulse Ox 11/11/18 11:00 77 17 170/73 H 95 11/11/18 08:59 36.9 C 79 17 140/57 L 95 Laboratory Results Cardiac Enzymes 11/11/18 Range/Units 09:38 AST 33 (15-37) U/L Troponin I 1.380 H* (0-0.045) ng/ml CBC 11/11/18 Range/Units 09:38 WBC 8.59 (4.8-10.8) K/uL RBC 3.38 L (4.2-5.4) M/uL Hgb 11.1 L (12.0-16.0) g/dL Hct 34.8 L (37-47) % Plt Count 137 (130-400) K/uL Neut # (Auto) 7.18 H (1.4-6.5) K/uL Lymph # (Auto) 1.00 L (1.2-3.4) K/uL [place] # (Auto) 0.29 (0.11-0.59) K/uL Eos # (Auto) 0.07 (0-0.5) K/uL Baso # (Auto) 0.03 (0-0.2) K/uL Comprehensive Metabolic Panel 11/11/18 Range/Units 09:38 Sodium 138 (136-145) mmol/L Potassium 5.3 H (3.5-5.1) mmol/L Chloride 105 (98-107) mmol/L Carbon Dioxide 27 (21-32) mmol/L BUN 43 H (7-18) mg/dl Creatinine 6.03 H* D (0.6-1.2) mg/dl Glucose 166 H (70-99) mg/dl Calcium 8.8 (8.5-10.1) mg/dl AST 33 (15-37) U/L ALT 32 (12-78) U/L Alkaline Phosphatase 93 (45-117) U/L Total Protein 6.7 (6.4-8.2) gm/dl Albumin 3.1 L (3.4-5.0) gm/dl Intake and Output 11/10/18 11/11/18 11/11/18 22:59 06:59 14:59 Other: Weight 59.9 kg Patient Weight 11/12/18 06:59 Weight 59.9 kg
--- NOTE | 2018-11-11 13:42 | History & Physical Report ---
Date of Service November 11, 2018 Assessment & Plan (1) NSTEMI (non-ST elevated myocardial infarction): This is a 78yo F with a PMH of CAD (s/p CABG in ), ischemic cardiomyopathy with EF: 45%, ESRD on HD, DM II, h/o traumatic subdural hematoma in 2015, h/o ischemic CVA in Jun 2018, PVD (s/p angioplasty to the LLE in ), HTN, HLD, L foot wound and other medical problems listed below who presents with chest pain starting this morning. -Chest pain resolved after NTG x 2, now asymptomatic -EKG change from interventricular conduction delay last month to a left bundle branch block -Initial troponin elevation of 1.38, CXR with cardiomegaly and mild central pulmonary vascular congestion -Evaluated by Dr. Fonseca in the ED. Does not believe changes in her EKG are national sales representative of an ST segment elevation myocardial infarction equivalent * Likely due to demand ischemia in the setting of her noncardiac complaint of abdominal discomfort, also with ESRD with a Cr of 6 * Conservative supportive care rather than invasive cardiac cath. Recommends against a systemic anticoagulation due to her bleeding risk with h/o subdural hematoma in 2015 -2D echo from December 2017 with mild concentric LVH, EF 55-60%, AV sclerosis -Continue trending troponin, repeat 2D echo, monitor on telemetry (2) CAD (coronary artery disease): History of CABG in 1998, multivessel disease -Continue medical management with aspirin, statin, carvedilol, Imdur (3) ESRD (end stage renal disease) on dialysis: HD scheduled for [facility]. Is due for dialysis today (Cr of 6) -Follows with Dr. Truong -Continue renal diet, ProRenal MV, Phos binders -Routine nephro consult for HD (4) Pressure ulcer of left heel, stage 3: Follows with wound care, ID, has osteomyelitis in L foot. -Wound nurse consulted for L foot wound, buttocks -Continue Doxycycline (5) Peripheral vascular disease: H/o angioplasty to the left superficial femoral artery, posterior tibial artery, and left anterior tibial artery performed at [facility] by Dr De in April 2018 -Continue aspirin, statin (6) HTN (hypertension): Mild hypertension on admission due to missed AM meds -Given AM dose of carvedilol. Continue home dose (7) Anemia of renal disease: At baseline with hgb ~ 11 (8) Dyslipidemia: Continue statin (9) H/O: stroke with residual effects: Residual left sided weakness -Continue aspirin, statin (10) Hx of subdural hematoma: 2/2 Fall in 2015 (11) Depression: Continue SSRI DVT Ppx: SQ heparin Q12H Code status: FULL per discussion with patient, daughter (POA) PCP: Jamie Velasquez Dispo: Admitted to telemetry. Discharge planning ordered. Patient seen in collaboration with Dr. Garcia. Please see addendum. History of Present Illness Chief Complaint: chest pain Primary Care Provider: Concha Velasquez DO This is a 78yo F with a PMH of CAD (s/p CABG in ), ESRD on HD, DM II, h/o traumatic subdural hematoma in 2015, h/o ischemic CVA in Jun 2018, PVD (s/p angioplasty to the LLE in ), HTN, HLD, L foot wound and other medical problems listed below who presents with chest pain starting this morning. Patient was seen in the ED last night for abdominal discomfort and received an enema and had bowel movement. Also vomited several times. Was discharged home at 0230. Woke up a few hours later with left sided chest pain around 0730 with associated nausea, vomiting and shortness of breath. Took 1 sublingual nitroglycerin at home and then received nitro spray and full dose aspirin from EMS in route to ED. By time of arrival, chest pain had completely subsided and patient was feeling well. Denies any lightheadedness, headache, palpitations, SOB, nausea, vomiting, abdominal pain, dysuria, diarrhea or LE swelling. In ED, found to have mild hypertension. EKG revealed normal sinus rhythm with left bundle branch block. First appeared to be a new LBBB per chart review, but recent EKG performed at [facility] revealed intraventricular conduction delay. Troponin is elevated at 1.38. History of CAD includes CABG x 4 in 1998 and another cardiac cath performed at [facility] in 2017 with diffuse disease. Follows with Dr. Kaminski of cardiology. Also follows with Dr. Crisostomo for kidney disease and receives dialysis MWF. Is due for dialysis today. Allergies Allergy/AdvReac Type Severity Reaction Status Date / Time tramadol Allergy Intermediate neuro Verified 11/11/18 10:08 complications bee venom protein (honey bee) Allergy Unknown ANAPHYLAXIS Verified 11/11/18 10:08 erythromycin base Allergy Unknown reaction Verified 11/11/18 10:08 unknown hydromorphone Allergy Unknown hard to Verified 11/11/18 10:08 wake up Iodinated Contrast- Oral and Allergy Unknown ITCHY/HIVES Verified 11/11/18 10:08 IV Dye morphine Allergy Unknown hives/rash Verified 11/11/18 10:08 Penicillins Allergy Unknown HIVES Verified 11/11/18 10:08 oxycodone AdvReac Mild CAUSES Verified 11/11/18 10:08 ITCHING amlodipine AdvReac Unknown DIZZY, GI Verified 11/11/18 10:08 UPSET codeine AdvReac Unknown HALLUCINATE Verified 11/11/18 10:08 S diphenhydramine AdvReac Unknown SEE BELOW Verified 11/11/18 10:08 ibuprofen AdvReac Unknown SEE BELOW Verified 11/11/18 10:08 naproxen AdvReac Unknown SEE BELOW Verified 11/11/18 10:08 neomycin AdvReac Unknown vomit Verified 11/11/18 10:08 Home Medications Home Medications Medication Instructions Recorded Confirmed Type acetaminophen 500 mg capsule 500 mg PO Q6H PRN 03/10/18 11/11/18 History aspirin 81 mg tablet,delayed 81 mg PO QAM 03/10/18 11/11/18 History release atorvastatin 80 mg tablet 80 mg PO HS 03/10/18 11/11/18 History carvedilol 25 mg tablet 25 mg PO BID 03/10/18 11/11/18 History cyanocobalamin (vitamin B-12) 500 mcg PO QAM cap 03/10/18 11/11/18 History 1,000 mcg capsule docusate sodium 100 mg capsule 100 mg PO DAILY 03/10/18 11/11/18 History epinephrine 0.3 mg/0.3 mL 0.3 mg IM Q10M PRN 03/10/18 11/11/18 History injection, auto-injector escitalopram 20 mg tablet 20 mg PO HS tab 03/10/18 11/11/18 History hydrocortisone 1 % topical cream 1 appln TOP DAILY PRN gm 03/10/18 11/11/18 History lorazepam 0.5 mg tablet 0.25 mg SUBLINGUAL AMHS tab 03/10/18 11/11/18 History melatonin 3 mg tablet 3 mg PO HS 03/10/18 11/11/18 History omeprazole 20 mg capsule,delayed 40 mg PO QAM cap 03/10/18 11/11/18 History release ondansetron HCl 4 mg tablet 4 mg PO Q6H PRN 03/10/18 11/11/18 History tamsulosin 0.4 mg capsule 0.4 mg PO HS 03/10/18 11/11/18 History isosorbide mononitrate 60 mg PO QAM 04/13/18 11/11/18 History doxycycline hyclate 100 mg tablet 100 mg PO bid #28 tab 06/14/18 11/11/18 Rx loratadine 10 mg capsule 10 mg PO HS 09/05/18 11/11/18 History calcium acetate 2 cap PO DAILY 11/11/18 11/11/18 History meclizine 25 mg PO TID PRN 11/11/18 11/11/18 History nitroglycerin [Nitrostat] 0.4 mg SUBLINGUAL UD 11/11/18 11/11/18 History vit B,C-iron [id number]-zinc ox 1 tab PO HS 11/11/18 11/11/18 History [ProRenal] Past Med/Surg History Medical History Ischemic cardiomyopathy (Chronic) Diabetic neuropathy associated with diabetes mellitus due to underlying condition (Chronic) Osteoarthritis (Chronic) Depression (Chronic) Peripheral vascular disease (Chronic) s/p intervention to LLE by Dr. De in Apr 2018 History of colorectal cancer (Chronic) HTN (hypertension) (Chronic) Anemia of renal disease (Chronic) CAD (coronary artery disease) (Chronic) s/p CABG in 1998 Dyslipidemia (Chronic) H/O: stroke with residual effects (Chronic) "left hemiparesis" since Jun 2018 Hx of subdural hematoma (Chronic) 2015 ESRD (end stage renal disease) on dialysis (Chronic) Hypertension (Inactive) Surgical History S/P cataract extraction (Chronic) History of carpal tunnel surgery (Chronic) H/O tubal ligation (Chronic) S/P appendectomy (Chronic) H/O: hysterectomy (Chronic) History of partial surgical removal of colon (Chronic) "Low anterior resection with primary anastomosis; proctoscopy 06/27/09" History of incisional hernia repair (Chronic) History of lumbar surgery (Chronic) S/P CABG x 4 (Chronic) Family History Father Coronary heart disease Hypertension Mother Lymphoma Brother Lung cancer Brother Diabetes Brother Coronary heart disease Sister Diabetes Daughter Breast cancer Social History Preferred Language: Australian Communication Ability: Effective Lube Man Required: No Beliefs That Will Affect Care: None Current Living Situation: Spouse Other Information That Helps Us Care for You: No Feels Safe at Home: Yes Safety Concerns: Feels Safe At This Time Smoking Status: Never smoker Do You Dip or Chew Tobacco: No Second Hand Exposure: No Tobacco Cessation Education Requested by Patient: No Hx Alcohol Use: No Hx Substance Use: No Review of Systems Review of Systems: At least ten systems reviewed and negative except as noted in the HPI. Physical Exam Physical Exam: General Appearance: WD/WN, no apparent distress, appears chronically ill Head: normocephalic, atraumatic Eyes: normal inspection, PERRL, EOMI ENT: hearing grossly normal, pharynx normal (moist mucous membranes) Neck: supple, no JVD, no adenopathy Respiratory/Chest: lungs clear to auscultation. No wheezes, rales or rhonci. No respiratory distress or accessory muscle use Cardiovascular: regular rate, rhythm, no murmur, normal peripheral pulses Abdomen/GI: normal bowel sounds, soft, non-tender to palpation Extremities/Musculoskelatal: normal inspection, no calf tenderness, normal capillary refill, no pedal edema. Neurologic/Psych: alert, normal mood/affect, oriented x 3, L sided weakness 2/2 CVA (chronic) Skin: normal color, warm/dry. Posterior L heel wound 1x1cm, no drainage noted. Results & Data Vital Signs (Past 12 Hours) Vital Signs Temp Pulse Pulse Resp BP BP Pulse Ox 11/11/18 13:16 82 16 158/67 H 98 11/11/18 11:00 77 17 170/73 H 95 11/11/18 08:59 36.9 C 79 17 140/57 L 95 Laboratory Results Short CBC 11/11/18 Range/Units 09:38 WBC 8.59 (4.8-10.8) K/uL Hgb 11.1 L (12.0-16.0) g/dL Hct 34.8 L (37-47) % Plt Count 137 (130-400) K/uL BMP 11/11/18 09:38 Sodium 138 Potassium 5.3 H Chloride 105 Carbon Dioxide 27 BUN 43 H Creatinine 6.03 H* D Glucose 166 H Calcium 8.8 Cardiac Enzymes 11/11/18 Range/Units 09:38 Troponin I 1.380 H* (0-0.045) ng/ml Liver Function 11/11/18 Range/Units 09:38 Total Bilirubin 0.6 (0.2-1) mg/dl AST 33 (15-37) U/L ALT 32 (12-78) U/L Alkaline Phosphatase 93 (45-117) U/L Albumin 3.1 L (3.4-5.0) gm/dl Diagnostic Findings CXR: IMPRESSION: Cardiomegaly with mild central pulmonary vascular congestion. ECG Rhythm: normal sinus Findings: + LBBB Supervising Physician Co-Signing Physician Notes I have seen and examined the patient and have discussed the case with the provider above. I agree with the assessment and plan as stated with the following exceptions. Ms Prajapati has had a resolution of her chest pain with morphine and denies any abdominal pain at this time. Per Cardiology, she is having an NSTEMI and will proceed with medical management. She denies any shortness of breath, but had pulmonary vascular congestion on xray. She underwent inpatient HD with 3L ultrafiltration today and feels well. Physical exam reveals a WNWD patient with clear post-stroke contracture of her LUE and LLE with weakness and difficulty moving her LUE or legs. She is alert and answering questions appropriately. She has clear lungs to auscultation with no wheezing, crackles or rales. S1/2 heard without murmurs and there is no edema present. Abdomen is soft, nontender and nondistended. Cont medical management per Cardiology recommendations. DO Jose
[2018-11-11] MEDS ORDERED: MECLIZINE HCL 25 MG TAB PO PRN (14:47)
[2018-11-11] MEDS ORDERED: EPINEPHRINE ADULT AUTO-INJECT 0.3 MG SYR IM PRN (14:47)
[2018-11-11] MEDS ORDERED: HYDROCORTISONE 1% CRM 30 GM TUBE EXT PRN (14:47)
--- NOTE | 2018-11-11 17:56 | Nephrology Consultation ---
Date of Consultation November 11, 2018 Assessment & Plan (1) ESRD (end stage renal disease) on dialysis: Patient with ESRD on dialysis Wednesday. Last dialysis was on Wednesday. She was now admitted with chest pain found to have non-ST elevation IA. She is being dialyzed today for 3-1/2 hours, blood flow 400, dialysate flow 800 on a 2K bath and target UF of 3 L. Chest x-ray showed evidence of pulmonary vascular congestion. Next dialysis will be Wednesday. (2) NSTEMI (non-ST elevated myocardial infarction): Patient admitted with chest pain and EKG changes. She also had high troponins although in setting of ESRD, troponin is not adequately cleared. Cardiology is recommending conservative management given multiple comorbidities. Will optimize fluid status and electrolytes with dialysis. History of Present Illness Reason for Consultation: ESRD on dialysis complicated by a NSTEMI Requesting Physician: Olena Mcwilliams MD Attending Physician: Olena Mcwilliams MD History of Present Illness This is a 78yo F with a PMH of CAD (s/p CABG in ), ischemic cardiomyopathy with EF: 45%, ESRD on HD, DM II, h/o traumatic subdural hematoma in 2015, h/o ischemic CVA in Jun 2018, PVD (s/p angioplasty to the LLE in ), HTN, HLD, and left foot osteomyelitis who was admitted on 11/11/2018 with chest pain. She is on dialysis Wednesday at [facility] under the care of Dr. Crisostomo. Her last dialysis was on Wednesday. She was in the emergency room yesterday with abdominal pain found to have constipation. This morning she developed chest pain at home. She decided to come to the ER. She reports her chest pain has resolved. She denies shortness of breath. Patient is nonambulant and uses her wheelchair. She has a left upper arm AV fistula. I initially saw the patient in consult. I later returned and so the patient while on dialysis. She was seen and examined while on dialysis. Allergies Allergy/AdvReac Type Severity Reaction Status Date / Time tramadol Allergy Intermediate neuro Verified 11/11/18 10:08 complications bee venom protein (honey bee) Allergy Unknown ANAPHYLAXIS Verified 11/11/18 10:0 8 erythromycin base Allergy Unknown reaction Verified 11/11/18 10:08 unknown hydromorphone Allergy Unknown hard to Verified 11/11/18 10:08 wake up Iodinated Contrast- Oral and Allergy Unknown ITCHY/HIVES Verified 11/11/18 10:08 IV Dye morphine Allergy Unknown hives/rash Verified 11/11/18 10:08 Penicillins Allergy Unknown HIVES Verified 11/11/18 10:08 oxycodone AdvReac Mild CAUSES Verified 11/11/18 10:08 ITCHING amlodipine AdvReac Unknown DIZZY, GI Verified 11/11/18 10:08 UPSET codeine AdvReac Unknown HALLUCINATE Verified 11/11/18 10:08 S diphenhydramine AdvReac Unknown SEE BELOW Verified 11/11/18 10:08 ibuprofen AdvReac Unknown SEE BELOW Verified 11/11/18 10:08 naproxen AdvReac Unknown SEE BELOW Verified 11/11/18 10:08 neomycin AdvReac Unknown vomit Verified 11/11/18 10:08 Home Medications Home Medications Medication Instructions Recorded Confirmed Type acetaminophen 500 mg capsule 500 mg PO Q6H PRN 03/10/18 11/11/18 History aspirin 81 mg tablet,delayed 81 mg PO QAM 03/10/18 11/11/18 History release atorvastatin 80 mg tablet 80 mg PO HS 03/10/18 11/11/18 History carvedilol 25 mg tablet 25 mg PO BID 03/10/18 11/11/18 History cyanocobalamin (vitamin B-12) 500 mcg PO QAM cap 03/10/18 11/11/18 History 1,000 mcg capsule docusate sodium 100 mg capsule 100 mg PO DAILY 03/10/18 11/11/18 History epinephrine 0.3 mg/0.3 mL 0.3 mg IM Q10M PRN 03/10/18 11/11/18 History injection, auto-injector escitalopram 20 mg tablet 20 mg PO HS tab 03/10/18 11/11/18 History hydrocortisone 1 % topical cream 1 appln TOP DAILY PRN gm 03/10/18 11/11/18 History lorazepam 0.5 mg tablet 0.25 mg SUBLINGUAL [facility] tab 03/10/18 11/11/18 History melatonin 3 mg tablet 3 mg PO HS 03/10/18 11/11/18 History omeprazole 20 mg capsule,delayed 40 mg PO QAM cap 03/10/18 11/11/18 History release ondansetron HCl 4 mg tablet 4 mg PO Q6H PRN 03/10/18 11/11/18 History tamsulosin 0.4 mg capsule 0.4 mg PO HS 03/10/18 11/11/18 History isosorbide mononitrate 60 mg PO QAM 04/13/18 11/11/18 History doxycycline hyclate 100 mg tablet 100 mg PO bid #28 tab 06/14/18 11/11/18 Rx loratadine 10 mg capsule 10 mg PO HS 09/05/18 11/11/18 History calcium acetate 2 cap PO DAILY 11/11/18 11/11/18 History meclizine 25 mg PO TID PRN 11/11/18 11/11/18 History nitroglycerin [Nitrostat] 0.4 mg SUBLINGUAL UD 11/11/18 11/11/18 History vit B,C-iron yhr-AK-L2-zinc ox 1 tab PO HS 11/11/18 11/11/18 History [ProRenal] Patient History Medical History Ischemic cardiomyopathy (Chronic) Diabetic neuropathy associated with diabetes mellitus due to underlying condition (Chronic) Osteoarthritis (Chronic) Depression (Chronic) Peripheral vascular disease (Chronic) s/p intervention to LLE by Dr. De in Apr 2018 History of colorectal cancer (Chronic) HTN (hypertension) (Chronic) Anemia of renal disease (Chronic) CAD (coronary artery disease) (Chronic) s/p CABG in 1998 Dyslipidemia (Chronic) H/O: stroke with residual effects (Chronic) "left hemiparesis" since Jun 2018 Hx of subdural hematoma (Chronic) 2015 ESRD (end stage renal disease) on dialysis (Chronic) Hypertension (Inactive) Surgical History S/P cataract extraction (Chronic) History of carpal tunnel surgery (Chronic) H/O tubal ligation (Chronic) S/P appendectomy (Chronic) H/O: hysterectomy (Chronic) History of partial surgical removal of colon (Chronic) "Low anterior resection with primary anastomosis; proctoscopy 06/27/09" History of incisional hernia repair (Chronic) History of lumbar surgery (Chronic) S/P CABG x 4 (Chronic) Family History Father Coronary heart disease Hypertension Mother Lymphoma Brother Lung cancer Brother Diabetes Brother Coronary heart disease Sister Diabetes Daughter Breast cancer Social History Preferred Language: Estonian Communication Ability: Effective 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 Beliefs That Will Affect Care: None Current Living Situation: Spouse Other Information That Helps Us Care for You: No Feels Safe at Home: Yes Safety Concerns: Feels Safe At This Time Smoking Status: Never smoker Do You Dip or Chew Tobacco: No Second Hand Exposure: No Tobacco Cessation Education Requested by Patient: No Hx Alcohol Use: No Hx Substance Use: No Review of Systems Review of Systems: All systems reviewed & are unremarkable except as noted in HPI & below Physical Exam Physical Exam: General exam: Appears comfortable, no acute distress HEENT: Pupils are equal and reactive to light Neck: No JVD, neck is supple trachea is midline Respiratory system: Clear breath sounds bilaterally. Gastrointestinal: Abdomen is soft, non distended, non tender, bowel sounds are present CVS: Regular rate and rhythm. No murmurs, rubs or gallops Musculoskeletal: No joint or muscle tenderness Extremities: Non tender, no edema, peripheral pulses are present Neuro: Oriented, no tremors, no focal neurological deficits Skin: No rashes, left foot wound wrapped Results & Data Vital Signs (Past 12 Hours) Vital Signs Temp Pulse Pulse Pulse Resp BP BP 11/11/18 17:40 75 143/67 H 11/11/18 17:20 74 144/69 H 11/11/18 17:00 73 147/69 H 11/11/18 16:49 37.0 C 72 72 157/71 H 11/11/18 15:37 36.9 C 74 20 160/76 H 11/11/18 14:41 37.4 C 79 16 166/81 H 11/11/18 14:11 84 17 175/76 H 11/11/18 13:16 82 16 158/67 H 11/11/18 11:00 77 17 170/73 H 11/11/18 08:59 36.9 C 79 17 140/57 L Pulse Ox 11/11/18 17:40 11/11/18 17:20 11/11/18 17:00 11/11/18 16:49 11/11/18 15:37 94 11/11/18 14:41 93 11/11/18 14:11 92 11/11/18 13:16 98 11/11/18 11:00 95 11/11/18 08:59 95
[2018-11-11 19:38] LABS: INR 1.1 (0.9-1.1); Partial Thromboplastin Time 26.8 Seconds (21.0-31.0); Prothrombin Time 10.9 Seconds (9.0-12.0)
[2018-11-11] MEDS ORDERED: NON-FORMULARY MEDICATION (Doxycycline Hyclate 100 MG) PO SCH (21:00)
[2018-11-11] MEDS ORDERED: NON-FORMULARY MEDICATION (Vit B,C-Iron Fum-Fa-D3-Zinc Ox [Prorenal] 1 TAB) PO SCH (21:00)
[2018-11-11] MEDS: LORazepam 0.5 MG TAB SL SCH (21:39)
[2018-11-11] MEDS: CARVEDILOL 25 MG TAB PO SCH (21:40)
[2018-11-11] MEDS: TAMSULOSIN HCL 0.4 MG CAP PO SCH (21:40)
[2018-11-11] MEDS: HEPARIN SOD 5,000 UNIT/0.5 ML VIAL SQ SCH (21:41)
[2018-11-11] MEDS: ATORVASTATIN 40 MG TAB PO SCH (21:41)
[2018-11-11] MEDS: ESCITALOPRAM OXALATE 20 MG TAB PO SCH (21:41)
[2018-11-11] MEDS: LORATADINE 10 MG TAB PO SCH (21:42)
[2018-11-11] MEDS ORDERED: SODIUM CHLORIDE 0.9% 1000ML 1,000 ML IV PRN (22:22)
[2018-11-12] MEDS: DOXYCYCLINE HYCLATE 100 MG CAP PO SCH ×3 (00:22→22:07)
[2018-11-12 05:58] LABS: Hematocrit (blood only) 36.2 % (37-47); Mean Corpuscular Hgb Conc 33.1 g/dL (32-36); Mean Corpuscular Volume 101.7 fL (80-100); Mean Platelet Volume 10.6 fL (7.4-10.4); Platelet Count 120 K/uL (130-400); RDW Coefficient of Variation 17.2 % (11.5-14.5); RDW Standard Deviation 62.8 fL (36.4-46.3); Red Blood Count 3.56 M/uL (4.2-5.4); White Blood Count 6.14 K/uL (4.8-10.8)
[2018-11-12 06:44] LABS: BUN Creatinine Ratio 6.2 (10-20); Calcium 8.6 mg/dl (8.5-10.1); Creatinine Clr Calc Pharmacy 11.9 ml/min; Est GFR (African American) 13.3; Est GFR (Non-African American) 11.5
[2018-11-12] MEDS ORDERED: CALCIUM ACETATE 667 MG CAP PO SCH (08:00)
[2018-11-12] MEDS: LORazepam 0.5 MG TAB SL SCH ×2 (08:03→22:07)
[2018-11-12] MEDS: CYANOCOBALAMIN 500 MCG TABLET (VITAMIN B-12) PO SCH (08:06)
[2018-11-12] MEDS: CALCIUM ACETATE 667 MG CAP PO SCH (08:07)
[2018-11-12] MEDS: CARVEDILOL 25 MG TAB PO SCH ×2 (08:07→22:08)
[2018-11-12] MEDS: ISOSORBIDE MONO EXTENDED REL 60 MG TABCR PO SCH (08:07)
[2018-11-12] MEDS: HEPARIN SOD 5,000 UNIT/0.5 ML VIAL SQ SCH ×2 (08:08→22:08)
[2018-11-12] MEDS: PANTOprazole 40 MG TAB PO SCH (09:04)
[2018-11-12] MEDS: ASPIRIN 81 MG ECTAB PO SCH (09:05)
--- NOTE | 2018-11-12 16:43 | Hospitalist Progress Note ---
Date of Service November 12, 2018 Assessment & Plan (1) NSTEMI (non-ST elevated myocardial infarction): This is a 78yo F with a PMH of CAD (s/p CABG in ), ischemic cardiomyopathy with EF: 45%, ESRD on HD, DM II, h/o traumatic subdural hematoma in 2015, h/o ischemic CVA in Jun 2018, PVD (s/p angioplasty to the LLE in ), HTN, HLD, L foot wound and other medical problems listed below who presents with chest pain Has been asymptomatic since admission - -Initial troponin elevation of 1.38, serial levels showed peak elevation to 11, trended down to 9 Appreciate input from cardiology, given patient's multiple comorbidities /peripheral vascular disease/end-stage renal disease on dialysis invasive cardiac procedure: Angiogram is not recommended, Medical management (2) CAD (coronary artery disease): History of CABG in 1998, multivessel disease -Continue medical management with aspirin, statin, carvedilol, Imdur (3) ESRD (end stage renal disease) on dialysis: HD scheduled for [facility]. Is due for dialysis today (Cr of 6) -Follows with Dr. Truong -Continue renal diet, ProRenal MV, Phos binders -Routine nephro consult for HD (4) Pressure ulcer of left heel, stage 3: Follows with wound care, ID, has osteomyelitis in L foot. -Wound nurse consulted for L foot wound, buttocks -Continue Doxycycline (5) Peripheral vascular disease: H/o angioplasty to the left superficial femoral artery, posterior tibial artery, and left anterior tibial artery performed at [facility] by Dr De in April 2018 -Continue aspirin, statin (6) HTN (hypertension): Continue Coreg (7) Anemia of renal disease: At baseline with hgb ~ 11 (8) Dyslipidemia: Continue statin (9) H/O: stroke with residual effects: Residual left sided weakness -Continue aspirin, statin (10) Hx of subdural hematoma: 2/2 Fall in 2015 (11) Depression: Continue SSRI DVT Ppx: SQ heparin Q12H Code status: FULL per discussion with patient, daughter (POA) Disposition: PT OT evaluation will be ordered prior to discharge Social service consult for discharge planning Subjective No complaint of chest pain, no shortness of breath, feels fine, no fever or chills Physical Exam Constitutional: + ill appearing (Chronically ill in appearance, frail, cachectic) Respiratory: normal respiratory effort, lungs clear to auscultation Cardiovascular: Rate/Rhythm: regular rate and regular rhythm Heart Sounds: no murmur Vessels: no JVD Extremities: no edema Results & Data Vital Signs (Past 12 Hours) Vital Signs Temp Pulse Pulse Resp BP Pulse Ox 11/12/18 15:27 36.8 C 70 16 127/60 96 11/12/18 11:31 36.9 C 65 18 117/51 L 94 11/12/18 08:56 63 11/12/18 07:03 37.0 C 65 15 151/76 H 97
--- NOTE | 2018-11-12 16:58 | Cardiology Progress Note ---
Date of Service November 12, 2018 Assessment & Plan (1) NSTEMI (non-ST elevated myocardial infarction): 81-year-old female with complex multi-vascular bed atherosclerotic vascular disease, and end-stage renal disease on hemodialysis seen in follow-up of non- STEMI. Her initial troponin of 1.38 peaked at 11.1, and trended down to 9.12. This of course is in the setting of significant renal insufficiency. She is pain-free and her EKG is stable. No significant arrhythmias noted on telemetry. She has left-sided hemiparesis as a remnant from prior stroke, and has had a prior subdural hematoma. Conservative observation is recommended without anticoagulation or invasive procedures. This was in keeping with the patient and family's desires and goals of care. Echocardiogram reveals findings of previously noted right coronary artery territory scar, however has been an interval decline in her ejection fraction since her last echo at [facility]. Previous echocardiograms however have revealed ejection fraction in the range of 45% historically. Continue carvedilol, isosorbide mononitrate, aspirin, and atorvastatin. Subjective Chief complaint: Follow-up chest pain, non-ST segment elevation microinfarction Subjective: Patient states she feels comfortable. She has not had any additional chest discomfort since her initial presentation to the emergency room yesterday. Telemetry reveals stable sinus rhythm. Physical Exam Constitutional: + ill appearing (Chronically ill in appearance without acute distress) Respiratory: normal respiratory effort, lungs clear to auscultation Cardiovascular: Rate/Rhythm: regular rate and regular rhythm Heart Sounds: + murmur (I/ systolic murmur) Vessels: no JVD Extremities: no edema Gastrointestinal (Abdomen): Abdomen is soft and nontender Skin: Left heel pressure ulcer noted pressure ulcer on dorsum of left foot Neurologic: Left upper and lower extremity weakness, chronic findings remnant of prior stroke Results & Data Vital Signs (Past 12 Hours) Vital Signs Temp Pulse Pulse Resp BP Pulse Ox 11/12/18 15:27 36.8 C 70 16 127/60 96 11/12/18 11:31 36.9 C 65 18 117/51 L 94 11/12/18 08:56 63 11/12/18 07:03 37.0 C 65 15 151/76 H 97 Laboratory Results Cardiac Enzymes 11/11/18 11/11/18 11/12/18 Range/Units 15:50 21:13 05:09 Troponin I 6.360 H* 11.100 H* 9.120 H* (0-0.045) ng/ml Coagulation 11/11/18 Range/Units 19:07 PT 10.9 (9.0-12.0) Seconds APTT 26.8 (21.0-31.0) Seconds CBC 11/12/18 Range/Units 05:09 WBC 6.14 (4.8-10.8) K/uL RBC 3.56 L (4.2-5.4) M/uL Hgb 12.0 (12.0-16.0) g/dL Hct 36.2 L (37-47) % Plt Count 120 L (130-400) K/uL Comprehensive Metabolic Panel 11/12/18 Range/Units 05:09 Sodium 134 L (136-145) mmol/L Potassium 4.0 D (3.5-5.1) mmol/L Chloride 98 (98-107) mmol/L Carbon Dioxide 29 (21-32) mmol/L BUN 22 H (7-18) mg/dl Creatinine 3.63 H D (0.6-1.2) mg/dl Glucose 99 (70-99) mg/dl Calcium 8.6 (8.5-10.1) mg/dl Intake and Output 11/12/18 11/12/18 11/12/18 06:59 14:59 22:59 Intake Total 540 / 540 Output Total 602 / 602 Balance -62 / -62 Intake: Oral 540 / 540 Output: Urine 600 / 600 # Bowel Movements 2 / 2 Other: Other Intake Source Sips Weight 58.1 kg Diagnostic Findings EKG performed this morning reveals normal sinus rhythm at 64 bpm with findings of intraventricular conduction delay as compared to left bundle branch block noted yesterday. Summary of transthoracic echocardiogram performed today and reviewed independently by the undersigned: Study is technically adequate for the referral indication. Septal motion is abnormal consistent with ventricular conduction delay. There is a moderate-sized inferior posterior wall motion abnormality with hypokinesis to akinesis in the segments. Left ventricular systolic function is mildly reduced. The qualitative left ventricular ejection fraction = 45%. The left atrium is moderately dilated. Aortic valve sclerosis mild, without significant aortic valvular stenosis. There is mild mitral regurgitation. Compared to the images obtained at the time of the prior study dated 12/27/2017, there is evidence of a right coronary artery territory scar noted on the prior study as well, however there has been an interval decline in the overall left ventricular ejection fraction since the prior study. Medications Administered Current Inpatient Medications Acetaminophen (Tylenol) 650 mg PO Q4H PRN PRN Reason: Pain or Fever Stop: 12/11/18 12:22 Aspirin (Ecotrin Ectab) 81 mg PO QAM [facility] Stop: 12/12/18 08:59 Last Admin: 11/12/18 09:05 Dose: 81 mg Documented by: Atorvastatin Calcium (Lipitor) 80 mg PO HS [facility] Stop: 12/11/18 20:59 Last Admin: 11/11/18 21:41 Dose: 80 mg Documented by: Calcium Acetate (Phoslo) 1,334 mg PO QDB [facility] Stop: 12/12/18 07:29 Last Admin: 11/12/18 08:07 Dose: 1,334 mg Documented by: Carvedilol (Coreg) 25 mg PO BID [facility] Stop: 12/11/18 20:59 Last Admin: 11/12/18 08:07 Dose: 25 mg Documented by: Cyanocobalamin (Vitamin B-12) 500 mcg PO QAM [facility] Stop: 12/12/18 08:59 Last Admin: 11/12/18 08:06 Dose: 500 mcg Documented by: Doxycycline Hyclate (Vibramycin) 100 mg PO BID [facility] Stop: 11/18/18 20:59 Last Admin: 11/12/18 08:06 Dose: 100 mg Documented by: Epinephrine HCl (Epipen) 0.3 mg IM Q10M PRN PRN Reason: Allergic Reaction Stop: 12/11/18 14:46 Escitalopram Oxalate (Lexapro) 20 mg PO HS [facility] Stop: 12/11/18 20:59 Last Admin: 11/11/18 21:41 Dose: 20 mg Documented by: Heparin Sodium (Porcine) (Heparin Sodium (Porcine)) 5,000 units SQ Q12 [facility] Stop: 12/11/18 20:59 Last Admin: 11/12/18 08:08 Dose: 5,000 units Documented by: Hydrocortisone (Hydrocortisone 1%) 1 appln EXT DAILY PRN PRN Reason: Itching Stop: 12/11/18 14:46 Isosorbide Mononitrate (Imdur Extended Rel) 60 mg PO QAM [facility] Stop: 12/12/18 08:59 Last Admin: 11/12/18 08:07 Dose: 60 mg Documented by: Loratadine (Claritin) 10 mg PO HS [facility] Stop: 12/11/18 20:59 Last Admin: 11/11/18 21:42 Dose: 10 mg Documented by: Lorazepam (Ativan) 0.25 mg SL [facility] Stop: 12/11/18 20:59 Last Admin: 11/12/18 08:03 Dose: 0.25 mg Documented by: Meclizine HCl (Antivert) 25 mg PO TID PRN PRN Reason: Vertigo Stop: 12/11/18 14:46 Last Admin: 11/12/18 08:07 Dose: 25 mg Documented by: Nitroglycerin (Nitrostat) 0.4 mg SL UD PRN PRN Reason: Chest Pain Stop: 12/11/18 12:22 Pantoprazole Sodium (Protonix) 40 mg PO QAM [facility] Stop: 12/12/18 08:59 Last Admin: 11/12/18 09:04 Dose: 40 mg Documented by: Polyethylene Glycol (Miralax Powder Packet) 17 gm PO DAILY PRN PRN Reason: Constipation Stop: 12/11/18 12:22 Tamsulosin HCl (Flomax) 0.4 mg PO HS [facility] Stop: 12/11/18 20:59 Last Admin: 11/11/18 21:40 Dose: 0.4 mg Documented by:
[2018-11-12] MEDS: ATORVASTATIN 40 MG TAB PO SCH (22:07)
[2018-11-12] MEDS: LORATADINE 10 MG TAB PO SCH (22:08)
[2018-11-12] MEDS: ESCITALOPRAM OXALATE 20 MG TAB PO SCH (22:08)
[2018-11-12] MEDS: TAMSULOSIN HCL 0.4 MG CAP PO SCH (22:08)
[2018-11-13 06:40] LABS: Hematocrit (blood only) 34.1 % (37-47); Hemoglobin 11.2 g/dL (12.0-16.0); Mean Corpuscular Hgb Conc 32.8 g/dL (32-36); Mean Corpuscular Volume 99.7 fL (80-100); Mean Platelet Volume 10.8 fL (7.4-10.4); Platelet Count 119 K/uL (130-400); RDW Standard Deviation 61.4 fL (36.4-46.3); Red Blood Count 3.42 M/uL (4.2-5.4); White Blood Count 5.98 K/uL (4.8-10.8)
[2018-11-13 07:27] LABS: BUN Creatinine Ratio 8.8 (10-20); Calcium 8.6 mg/dl (8.5-10.1); Creatinine Clr Calc Pharmacy 8.3 ml/min; Est GFR (African American) 8.7; Est GFR (Non-African American) 7.5; Potassium 4.3 mmol/L (3.5-5.1)
[2018-11-13] MEDS: LORazepam 0.5 MG TAB SL SCH ×2 (08:14→20:29)
[2018-11-13] MEDS: CALCIUM ACETATE 667 MG CAP PO SCH (08:15)
[2018-11-13] MEDS: PANTOprazole 40 MG TAB PO SCH (08:15)
[2018-11-13] MEDS: ISOSORBIDE MONO EXTENDED REL 60 MG TABCR PO SCH (08:16)
[2018-11-13] MEDS: HEPARIN SOD 5,000 UNIT/0.5 ML VIAL SQ SCH ×2 (08:16→20:33)
[2018-11-13] MEDS: CYANOCOBALAMIN 500 MCG TABLET (VITAMIN B-12) PO SCH (08:16)
[2018-11-13] MEDS: DOXYCYCLINE HYCLATE 100 MG CAP PO SCH ×2 (08:17→20:31)
[2018-11-13] MEDS: ASPIRIN 81 MG ECTAB PO SCH (08:17)
[2018-11-13] MEDS: CARVEDILOL 25 MG TAB PO SCH ×2 (08:18→20:30)
--- NOTE | 2018-11-13 14:46 | Cardiology Progress Note ---
Date of Service November 13, 2018 Assessment & Plan (1) NSTEMI (non-ST elevated myocardial infarction): Patient doing well clinically. Suspect non-ST segment elevation myocardial infarction due to demand ischemia in the setting of fixed coronary disease rather than an acute intracoronary plaque rupture. Echocardiogram revealed chronic RCA territory wall motion abnormality, there however has been overall decline in the ejection fraction which was normal in December 2017, and is now mildly reduced at 45%. Continue medication therapy including carvedilol, atorvastatin, isosorbide mononitrate, enteric-coated aspirin. Continue subcutaneous heparin for DVT prophylaxis. Subjective Chief complaint: Follow-up chest pain Subjective: Patient resting comfortably in bed. at bedside. Denies complaints. No additional chest pain. Telemetry reveals sinus rhythm and 60 bpm range without significant arrhythmia. Physical Exam Physical Exam: General: no acute distress and stated age, chronically ill in appearance Eyes: conjunctiva are pink and non-injected, sclera clear Neck: normal jugular venous pulse, no hepatojugular reflux Chest: normal shape and normal respiratory effort Lungs: clear to auscultation and percussion Cardiac Exam: - regular heart sounds, I/I mineral 6 systolic murmur Abdomen: abdomen soft, non-tender, no abnormal masses and no hepatosplenomegaly Extremities: no edema and no cyanosis Neuro: Left upper and lower extremity weakness Psych: appropriate affect and insight. Results & Data Vital Signs (Past 12 Hours) Vital Signs Temp Pulse Resp BP Pulse Ox 11/13/18 11:48 37.4 C 72 20 143/60 H 96 11/13/18 08:09 64 154/51 H 11/13/18 06:58 36.8 C 71 20 183/71 H 98 11/13/18 03:32 36.5 C 69 18 182/79 H 98 Diagnostic Findings EKG performed today 11/13/2018: Sinus rhythm at 66 bpm with left bundle branch block, unchanged compared to prior tracing.
--- NOTE | 2018-11-13 17:24 | Hospitalist Progress Note ---
Date of Service November 13, 2018 Assessment & Plan (1) NSTEMI (non-ST elevated myocardial infarction): This is a 78yo F with a PMH of CAD (s/p CABG in ), ischemic cardiomyopathy with EF: 45%, ESRD on HD, DM II, h/o traumatic subdural hematoma in 2015, h/o ischemic CVA in Jun 2018, PVD (s/p angioplasty to the LLE in ), HTN, HLD, L foot wound and other medical problems listed below who presents with chest pain Has been asymptomatic since admission - -Initial troponin elevation of 1.38, serial levels showed peak elevation to 11, trended down to 9 Appreciate input from cardiology, given patient's multiple comorbidities /peripheral vascular disease/end-stage renal disease on dialysis invasive cardiac procedure: Angiogram is not recommended, Medical management Had been asymptomatic, no angina symptoms since admission Stable from cardiac standpoint (2) CAD (coronary artery disease): History of CABG in 1998, multivessel disease -Continue medical management with aspirin, statin, carvedilol, Imdur (3) ESRD (end stage renal disease) on dialysis: HD scheduled for MWF. Atrial for dialysis tomorrow -Follows with Dr. Truong -Continue renal diet, ProRenal MV, Phos binders -Routine nephro consult for HD (4) Pressure ulcer of left heel, stage 3: Follows with wound care, ID, has osteomyelitis in L foot. -Wound nurse consulted for L foot wound, buttocks -Continue Doxycycline (5) Peripheral vascular disease: H/o angioplasty to the left superficial femoral artery, posterior tibial artery, and left anterior tibial artery performed at [facility] by Dr De in April 2018 -Continue aspirin, statin (6) HTN (hypertension): Continue Coreg (7) Anemia of renal disease: At baseline with hgb ~ 11 (8) Dyslipidemia: Continue statin (9) H/O: stroke with residual effects: Residual left sided weakness -Continue aspirin, statin (10) Hx of subdural hematoma: 2/2 Fall in 2015 (11) Depression: Continue SSRI DVT Ppx: SQ heparin Q12H Code status: FULL per discussion with patient, daughter (POA) Disposition: Discussed with patient's , at baseline patient is wheelchair bound, able to do transfer with 1 person assist,() Patient appears to be back to her baseline, has been out of bed Discharge home in next 20 to 48 hours if remains medically stable Subjective She was found sitting on chair, finishing lunch, found to be in good mood, no complaint of chest pain, shortness of breath, Feels fine, vitals remain stable multiple family members are present at bedside Physical Exam Constitutional: + ill appearing (Chronically ill in appearance, frail, cachectic) Eyes: PERRL, conjunctivae normal, anicteric sclerae ENMT: external ear and nose normal, oropharynx normal Neck: trachea midline, no thyromegaly Respiratory: normal respiratory effort, lungs clear to auscultation Cardiovascular: Rate/Rhythm: regular rate and regular rhythm Heart Sounds: no murmur Vessels: no JVD Extremities: no edema Gastrointestinal (Abdomen): Inspection/Auscultation: normal bowel sounds Percussion/Palpation: abdomen soft; abdomen nontender Musculoskeletal: Left heel chronic ulcer-, bandage present, deformed left foot-chronic present on admission Neurologic: PERRL, EOMI, accommodation nl, no face palsy, no dysarthria Psychiatric: A+Ox3, euthymic affect Results & Data Vital Signs (Past 12 Hours) Vital Signs Temp Pulse Resp BP Pulse Ox 11/13/18 15:11 36.8 C 61 18 136/55 L 96 11/13/18 11:48 37.4 C 72 20 143/60 H 96 11/13/18 08:09 64 154/51 H 11/13/18 06:58 36.8 C 71 20 183/71 H 98
[2018-11-13] MEDS: ATORVASTATIN 40 MG TAB PO SCH (20:30)
[2018-11-13] MEDS: ESCITALOPRAM OXALATE 20 MG TAB PO SCH (20:31)
[2018-11-13] MEDS: TAMSULOSIN HCL 0.4 MG CAP PO SCH (20:32)
[2018-11-13] MEDS: LORATADINE 10 MG TAB PO SCH (20:32)
[2018-11-14] MEDS ORDERED: SODIUM CHLORIDE 0.9% 1000ML 1,000 ML IV PRN (07:43)
[2018-11-14] MEDS ORDERED: HEPARIN SOD (PORCINE) 1000 UNIT/ML 10 ML VIAL IV ONE (07:43)
[2018-11-14] MEDS: LORazepam 0.5 MG TAB SL SCH ×2 (08:51→21:16)
[2018-11-14] MEDS: DOXYCYCLINE HYCLATE 100 MG CAP PO SCH ×2 (08:52→21:17)
[2018-11-14] MEDS: CALCIUM ACETATE 667 MG CAP PO SCH (08:52)
[2018-11-14] MEDS: CARVEDILOL 25 MG TAB PO SCH ×2 (08:52→21:18)
[2018-11-14] MEDS: PANTOprazole 40 MG TAB PO SCH (08:52)
[2018-11-14] MEDS: ASPIRIN 81 MG ECTAB PO SCH (08:52)
[2018-11-14] MEDS: ISOSORBIDE MONO EXTENDED REL 60 MG TABCR PO SCH (08:52)
[2018-11-14] MEDS: CYANOCOBALAMIN 500 MCG TABLET (VITAMIN B-12) PO SCH (08:53)
[2018-11-14] MEDS: HEPARIN SOD 5,000 UNIT/0.5 ML VIAL SQ SCH ×2 (09:32→21:17)
[2018-11-14] MEDS: HEPARIN SOD (PORCINE) 1000 UNIT/ML 10 ML VIAL IV SCH ×3 (10:40→15:39)
--- NOTE | 2018-11-14 12:04 | Cardiology Progress Note ---
Date of Service November 14, 2018 Assessment & Plan (1) NSTEMI (non-ST elevated myocardial infarction): (2) Ischemic cardiomyopathy: Patient clinically stable. No angina since the morning she initially presented on 11/11/2018. Continue ongoing medication therapy for underlying ischemic heart disease including aspirin, carvedilol, isosorbide mononitrate, atorvastatin. She is stable for discharge from a cardiac perspective she is eager to return home. Subjective Chief complaint: Follow-up chest discomfort, non-ST segment elevation microinfarction Subjective: Patient seen during dialysis. She was comfortable, tolerating dialysis well from a symptom standpoint and from a hemodynamic standpoint. She denies any chest discomfort. Physical Exam Physical Exam: General: no acute distress and stated age, frail, chronically ill in appearance Eyes: conjunctiva are pink and non-injected, sclera clear Neck: normal jugular venous pulse, no hepatojugular reflux Chest: normal shape and normal respiratory effort Lungs: clear to auscultation and percussion Cardiac Exam: - regular heart sounds, 1/6 systolic murmur Abdomen: abdomen soft, non-tender, no abnormal masses and no hepatosplenomegaly Extremities: no edema and no cyanosis Neuro:awake, coversant, follows commands, left upper and lower extremity weakness (chronic finding) Psych: appropriate affect and insight. Results & Data Vital Signs (Past 12 Hours) Vital Signs Temp Pulse Pulse Resp BP BP Pulse Ox 11/14/18 11:40 61 98/51 L 11/14/18 11:20 61 82/38 L 11/14/18 11:00 65 88/47 L 11/14/18 10:40 64 92/52 L 11/14/18 10:20 65 97/50 L 11/14/18 10:00 63 114/55 L 11/14/18 09:46 37.2 C 64 65 136/66 11/14/18 07:07 36.4 C L 63 16 155/60 H 97 11/14/18 03:52 36.8 C 63 12 156/67 H 98 11/14/18 01:00 64
--- NOTE | 2018-11-14 17:08 | Nephrology Progress Note ---
Date of Service November 14, 2018 Assessment & Plan (1) ESRD (end stage renal disease) on dialysis: Patient with ESRD on dialysis Wednesday. For dialysis today for 3-1/2 hours, blood flow 400, dialysate flow 800 on a 2K bath and tolerated 2 L fluid removal; next HD on 11/16 as IP or OP. bp, volume status, chemistries, anemia acceptable (2) NSTEMI (non-ST elevated myocardial infarction): Patient admitted with chest pain and EKG changes. She also had high troponins although in setting of ESRD, troponin is not adequately cleared. -for medicla mgt per cardiology Subjective seen on rounds this am at approx 0805 > no chest pain, no sob, no N or back pain Review of Systems Review of Systems: All systems reviewed & are unremarkable except as noted in HPI & below Constitutional: + fatigue and + weakness stable chronic fatigue/weakness Eyes: no worsening vision Ear, Nose, Mouth, Throat: no dry mouth Cardiovascular: no dyspnea, no palpitations and no edema Physical Exam Constitutional: well nourished and + ill appearing (chronically) Eyes: EOM intact bilaterally ENMT: Ears: no external ear abnormality Nose: no external nose abnormality Mouth: + dry oral mucous membranes swollen face Neck: no nuchal rigidity Respiratory: normal respiratory effort Auscultation: + diminished lung sounds Cardiovascular: Rate/Rhythm: regular rate and regular rhythm Extremities: + edema Gastrointestinal (Abdomen): Inspection/Auscultation: normal bowel sounds Percussion/Palpation: abdomen soft; abdomen nontender Musculoskeletal: Extremities: strength 5/5 throughout Skin: no rashes, warm and dry wound boot on L foot Neurologic: richard, fluent speech, no tremor Psychiatric: not anxious; MS at baseline from OP encounters Results & Data Vital Signs (Past 12 Hours) Vital Signs Temp Pulse Pulse Resp BP BP Pulse Ox 11/14/18 15:10 36.8 C 64 15 128/58 L 99 11/14/18 13:20 36.4 C L 59 L 59 L 115/57 L 115/57 L 11/14/18 13:00 60 77/39 L 11/14/18 12:40 60 90/44 L 11/14/18 12:20 57 L 95/46 L 11/14/18 12:00 57 L 72/31 L 11/14/18 11:40 61 98/51 L 05/06/19 11:20 61 82/38 L 11/14/18 11:00 65 88/47 L 11/14/18 10:40 64 92/52 L 11/14/18 10:20 65 97/50 L 11/14/18 10:00 63 114/55 L 11/14/18 09:46 37.2 C 64 65 136/66 11/14/18 07:07 36.4 C L 63 16 155/60 H 97
--- NOTE | 2018-11-14 17:23 | Hospitalist Progress Note ---
Date of Service November 14, 2018 Assessment & Plan (1) NSTEMI (non-ST elevated myocardial infarction): This is a 78yo F with a PMH of CAD (s/p CABG in ), ischemic cardiomyopathy with EF: 45%, ESRD on HD, DM II, h/o traumatic subdural hematoma in 2015, h/o ischemic CVA in Jun 2018, PVD (s/p angioplasty to the LLE in ), HTN, HLD, L foot wound and other medical problems listed below who presents with chest pain Has been asymptomatic since admission - -Initial troponin elevation of 1.38, serial levels showed peak elevation to 11, trended down to 9 Appreciate input from cardiology, given patient's multiple comorbidities /peripheral vascular disease/end-stage renal disease on dialysis invasive cardiac procedure: Angiogram is not recommended, Medical management Had been asymptomatic, no angina symptoms since admission Stable from cardiac standpoint (2) CAD (coronary artery disease): History of CABG in 1998, multivessel disease -Continue medical management with aspirin, statin, carvedilol, Imdur (3) ESRD (end stage renal disease) on dialysis: HD scheduled for MWF. Atrial for dialysis tomorrow -Follows with Dr. Truong -Continue renal diet, ProRenal MV, Phos binders -Routine nephro consult for HD (4) Pressure ulcer of left heel, stage 3: Follows with wound care, ID, has osteomyelitis in L foot. -Wound nurse consulted for L foot wound, buttocks -Continue Doxycycline (5) Peripheral vascular disease: H/o angioplasty to the left superficial femoral artery, posterior tibial artery, and left anterior tibial artery performed at [facility] by Dr De in April 2018 -Continue aspirin, statin (6) HTN (hypertension): Continue Coreg (7) Anemia of renal disease: At baseline with hgb ~ 11 (8) Dyslipidemia: Continue statin (9) H/O: stroke with residual effects: Residual left sided weakness -Continue aspirin, statin (10) Hx of subdural hematoma: 2/2 Fall in 2015 (11) Depression: Continue SSRI DVT Ppx: SQ heparin Q12H Code status: FULL per discussion with patient, daughter (POA) Disposition: Discussed with patient's , at baseline patient is wheelchair bound, able to do transfer with 1 person assist,() Patient appears to be back to her baseline, has been out of bed Discharge home tomorrow , home with , Subjective had dialysis today , no complain of chest pain , no SOB tolerated dialysis treatment well very emotional when I saw her , complains of constipation -crying that at home she gets diarrhea /now had not been able to move her bowel also feels like she wants to urinate and can not Pt's present at bedside spoke with nursing , pt had soft /loose bowel movement this AM on bedpan right now Physical Exam Constitutional: + ill appearing (Chronically ill in appearance, frail, cachectic) Eyes: PERRL, conjunctivae normal, anicteric sclerae ENMT: external ear and nose normal, oropharynx normal Neck: trachea midline, no thyromegaly Respiratory: normal respiratory effort, lungs clear to auscultation Cardiovascular: Rate/Rhythm: regular rate and regular rhythm Heart Sounds: no murmur Vessels: no JVD Extremities: no edema Gastrointestinal (Abdomen): Inspection/Auscultation: normal bowel sounds Percussion/Palpation: abdomen soft; abdomen nontender Neurologic: PERRL, EOMI, accommodation nl, no face palsy, no dysarthria Psychiatric: A+Ox3, euthymic affect Results & Data Vital Signs (Past 12 Hours) Vital Signs Temp Pulse Pulse Resp BP BP Pulse Ox 11/14/18 15:10 36.8 C 64 15 128/58 L 99 11/14/18 13:20 36.4 C L 59 L 59 L 115/57 L 115/57 L 11/14/18 13:00 60 77/39 L 11/14/18 12:40 60 90/44 L 11/14/18 12:20 57 L 95/46 L 11/14/18 12:00 57 L 72/31 L 11/14/18 11:40 61 98/51 L 11/14/18 11:20 61 82/38 L 11/14/18 11:00 65 88/47 L 11/14/18 10:40 64 92/52 L 11/14/18 10:20 65 97/50 L 11/14/18 10:00 63 114/55 L 11/14/18 09:46 37.2 C 64 65 136/66 11/14/18 07:07 36.4 C L 63 16 155/60 H 97
[2018-11-14] MEDS ORDERED: POLYETHYLENE (MIRALAX) 17 GM PACK PO ONE (18:38)
[2018-11-14] MEDS: TAMSULOSIN HCL 0.4 MG CAP PO SCH (21:17)
[2018-11-14] MEDS: ESCITALOPRAM OXALATE 20 MG TAB PO SCH (21:18)
[2018-11-14] MEDS: LORATADINE 10 MG TAB PO SCH (21:19)
[2018-11-14] MEDS: ATORVASTATIN 40 MG TAB PO SCH (21:19)
[2018-11-15] MEDS ORDERED: cloNIDine HCl 0.1 MG TAB PO ONE (04:17)
[2018-11-15] MEDS: CALCIUM ACETATE 667 MG CAP PO SCH (08:19)
[2018-11-15] MEDS: ISOSORBIDE MONO EXTENDED REL 60 MG TABCR PO SCH (08:19)
[2018-11-15] MEDS: CYANOCOBALAMIN 500 MCG TABLET (VITAMIN B-12) PO SCH (08:19)
[2018-11-15] MEDS: DOXYCYCLINE HYCLATE 100 MG CAP PO SCH (08:20)
[2018-11-15] MEDS: PANTOprazole 40 MG TAB PO SCH (08:20)
[2018-11-15] MEDS: ASPIRIN 81 MG ECTAB PO SCH (08:20)
[2018-11-15] MEDS: CARVEDILOL 25 MG TAB PO SCH (08:20)
[2018-11-15] MEDS: LORazepam 0.5 MG TAB SL SCH (08:24)
[2018-11-15] MEDS: HEPARIN SOD 5,000 UNIT/0.5 ML VIAL SQ SCH (10:46)
--- NOTE | 2018-11-15 11:48 | Discharge Summary ---
Date of Service November 15, 2018 Admission HPI Per Admitting Provider This is a 78yo F with a PMH of CAD (s/p CABG in ), ESRD on HD, DM II, h/o traumatic subdural hematoma in 2015, h/o ischemic CVA in Jun 2018, PVD (s/p angioplasty to the LLE in ), HTN, HLD, L foot wound and other medical problems listed below who presents with chest pain starting this morning. Patient was seen in the ED last night for abdominal discomfort and received an enema and had bowel movement. Also vomited several times. Was discharged home at 0230. Woke up a few hours later with left sided chest pain around 0730 with associated nausea, vomiting and shortness of breath. Took 1 sublingual nitrogl ycerin at home and then received nitro spray and full dose aspirin from EMS in route to ED. By time of arrival, chest pain had completely subsided and patient was feeling well. Denies any lightheadedness, headache, palpitations, SOB, nausea, vomiting, abdominal pain, dysuria, diarrhea or LE swelling. In ED, found to have mild hypertension. EKG revealed normal sinus rhythm with left bundle branch block. First appeared to be a new LBBB per chart review, but recent EKG performed at [facility] revealed intraventricular conduction delay. Troponin is elevated at 1.38. History of CAD includes CABG x 4 in 1998 and another cardiac cath performed at [facility] in 2016 with diffuse disease. Follows with Dr. Kaminski of cardiology. Also follows with Dr. Crisostomo for kidney disease and receives dialysis MWF. Is due for dialysis today. Principal Diagnosis NSTEMI Discharge Exam Constitutional + ill appearing (Chronically ill in appearance, frail, cachectic) Eyes PERRL, conjunctivae normal, anicteric sclerae ENMT external ear and nose normal, oropharynx normal Neck trachea midline, no thyromegaly Respiratory normal respiratory effort, lungs clear to auscultation Cardiovascular Rate/Rhythm: regular rate and regular rhythm Heart Sounds: no murmur Vessels: no JVD Extremities: no edema Gastrointestinal (Abdomen) Inspection/Auscultation: normal bowel sounds Percussion/Palpation: abdomen soft; abdomen nontender Neurologic PERRL, EOMI, accommodation nl, no face palsy, no dysarthria Psychiatric A+Ox3, euthymic affect Discharge Data Allergies Allergy/AdvReac Type Severity Reaction Status Date / Time tramadol Allergy Intermediate neuro Verified 11/11/18 10:08 complications bee venom protein (honey bee) Allergy Unknown ANAPHYLAXIS Verified 11/11/18 10:08 erythromycin base Allergy Unknown reaction Verified 11/11/18 10:08 unknown hydromorphone Allergy Unknown hard to Verified 11/11/18 10:08 wake up Iodinated Contrast- Oral and Allergy Unknown ITCHY/HIVES Verified 11/11/18 10:08 IV Dye morphine Allergy Unknown hives/rash Verified 11/11/18 10:08 Penicillins Allergy Unknown HIVES Verified 11/11/18 10:08 oxycodone AdvReac Mild CAUSES Verified 11/11/18 10:08 ITCHING amlodipine AdvReac Unknown DIZZY, GI Verified 11/11/18 10:08 UPSET codeine AdvReac Unknown HALLUCINATE Verified 11/11/18 10:08 S diphenhydramine AdvReac Unknown SEE BELOW Verified 11/11/18 10:08 ibuprofen AdvReac Unknown SEE BELOW Verified 11/11/18 10:08 naproxen AdvReac Unknown SEE BELOW Verified 11/11/18 10:08 neomycin AdvReac Unknown vomit Verified 11/11/18 10:08 Consultations 11/11/18 10:37 ED Decision to Admit Stat 11/11/18 11:03 Consult Cardiology Routine 11/11/18 12:23 Consult Nephrology Routine 11/11/18 12:28 Consult Case Management - Discharge Planning Routine Hospital Course (1) NSTEMI (non-ST elevated myocardial infarction): This is a 78yo F with a PMH of CAD (s/p CABG in ), ischemic cardiomyopathy with EF: 45%, ESRD on HD, DM II, h/o traumatic subdural hematoma in 2015, h/o ischemic CVA in Jun 2018, PVD (s/p angioplasty to the LLE in ), HTN, HLD, L foot wound and other medical problems listed below who presents with chest pain Has been asymptomatic since admission - -Initial troponin elevation of 1.38, serial levels showed peak elevation to 11, trended down to 9 Appreciate input from cardiology, given patient's multiple comorbidities /peripheral vascular disease/end-stage renal disease on dialysis invasive cardiac procedure: Angiogram is not recommended, Medical management Had been asymptomatic, no angina symptoms since admission Stable from cardiac standpoint (2) CAD (coronary artery disease): History of CABG in 1998, multivessel disease -Continue medical management with aspirin, statin, carvedilol, Imdur (3) ESRD (end stage renal disease) on dialysis: HD scheduled for MWF. Atrial for dialysis tomorrow -Follows with Dr. Truong -Continue renal diet, ProRenal MV, Phos binders -Routine nephro consult for HD (4) Pressure ulcer of left heel, stage 3: Follows with wound care, ID, has osteomyelitis in L foot. -Wound nurse consulted for L foot wound, buttocks -Continue Doxycycline pt will continue to follow up at the Wound clinic (5) Peripheral vascular disease: H/o angioplasty to the left superficial femoral artery, posterior tibial artery, and left anterior tibial artery performed at [facility] by Dr De in April 2018 -Continue aspirin, statin (6) HTN (hypertension): Continue Coreg (7) Anemia of renal disease: At baseline with hgb ~ 11 (8) Dyslipidemia: Continue statin (9) H/O: stroke with residual effects: Residual left sided weakness -Continue aspirin, statin (10) Hx of subdural hematoma: 2/2 Fall in 2015 (11) Depression: Continue SSRI DVT Ppx: SQ heparin Q12H Code status: FULL per discussion with patient, daughter (POA) Disposition: stable to discharge home today with home health Total Time Total Time Spent Total Time Spent (In Minutes): approx 45 mins Total Time Includes: Examination of the Patient, Discharge Planning and Medication Reconciliation Discharge Plan Discharge Items Patient Disposition: Home - Self-Care Reason For Visit: NSTEMI Discharge Diagnosis: NSTEMI Discharge Goals: Decrease discomfort and Therapeutic intervention Activity: Resume your previous activity Non-emergency contact: Primary Care Provider Call non-emergency contact if: you have any medication questions Follow-up/Referrals: Concha Espana DO [Primary Care Provider] - 11/22/18 1:15 pm Diet: Dialysis Renal Addtl Provider Instructions: HOSPITAL FOLLOW UP WITH DR TIMOTHY ESPANA Prescriptions: Continued acetaminophen 500 mg capsule 500 mg PO Q6H PRN (Reason: pain) RF: 0 aspirin 81 mg tablet,delayed release (DR/EC) 81 mg PO QAM RF: 0 atorvastatin [Lipitor] 80 mg tablet 80 mg PO HS RF: 0 carvedilol 25 mg tablet 25 mg PO BID RF: 0 cyanocobalamin (vitamin B-12) 1,000 mcg capsule 500 mcg PO QAM RF: 0 docusate sodium 100 mg capsule 100 mg PO DAILY RF: 0 epinephrine 0.3 mg/0.3 mL auto-injector 0.3 mg IM Q10M PRN (Reason: Allergic Reaction) RF: 0 escitalopram oxalate 20 mg tablet 20 mg PO HS RF: 0 hydrocortisone [Anti-Itch (HC)] 1 % cream 1 appln TOP DAILY PRN (Reason: Itching) RF: 0 lorazepam 0.5 mg tablet 0.25 mg sublingual AMHS RF: 0 melatonin 3 mg tablet 3 mg PO HS RF: 0 omeprazole 20 mg capsule,delayed release(DR/EC) 40 mg PO QAM RF: 0 ondansetron HCl 4 mg tablet 4 mg PO Q6H PRN (Reason: Nausea) RF: 0 tamsulosin 0.4 mg capsule 0.4 mg PO HS RF: 0 doxycycline hyclate 100 mg tablet 100 mg PO bid Qty: 28 RF: 0 loratadine 10 mg capsule 10 mg PO HS RF: 0 isosorbide mononitrate 60 mg tablet extended release 24 hr 60 mg PO QAM RF: 0 nitroglycerin [Nitrostat] 0.4 mg Tablet, Sublingual 0.4 mg sublingual UD RF: 0 ProRenal 8 mg iron-800 mcg-1,000 unit tablet 1 tab PO HS RF: 0 meclizine 25 mg Tablet 25 mg PO TID PRN (Reason: Vertigo) RF: 0 calcium acetate 667 mg capsule 2 cap PO DAILY RF: 0 Stand-Alone Forms: Call Back Authorization, [facility] Discharge Orders: Discharge Order (Routine); Ordered 11/15/18 Ordered By: Olena Mcwilliams Admission Data Admit Date/Time: 11/11/18 12:24 Attending Provider: Olena Mcwilliams Admit Provider: Merlyn Garcia Primary Care Provider: Concha Espana Other Providers: Abhilash Kaminski ; Huey Fonseca ; Merlyn Garcia ; Demetra Truong Service: Telemetry Other Interventions: Discharge Summary Assessment (RN) Last Done: 11/15/18 10:18 DC Date/Time DO NOT enter until pt leaves facility: 11/15/18 11:00
--- NOTE | 2018-12-03 06:57 | Coding Query ---
CODING QUERY To promote full compliance with coding requirements relating to patient care, provider participation is requested in all cases of label coder uncertainty. Please assist us with the question(s) below: Coding Question(s): Patient admitted with chest pain. Initial troponin elevated up 1.38 to 11, downtrending to 9 . Patient asymptomatic since admission. Cardiology progress note 11/11 "pt likely had NSTEMI due to myocardial stress". DS - "first ekg appeared LBBB, recent EKG showed conduction delay". 11/14 Cardiology progress note stated "microinfarct". Please check the phrase below that describes the diagnosis/etiology of patients' chest pain. Thanks for your help! Foster SherwoodROAD [facility] Physician's Response(s): ___x____ Patient had demand ischemia with myocardial infarction (NSTEMI) Patient had NSTEMI in absence of demand ischemia Cannot clinically correlate if the patient had NSTEMI with or w/o demand ischemia Other: Please document: Principal Diagnosis: "that condition established after study, to be chiefly responsible for occasioning the admission of the patient to the hospital for care." Co-Existing Principal Diagnosis: "when two or more diagnoses equally meet the criteria for principal diagnosis as determined by the circumstances of admission, diagnostic work up, and/or therapy provided, and the Alphabetic Index, Tabular List, or another coding guideline does not provide sequencing direction, any one of the diagnoses may be sequenced first." "When the physician has documented what appears to be a current diagnosis in the body of the record, but has not included the diagnosis in the final diagnostic statement, the physician should be asked whether the diagnosis should be added." ([facility] 2 QTR90. p3-4) TONJA
== END 2018-11-15 11:00 | disposition home or self-care (01) | DRG 280 ==
LOC: ED 08:55 → 2E 12:24